=== PATIENT | female | born 1960 | race Caucasian/White ===

== ENCOUNTER 2020-01-07 14:04 | Emergency (ER) | payer OTHER ==
--- NOTE | 2020-01-07 14:25 | ER ---
Nurse's Notes [facility] Name: Sachin Vasquez Age: 59 yrs Sex: Female : 1960 Arrival Date: 01/07/2020 Time: 14:06 Bed Waiting Private MD: Eduardo Chávez Diagnosis: Presentation: 01/06 14:13 Chief complaint: Patient states: Weakness,Headache x 2 days, BP today 220/122. Pt ks7 denies dizziness, nausea. Coronavirus screen: Client denies travel out of the [place] in the last 14 days. At this time, the client does not indicate any symptoms associated with coronavirus-19. 14:13 Method Of Arrival: Ambulatory ks7 14:22 Note During triage pt BP 147/70. Pt decided she will just go home and monitor BP. Will ks7 come back if she has a XAVIER and BP elevated. Discussed risk of stroke if not being seen. PT acknowledged risk. Decided to go home. Left W/O Being seen. Vital Signs: 14:13 BP 146 / 76; Pulse 80; Resp 18; Temp 98.4(TE); Pulse Ox 100% on R/A; Pain 1/10; ks7 ED Course: 14:06 Patient arrived in ED. ag5 14:06 Eduardo Chávez MD is Private Physician. ag5 Administered Medications: No medications were administered Outcome: 14:25 Patient left the ED. ks7 Signatures: Padmini Wren ag5 Chery Pimentel, RN RN ks7
[2020-01-07 14:28] VITALS: BP 146/76; TEMP 98.4; O2SAT 100
== END 2020-01-07 14:25 | disposition left against medical advice (07) ==
LOC: ER 14:04
DX: Z02.9 Encounter for administrative examinations, unspecified (principal)
CPT/HCPCS: 99281

== ENCOUNTER 2022-01-22 02:10 | Emergency (ER) | payer BC, OTHER ==
--- OUTSIDE RECORDS SUMMARY | 2022-01-22 02:26 | XMS REPORT | Continuity of Care Document ---
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 Tablet by [facility] 25 MG 00:00: mouth 3 of tablet 00 times Medicin daily e (with meals). acarbose 2020-05 Yes [id number] 25mg Take 1 [facility] (PRECOSE) 0-21 Tablet by [facility] 25 MG 00:00: mouth 3 of tablet 00 times Medicin daily e (with meals). albuterol 0 Yes [place] [address] ([address] [place] [address]) 00:00: of mcg/act 00 Medicin inhaler e Pseudoeph-B 2020-0 Yes [facility] yvonnephen-DM 02-23 [place] 00:00: of MG/5ML SYRP 00 Medicin e albuterol 0 Yes [place] [address] ([address] [place] [address]) 00:00: of mcg/act 00 Medicin inhaler e Pseudoeph-B 2020-0 Yes [facility] yvonnephen-DM 02-23 [place] 00:00: of MG/5ML SYRP 00 Medicin e albuterol 2020-0 Yes [place] [address] ([address] [place] [address]) 00:00: of mcg/act 00 Medicin inhaler e Pseudoeph-B 2020-0 Yes [facility] romphen-DM 02-23 [place] 00:00: of MG/5ML SYRP 00 Medicin e albuterol 2020-0 Yes [place] [address] ([address] [place] [address]) 00:00: of mcg/act 00 Medicin inhaler e Pseudoeph-B 2020-0 Yes [facility] romphen-DM 02-23 [place] 00:00: of MG/5ML SYRP 00 Medicin e albuterol 2020-0 Yes [place] [address] ([address] [place] [address]) 00:00: of mcg/act 00 Medicin inhaler e Pseudoeph-B 2020-0 Yes [facility] romphen-DM 02-23 [place] 00:00: of MG/5ML SYRP 00 Medicin e albuterol 2020-0 Yes [facility] 108 ( 02-23 [facility]) 00:00: of mcg/act 00 Medicin inhaler e Pseudoeph-B 0 Yes [facility] romphen-DM 02-23 [place] 00:00: of MG/5ML SYRP 00 Medicin e albuterol 0 2021- No [facility] 108 ( 02-23 [facility]) 00:00: 00:00 of mcg/act 00 :00 Medicin inhaler e Pseudoeph-B 2020-2021- No [facility] romphen-DM 02-23 [place] 00:00: 00:00 of MG/5ML SYRP 00 :00 Medicin e albuterol 0 2021- No [facility] 108 ( 02-23 [facility]) 00:00: 00:00 of mcg/act 00 :00 Medicin inhaler e Pseudoeph-B 2020-0 2021- No [facility] romphen-DM 02-23 [place] 00:00: 00:00 of MG/5ML SYRP 00 :00 Medicin e celecoxib 2020-0 Yes [id number] 200mg Take 1 [facility] (CELEBREX) 9-20 capsule by [facility] 200 MG 00:00: mouth of capsule 00 daily. Medicin e celecoxib 2020-0 Yes [id number] 200mg Take 1 [facility] (CELEBREX) 9-20 capsule by [facility] 200 MG 00:00: mouth of capsule 00 daily. Medicin e celecoxib 2020-0 Yes [id number] 200mg Take 1 [facility] (CELEBREX) 9-20 capsule by [facility] 200 MG 00:00: mouth of capsule 00 daily. Medicin e celecoxib 2020-0 Yes [id number] 200mg Take 1 [facility] (CELEBREX) 9-20 capsule by [facility] 200 MG 00:00: mouth of capsule 00 daily. Medicin e celecoxib 2020-0 Yes [id number] 200mg Take 1 [facility] (CELEBREX) 9-20 capsule by [facility] 200 MG 00:00: mouth of capsule 00 daily. Medicin e celecoxib 2020-0 Yes [id number] 200mg Take 1 [facility] (CELEBREX) 9-20 capsule by [facility] 200 MG 00:00: mouth of capsule 00 daily. Medicin e celecoxib 2020-0 2- No [id number] 200mg Take 1 [facility] (CELEBREX) 9-20 05-25 capsule by [facility] 200 MG 00:00: 00:00 mouth of capsule 00 :00 daily. Medicin e celecoxib 2020-0 2- No [id number] 200mg Take 1 [facility] (CELEBREX) 9-20 05-25 capsule by [facility] 200 MG 00:00: 00:00 mouth of capsule 00 :00 daily. Medicin e levothyroxi 2020-0 Yes [id number] TAKE 1 [facility] ne 9-17 TABLET BY [place] (SYNTHROID) 00:00: MOUTH of 200 MCG 00 EVERY Medicin tablet DAY..PATIE e NT DUE FOR LABS AND OFFICE VISIT levothyroxi 2020-0 Yes [id number] TAKE 1 [facility] ne 9-17 TABLET BY [place] (SYNTHROID) 00:00: MOUTH of 200 MCG 00 EVERY Medicin tablet DAY..PATIE e NT DUE FOR LABS AND OFFICE VISIT levothyroxi 2020-0 Yes [id number] TAKE 1 [facility] ne 9-17 TABLET BY [place] (SYNTHROID) 00:00: MOUTH of 200 MCG 00 EVERY Medicin tablet DAY..PATIE e NT DUE FOR LABS AND OFFICE VISIT levothyroxi 2020-0 Yes [id number] TAKE 1 [facility] ne 9-17 TABLET BY [place] (SYNTHROID) 00:00: MOUTH of 200 MCG 00 EVERY Medicin tablet DAY..PATIE e NT DUE FOR LABS AND OFFICE VISIT levothyroxi 2020-0 Yes [id number] TAKE 1 [facility] ne 9-17 TABLET BY [place] (SYNTHROID) 00:00: MOUTH of 200 MCG 00 EVERY Medicin tablet DAY..PATIE e NT DUE FOR LABS AND OFFICE VISIT levothyroxi 2020-0 Yes [id number] TAKE 1 [facility] ne 9-17 TABLET BY [place] (SYNTHROID) 00:00: MOUTH of 200 MCG 00 EVERY Medicin tablet DAY..PATIE e NT DUE FOR LABS AND OFFICE VISIT levothyroxi 2020-0 Yes [id number] TAKE 1 [facility] 9-17 TABLET BY [place] (SYNTHROID) 00:00: MOUTH of 200 MCG 00 EVERY Medicin tablet DAY..PATIE e NT DUE FOR LABS AND OFFICE VISIT levothyroxi 202-0 Yes [id number] TAKE 1 [facility] ne 9-17 TABLET BY [place] (SYNTHROID) 00:00: MOUTH of 200 MCG 00 EVERY Medicin tablet DAY..PATIE e NT DUE FOR LABS AND OFFICE VISIT levothyroxi 202-0 Yes [id number] TAKE 1 [facility] 9-17 TABLET BY [place] (SYNTHROID) 00:00: MOUTH of 200 MCG 00 EVERY Medicin tablet DAY..PATIE e NT DUE FOR LABS AND OFFICE VISIT cyclobenzap 2020-0 Yes [facility] 01-26 [facility]) 00:00: of 5 MG tablet 00 Medicin e cyclobenzap 2020-0 Yes [facility] 01-26 [facility]) 00:00: of 5 MG tablet 00 Medicin e cyclobenzap 2020-0 Yes [facility] 01-26 [facility]) 00:00: of 5 MG tablet 00 Medicin e cyclobenzap 2020-0 Yes [facility] 01-26 [facility]) 00:00: of 5 MG tablet 00 Medicin e cyclobenzap 2020-0 Yes [facility] 01-26 [facility]) 00:00: of 5 MG tablet 00 Medicin e cyclobenzap 2020-0 Yes [facility] 01-26 [facility]) 00:00: of 5 MG tablet 00 Medicin e cyclobenzap 202-0 2022- No [facility] 01-26 [facility]) 00:00: 00:00 of 5 MG tablet 00 :00 Medicin e cyclobenzap 2021-0 2022- No [facility] 01-26 [facility]) 00:00: 00:00 of 5 MG tablet 00 :00 Medicin e Continuous 2020-0 Yes [id number] 1{each} 1 EACH [facility] Blood Gluc 8-31 EVERY 14 [facility] Sensor 00:00: DAYS. of (FREESTYLE 00 Medicin EMANUEL 14 e DAY SENSOR) MISC Continuous 2020-0 Yes [id number] 1{each} 1 EACH [facility] Blood Gluc 8-31 EVERY 14 [facility] Sensor 00:00: DAYS. of (FREESTYLE 00 Medicin EMANUEL 14 e DAY SENSOR) MISC Continuous Yes [id number] 1{each} 1 EACH [facility] Blood Gluc 8-31 EVERY 14 [facility] Sensor 00:00: DAYS. of (FREESTYLE 00 Medicin EMANUEL 14 e DAY SENSOR) MISC Continuous Yes [id number] 1{each} 1 EACH [facility] Blood Gluc 8-31 EVERY 14 [facility] Sensor 00:00: DAYS. of (FREESTYLE 00 Medicin EMANUEL 14 e DAY SENSOR) MISC Continuous Yes [id number] 1{each} 1 EACH [facility] Blood Gluc 8-31 EVERY 14 [facility] Sensor 00:00: DAYS. of (FREESTYLE 00 Medicin EMANUEL 14 e DAY SENSOR) MISC Continuous Yes [id number] 1{each} 1 EACH [facility] Blood Gluc 8-31 EVERY 14 [facility] Sensor 00:00: DAYS. of (FREESTYLE 00 Medicin EMANUEL 14 e DAY SENSOR) MISC Continuous Yes [id number] 1{each} 1 EACH [facility] Blood Gluc 8-31 EVERY 14 [facility] Sensor 00:00: DAYS. of (FREESTYLE 00 Medicin EMANUEL 14 e DAY SENSOR) MISC Continuous Yes [id number] 1{each} 1 EACH [facility] Blood Gluc 8-31 EVERY 14 [facility] Sensor 00:00: DAYS. of (FREESTYLE 00 Medicin EMANUEL 14 e DAY SENSOR) MISC Continuous Yes [id number] 1{each} 1 EACH [facility] Blood Gluc 8-31 EVERY 14 [facility] Sensor 00:00: DAYS. of (FREESTYLE 00 Medicin EMANUEL 14 e DAY SENSOR) MISC ibuprofen Yes [id number] 800mg TAKE 1 [facility] (MOTRIN) 8-23 9107 TABLET [facility] 800 mg 00:00: MOUTH of tablet 00 EVERY 8 Medicin HOURS e NEEDED FOR PAIN ibuprofen Yes [id number] 800mg TAKE 1 [facility] (MOTRIN) 8-23 9107 TABLET BY [facility] 800 mg 00:00: MOUTH of tablet 00 EVERY 8 Medicin HOURS e NEEDED FOR PAIN ibuprofen Yes [id number] 800mg TAKE 1 [facility] (MOTRIN) 8-23 9107 TABLET BY [facility] 800 mg 00:00: MOUTH of tablet 00 EVERY 8 Medicin HOURS e NEEDED FOR PAIN ibuprofen 2020-0 Yes [id number] 800mg TAKE 1 [facility] (MOTRIN) 8-23 9107 TABLET BY [facility] 800 mg 00:00: MOUTH of tablet 00 EVERY 8 Medicin HOURS e NEEDED FOR PAIN ibuprofen 2020-0 Yes [id number] 800mg TAKE 1 [facility] (MOTRIN) 8 9107 TABLET BY [facility] 800 mg 00:00: MOUTH of tablet 00 EVERY 8 Medicin HOURS e NEEDED FOR PAIN ibuprofen 2020-0 Yes [id number] 800mg TAKE 1 [facility] (MOTRIN) 8- 9107 TABLET BY [facility] 800 mg 00:00: MOUTH of tablet 00 EVERY 8 Medicin HOURS e NEEDED FOR PAIN ibuprofen 2020-0 Yes [id number] 800mg TAKE 1 [facility] (MOTRIN) 8- 9107 TABLET BY [facility] 800 mg 00:00: MOUTH of tablet 00 EVERY 8 Medicin HOURS e NEEDED FOR PAIN ibuprofen 2020-0 Yes [id number] 800mg TAKE 1 [facility] (MOTRIN) 8 9107 TABLET BY [facility] 800 mg 00:00: MOUTH of tablet 00 EVERY 8 Medicin HOURS e NEEDED FOR PAIN ibuprofen 2020-0 Yes [id number] 800mg TAKE 1 [facility] (MOTRIN) 8- 9107 TABLET BY [facility] 800 mg 00:00: MOUTH of tablet 00 EVERY 8 Medicin HOURS e NEEDED FOR PAIN Ergocalcife 2020-0 Yes TAKE 1 [facility] 1.25 MG 8-06 CAPSULE BY [facility] ([id number] [facility]) 00:00: MOUTH of CAPS 00 MONTHLY Medicin e Levocetiriz 2020-0 Yes [facility] renee 8-06 [facility] 00:00: of ride 5 MG 00 Medicin TABS e Ergocalcife 2020-0 Yes TAKE 1 [facility] 1.25 MG 8-06 CAPSULE BY [facility]jared ([id number] [place]) 00:00: MOUTH of CAPS 00 MONTHLY Medicin e Levocetiriz 2020-0 Yes [facility] 8-06 [facility] 00:00: of ride 5 MG 00 Medicin TABS e Ergocalcife 2020-0 Yes TAKE 1 [facility] 1.25 MG 8-06 CAPSULE [facility] ([id number] [facility]) 00:00: MOUTH of CAPS 00 MONTHLY Medicin e Levocetiriz 2021-0 Yes [facility] 8-06 [facility] 00:00: of ride 5 MG 00 Medicin TABS e Ergocalcife 2021-0 Yes TAKE 1 [facility] 1.25 MG 8-06 CAPSULE [facility] ([id number] [facility]) 00:00: MOUTH of CAPS 00 MONTHLY Medicin e Levocetiriz 2021-0 Yes [facility] 8-06 [facility] 00:00: of ride 5 MG 00 Medicin TABS e Ergocalcife 2021-0 Yes TAKE 1 [facility] 1.25 MG 8-06 CAPSULE BY [facility] ([id number] [facility]) 00:00: MOUTH of CAPS 00 MONTHLY Medicin e Levocetiriz 2021-0 Yes [facility] 8-06 [facility] 00:00: of ride 5 MG 00 Medicin TABS e Ergocalcife 2021-0 Yes TAKE 1 [facility] 1.25 MG 8-06 CAPSULE BY [facility] ([id number] [facility]) 00:00: MOUTH of CAPS 00 MONTHLY Medicin e Levocetiriz 1-0 Yes [facility] 8-06 [facility] 00:00: of ride 5 MG 00 Medicin TABS e Ergocalcife 2021-0 Yes TAKE 1 [facility] 1.25 MG 8-06 CAPSULE BY [facility] ([id number] [facility]) 00:00: MOUTH of CAPS 00 MONTHLY Medicin e Ergocalcife 2021-0 Yes TAKE 1 [facility] 1.25 MG 8-06 CAPSULE BY [facility] ([id number] [facility]) 00:00: MOUTH of CAPS 00 MONTHLY Medicin e Ergocalcife 1-0 Yes TAKE 1 [facility] 1.25 MG 8-06 CAPSULE BY [facility] ([id number] [facility]) 00:00: MOUTH of CAPS 00 MONTHLY Medicin e Levocetiriz 2021-0 2- No [facility] 8-06 0525 [facility] 00:00: 00:00 of ride 5 MG 00 :00 Medicin TABS e Levocetiriz 2021-0 2- No [facility] 8-06 05-25 [facility] 00:00: 00:00 of ride 5 MG 00 :00 Medicin TABS e valsartan Yes TAKE 1 [facility] (DIOVAN) 7-23 TABLET [facility] 320 MG 00:00: MOUTH of tablet 00 EVERY DAY Medicin e valsartan Yes TAKE 1 [facility] (DIOVAN) 7-23 TABLET BY [facility] 320 MG 00:00: MOUTH of tablet 00 EVERY DAY Medicin e valsartan Yes TAKE 1 [facility] (DIOVAN) 7-23 TABLET [facility] 320 MG 00:00: MOUTH of tablet 00 EVERY DAY Medicin e valsartan Yes TAKE 1 [facility] (DIOVAN) 7-23 TABLET BY [facility] 320 MG 00:00: MOUTH of tablet 00 EVERY DAY Medicin e valsartan Yes TAKE 1 [facility] (DIOVAN) 7-23 TABLET BY [facility] 320 MG 00:00: MOUTH of tablet 00 EVERY DAY Medicin e valsartan Yes TAKE 1 [facility] (DIOVAN) 7-23 TABLET BY [facility] 320 MG 00:00: MOUTH of tablet 00 EVERY DAY Medicin e valsartan Yes TAKE 1 [facility] (DIOVAN) 7-23 TABLET [facility] 320 MG 00:00: MOUTH of tablet 00 EVERY DAY Medicin e valsartan 0 Yes TAKE 1 [facility] (DIOVAN) 7-23 TABLET BY [facility] 320 MG 00:00: MOUTH of tablet 00 EVERY DAY Medicin e valsartan Yes TAKE 1 [facility] (DIOVAN) 7-23 TABLET [facility] 320 MG 00:00: MOUTH of tablet 00 EVERY DAY Medicin e metformin 0 Yes [id number] 500mg Take 1 [facility] (GLUCOPHAGE 7-20 Tablet by [facility] -XR) 500 MG 00:00: mouth two o f XR tablet 00 times Medicin daily. e Take with food. Empaglifloz Yes [id number] 25mg Take 25 mg [facility] in 7-20 by mouth [place] (JARDIANCE) 00:00: daily. of 25 MG TABS 00 Medicin e metformin 2021-0 Yes [id number] 500mg Take 1 [facility] (GLUCOPHAGE 7-20 Tablet by Col [facility] -XR) 500 MG 00:00: mouth two o f XR tablet 00 times Medicin daily. e Take with food. Empaglifloz 2020-0 Yes [id number] 25mg Take 25 mg [facility] in 7-20 by mouth [place] (JARDIANCE) 00:00: daily. of 25 MG TABS 00 Medicin e metformin 2020-0 Yes [id number] 500mg Take 1 [facility] (GLUCOPHAGE 7-20 Tablet by [facility] -XR) 500 MG 00:00: mouth two o f XR tablet 00 times Medicin daily. e Take with food. Empaglifloz 2020-0 Yes [id number] 25mg Take 25 mg [facility] in 7-20 by mouth [place] ([place]ARDIANCE) 00:00: daily. of 25 MG TABS 00 Medicin e metformin 2020-0 Yes [id number] 500mg Take 1 [facility] (GLUCOPHAGE 7-20 Tablet by [facility] -XR) 500 MG 00:00: mouth two o f XR tablet 00 times Medicin daily. e Take with food. Empaglifloz 2020-0 Yes [id number] 25mg Take 25 mg [facility] in 7-20 by mouth [place] ([place]) 00:00: daily. of 25 MG TABS 00 Medicin e metformin 2020-0 Yes [id number] 500mg Take 1 [facility] (GLUCOPHAGE 7-20 Tablet by [facility] -XR) 500 MG 00:00: mouth two o f XR tablet 00 times Medicin daily. e Take with food. Empaglifloz 2020-0 Yes [id number] 25mg Take 25 mg [facility] in 7-20 by mouth [place] ([place]ANCE) 00:00: daily. of 25 MG TABS 00 Medicin e metformin 2020-0 Yes [id number] 500mg Take 1 [facility] (GLUCOPHAGE 7-20 Tablet by [facility] -XR) 500 MG 00:00: mouth two o f XR tablet 00 times Medicin daily. e Take with food. Empaglifloz 2020-0 Yes [id number] 25mg Take 25 mg [facility] in 7-20 by mouth [place] ([place]) 00:00: daily. of 25 MG TABS 00 Medicin e metformin 2020-0 Yes [id number] 500mg Take 1 [facility] (GLUCOPHAGE 7-20 Tablet by [facility] -XR) 500 MG 00:00: mouth two o f XR tablet 00 times Medicin daily. e Take with food. Empaglifloz 2020-0 Yes [id number] 25mg Take 25 mg [facility] in 7-20 by mouth [facility] ([place]) 00:00: daily. of 25 MG TABS 00 Medicin e metformin 2020-0 Yes [id number] 500mg Take 1 [facility] (GLUCOPHAGE 7-20 Tablet by [facility] -XR) 500 MG 00:00: mouth two o f XR tablet 00 times Medicin daily. e Take with food. Empaglifloz 2020-0 Yes [id number] 25mg Take 25 mg [facility] in 7-20 by mouth [place] ([place]) 00:00: daily. of 25 MG TABS 00 Medicin e metformin 2020-0 Yes [id number] 500mg Take 1 [facility] (GLUCOPHAGE 7-20 Tablet by [facility] -XR) 500 MG 00:00: mouth two o f XR tablet 00 times Medicin daily. e Take with food. Empaglifloz 0 Yes [id number] 25mg Take 25 mg [facility] in 7-20 by mouth [place] ([place]) 00:00: daily. of 25 MG TABS 00 Medicin e celecoxib 2020- Yes [id number] TAKE 1 [facility] (CELEBREX) 12-03 CAPSULE BY [facility] 200 MG 00:00: MOUTH of capsule 00 EVERY DAY Medicin e triamcinolo 2020- No [id number] [facility] 11-[address] [place] [address] 13:45: 13:39 of (KENALOG-40 00 :00 Medicin ) 40 mg/mL e 40 mg, lidocaine 1% (10 mg/mL) 1 mL, bupivacaine (MARCAINE) 0.5 % 1 mL triamcinolo 2020- No [id number] Intra-ta [facility] 13:45: 13:39 ONCE, 1 of (KENALOG-40 00 :00 dose, On Medi shruthi ) 40 mg/mL [place] 11/25/20 e 40 mg, at 0845 lidocaine 1% (10 mg/mL) 1 mL, bupivacaine (MARCAINE) 0.5 % 1 mL [place]-3 Yes Take by [facility] Fatty Acids 11-25 mouth. [facility] (OMEGA 3 08:37: of [place]) 16 Medicin e [place]-3 Yes Take by [facility] Fatty Acids 11-25 mouth. [facility] (OMEGA 3 08:37: of [place]) 16 Medicin e [place]-3 Yes Take by [facility] Fatty Acids 11-25 mouth. [facility] (OMEGA 3 08:37: of [place]) 16 Medicin e ibuprofen 0 Yes [id number] 800mg Take 1 [facility] (MOTRIN) 11-25 9107 Tablet by [facility] 800 mg 00:00: mouth of tablet 00 every 8 Medicin hours as e needed for Pain. ibuprofen Yes [id number] 800mg Take 1 [facility] (MOTRIN) 11-25 9107 Tablet by [facility] 800 mg 00:00: mouth of tablet 00 every 8 Medicin hours as e needed for Pain. levothyroxi 0 Yes [id number] TAKE 1 [facility] ne 6-13 TABLET BY [place] (SYNTHROID) 00:00: MOUTH of 200 MCG 00 EVERY Medicin tablet DAY..PATIE e NT DUE FOR LABS AND OFFICE VISIT levothyroxi 2020-0 Yes [id number] TAKE 1 [facility] ne 6-13 TABLET BY [place] (SYNTHROID) 00:00: MOUTH of 200 MCG 00 EVERY Medicin tablet DAY..PATIE e NT DUE FOR LABS AND OFFICE VISIT levothyroxi 2020-0 Yes [id number] TAKE 1 [facility] ne 6-13 TABLET BY [place] (SYNTHROID) 00:00: MOUTH of 200 MCG 00 EVERY Medicin tablet DAY..PATIE e NT DUE FOR LABS AND OFFICE VISIT levothyroxi 2020-0 Yes [id number] TAKE 1 [facility] ne 6-13 TABLET BY [place] (SYNTHROID) 00:00: MOUTH of 200 MCG 00 EVERY Medicin tablet DAY..PATIE e NT DUE FOR LABS AND OFFICE VISIT levothyroxi 2020-0 Yes [id number] TAKE 1 [facility] ne 6-13 TABLET BY [place] (SYNTHROID) 00:00: MOUTH of 200 MCG 00 EVERY Medicin tablet DAY..PATIE e NT DUE FOR LABS AND OFFICE VISIT celecoxib 2020-0 Yes [id number] TAKE 1 [facility] (CELEBREX) 6-11 CAPSULE BY [facility] 200 MG 00:00: MOUTH of capsule 00 TWICE A Medicin DAY FOR 5 e DAYS POST-OP THEN TAKE 1 [facility]SULE DAILY NEEDED FOR PAIN celecoxib 2020-0 Yes [id number] TAKE 1 [facility] (CELEBREX) 6-11 CAPSULE BY [facility] 200 MG 00:00: MOUTH of capsule 00 TWICE A Medicin DAY FOR 5 e DAYS POST-OP THEN TAKE 1 [facility] DAILY NEEDED FOR PAIN celecoxib 2020-0 Yes [id number] TAKE 1 [facility] (CELEBREX) 6-11 CAPSULE BY [facility] 200 MG 00:00: MOUTH of capsule 00 TWICE A Medicin DAY FOR 5 e DAYS POST-OP THEN TAKE 1 [facility] DAILY NEEDED FOR PAIN celecoxib 2020-0 Yes [id number] TAKE 1 [facility] (CELEBREX) 6-11 CAPSULE BY [facility] 200 MG 00:00: MOUTH of capsule 00 TWICE A Medicin DAY FOR 5 e DAYS POST-OP THEN TAKE 1 [facility] DAILY NEEDED FOR PAIN pravastatin 2020-0 Yes 20mg Take 1 [facility] (PRAVACHOL) 6-01 Tablet by [facility] 20 MG 00:00: mouth of tablet 00 daily. Medicin e pravastatin 2020-0 Yes 20mg Take 1 [facility] (PRAVACHOL) 6-01 Tablet by [facility] 20 MG 00:00: mouth of tablet 00 daily. Medicin e pravastatin 2020-0 Yes 20mg Take 1 [facility] (PRAVACHOL) 6-01 Tablet by [facility] 20 MG 00:00: mouth of tablet 00 daily. Medicin e pravastatin 2020-0 Yes 20mg Take 1 [facility] (PRAVACHOL) 6-01 Tablet by [facility] 20 MG 00:00: mouth of tablet 00 daily. Medicin e pravastatin 2020-0 Yes 20mg Take 1 [facility] (PRAVACHOL) 6-01 Tablet by [facility] 20 MG 00:00: mouth of tablet 00 daily. Medicin e pravastatin 2020-0 Yes 20mg Take 1 [facility] (PRAVACHOL) 6-01 Tablet by [facility] 20 MG 00:00: mouth of tablet 00 daily. Medicin e ibuprofen 2020-0 Yes TAKE 1 [facility] (MOTRIN) 5-31 TABLET BY [facility] 800 mg 00:00: MOUTH of tablet 00 EVERY 8 Medicin HOURS e NEEDED FOR PAIN ibuprofen 0 Yes TAKE 1 [facility] (MOTRIN) 5-31 TABLET BY [place] 800 mg 00:00: MOUTH of tablet 00 EVERY 8 Medicin HOURS e NEEDED FOR PAIN Insulin Yes [id number] 90 units [facility] 5-27 at night [facility] (TRESIBA 00:00: and 30 of FLEXTOUCH) 00 units in Medic in 200 UNIT/ML the e SOPN morning Insulin Yes [id number] 90 units [facility] 5-27 at night [facility] ([place] 00:00: and 30 of FLEXTOUCH) 00 units in Medic in 200 UNIT/ML the e SOPN morning Insulin Yes [id number] 90 units [facility] 5-27 at night [facility] ([facility]A 00:00: and 30 of FLEXTOUCH) 00 units in Medic in 200 UNIT/ML the e SOPN morning Insulin Yes [id number] 90 units [facility] 5-27 at night [facility] ([facility] 00:00: and 30 of FLEXTOUCH) 00 units in Medic in 200 UNIT/ML the e SOPN morning Insulin Yes [id number] 90 units [facility] 5-27 at night [facility] ([facility] 00:00: and 30 of FLEXTOUCH) 00 units in Medic in 200 UNIT/ML the e SOPN morning Insulin Yes [id number] 90 units [facility] 5-27 at night [facility] ([facility] 00:00: and 30 of FLEXTOUCH) 00 units in Medic in 200 UNIT/ML the e SOPN morning Insulin Yes [id number] 90 units [facility] 5-27 at night [facility] ([facility] 00:00: and 30 of FLEXTOUCH) 00 units in Medic in 200 UNIT/ML the e SOPN morning Insulin Yes [id number] 90 units [facility] 5-27 at night [facility] ([facility] 00:00: and 30 of FLEXTOUCH) 00 units in Medic in 200 UNIT/ML the e SOPN morning Insulin Yes [id number] 90 units [facility] 5-27 at night [facility] ([facility] 00:00: and 30 of FLEXTOUCH) 00 units in Medic in 200 UNIT/ML the e SOPN morning Insulin 2020-0 Yes [id number] 90 units [facility] 5-27 at night [facility] ([facility] 00:00: and 30 of FLEXTOUCH) 00 units in Medic in 200 UNIT/ML the e SOPN morning Insulin 2020-0 Yes [id number] 90 units [facility] 5-27 at night [facility] ([facility] 00:00: and 30 of FLEXTOUCH) 00 units in Medic in 200 UNIT/ML the e SOPN morning Insulin 2020-0 Yes [id number] 90 units [facility] 5-27 at night [facility] ([facility] 00:00: and 30 of FLEXTOUCH) 00 units in Medic in 200 UNIT/ML the e SOPN morning Insulin 2020-0 Yes [id number] 90 units [facility] 5-27 at night [facility] ([facility] 00:00: and 30 of FLEXTOUCH) 00 units in Medic in 200 UNIT/ML the e SOPN morning Insulin 2020-0 Yes [id number] 90 units [facility] 5-27 at night [facility] ([facility] 00:00: and 30 of FLEXTOUCH) 00 units in Medic in 200 UNIT/ML the e SOPN morning Insulin 2020-0 Yes [id number] 90 units [facility] 5-27 at night [facility] ([place] 00:00: and 30 of FLEXTOUCH) 00 units in Medic in 200 UNIT/ML the e SOPN morning Empaglifloz 2020-0 Yes [id number] 10mg Take 10 mg [facility] in 5-17 by mouth [place] ([place]) 00:00: daily. of 10 MG TABS 00 Medicin e metformin 2020-0 Yes [id number] 500mg Take 1 [facility] (GLUCOPHAGE 5-17 Tablet by [facility] -XR) 500 MG 00:00: mouth of XR tablet 00 daily. Medicin Take with e food. Empaglifloz 2020-0 Yes [id number] 10mg Take 10 mg [facility] in 5-17 by mouth [place] ([place]) 00:00: daily. of 10 MG TABS 00 Medicin e metformin 2021-0 Yes [id number] 500mg Take 1 [facility] (GLUCOPHAGE 5-17 Tablet by Col [facility] -XR) 500 MG 00:00: mouth of XR tablet 00 daily. Medicin Take with e food. Empaglifloz 2020-0 Yes [id number] 10mg Take 10 mg [facility] in 5-17 by mouth [facility] ([facility]) 00:00: daily. of 10 MG TABS 00 Medicin e metformin 2020-0 Yes [id number] 500mg Take 1 [facility] (GLUCOPHAGE 5-17 Tablet by [facility] -XR) 500 MG 00:00: mouth of XR tablet 00 daily. Medicin Take with e food. Empaglifloz 2020-0 Yes [id number] 10mg Take 10 mg [facility] in 5-17 by mouth [facility] ([place]) 00:00: daily. of 10 MG TABS 00 Medicin e metformin 2020-0 Yes [id number] 500mg Take 1 [facility] (GLUCOPHAGE 5-17 Tablet by [facility] -XR) 500 MG 00:00: mouth of XR tablet 00 daily. Medicin Take with e food. Empaglifloz 2020-0 Yes [id number] 10mg Take 10 mg [facility] in 5-17 by mouth [facility] ([place]) 00:00: daily. of 10 MG TABS 00 Medicin e metformin 2020-0 Yes [id number] 500mg Take 1 [facility] (GLUCOPHAGE 5-17 Tablet by [facility] -XR) 500 MG 00:00: mouth of XR tablet 00 daily. Medicin Take with e food. Empaglifloz 2020-0 Yes [id number] 10mg Take 10 mg [facility] in 5-17 by mouth [facility] ([place]) 00:00: daily. of 10 MG TABS 00 Medicin e metformin 2020-0 Yes [id number] 500mg Take 1 [facility] (GLUCOPHAGE 5-17 Tablet by [facility] -XR) 500 MG 00:00: mouth of XR tablet 00 daily. Medicin Take with e food. Empaglifloz 2020-0 Yes [id number] 10mg Take 10 mg [facility] in 5-17 by mouth [facility] ([place]) 00:00: daily. of 10 MG TABS 00 Medicin e metformin 2020-0 Yes [id number] 500mg Take 1 [facility] (GLUCOPHAGE 5-17 Tablet by [facility] -XR) 500 MG 00:00: mouth of XR tablet 00 daily. Medicin Take with e food. Empaglifloz 2020-0 Yes [id number] 10mg Take 10 mg [facility] in 5-17 by mouth [place] ([place]) 00:00: daily. of 10 MG TABS 00 Medicin e metformin 2020-0 Yes [id number] 500mg Take 1 [facility] (GLUCOPHAGE 5-17 Tablet by [facility] -XR) 500 MG 00:00: mouth of XR tablet 00 daily. Medicin Take with e food. cyclobenzap 2020-0 Yes [id number] 5mg Take 1 [facility] rine 5-04 Tablet by [place] (FLEXERIL) 00:00: mouth 3 of 5 MG tablet 00 times Medicin daily as e needed. celecoxib 2020-0 Yes [id number] 200mg Take 1 [facility] (CELEBREX) 5-04 capsule by [facility] 200 MG 00:00: mouth of capsule 00 daily. Medicin e hydrocodone 2020-0 Yes [id number] 1{tbl} Take 1 [facility] -acetaminop 5-04 Tablet by [facility] (NORCO) 00:00: mouth of 5-325 mg 00 every 4 Medicin tablet hours as e needed for Pain. cyclobenzap 2020-0 Yes [id number] 5mg Take 1 [facility] rine 5-04 Tablet by [place] (FLEXERIL) 00:00: mouth 3 of 5 MG tablet 00 times Medicin daily as e needed. celecoxib 2020-0 Yes [id number] 200mg Take 1 [facility] (CELEBREX) 5-04 capsule by [facility] 200 MG 00:00: mouth of capsule 00 daily. Medicin e hydrocodone 2020-0 Yes [id number] 1{tbl} Take 1 [facility] -acetaminop 5-04 Tablet by [facility] (NORCO) 00:00: mouth of 5-325 mg 00 every 4 Medicin tablet hours as e needed for Pain. cyclobenzap 2020-0 Yes [id number] 5mg Take 1 [facility] rine 5-04 Tablet by [place] (FLEXERIL) 00:00: mouth 3 of 5 MG tablet 00 times Medicin daily as e needed. celecoxib 2020-0 Yes [id number] 200mg Take 1 [facility] (CELEBREX) 5-04 capsule by [facility] 200 MG 00:00: mouth of capsule 00 daily. Medicin e hydrocodone 2020-0 Yes [id number] 1{tbl} Take 1 [facility] -acetaminop 5-04 Tablet by [facility] (NORCO) 00:00: mouth of 5-325 mg 00 every 4 Medicin tablet hours as e needed for Pain. cyclobenzap 2020-0 Yes [id number] 5mg Take 1 [facility] rine 5-04 Tablet by [place] ([facility]) 00:00: mouth 3 of 5 MG tablet 00 times Medicin daily as e needed. celecoxib 2020-0 Yes [id number] 200mg Take 1 [facility] (CELEBREX) 5-04 capsule by [facility] 200 MG 00:00: mouth of capsule 00 daily. Medicin e hydrocodone 2020-0 Yes [id number] 1{tbl} Take 1 [facility] -acetaminop 5-04 Tablet by [facility] ([employer]) 00:00: mouth of 5-325 mg 00 every 4 Medicin tablet hours as e needed for Pain. cyclobenzap 2020-0 Yes [id number] 5mg Take 1 [facility] rine 5-04 Tablet by [place] ([facility]) 00:00: mouth 3 of 5 MG tablet 00 times Medicin daily as e needed. hydrocodone 2020-0 Yes [id number] 1{tbl} Take 1 [facility] -acetaminop 5-04 Tablet by [facility] ([employer]) 00:00: mouth of 5-325 mg 00 every 4 Medicin tablet hours as e needed for Pain. cyclobenzap 2020-0 Yes [id number] 5mg Take 1 [facility] rine 5-04 Tablet by [place] ([facility]) 00:00: mouth 3 of 5 MG tablet 00 times Medicin daily as e needed. hydrocodone 2020-0 Yes [id number] 1{tbl} Take 1 [facility] -acetaminop 5-04 Tablet by [facility] ([facility]) 00:00: mouth of 5-325 mg 00 every 4 Medicin tablet hours as e needed for Pain. cyclobenzap 2020-0 Yes [id number] 5mg Take 1 [facility] rine 5-04 Tablet by [place] ([facility]) 00:00: mouth 3 of 5 MG tablet 00 times Medicin daily as e needed. hydrocodone 2020-0 Yes [id number] 1{tbl} Take 1 [facility] -acetaminop 5-04 Tablet by [facility] (NORCO) 00:00: mouth of 5-325 mg 00 every 4 Medicin tablet hours as e needed for Pain. cyclobenzap 2020-0 Yes [id number] 5mg Take 1 [facility] rine 5-04 Tablet by [place] (FLEXERI) 00:00: mouth 3 of 5 MG tablet 00 times Medicin daily as e needed. hydrocodone 2020-0 Yes [id number] 1{tbl} Take 1 [facility] -acetaminop 5-04 Tablet by [facility] ([facility]) 00:00: mouth of 5-325 mg 00 every 4 Medicin tablet hours as e needed for Pain. cyclobenzap Yes [id number] 5mg Take 1 [facility] rine 5-04 Tablet by [place] (FLEXERIL) 00:00: mouth 3 of 5 MG tablet 00 times Medicin daily as e needed. hydrocodone Yes [id number] 1{tbl} Take 1 [facility] -acetaminop 5-04 Tablet by [facility] (NORAK) 00:00: mouth of 5-325 mg 00 every 4 Medicin tablet hours as e needed for Pain. Insulin 0 Yes [id number] 35U 35 Units 3 [facility] Aspart 4-29 times College (NOVOLOG 00:00: daily of FLEXPEN) 00 (with Medicin 100 UNIT/ML meals). e SOPN Insulin 2020-0 Yes [id number] 35U 35 Units 3 [facility] 4-29 times [facility] (NOVOLOG 00:00: daily of FLEXPEN) 00 (with Medicin 100 UNIT/ML meals). e SOPN Insulin 2020-0 Yes [id number] 35U 35 Units 3 [facility] 4-29 times [facility] (NOVOLOG 00:00: daily of FLEXPEN) 00 (with Medicin 100 UNIT/ML meals). e SOPN Insulin 2020-0 Yes [id number] 35U 35 Units 3 [facility] 4-29 times [facility] (NOVOLOG 00:00: daily of FLEXPEN) 00 (with Medicin 100 UNIT/ML meals). e SOPN Insulin 2020-0 Yes [id number] 35U 35 Units 3 [facility] 4-29 times [facility] (NOVOLOG 00:00: daily of FLEXPEN) 00 (with Medicin 100 UNIT/ML meals). e SOPN Insulin 2020-0 Yes [id number] 35U 35 Units 3 [facility] 4-29 times [facility] (NOVOLOG 00:00: daily of FLEXPEN) 00 (with Medicin 100 UNIT/ML meals). e SOPN Insulin 2020-0 Yes [id number] 35U 35 Units 3 [facility] 4-29 times [facility] (NOVOLOG 00:00: daily of FLEXPEN) 00 (with Medicin 100 UNIT/ML meals). e SOPN Insulin 2020-0 Yes [id number] 35U 35 Units 3 [facility] 4-29 times [facility] (NOVOLOG 00:00: daily of FLEXPEN) 00 (with Medicin 100 UNIT/ML meals). e SOPN Insulin 2020-0 Yes [id number] 35U 35 Units 3 [facility] 4-29 times [facility] (NOVOLOG 00:00: daily of FLEXPEN) 00 (with Medicin 100 UNIT/ML meals). e SOPN Insulin 2020-0 Yes [id number] 35U 35 Units 3 [facility] 4-29 times [facility] (NOVOLOG 00:00: daily of FLEXPEN) 00 (with Medicin 100 UNIT/ML meals). e SOPN Insulin 2020-0 Yes [id number] 35U 35 Units 3 [facility] 4-29 times [facility] (NOVOLOG 00:00: daily of FLEXPEN) 00 (with Medicin 100 UNIT/ML meals). e SOPN Insulin 2020-0 Yes [id number] 35U 35 Units 3 [facility] 4-29 times [facility] (NOVOLOG 00:00: daily of FLEXPEN) 00 (with Medicin 100 UNIT/ML meals). e SOPN Insulin 2020-0 Yes [id number] 35U 35 Units 3 [facility] 4-29 times [facility] (NOVOLOG 00:00: daily of FLEXPEN) 00 (with Medicin 100 UNIT/ML meals). e SOPN Insulin 202-0 Yes [id number] 35U 35 Units 3 [facility] 4-29 times [facility] (NOVOLOG 00:00: daily of FLEXPEN) 00 (with Medicin 100 UNIT/ML meals). e SOPN Insulin 2020-0 Yes [id number] 35U 35 Units 3 [facility] 4-29 times [facility] (NOVOLOG 00:00: daily of FLEXPEN) 00 (with Medicin 100 UNIT/ML meals). e SOPN Insulin 2020-0 Yes [id number] 35U 35 Units 3 [facility] 4-29 times [facility] (NOVOLOG 00:00: daily of FLEXPEN) 00 (with Medicin 100 UNIT/ML meals). e SOPN Insulin 2020-0 2- No [id number] 35U 35 Units 3 [facility] 4-29 05-25 times College (NOVOLOG 00:00: 00:00 daily of FLEXPEN) 00 :00 (with Medicin 100 UNIT/ML meals). e SOPN Insulin 2020-0 2- No [id number] 35U 35 Units 3 [facility] 4-29 05-25 times College (NOVOLOG 00:00: 00:00 daily of FLEXPEN) 00 :00 (with Medicin 100 UNIT/ML meals). e SOPN cyclobenzap 2020-0 Yes [id number] 5mg Take 1 [facility] rine 4-21 Tablet by [place] [facility] mouth 3 of 5 MG tablet 00 times Medicin daily as e needed. hydrocodone 2020-0 Yes 1{tbl} Take 1 [facility] -acetaminop 4-21 Tablet by [facility] ([facility]) 00:00: mouth of 5-325 mg 00 every 4 Medicin tablet hours as e needed for Pain. cyclobenzap 2020-0 Yes [id number] 5mg Take 1 [facility] rine 4-21 Tablet by [place] ([facility]) 00:00: mouth 3 of 5 MG tablet 00 times Medicin daily as e needed. hydrocodone 2020-0 Yes 1{tbl} Take 1 [facility] -acetaminop 4-21 Tablet by [facility] ([facility]CO) 00:00: mouth of 5-325 mg 00 every 4 Medicin tablet hours as e needed for Pain. cyclobenzap 2020-0 Yes [id number] 5mg Take 1 [facility] rine 4-21 Tablet by [place] (FLEXERI) 00:00: mouth 3 of 5 MG tablet 00 times Medicin daily as e needed. hydrocodone 2020-0 Yes 1{tbl} Take 1 [facility] -acetaminop 4-21 Tablet by [facility] ([facility]) 00:00: mouth of 5-325 mg 00 every 4 Medicin tablet hours as e needed for Pain. hydrocodone Yes 1{tbl} Take 1 [facility] -acetaminop 4-21 Tablet by [facility] (NORAK) 00:00: mouth of 5-325 mg 00 every 4 Medicin tablet hours as e needed for Pain. cyclobenzap 202- No [id number] 5mg Take 1 [facility] rine 4-21 05-04 Tablet by [place] [facility] 00:00: 00:00 mouth 3 of 5 MG tablet 00 :00 times Medicin daily as e needed. [place]-3 Yes Take by [employer] 4-20 mouth. [facility] ([place] 3 13:21: of [place]) 42 Medicin e [place]-3 Yes Take by [employer] 4-20 mouth. [facility] ([place] 3 13:21: of [place]) 42 Medicin e [place]-3 Yes Take by [employer] 4-20 mouth. [facility] ([place] 3 13:21: of [place]) 42 Medicin e [place]-3 Yes Take by [employer] 4-20 mouth. [facility] ([place] 3 13:21: of [place]) 42 Medicin e [place]-3 Yes Take by [employer] 4-20 mouth. [facility] ([place] 3 08:21: of [place]) 42 Medicin e [place]-3 Yes Take by [employer] 4-20 mouth. [facility] ([place] 3 08:21: of [place]) 42 Medicin e [place]-3 Yes Take by [employer] 4-20 mouth. [facility] ([place] 3 08:21: of [place]) 42 Medicin e [place]-3 Yes Take by [employer] 4-20 mouth. [facility] ([place] 3 08:21: of [place]) 42 Medicin e [place]-3 Yes Take by [employer] 4-20 mouth. [facility] ([place] 3 08:21: of [place]) 42 Medicin e [place]-3 Yes Take by [employer] 4-20 mouth. Colleg e ([place] 3 08:21: of [place]) 42 Medicin e oxycodone-a Yes 1{tbl} Take 1 [facility] cetaminophe 4-15 Tablet by [facility] n 00:00: mouth of (PERCOCET) 00 every 4 Medici n 5-325 MG hours as e per tablet needed for Pain. celecoxib Yes 200mg Take 1 [facility] (CELEBREX) 4-15 capsule by [facility] 200 MG 00:00: mouth of capsule 00 daily. 1 Medicin capsule 2x e daily x5 days postop then daily as needed for pain oxycodone-a Yes 1{tbl} Take 1 [facility] cetaminophe 4-15 Tablet by [facility] n 00:00: mouth of (PERCOCET) 00 every 4 Medici n 5-325 MG hours as e per tablet needed for Pain. celecoxib Yes 200mg Take 1 [facility] (CELEBREX) 4-15 capsule by [facility] 200 MG 00:00: mouth of capsule 00 daily. 1 Medicin capsule 2x e daily x5 days postop then daily as needed for pain oxycodone-a Yes 1{tbl} Take 1 [facility] cetaminophe 4-15 Tablet by [facility] n 00:00: mouth of (PERCOCET) 00 every 4 Medici n 5-325 MG hours as e per tablet needed for Pain. celecoxib Yes 200mg Take 1 [facility] (CELEBREX) 4-15 capsule by [facility] 200 MG 00:00: mouth of capsule 00 daily. 1 Medicin capsule 2x e daily x5 days postop then daily as needed for pain oxycodone-a Yes 1{tbl} Take 1 [facility] cetaminophe 4-15 Tablet by [facility] n 00:00: mouth of (PERCOCET) 00 every 4 Medici n 5-325 MG hours as e per tablet needed for Pain. oxycodone-a Yes 1{tbl} Take 1 [facility] cetaminophe 4-15 Tablet by [facility] n 00:00: mouth of (PERCOCET) 00 every 4 Medici n 5-325 MG hours as e per tablet needed for Pain. oxycodone-a Yes 1{tbl} Take 1 [facility] cetaminophe 4-15 Tablet by [facility] n 00:00: mouth of (PERCOCET) 00 every 4 Medici n 5-325 MG hours as e per tablet needed for Pain. oxycodone-a Yes 1{tbl} Take 1 [facility] cetaminophe 4-15 Tablet by [facility] n 00:00: mouth of (PERCOCET) 00 every 4 Medici n 5-325 MG hours as e per tablet needed for Pain. oxycodone-a Yes 1{tbl} Take 1 [facility] cetaminophe 4-15 Tablet by [facility] n 00:00: mouth of (PERCOCET) 00 every 4 Medici n 5-325 MG hours as e per tablet needed for Pain. oxycodone-a Yes 1{tbl} Take 1 [facility] cetaminophe 4-15 Tablet by [facility] n 00:00: mouth of (PERCOCET) 00 every 4 Medici n 5-325 MG hours as e per tablet needed for Pain. oxycodone-a Yes 1{tbl} Take 1 [facility] cetaminophe 4-15 Tablet by [facility] n 00:00: mouth of (PERCOCET) 00 every 4 Medici n 5-325 MG hours as e per tablet needed for Pain. oxycodone-a Yes 1{tbl} Take 1 [facility] cetaminophe 4-15 Tablet by [facility] n 00:00: mouth of (PERCOCET) 00 every 4 Medici n 5-325 MG hours as e per tablet needed for Pain. oxycodone-a Yes 1{tbl} Take 1 [facility] cetaminophe 4-15 Tablet by [facility] n 00:00: mouth of (PERCOCET) 00 every 4 Medici n 5-325 MG hours as e per tablet needed for Pain. oxycodone-a Yes 1{tbl} Take 1 [facility] cetaminophe 4-15 Tablet by [facility] n 00:00: mouth of (PERCOCET) 00 every 4 Medici n 5-325 MG hours as e per tablet needed for Pain. celecoxib 2020- No 200mg Take 1 [facility] (CELEBREX) 4-15 05-04 capsule by [facility] 200 MG 00:00: 00:00 mouth of capsule 00 :00 daily. 1 Medicin capsule 2x e daily x5 days postop then daily as needed for pain [place]-3 Yes Take by [facility] 3-30 mouth. [facility] ([place] 3 21:16: of [place]) 56 Medicin e levothyroxi Yes TAKE [address] [facility] ne 3-17 TABLET BY [place] (SYNTHROID, 00:00: MOUTH Medic al LEVOTHROID) 00 EVERY Center 200 MCG DAY..PATIE tablet NT DUE FOR LABS AND OFFICE VISIT ibuprofen Yes 800mg Take [address] [facility] (ADVIL,MOTR 3-17 mg by [facility] IN) 800 MG 00:00: mouth Medica l tablet 00 every 8 Center (eight) hours as needed for pain. levothyroxi Yes [id number] TAKE 1 [facility] ne 3-17 TABLET BY [place] (SYNTHROID) 00:00: MOUTH of 200 MCG 00 EVERY Medicin tablet DAY..PATIE e NT DUE FOR LABS AND OFFICE VISIT ibuprofen Yes TAKE 1 [facility] (MOTRIN) 3-17 TABLET BY [facility] 800 mg 00:00: MOUTH of tablet 00 EVERY 8 Medicin HOURS e NEEDED FOR PAIN levothyroxi Yes [id number] TAKE 1 [facility] ne 3-17 TABLET BY [place] (SYNTHROID) 00:00: MOUTH of 200 MCG 00 EVERY Medicin tablet DAY..PATIE e NT DUE FOR LABS AND OFFICE VISIT ibuprofen Yes TAKE 1 [facility] (MOTRIN) 3-17 TABLET BY [facility] 800 mg 00:00: MOUTH of tablet 00 EVERY 8 Medicin HOURS e NEEDED FOR PAIN levothyroxi 2020- Yes [id number] TAKE 1 [facility] ne 3-17 TABLET BY [place] (SYNTHROID) 00:00: MOUTH of 200 MCG 00 EVERY Medicin tablet DAY..PATIE e NT DUE FOR LABS AND OFFICE VISIT ibuprofen Yes TAKE 1 [facility] (MOTRIN) 3-17 TABLET BY [facility] 800 mg 00:00: MOUTH of tablet 00 EVERY 8 Medicin HOURS e NEEDED FOR PAIN levothyroxi 2020- Yes [id number] TAKE 1 [facility] ne 3-17 TABLET BY [place] (SYNTHROID) 00:00: MOUTH of 200 MCG 00 EVERY Medicin tablet DAY..PATIE e NT DUE FOR LABS AND OFFICE VISIT levothyroxi 2020-0 Yes [id number] TAKE 1 [facility] ne 3-17 TABLET BY [place] (SYNTHROID) 00:00: MOUTH of 200 MCG 00 EVERY Medicin tablet DAY..PATIE e NT DUE FOR LABS AND OFFICE VISIT levothyroxi 2020-0 Yes [id number] TAKE 1 [facility] ne 3-17 TABLET BY [place] (SYNTHROID) 00:00: MOUTH of 200 MCG 00 EVERY Medicin tablet DAY..PATIE e NT DUE FOR LABS AND OFFICE VISIT levothyroxi 2020-0 Yes [id number] TAKE 1 [facility] ne 3-17 TABLET BY [place] (SYNTHROID) 00:00: MOUTH of 200 MCG 00 EVERY Medicin tablet DAY..PATIE e NT DUE FOR LABS AND OFFICE VISIT levothyroxi 2020-0 Yes [id number] TAKE 1 [facility] ne 3-17 TABLET BY [place] (SYNTHROID) 00:00: MOUTH of 200 MCG 00 EVERY Medicin tablet DAY..PATIE e NT DUE FOR LABS AND OFFICE VISIT levothyroxi 2020-0 Yes [id number] TAKE 1 [facility] ne 3-17 TABLET BY [place] (SYNTHROID) 00:00: MOUTH of 200 MCG 00 EVERY Medicin tablet DAY..PATIE e NT DUE FOR LABS AND OFFICE VISIT ibuprofen 2020-0 Yes TAKE 1 [facility] (MOTRIN) 3-17 TABLET BY Colleg e 800 mg 00:00: MOUTH of tablet 00 EVERY 8 Medicin HOURS e NEEDED FOR PAIN levothyroxi 2020-0 Yes [id number] TAKE 1 [facility] ne 3-17 TABLET BY [place] (SYNTHROID) 00:00: MOUTH of 200 MCG 00 EVERY Medicin tablet DAY..PATIE e NT DUE FOR LABS AND OFFICE VISIT ibuprofen 2020-0 Yes TAKE 1 [facility] (MOTRIN) 3-17 TABLET BY Colleg e 800 mg 00:00: MOUTH of tablet 00 EVERY 8 Medicin HOURS e NEEDED FOR PAIN levothyroxi 2020-0 Yes [id number] TAKE 1 [facility] ne 3-17 TABLET BY [place] (SYNTHROID) 00:00: MOUTH of 200 MCG 00 EVERY Medicin tablet DAY..PATIE e NT DUE FOR LABS AND OFFICE VISIT ibuprofen 2020-0 Yes TAKE 1 [facility] (MOTRIN) 3-17 TABLET BY [place] [facility] 800 mg 00:00: MOUTH of tablet 00 EVERY 8 Medicin HOURS e NEEDED FOR PAIN ibuprofen 2020- No TAKE 1 [facility] (MOTRIN) 3-17 05-04 TABLET BY [place] [facility] 800 mg 00:00: 00:00 MOUTH of tablet 00 :00 EVERY 8 Medicin HOURS e NEEDED FOR PAIN pravastatin Yes 20mg QD Take [address] [facility] (PRAVACHOL) 3-14 by mouth [facility] 20 MG 00:00: daily. Medical tablet 00 Center [place]-3 Yes Take by [facility] Fatty Acids 3-09 mouth. [place] ([place] 3 15:47: of [place]) 37 Medicin e [place]-3 Yes Take by [facility] Fatty Acids 3-09 mouth. Colleg e ([place] 3 15:47: of [place]) 37 Medicin e ergocalcife Yes 1{capsu Q7D Take [address] rol 3- le} capsule by [facility] (ERGOCALCIF 00:00: mouth once Medical CORONA) 1,250 00 a week. Cente r mcg (50,000 unit) capsule Vitamin D, Yes TAKE 1 [facility] Ergocalcife 3-03 CAPSULE BY Co llege rol, 1.25 00:00: MOUTH of MG ( WEEKLY Medicin UT) CAPS e Vitamin D, Yes TAKE 1 [facility] Ergocalcife 3-03 CAPSULE BY Co llege rol, 1.25 00:00: MOUTH of MG ( WEEKLY Medicin UT) CAPS e Vitamin D, Yes TAKE 1 [facility] Ergocalcife 3-03 CAPSULE BY Co llege rol, 1.25 00:00: MOUTH of MG ( WEEKLY Medicin UT) CAPS e Vitamin D, Yes TAKE 1 [facility] Ergocalcife 3-03 CAPSULE BY Co llege rol, 1.25 00:00: MOUTH of MG ( WEEKLY Medicin UT) CAPS e Vitamin D, Yes TAKE 1 [facility] Ergocalcife 3-03 CAPSULE BY Co llege raimundo, 1.25 00:00: MOUTH of MG ( WEEKLY Medicin UT) CAPS e Vitamin D, Yes TAKE 1 [facility] Ergocalcife 3-03 CAPSULE BY Co dylan [facility]ubanks, 1.25 00:00: MOUTH of MG ( WEEKLY Medicin UT) CAPS e Vitamin D, Yes TAKE 1 [facility] Ergocalcife 3-03 CAPSULE BY Co [facility], 1.25 00:00: MOUTH of MG ( WEEKLY Medicin UT) CAPS e Vitamin D, Yes TAKE 1 [facility] Ergocalcife 3-03 CAPSULE BY Co ernestinae raimundo, 1.25 00:00: MOUTH of MG ( WEEKLY Medicin UT) CAPS e Vitamin D, Yes TAKE 1 [facility] Ergocalcife 3-03 CAPSULE BY Co [facility], 1.25 00:00: MOUTH of MG ( WEEKLY Medicin UT) CAPS e Vitamin D, Yes TAKE 1 [facility] Ergocalcife 3-03 CAPSULE BY [facility], 1.25 00:00: MOUTH of MG ( WEEKLY Medicin UT) CAPS e levocetiriz Yes 5mg QD Take [address] [facility] (XYZAL) 2-13 by mouth [facility] 5 MG tablet 00:00: daily. [facility] 00 Center traZODone Yes TAKE 1/[address] [facility] (DESYREL) 2-12 TO 1 [facility] MG 00:00: TABLET BY Medical tablet 00 MOUTH Center NIGHTLY NEEDED FOR SLEEP trazodone Yes [id number] TAKE 1/2 [facility] (DESYREL) 2-12 TO 1 [facility] 50 MG 00:00: TABLET BY of tablet 00 MOUTH Medicin NIGHTLY e NEEDED FOR SLEEP trazodone Yes [id number] TAKE 1/2 [facility] (DESYREL) 2-12 TO 1 [facility] 50 MG 00:00: TABLET BY of tablet 00 MOUTH Medicin NIGHTLY e NEEDED FOR SLEEP trazodone Yes [id number] TAKE 1/2 [facility] (DESYREL) 2-12 TO 1 [facility] 50 MG 00:00: TABLET BY of tablet 00 MOUTH Medicin NIGHTLY e NEEDED FOR SLEEP trazodone 2021-0 Yes [id number] TAKE 1/2 [facility] (DESYREL) 2-12 TO 1 [facility] 50 MG 00:00: TABLET BY of tablet 00 MOUTH Medicin NIGHTLY e NEEDED FOR SLEEP trazodone 2020-0 Yes [id number] TAKE 1/2 [facility] (DESYREL) 2-12 TO 1 [facility] 50 MG 00:00: TABLET BY of tablet 00 MOUTH Medicin NIGHTLY e NEEDED FOR SLEEP trazodone 2020-0 Yes [id number] TAKE 1/2 [facility] (DESYREL) 2-12 TO 1 [facility] 50 MG 00:00: TABLET BY of tablet 00 MOUTH Medicin NIGHTLY e NEEDED FOR SLEEP trazodone 2020-0 Yes [id number] TAKE 1/2 [facility] (DESYREL) 2-12 TO 1 [facility] 50 MG 00:00: TABLET BY of tablet 00 MOUTH Medicin NIGHTLY e NEEDED FOR SLEEP trazodone 2020-0 Yes TAKE 1/2 [facility] (DESYREL) 2-12 TO 1 [facility] 50 MG 00:00: TABLET BY of tablet 00 MOUTH Medicin NIGHTLY e NEEDED FOR SLEEP trazodone 2020-0 Yes [id number] TAKE 1/2 [facility] (DESYREL) 2-12 TO 1 [facility] 50 MG 00:00: TABLET BY of tablet 00 MOUTH Medicin NIGHTLY e NEEDED FOR SLEEP trazodone 2020-0 Yes [id number] TAKE 1/2 [facility] (DESYREL) 2-12 TO 1 [facility] 50 MG 00:00: TABLET BY of tablet 00 MOUTH Medicin NIGHTLY e NEEDED FOR SLEEP trazodone 2020-0 Yes [id number] TAKE 1/2 [facility] (DESYREL) 2-12 TO 1 [facility] 50 MG 00:00: TABLET BY of tablet 00 MOUTH Medicin NIGHTLY e NEEDED FOR SLEEP trazodone 2020-0 Yes [id number] TAKE 1/2 [facility] (DESYREL) 2-12 TO 1 [facility] 50 MG 00:00: TABLET BY of tablet 00 MOUTH Medicin NIGHTLY e NEEDED FOR SLEEP trazodone 2020-0 Yes [id number] TAKE 1/2 [facility] (DESYREL) 2-12 TO 1 [facility] 50 MG 00:00: TABLET BY of tablet 00 MOUTH Medicin NIGHTLY e NEEDED FOR SLEEP trazodone 202-0 Yes [id number] TAKE 1/2 [facility] (DESYREL) 2-12 TO 1 [facility] 50 MG 00:00: TABLET BY of tablet 00 MOUTH Medicin NIGHTLY e NEEDED FOR SLEEP trazodone 2020-0 Yes TAKE 1/2 [facility] (DESYREL) 2-12 TO 1 [facility] 50 MG 00:00: TABLET BY of tablet 00 MOUTH Medicin NIGHTLY e NEEDED FOR SLEEP trazodone 2020-0 Yes [id number] TAKE 1/2 [facility] (DESYREL) 2-12 TO 1 [facility] 50 MG 00:00: TABLET BY of tablet 00 MOUTH Medicin NIGHTLY e NEEDED FOR SLEEP trazodone 2020-0 Yes TAKE 1/2 [facility] (DESYREL) 2-12 TO 1 [facility] 50 MG 00:00: TABLET BY of tablet 00 MOUTH Medicin NIGHTLY e NEEDED FOR SLEEP trazodone 2020-0 Yes TAKE 1/2 [facility] (DESYREL) 2-12 TO 1 [facility] 50 MG 00:00: TABLET BY of tablet 00 MOUTH Medicin NIGHTLY e NEEDED FOR SLEEP trazodone 2020-0 Yes [id number] TAKE 1/2 [facility] (DESYREL) 2-12 TO 1 [facility] 50 MG 00:00: TABLET BY of tablet 00 MOUTH Medicin NIGHTLY e NEEDED FOR SLEEP trazodone 2020-0 Yes [id number] TAKE 1/2 [facility] (DESYREL) 2-12 TO 1 [facility] 50 MG 00:00: TABLET BY of tablet 00 MOUTH Medicin NIGHTLY e NEEDED FOR SLEEP trazodone 2020-0 Yes [id number] TAKE 1/2 [facility] (DESYREL) 2-12 TO 1 [facility] 50 MG 00:00: TABLET BY of tablet 00 MOUTH Medicin NIGHTLY e NEEDED FOR SLEEP trazodone 2020-0 Yes [id number] TAKE 1/2 [facility] (DESYREL) 2-12 TO 1 [facility] 50 MG 00:00: TABLET BY of tablet 00 MOUTH Medicin NIGHTLY e NEEDED FOR SLEEP trazodone 2020-0 Yes [id number] TAKE 1/2 [facility] (DESYREL) 2-12 TO 1 [facility] 50 MG 00:00: TABLET BY of tablet 00 MOUTH Medicin NIGHTLY e NEEDED FOR SLEEP trazodone 2020-0 Yes [id number] TAKE 1/2 [facility] (DESYREL) 2-12 TO 1 [facility] 50 MG 00:00: TABLET BY of tablet 00 MOUTH Medicin NIGHTLY e NEEDED FOR SLEEP trazodone 2020-0 Yes [id number] TAKE 1/2 [facility] (DESYREL) 2-12 TO 1 [facility] 50 MG 00:00: TABLET BY of tablet 00 MOUTH Medicin NIGHTLY e NEEDED FOR SLEEP valsartan 0 Yes 320mg QD Take [address] [facility] (DIOVAN) 2-11 [facility] by [facility] 320 MG 00:00: mouth Medical tablet 00 daily. [place] phentermine 0 Yes 18.75mg QD Take 18.[address] [facility] (ADIPEX-P) 2-10 mg by [facility] 37.5 mg 00:00: mouth Medical tablet 00 daily. [place] phentermine 2020-0 Yes 0.5 tab PO [facility] (ADIPEX-P) 2-10 daily [facility] 37.5 MG 00:00: of tablet 00 Medicin e phentermine 2020-0 Yes 0.5 tab PO [facility] (ADIPEX-P) 2-10 daily [facility] 37.5 MG 00:00: of tablet 00 Medicin e phentermine 2020-0 Yes 0.5 tab PO [facility] (ADIPEX-P) 2-10 daily [facility] 37.5 MG 00:00: of tablet 00 Medicin e phentermine 2020-0 Yes 0.5 tab PO [facility] (ADIPEX-P) 2-10 daily [facility] 37.5 MG 00:00: of tablet 00 Medicin e phentermine 2020-0 Yes 0.5 tab PO [facility] (ADIPEX-P) 2-10 daily [facility] 37.5 MG 00:00: of tablet 00 Medicin e phentermine 2020-0 Yes 0.5 tab PO [facility] (ADIPEX-P) 2-10 daily [facility] 37.5 MG 00:00: of tablet 00 Medicin e phentermine 2020-0 Yes 0.5 tab PO [facility] (ADIPEX-P) 2-10 daily [facility] 37.5 MG 00:00: of tablet 00 Medicin e phentermine 2020-0 Yes 0.5 tab PO [facility] (ADIPEX-P) 2-10 daily [facility] 37.5 MG 00:00: of tablet 00 Medicin e phentermine 2021-0 Yes 0.5 tab PO [facility] (ADIPEX-P) 2-10 daily [facility] 37.5 MG 00:00: of tablet 00 Medicin e phentermine 2021-0 Yes 0.5 tab PO [facility] (ADIPEX-P) 2-10 daily [facility] 37.5 MG 00:00: of tablet 00 Medicin e phentermine 1-0 Yes 0.5 tab PO [facility] (ADIPEX-P) 2-10 daily [facility] 37.5 MG 00:00: of tablet 00 Medicin e phentermine 1-0 Yes 0.5 tab PO [facility] (ADIPEX-P) 2-10 daily [facility] 37.5 MG 00:00: of tablet 00 Medicin e phentermine 2021-0 Yes 0.5 tab PO [facility] (ADIPEX-P) 2-10 daily [facility] 37.5 MG 00:00: of tablet 00 Medicin e phentermine 1-0 Yes 0.5 tab PO [facility] (ADIPEX-P) 2-10 daily [facility] 37.5 MG 00:00: of tablet 00 Medicin e phentermine 1-0 Yes 0.5 tab PO [facility] (ADIPEX-P) 2-10 daily [facility] 37.5 MG 00:00: of tablet 00 Medicin e phentermine 2021-0 Yes 0.5 tab PO [facility] (ADIPEX-P) 2-10 daily [facility] 37.5 MG 00:00: of tablet 00 Medicin e phentermine 2021-0 Yes 0.5 tab PO [facility] (ADIPEX-P) 2-10 daily [facility] 37.5 MG 00:00: of tablet 00 Medicin e phentermine 2021-0 Yes 0.5 tab PO [facility] (ADIPEX-P) 2-10 daily [facility] 37.5 MG 00:00: of tablet 00 Medicin e phentermine 2021-0 Yes 0.5 tab PO [facility] (ADIPEX-P) 2-10 daily [facility] 37.5 MG 00:00: of tablet 00 Medicin e phentermine 2021-0 Yes 0.5 tab PO [facility] (ADIPEX-P) 2-10 daily [facility] 37.5 MG 00:00: of tablet 00 Medicin e phentermine 1-0 Yes 0.5 tab PO [facility] (ADIPEX-P) 2-10 daily [facility] 37.5 MG 00:00: of tablet 00 Medicin e phentermine 1-0 Yes 0.5 tab PO [facility] (ADIPEX-P) 2-10 daily [facility] 37.5 MG 00:00: of tablet 00 Medicin e phentermine 1-0 2022- No 0.5 tab PO [facility] (ADIPEX-P) 2-10 05-25 daily [facility] 37.5 MG 00:00: 00:00 of tablet 00 :00 Medicin e phentermine 2020-0 2022- No 0.5 tab PO [facility] (ADIPEX-P) 2-10 05-25 daily [facility] 37.5 MG 00:00: 00:00 of tablet 00 :00 Medicin e sertraline 1-0 Yes [id number] Take a [facility] (ZOLOFT) 25 1-27 full College MG tablet 00:00: tablet of 00 daily Medicin e sertraline 2020-0 Yes [id number] Take a [facility] (ZOLOFT) 25 1-27 full College MG tablet 00:00: tablet of 00 daily Medicin e sertraline 2020-0 Yes [id number] Take a [facility] (ZOLOFT) 25 1-27 full College MG tablet 00:00: tablet of 00 daily Medicin e sertraline 1-0 Yes [id number] Take a [facility] (ZOLOFT) 25 1-27 full College MG tablet 00:00: tablet of 00 daily Medicin e sertraline 1-0 Yes [id number] Take a [facility] (ZOLOFT) 25 1-27 full College MG tablet 00:00: tablet of 00 daily Medicin e sertraline 1-0 Yes [id number] Take a [facility] (ZOLOFT) 25 1-27 full College MG tablet 00:00: tablet of 00 daily Medicin e sertraline 1-0 Yes [id number] Take a [facility] (ZOLOFT) 25 1-27 full College MG tablet 00:00: tablet of 00 daily Medicin e sertraline 1-0 Yes [id number] Take a [facility] (ZOLOFT) 25 1-27 full College MG tablet 00:00: tablet of 00 daily Medicin e sertraline 2020-0 Yes [id number] Take a [facility] (ZOLOFT) 25 1-27 full College MG tablet 00:00: tablet of 00 daily Medicin e sertraline 2020-0 Yes [id number] Take a [facility] (ZOLOFT) 25 1-27 full College MG tablet 00:00: tablet of 00 daily Medicin e sertraline 2020-0 Yes [id number] Take a [facility] (ZOLOFT) 25 1-27 full College MG tablet 00:00: tablet of 00 daily Medicin e sertraline 2020-0 Yes [id number] Take a [facility] (ZOLOFT) 25 1-27 full College MG tablet 00:00: tablet of 00 daily Medicin e sertraline 2020-0 Yes [id number] Take a [facility] (ZOLOFT) 25 1-27 full College MG tablet 00:00: tablet of 00 daily Medicin e sertraline 2020-0 Yes [id number] Take a [facility] (ZOLOFT) 25 1-27 full College MG tablet 00:00: tablet of 00 daily Medicin e sertraline 2020-0 Yes [id number] Take a [facility] (ZOLOFT) 25 1-27 full College MG tablet 00:00: tablet of 00 daily Medicin e sertraline 2020-0 Yes [id number] Take a [facility] (ZOLOFT) 25 1-27 full College MG tablet 00:00: tablet of 00 daily Medicin e sertraline 2020-0 Yes [id number] Take a [facility] (ZOLOFT) 25 1-27 full College MG tablet 00:00: tablet of 00 daily Medicin e sertraline 2020-0 Yes [id number] Take a [facility] (ZOLOFT) 25 1-27 full College MG tablet 00:00: tablet of 00 daily Medicin e sertraline 2020-0 Yes [id number] Take a [facility] (ZOLOFT) 25 1-27 full College MG tablet 00:00: tablet of 00 daily Medicin e sertraline 1-0 Yes [id number] Take a [facility] (ZOLOFT) 25 1-27 full [facility] MG tablet 00:00: tablet of 00 daily Medicin e sertraline 2020-0 Yes [id number] Take a [facility] (ZOLOFT) 25 1-27 full College MG tablet 00:00: tablet of 00 daily Medicin e sertraline Yes [id number] Take a [facility] (ZOLOFT) 25 1-27 full [facility] MG tablet 00:00: tablet of 00 daily Medicin e sertraline 2021- No [id number] Take a [facility] (ZOLOFT) 25 1-27 05-25 full College MG tablet 00:00: 00:00 tablet of 00 :00 daily Medicin e sertraline 2021- No [id number] Take a [facility] (ZOLOFT) 25 1-27 05-25 full College MG tablet 00:00: 00:00 tablet of 00 :00 daily Medicin e pravastatin 2020- Yes 20mg Take 1 [facility] (PRAVACHOL) 2-16 Tablet by [facility] 20 MG 00:00: mouth of tablet 00 daily. Medicin e pravastatin 2020- Yes 20mg Take 1 [facility] (PRAVACHOL) 2-16 Tablet by [facility] 20 MG 00:00: mouth of tablet 00 daily. Medicin e pravastatin 2020- Yes 20mg Take 1 [facility] (PRAVACHOL) 2-16 Tablet by [facility] 20 MG 00:00: mouth of tablet 00 daily. Medicin e pravastatin 2020- Yes 20mg Take 1 [facility] (PRAVACHOL) 2-16 Tablet by [facility] 20 MG 00:00: mouth of tablet 00 daily. Medicin e pravastatin 2020- Yes 20mg Take 1 [facility] (PRAVACHOL) 2-16 Tablet by [facility] 20 MG 00:00: mouth of tablet 00 daily. Medicin e pravastatin 2020-1 Yes 20mg Take 1 [facility] (PRAVACHOL) 2-16 Tablet by [facility] 20 MG 00:00: mouth of tablet 00 daily. Medicin e pravastatin 2020-1 Yes 20mg Take 1 [facility] (PRAVACHOL) 2-16 Tablet by [facility] 20 MG 00:00: mouth of tablet 00 daily. Medicin e pravastatin 2020-1 Yes 20mg Take 1 [facility] (PRAVACHOL) 2-16 Tablet by [facility] 20 MG 00:00: mouth of tablet 00 daily. Medicin e pravastatin 2020-1 Yes 20mg Take 1 [facility] (PRAVACHOL) 2-16 Tablet by [facility] 20 MG 00:00: mouth of tablet 00 daily. Medicin e pravastatin 2019- Yes 20mg Take 1 [facility] (PRAVACHOL) 2-16 Tablet by [facility] 20 MG 00:00: mouth of tablet 00 daily. Medicin e amLODIPine 2020- Yes QD daily . [facility] (NORVASC) 5 2-08 [facility] amlodipine 2020- Yes [id number] TAKE 1 [facility] (NORVASC) 5 2-08 TABLET BY [facility] MG tablet 00:00: MOUTH of 00 EVERY DAY Medicin e amlodipine 2019-05 Yes [id number] TAKE 1 [facility] (NORVASC) 5 2-08 TABLET BY [facility] MG tablet 00:00: MOUTH of 00 EVERY DAY Medicin e amlodipine 2019-05 Yes [id number] TAKE 1 [facility] (NORVASC) 5 2-08 TABLET BY [facility] MG tablet 00:00: MOUTH of 00 EVERY DAY Medicin e amlodipine 2019-05 Yes [id number] TAKE 1 [facility] (NORVASC) 5 2-08 TABLET BY [facility] MG tablet 00:00: MOUTH of 00 EVERY DAY Medicin e amlodipine 2019-05 Yes [id number] TAKE 1 [facility] (NORVASC) 5 2-08 TABLET BY [facility] MG tablet 00:00: MOUTH of 00 EVERY DAY Medicin e amlodipine 2020- Yes [id number] TAKE 1 [facility] (NORVASC) 5 2-08 TABLET BY [facility] MG tablet 00:00: MOUTH of 00 EVERY DAY Medicin e amlodipine 2020- Yes [id number] TAKE 1 [facility] (NORVASC) 5 2-08 TABLET BY [facility] MG tablet 00:00: MOUTH of 00 EVERY DAY Medicin e amlodipine 2020- Yes [id number] TAKE 1 [facility] (NORVASC) 5 2-08 TABLET BY [facility] MG tablet 00:00: MOUTH of 00 EVERY DAY Medicin e amlodipine 2020- Yes [id number] TAKE 1 [facility] (NORVASC) 5 2-08 TABLET BY [facility] MG tablet 00:00: MOUTH of 00 EVERY DAY Medicin e amlodipine 2020- Yes [id number] TAKE 1 [facility] (NORVASC) 5 2-08 TABLET BY [facility] MG tablet 00:00: MOUTH of 00 EVERY DAY Medicin e amlodipine 2020 Yes [id number] TAKE 1 [facility] (NORVASC) 5 2-08 TABLET BY [facility] MG tablet 00:00: MOUTH of 00 EVERY DAY Medicin e amlodipine 2020- Yes [id number] TAKE 1 [facility] (NORVASC) 5 2-08 TABLET BY [facility] MG tablet 00:00: MOUTH of 00 EVERY DAY Medicin e amlodipine 2020- Yes [id number] TAKE 1 [facility] (NORVASC) 5 2-08 TABLET BY [facility] MG tablet 00:00: MOUTH of 00 EVERY DAY Medicin e amlodipine 2019-05 Yes [id number] TAKE 1 [facility] (NORVASC) 5 2-08 TABLET BY [facility] MG tablet 00:00: MOUTH of 00 EVERY DAY Medicin e amlodipine 2020 Yes [id number] TAKE 1 [facility] (NORVASC) 5 2-08 TABLET BY [facility] MG tablet 00:00: MOUTH of 00 EVERY DAY Medicin e amlodipine 2019-05 Yes [id number] TAKE 1 [facility] (NORVASC) 5 2-08 TABLET BY [facility] MG tablet 00:00: MOUTH of 00 EVERY DAY Medicin e [place]-3 2019-05 Yes Take by [facility] Fatty Acids 2-01 mouth. [place] [facility] (OMEGA 3 15:31: of OR) 02 Medicin e Levocetiriz 2019-05 Yes [id number] Take one [facility] 2-01 tablet [facility] 00:00: daily of ride 5 MG 00 Medicin TABS e Levocetiriz 2020- Yes [id number] Take one [facility] ine 2-01 tablet [place] Dihydrochlo 00:00: daily of ride 5 MG 00 Medicin TABS e Levocetiriz 2020- Yes [id number] Take one [facility] ine 2-01 tablet [place] Dihydrochlo 00:00: daily of ride 5 MG 00 Medicin TABS e Levocetiriz 2020- Yes [id number] Take one [facility] ine 2-01 tablet [place] [facility] daily of ride 5 MG 00 Medicin TABS e Levocetiriz 2019- Yes [id number] Take one [facility] ine 2-01 tablet [facility] Dihydrochlo 00:00: daily of ride 5 MG 00 Medicin TABS e Levocetiriz 2020-1 Yes [id number] Take one [facility] 2-01 tablet [place] Dihydrochlo 00:00: daily of ride 5 MG 00 Medicin TABS e Levocetiriz 2020-1 Yes [id number] Take one [facility] 2-01 tablet [place] Dihydrochlo 00:00: daily of ride 5 MG 00 Medicin TABS e Levocetiriz 2020-1 Yes [id number] Take one [facility] ine 2-01 tablet [place] Dihydrochlo 00:00: daily of ride 5 MG 00 Medicin TABS e Levocetiriz 2020-1 Yes [id number] Take one [facility] ine 2-01 tablet [place] Dihydrochlo 00:00: daily of ride 5 MG 00 Medicin TABS e Levocetiriz 2020-1 Yes [id number] Take one [facility] ine 2-01 tablet [place] Dihydrochlo 00:00: daily of ride 5 MG 00 Medicin TABS e Levocetiriz 2020-1 Yes [id number] Take one [facility] ine 2-01 tablet [place] Dihydrochlo 00:00: daily of ride 5 MG 00 Medicin TABS e Levocetiriz 2020-1 Yes [id number] Take one [facility] ine 2-01 tablet [place] Dihydrochlo 00:00: daily of ride 5 MG 00 Medicin TABS e Levocetiriz 2020-1 Yes [id number] Take one [facility] 2-01 tablet [place] Dihydrochlo 00:00: daily of ride 5 MG 00 Medicin TABS e Levocetiriz 2020-1 Yes [id number] Take one [facility] 2-01 tablet [place] Dihydrochlo 00:00: daily of ride 5 MG 00 Medicin TABS e Levocetiriz 2020-1 Yes [id number] Take one [facility] 2-01 tablet [place] Dihydrochlo 00:00: daily of ride 5 MG 00 Medicin TABS e levothyroxi 2020-1 Yes [id number] TAKE 1 [facility] ne 2-01 TABLET BY [place] (SYNTHROID) 00:00: MOUTH of 200 MCG 00 EVERY Medicin tablet DAY..PATIE e NT DUE FOR LABS AND OFFICE VISIT Levocetiriz 2020-1 Yes [id number] Take one [facility] 2-01 tablet [place] Dihydrochlo 00:00: daily of ride 5 MG 00 Medicin TABS e sertraline 2019-05 Yes [id number] Start with [facility] (ZOLOFT) 25 2-01 half a [facility] MG tablet 00:00: tablet for of 00 a couple Medicin of days e and then increase to full tablet if tolerated trazodone 2019-05 Yes [id number] 25mg Take 0.5-1 [facility] (DESYREL) 2-01 Tablets by [facility] 50 MG 00:00: mouth of tablet 00 nightly as Medicin needed for e Sleep. Levocetiriz 2019-05 Yes [id number] Take one [facility] 2-01 tablet [place] Di[facility] 00:00: daily of ride 5 MG 00 Medicin TABS e Levocetiriz 2019-05 Yes [id number] Take one [facility] 2-01 tablet [place] Dihydro[facility]lo 00:00: daily of ride 5 MG 00 Medicin TABS e Levocetiriz 2019-05 Yes [id number] Take one [facility] 2-01 tablet [place] Dihydrochlo 00:00: daily of ride 5 MG 00 Medicin TABS e hydrOXYzine 2019-05 Yes [id number] Take half [facility] (ATARAX) 25 - to full Colle [facility] MG tablet 00:00: tablet ar of 00 night Medicin anxiety e and insomnia, take half tablet as needed during the day for anxiety/pa reena hydrOXYzine 2019-05 Yes [id number] Take half [facility] (ATARAX) 25 - to full Colle ge MG tablet 00:00: tablet ar of 00 night Medicin anxiety e and insomnia, take half tablet as needed during the day for anxiety/pa reena hydrOXYzine 2019-05 Yes [id number] Take half [facility] (ATARAX) 25 1-23 to full Colle ge MG tablet 00:00: tablet ar of 00 night Medicin anxiety e and insomnia, take half tablet as needed during the day for anxiety/pa reena hydrOXYzine 2019-05 Yes [id number] Take half [facility] (ATARAX) 25 1-23 to full Colle ge MG tablet 00:00: tablet ar of 00 night Medicin anxiety e and insomnia, take half tablet as needed during the day for anxiety/pa reena hydrOXYzine 2019-05 Yes [id number] Take half [facility] (ATARAX) 25 1- to full Colle ge MG tablet 00:00: tablet ar of 00 night Medicin anxiety e and insomnia, take half tablet as needed during the day for anxiety/pa reena hydrOXYzine 2020- Yes [id number] Take half [facility] (ATARAX) 25 1- to full Colle ge MG tablet 00:00: tablet ar of 00 night Medicin anxiety e and insomnia, take half tablet as needed during the day for anxiety/pa reena hydrOXYzine 2020- Yes [id number] Take half [facility] (ATARAX) 25 - to full Colle ge MG tablet 00:00: tablet ar of 00 night Medicin anxiety e and insomnia, take half tablet as needed during the day for anxiety/pa reena hydrOXYzine 2020- Yes [id number] Take half [facility] (ATARAX) 25 06-19 to full Colle ge MG tablet 00:00: tablet ar of 00 night Medicin anxiety e and insomnia, take half tablet as needed during the day for anxiety/pa reena hydrOXYzine 2020- Yes [id number] Take half [facility] (ATARAX) 25 06-19 to full Colle ge MG tablet 00:00: tablet ar of 00 night Medicin anxiety e and insomnia, take half tablet as needed during the day for anxiety/pa reena hydrOXYzine 2020- Yes [id number] Take half [facility] (ATARAX) 25 06-19 to full Colle ge MG tablet 00:00: tablet ar of 00 night Medicin anxiety e and insomnia, take half tablet as needed during the day for anxiety/pa reena hydrOXYzine 2020- Yes [id number] Take half [facility] (ATARAX) 25 06-19 to full Colle ge MG tablet 00:00: tablet ar of 00 night Medicin anxiety e and insomnia, take half tablet as needed during the day for anxiety/pa reena hydrOXYzine 2020- Yes [id number] Take half [facility] (ATARAX) 25 1- to full Colle [facility] MG tablet 00:00: tablet ar of 00 night Medicin anxiety e and insomnia, take half tablet as needed during the day for anxiety/pa reena hydrOXYzine 2020- Yes [id number] Take half [facility] (ATARAX) 25 1- to full Colle ge MG tablet 00:00: tablet ar of 00 night Medicin anxiety e and insomnia, take half tablet as needed during the day for anxiety/pa reena hydrOXYzine 2020- Yes [id number] Take half [facility] (ATARAX) 25 1-23 to full Colle ge MG tablet 00:00: tablet ar of 00 night Medicin anxiety e and insomnia, take half tablet as needed during the day for anxiety/pa reena hydrOXYzine 2020- Yes [id number] Take half [facility] (ATARAX) 25 1-23 to full Colle [facility] MG tablet 00:00: tablet ar of 00 night Medicin anxiety e and insomnia, take half tablet as needed during the day for anxiety/pa reena hydrOXYzine 2019-05 Yes [id number] Take half [facility] (ATARAX) 25 1- to full Colle ge MG tablet 00:00: tablet ar of 00 night Medicin anxiety e and insomnia, take half tablet as needed during the day for anxiety/pa reena hydrOXYzine 2019-05 Yes [id number] Take half [facility] (ATARAX) 25 1- to full Colle ge MG tablet 00:00: tablet ar of 00 night Medicin anxiety e and insomnia, take half tablet as needed during the day for anxiety/pa reena hydrOXYzine 2019-05 Yes [id number] Take half [facility] (ATARAX) 25 1- to full Colle [facility] MG tablet 00:00: tablet ar of 00 night Medicin anxiety e and insomnia, take half tablet as needed during the day for anxiety/pa reena hydrOXYzine 2019-05 Yes [id number] Take half [facility] (ATARAX) 25 1- to full Colle ge MG tablet 00:00: tablet ar of 00 night Medicin anxiety e and insomnia, take half tablet as needed during the day for anxiety/pa reena hydrOXYzine 2019- Yes [id number] Take half [facility] (ATARAX) 25 1-23 to full Colle ge MG tablet 00:00: tablet ar of 00 night Medicin anxiety e and insomnia, take half tablet as needed during the day for anxiety/pa reena hydrOXYzine 2019- Yes [id number] Take half [facility] (ATARAX) 25 1-23 to full Colle ge MG tablet 00:00: tablet ar of 00 night Medicin anxiety e and insomnia, take half tablet as needed during the day for anxiety/pa reena hydrOXYzine 2019-05 Yes [id number] Take half [facility] (ATARAX) 25 1-23 to full Colle ge MG tablet 00:00: tablet ar of 00 night Medicin anxiety e and insomnia, take half tablet as needed during the day for anxiety/pa reena escitalopra 2019-05 Yes [id number] Take half [facility] (LEXAPRO) 06-19 tablet for [facility]lege 5 MG tablet 00:00: first 1-2 o f 00 days, then Medicin increase e to full tablet. After 1 week, increase to 10 mg hydrOXYzine 2019-05 Yes [id number] Take half [facility] (ATARAX) 25 06-19 to full Colle ge MG tablet 00:00: tablet ar of 00 night Medicin anxiety e and insomnia, take half tablet as needed during the day for anxiety/pa reena hydrOXYzine 2019-05 Yes [id number] Take half [facility] (ATARAX) 25 06-19 to full Colle ge MG tablet 00:00: tablet ar of 00 night Medicin anxiety e and insomnia, take half tablet as needed during the day for anxiety/pa reena hydrOXYzine 2019-05 Yes [id number] Take half [facility] (ATARAX) 25 06-19 to full Colle ge MG tablet 00:00: tablet ar of 00 night Medicin anxiety e and insomnia, take half tablet as needed during the day for anxiety/pa reena hydrOXYzine 2019-05 Yes [id number] Take half [facility] (ATARAX) 25 06-19 to full Colle ge MG tablet 00:00: tablet ar of 00 night Medicin anxiety e and insomnia, take half tablet as needed during the day for anxiety/pa reena [place]-3 2019-05 Yes Take by [facility] Fatty Acids 1-16 mouth. [facility] (OMEGA 3 21:36: of OR) 43 Medicin e [place]-3 2019-05 Yes Take by [facility] Fatty Acids 1-16 mouth. [facility] (OMEGA 3 21:36: of OR) 43 Medicin e amlodipine 2019-05 Yes [id number] TAKE 1 [facility] (NORVASC) 5 1-11 TABLET BY [facility] MG tablet 00:00: MOUTH of 00 EVERY DAY Medicin e amlodipine 2019-05 Yes [id number] TAKE 1 [facility] (NORVASC) 5 1-11 TABLET BY [facility] MG tablet 00:00: MOUTH of 00 EVERY DAY Medicin e diclofenac 2019-05 Yes Apply 2-[address] [facility] [address] 1 % Gel 1-[facility]: affected Medical [facility] area up to Center 4 times daily as needed for pain Diclofenac 2019-05 Yes [id number] Apply 2-4 [facility] Sodium 1 % 1-10 gram to Colleg e GEL 00:00: affected of 00 area up to Medicin 4 times e daily as needed for pain Diclofenac 2019-05 Yes [id number] Apply 2-4 [facility] Sodium 1 % 1-10 gram to [facility] GEL 00:00: affected of 00 area up to Medicin 4 times e daily as needed for pain Diclofenac 2019-05 Yes [id number] Apply 2-4 [facility] Sodium 1 % 1-10 gram to [facility] GEL 00:00: affected of 00 area up to Medicin 4 times e daily as needed for pain Diclofenac 2019-05 Yes [id number] Apply 2-4 [facility] Sodium 1 % 1-10 gram to Colleg e GEL 00:00: affected of 00 area up to Medicin 4 times e daily as needed for pain duloxetine 2019-05 Yes 20mg Take 1 [facility] (CYMBALTA) 1-10 capsule by [facility] 20 MG 00:00: mouth at of capsule 00 bedtime. Medicin e Diclofenac 2019-05 Yes [id number] Apply 2-4 [facility] Sodium 1 % 1-10 gram to [facility] GEL 00:00: affected of 00 area up to Medicin 4 times e daily as needed for pain Diclofenac 2019-05 Yes [id number] Apply 2-4 [facility] Sodium 1 % 1-10 gram to Colleg e GEL 00:00: affected of 00 area up to Medicin 4 times e daily as needed for pain Diclofenac 2019-05 Yes [id number] Apply 2-4 [facility] Sodium 1 % 1-10 gram to Colleg e GEL 00:00: affected of 00 area up to Medicin 4 times e daily as needed for pain Diclofenac 2019-05 Yes [id number] Apply 2-4 [facility] Sodium 1 % 1-10 gram to Colleg e GEL 00:00: affected of 00 area up to Medicin 4 times e daily as needed for pain Diclofenac 2019-05 Yes [id number] Apply 2-4 [facility] Sodium 1 % 1-10 gram to Colleg e GEL 00:00: affected of 00 area up to Medicin 4 times e daily as needed for pain Diclofenac 2019-05- No [id number] Apply 2-4 [facility] Sodium 1 % -10 05-04 gram to [facility]le [facility] GEL 00:00: 00:00 affected of 00 :00 area up to Medicin 4 times e daily as needed for pain duloxetine 2019-05- No 20mg Take 1 [facility] (CYMBALTA) 1-10 -23 capsule by [facility] 20 MG 00:00: 00:00 mouth at of capsule 00 :00 bedtime. Medicin e [place]-3 2019-05 Yes Take by [facility] Fatty Acids 0-19 mouth. Colleg [facility] (OMEGA 3 19:06: of OR) 40 Medicin e ibuprofen 2019-05 Yes 800mg Take 1 Tab [facility] (MOTRIN) 0-19 by mouth College 800 mg 00:00: every 8 of tablet 00 hours as Medicin needed for e Pain. hydrocodone 2019-05 Yes Take 1-2 [facility] -acetaminop 0-19 tablets by [facility] ([facility]) 00:00: mouth of 5-325 mg 00 every 4-6 Medici n tablet hours as e needed hydrocodone 2019-05 Yes Take 1-2 [facility] -acetaminop 0-19 tablets by [facility] ([facility]) 00:00: mouth of 5-325 mg 00 every 4-6 Medici n tablet hours as e needed hydrocodone 2019-05 Yes Take 1-2 [facility] -acetaminop 0-19 tablets by [facility] hen ([facility]) 00:00: mouth of 5-325 mg 00 every 4-6 Medici n tablet hours as e needed hydrocodone 2019-05 Yes Take 1-2 [facility] -acetaminop 0-19 tablets by [facility] hen ([facility]) 00:00: mouth of 5-325 mg 00 every 4-6 Medici n tablet hours as e needed ibuprofen 2019-05- No 800mg Take 1 Tab [facility] (MOTRIN) 0-19 11-10 by mouth Colleg [facility] 800 mg 00:00: 00:00 every 8 of tablet 00 :00 hours as Medicin needed for e Pain. amlodipine 2019-05 Yes [id number] TAKE 1 [facility] (NORVASC) 5 0-16 TABLET BY [facility] MG tablet 00:00: MOUTH of 00 EVERY DAY Medicin e amlodipine 2019-05 2020- No [id number] TAKE 1 [facility] (NORVASC) 5 0-16 11-11 TABLET BY [facility] MG tablet 00:00: 00:00 MOUTH of 00 :00 EVERY DAY Medicin e levothyroxi 2020-0 Yes TAKE 1 [facility] 9-30 TABLET BY [place] (SYNTHROID) 00:00: MOUTH of 200 MCG 00 EVERY Medicin tablet DAY..PATIE e NT DUE FOR LABS AND OFFICE VISIT levothyroxi 2020-0 Yes TAKE 1 [facility] 9-30 TABLET BY [place] (SYNTHROID) 00:00: MOUTH of 200 MCG 00 EVERY Medicin tablet DAY..PATIE e NT DUE FOR LABS AND OFFICE VISIT levothyroxi 2020-0 Yes TAKE 1 [facility] 9-30 TABLET BY [place] (SYNTHROID) 00:00: MOUTH of 200 MCG 00 EVERY Medicin tablet DAY..PATIE e NT DUE FOR LABS AND OFFICE VISIT levothyroxi 2020-0 2020- No TAKE 1 Lamb harman ne 9-30 12-01 TABLET BY [place] (SYNTHROID) 00:00: 00:00 MOUTH of 200 MCG 00 :00 EVERY Medicin tablet DAY..PATIE e NT DUE FOR LABS AND OFFICE VISIT insulin 2019-0 Yes 30U [address] [facility] degludec 9-22 30 units [facility] (Tresiba 00:00: AM, 90 u Medic al FlexTouch 00 PM. Center U-200) 200 unit/mL (3 mL) InPn insulin 2019-0 Yes 35U [facility]ject [facility] U-100 00:00: subcutaneo Medica [facility] (NovoLOG 00 usly 3 Center Flexpen (three) U-100 times Insulin) daily 100 unit/mL before (3 mL) InPn meals . Insulin Pen 2020-0 Yes [id number] 1{each} 1 Each 5 [facility] Needle (PEN 9-22 times [place] NEEDLES) 00:00: daily. of 31G X 5 MM 00 Medicin MISC e Insulin 2020-0 Yes [id number] 15 units [facility] Degludec 9-22 every [facility] (TRESIBA 00:00: morning of FLEXTOUCH) 00 and 90 Medicin 200 UNIT/ML units e SOPN every night Insulin 2020-0 Yes [id number] 24U Inject 24 [facility] Aspart 9-22 Units into [facility] (NOVOLOG 00:00: the skin 3 of FLEXPEN) 00 times Medicin 100 UNIT/ML daily e SOPN (with meals). Do not take if you are not going to eat right away. Please note that pt had side effects with Humalog. Insulin Pen 2020-0 Yes [id number] 1{each} 1 Each 5 [facility] Needle (PEN 9-22 times [facility] NEEDLES) 00:00: daily. of 31G X 5 MM 00 Medicin MISC e Insulin 2020-0 Yes [id number] 15 units [facility] Degludec 9-22 every [facility] (TRESIBA 00:00: morning of FLEXTOUCH) 00 and 90 Medicin 200 UNIT/ML units e SOPN every night Insulin 2020-0 Yes [id number] 24U Inject 24 [facility] Aspart 9-22 Units into [facility] (NOVOLOG 00:00: the skin 3 of FLEXPEN) 00 times Medicin 100 UNIT/ML daily e SOPN (with meals). Do not take if you are not going to eat right away. Please note that pt had side effects with Humalog. Insulin Pen 2020-0 Yes [id number] 1{each} 1 Each 5 [facility] Needle (PEN 9-22 times [facility] NEEDLES) 00:00: daily. of 31G X 5 MM 00 Medicin MISC e Insulin 2020-0 Yes [id number] 15 units [facility] Degludec 9-22 every [facility] (TRESIBA 00:00: morning of FLEXTOUCH) 00 and 90 Medicin 200 UNIT/ML units e SOPN every night Insulin 2020-0 Yes [id number] 24U Inject 24 [facility] Aspart 9-22 Units into [facility] (NOVOLOG 00:00: the skin 3 of FLEXPEN) 00 times Medicin 100 UNIT/ML daily e SOPN (with meals). Do not take if you are not going to eat right away. Please note that pt had side effects with Humalog. Insulin Pen 2020-0 Yes [id number] 1{each} 1 Each 5 [facility] (PEN 9-22 times [facility] NEEDLES) 00:00: daily. of 31G X 5 MM 00 Medicin MISC e Insulin 2020-0 Yes [id number] 15 units [facility] Degludec 9-22 every [facility] (TRESIBA 00:00: morning of FLEXTOUCH) 00 and 90 Medicin 200 UNIT/ML units e SOPN every night Insulin Pen 2020-0 Yes [id number] 1{each} 1 Each 5 [facility] (PEN 9-22 times [facility] NEEDLES) 00:00: daily. of 31G X 5 MM 00 Medicin MISC e Insulin 2020-0 Yes [id number] 15 units [facility] Degludec 9-22 every [facility] (TRESIBA 00:00: morning of FLEXTOUCH) 00 and 90 Medicin 200 UNIT/ML units e SOPN every night Insulin Pen 2020-0 Yes [id number] 1{each} 1 Each 5 [facility] Needle (PEN 9-22 times [facility] NEEDLES) 00:00: daily. of 31G X 5 MM 00 Medicin MISC e Insulin 2020-0 Yes [id number] 15 units [facility] Degludec 9-22 every [facility] (TRESIBA 00:00: morning of FLEXTOUCH) 00 and 90 Medicin 200 UNIT/ML units e SOPN every night Insulin Pen 2020-0 Yes [id number] 1{each} 1 Each 5 [facility] Needle (PEN 9-22 times [facility] NEEDLES) 00:00: daily. of 31G X 5 MM 00 Medicin MISC e Insulin 2020-0 Yes [id number] 15 units [facility] Degludec 9-22 every [facility] (TRESIBA 00:00: morning of FLEXTOUCH) 00 and 90 Medicin 200 UNIT/ML units e SOPN every night Insulin Pen 2020-0 Yes [id number] 1{each} 1 Each 5 [facility] (PEN 9-22 times [facility] NEEDLES) 00:00: daily. of 31G X 5 MM 00 Medicin MISC e Insulin Pen 2020-0 Yes [id number] 1{each} 1 Each 5 [facility] (PEN 9-22 times [facility] NEEDLES) 00:00: daily. of 31G X 5 MM 00 Medicin MISC e Insulin Pen 2020-0 Yes [id number] 1{each} 1 Each 5 [facility] (PEN 9-22 times [facility] NEEDLES) 00:00: daily. of 31G X 5 MM 00 Medicin MISC e Insulin Pen 2020-0 Yes [id number] 1{each} 1 Each 5 [facility] Needle (PEN 9-22 times [facility] NEEDLES) 00:00: daily. of 31G X 5 MM 00 Medicin MISC e Insulin Pen 2020-0 Yes [id number] 1{each} 1 Each 5 [facility] (PEN 9-22 times [facility] NEEDLES) 00:00: daily. of 31G X 5 MM 00 Medicin MISC e Insulin Pen 2020-0 Yes [id number] 1{each} 1 Each 5 [facility] (PEN 9-22 times [facility] NEEDLES) 00:00: daily. of 31G X 5 MM 00 Medicin MISC e Insulin Pen 2020-0 Yes [id number] 1{each} 1 Each 5 [facility] (PEN 9-22 times [facility] NEEDLES) 00:00: daily. of 31G X 5 MM 00 Medicin MISC e Insulin 2020-0 Yes [id number] 15 units [facility] Degludec 9-22 every [facility] (TRESIBA 00:00: morning of FLEXTOUCH) 00 and 90 Medicin 200 UNIT/ML units e SOPN every night Insulin 2020-0 Yes [id number] 24U Inject 24 [facility] Aspart 9-22 Units into [facility] (NOVOLOG 00:00: the skin 3 of FLEXPEN) 00 times Medicin 100 UNIT/ML daily e SOPN (with meals). Do not take if you are not going to eat right away. Please note that pt had side effects with Humalog. Insulin Pen 2020-0 Yes [id number] 1{each} 1 Each 5 [facility] Needle (PEN 9-22 times [facility] NEEDLES) 00:00: daily. of 31G X 5 MM 00 Medicin MISC e Insulin 2020-0 Yes [id number] 15 units [facility] Degludec 9-22 every [facility] (TRESIBA 00:00: morning of FLEXTOUCH) 00 and 90 Medicin 200 UNIT/ML units e SOPN every night Insulin 2020-0 Yes [id number] 24U Inject 24 [facility] Aspart 9-22 Units into [facility] (NOVOLOG 00:00: the skin 3 of FLEXPEN) 00 times Medicin 100 UNIT/ML daily e SOPN (with meals). Do not take if you are not going to eat right away. Please note that pt had side effects with Humalog. Insulin Pen 2020-0 Yes [id number] 1{each} 1 Each 5 [facility] [place] (PEN 9-22 times [facility] NEEDLES) 00:00: daily. of 31G X 5 MM 00 Medicin MISC e Insulin 2020-0 Yes [id number] 15 units [facility] Degludec 9-22 every [facility] (TRESIBA 00:00: morning of FLEXTOUCH) 00 and 90 Medicin 200 UNIT/ML units e SOPN every night Insulin 2020-0 Yes [id number] 24U Inject 24 [facility] Aspart 9-22 Units into [facility] (NOVOLOG 00:00: the skin 3 of FLEXPEN) 00 times Medicin 100 UNIT/ML daily e SOPN (with meals). Do not take if you are not going to eat right away. Please note that pt had side effects with Humalog. Insulin Pen 2020-0 Yes [id number] 1{each} 1 Each 5 [facility] Need[facility] (PEN 9-22 times [facility] NEEDLES) 00:00: daily. of 31G X 5 MM 00 Medicin MISC e Insulin 2020-0 Yes [id number] 15 units [facility] Degludec 9-22 every [facility] (TRESIBA 00:00: morning of FLEXTOUCH) 00 and 90 Medicin 200 UNIT/ML units e SOPN every night Insulin 2020-0 Yes [id number] 24U Inject 24 [facility] Aspart 9-22 Units into [facility] (NOVOLOG 00:00: the skin 3 of FLEXPEN) 00 times Medicin 100 UNIT/ML daily e SOPN (with meals). Do not take if you are not going to eat right away. Please note that pt had side effects with Humalog. Insulin Pen 2020-0 Yes [id number] 1{each} 1 Each 5 [facility] (PEN 9-22 times [facility] NEEDLES) 00:00: daily. of 31G X 5 MM 00 Medicin MISC e Insulin 2020-0 Yes [id number] 15 units [facility] Degludec 9-22 every [facility] (TRESIBA 00:00: morning of FLEXTOUCH) 00 and 90 Medicin 200 UNIT/ML units e SOPN every night Insulin 2020-0 Yes [id number] 24U Inject 24 [facility] Aspart 9-22 Units into [facility] (NOVOLOG 00:00: the skin 3 of FLEXPEN) 00 times Medicin 100 UNIT/ML daily e SOPN (with meals). Do not take if you are not going to eat right away. Please note that pt had side effects with Humalog. Insulin Pen 2020-0 Yes [id number] 1{each} 1 Each 5 [facility] [place] (PEN 9-22 times [facility] NEEDLES) 00:00: daily. of 31G X 5 MM 00 Medicin MISC e Insulin 2020-0 Yes [id number] 15 units [facility] Degludec 9-22 every [facility] (TRESIBA 00:00: morning of FLEXTOUCH) 00 and 90 Medicin 200 UNIT/ML units e SOPN every night Insulin 2020-0 Yes [id number] 24U Inject 24 [facility] Aspart 9-22 Units into [facility] (NOVOLOG 00:00: the skin 3 of FLEXPEN) 00 times Medicin 100 UNIT/ML daily e SOPN (with meals). Do not take if you are not going to eat right away. Please note that pt had side effects with Humalog. Insulin Pen 2020-0 Yes [id number] 1{each} 1 Each 5 [facility] Needle (PEN 9-22 times [place] NEEDLES) 00:00: daily. of 31G X 5 MM 00 Medicin MISC e Insulin 2020-0 Yes [id number] 15 units [facility] Degludec -22 every [facility] (TRESIBA 00:00: morning of FLEXTOUCH) 00 and 90 Medicin 200 UNIT/ML units e SOPN every night Insulin 2020-0 Yes [id number] 24U Inject 24 [facility] Aspart 9-22 Units into [facility] (NOVOLOG 00:00: the skin 3 of FLEXPEN) 00 times Medicin 100 UNIT/ML daily e SOPN (with meals). Do not take if you are not going to eat right away. Please note that pt had side effects with Humalog. [place]-3 2020-0 Yes Take by [facility] Fatty Acids 02-02 mouth. [facility] (OMEGA 3 18:41: of OR) 34 Medicin e Diclofenac 2020-0 2020- No Apply Baylo r Sodium 1 % 02-02- topically. Co llege GEL 18:40: 00:00 of 50 :00 Medicin e pravastatin 2020-0 Yes 10mg Take 0.5 [facility] (PRAVACHOL) 9-08 Tabs by [facility]le [facility] 20 MG 00:00: mouth of tablet 00 daily. Medicin e pravastatin 2020-0 Yes 10mg Take 0.5 [facility] (PRAVACHOL) 9-08 Tabs by [facility] 20 MG 00:00: mouth of tablet 00 daily. Medicin e pravastatin 2020-0 Yes 10mg Take 0.5 [facility] (PRAVACHOL) 9-08 Tabs by [facility]le [facility] 20 MG 00:00: mouth of tablet 00 daily. Medicin e pravastatin 2020-0 Yes 10mg Take 0.5 [facility] (PRAVACHOL) 9-08 Tabs by [facility]le [facility] 20 MG 00:00: mouth of tablet 00 daily. Medicin e pravastatin 2020-0 Yes 10mg Take 0.5 [facility] (PRAVACHOL) 9-08 Tabs by [facility]le [facility] 20 MG 00:00: mouth of tablet 00 daily. Medicin e amlodipine 2020-0 Yes [id number] 5mg Take 1 Tab [facility] (NORVASC) 5 8-31 by mouth [facility] tablet 00:00: daily. of 00 Medicin e valsartan 2020-0 Yes 320mg Take 1 Tab [facility] (DIOVAN) 8-26 by mouth [facility] 320 MG 00:00: daily. of tablet 00 Medicin e valsartan 2020-0 Yes 320mg Take 1 Tab [facility] (DIOVAN) 8-26 by mouth [facility] 320 MG 00:00: daily. of tablet 00 Medicin e valsartan 2020-0 Yes 320mg Take 1 Tab [facility] (DIOVAN) 8-26 by mouth [facility] 320 MG 00:00: daily. of tablet 00 Medicin e valsartan 2020-0 Yes 320mg Take 1 Tab [facility] (DIOVAN) 8-26 by mouth [facility] 320 MG 00:00: daily. of tablet 00 Medicin e valsartan 2020-0 Yes 320mg Take 1 Tab [facility] (DIOVAN) 8-26 by mouth [facility] 320 MG 00:00: daily. of tablet 00 Medicin e valsartan 2020-0 Yes 320mg Take 1 Tab [facility] (DIOVAN) 8-26 by mouth [facility] 320 MG 00:00: daily. of tablet 00 Medicin e valsartan 2020-0 Yes 320mg Take 1 Tab [facility] (DIOVAN) 8-26 by mouth [facility] 320 MG 00:00: daily. of tablet 00 Medicin e valsartan 2020-0 Yes 320mg Take 1 Tab [facility] (DIOVAN) 8-26 by mouth [facility] 320 MG 00:00: daily. of tablet 00 Medicin e valsartan 2020-0 Yes 320mg Take 1 Tab [facility] (DIOVAN) 8-26 by mouth [facility] 320 MG 00:00: daily. of tablet 00 Medicin e valsartan 2020-0 Yes 320mg Take 1 Tab [facility] (DIOVAN) 8-26 by mouth [facility] 320 MG 00:00: daily. of tablet 00 Medicin e valsartan 2020-0 Yes 320mg Take 1 Tab [facility] (DIOVAN) 8-26 by mouth [facility] 320 MG 00:00: daily. of tablet 00 Medicin e valsartan 2020-0 Yes 320mg Take 1 Tab [facility] (DIOVAN) 8-26 by mouth [facility] 320 MG 00:00: daily. of tablet 00 Medicin e valsartan 2020-0 Yes 320mg Take 1 Tab [facility] (DIOVAN) 8-26 by mouth [facility] 320 MG 00:00: daily. of tablet 00 Medicin e Insulin 2020-0 Yes [id number] 10U Inject 10 [facility] Aspart 8-26 Units into [facility] (NOVOLOG 00:00: the skin 3 of FLEXPEN) 00 times Medicin 100 UNIT/ML daily e SOPN (with meals). Do not take if you are not going to eat right away. Please note that pt had side effects with Humalog. valsartan 2020-0 Yes 320mg Take 1 Tab [facility] (DIOVAN) 8-26 by mouth [place] 320 MG 00:00: daily. of tablet 00 Medicin e valsartan 2020-0 Yes 320mg Take 1 Tab [facility] (DIOVAN) 8-26 by mouth [facility] 320 MG 00:00: daily. of tablet 00 Medicin e valsartan 2020-0 Yes 320mg Take 1 Tab [facility] (DIOVAN) 8-26 by mouth [facility] 320 MG 00:00: daily. of tablet 00 Medicin e valsartan 2020-0 Yes 320mg Take 1 Tab [facility] (DIOVAN) 8-26 by mouth [facility] 320 MG 00:00: daily. of tablet 00 Medicin e valsartan 2020-0 Yes 320mg Take 1 Tab [facility] (DIOVAN) 8-26 by mouth [facility] 320 MG 00:00: daily. of tablet 00 Medicin e valsartan 2020-0 Yes 320mg Take 1 Tab [facility] (DIOVAN) 8-26 by mouth [facility] 320 MG 00:00: daily. of tablet 00 Medicin e valsartan 2020-0 Yes 320mg Take 1 Tab [facility] (DIOVAN) 8-26 by mouth [place] 320 MG 00:00: daily. of tablet 00 Medicin e valsartan 2020-0 Yes 320mg Take 1 Tab [facility] (DIOVAN) 8-26 by mouth [facility] 320 MG 00:00: daily. of tablet 00 Medicin e Levocetiriz 2020-0 Yes [id number] Take one [facility] ine 8-12 tablet [place] Dihydrochlo 00:00: daily of ride 5 MG 00 Medicin TABS e Levocetiriz 2020-0 Yes [id number] Take one [facility] ine 8-12 tablet [place] Dihydrochlo 00:00: daily of ride 5 MG 00 Medicin TABS e Levocetiriz 2020-0 Yes [id number] Take one [facility] ine 8-12 tablet [place] Dihydrochlo 00:00: daily of ride 5 MG 00 Medicin TABS e Levocetiriz 2020-0 Yes [id number] Take one [facility] ine 8-12 tablet [place] Dihydrochlo 00:00: daily of ride 5 MG 00 Medicin TABS e Levocetiriz 2020-0 2020- No [id number] Take one [facility] ine 8-12 12-01 tablet [place] Dihydrochlo 00:00: 00:00 daily of ride 5 MG 00 :00 Medicin TABS e Continuous 2020-0 Yes [id number] 1{each} 1 Each [facility] Blood Gluc 7-10 every 14 [facility] Sensor 00:00: days. of (FREESTYLE 00 Medicin EMANUEL 14 e DAY SENSOR) MISC Continuous 2020-0 Yes [id number] 1{each} 1 Each [facility] Blood Gluc 7-10 every 14 [facility]le ge Sensor 00:00: days. of (FREESTYLE 00 Medicin EMANUEL 14 e DAY SENSOR) MISC Continuous 2020-0 Yes [id number] 1{each} 1 Each [facility] Blood Gluc 7-10 every 14 [facility]le ge Sensor 00:00: days. of (FREESTYLE 00 Medicin EMANUEL 14 e DAY SENSOR) MISC Continuous 2020-0 Yes [id number] 1{each} 1 Each [facility] Blood Gluc 7-10 every 14 Colle ge Sensor 00:00: days. of (FREESTYLE 00 Medicin EMANUEL 14 e DAY SENSOR) MISC Continuous 2020-0 Yes [id number] 1{each} 1 Each [facility] Blood Gluc 7-10 every 14 [facility]le ge Sensor 00:00: days. of (FREESTYLE 00 Medicin EMANUEL 14 e DAY SENSOR) MISC Continuous 2020-0 Yes [id number] 1{each} 1 Each [facility] Blood Gluc 7-10 every 14 [facility]le ge Sensor 00:00: days. of (FREESTYLE 00 Medicin EMANUEL 14 e DAY SENSOR) MISC Continuous 2020-0 Yes [id number] 1{each} 1 Each [facility] Blood Gluc 7-10 every 14 [facility]le ge Sensor 00:00: days. of (FREESTYLE 00 Medicin EMANUEL 14 e DAY SENSOR) MISC Continuous 2020-0 Yes [id number] 1{each} 1 Each [facility] Blood Gluc 7-10 every 14 [facility]le ge Sensor 00:00: days. of (FREESTYLE 00 Medicin EMANUEL 14 e DAY SENSOR) MISC Continuous 2020-0 Yes [id number] 1{each} 1 Each [facility] Blood Gluc 7-10 every 14 [facility]le ge Sensor 00:00: days. of (FREESTYLE 00 Medicin EMANUEL 14 e DAY SENSOR) MISC Continuous 2020-0 Yes [id number] 1{each} 1 Each [facility] Blood Gluc 7-10 every 14 Colle ge Sensor 00:00: days. of (FREESTYLE 00 Medicin EMANUEL 14 e DAY SENSOR) MISC Continuous 2020-0 Yes [id number] 1{each} 1 Each [facility] Blood Gluc 7-10 every 14 [facility]le ge Sensor 00:00: days. of (FREESTYLE 00 Medicin EMANUEL 14 e DAY SENSOR) MISC Continuous 2020-0 Yes [id number] 1{each} 1 Each [facility] Blood Gluc 7-10 every 14 Colle ge Sensor 00:00: days. of (FREESTYLE 00 Medicin EMANUEL 14 e DAY SENSOR) MISC Continuous 2020-0 Yes [id number] 1{each} 1 Each [facility] Blood Gluc 7-10 every 14 [facility]le ge Sensor 00:00: days. of (FREESTYLE 00 Medicin EMANUEL 14 e DAY SENSOR) MISC Continuous 2020-0 Yes [id number] 1{each} 1 Each [facility] Blood Gluc 7-10 every 14 [facility]le ge Sensor 00:00: days. of (FREESTYLE 00 Medicin EMANUEL 14 e DAY SENSOR) MISC Continuous 2020-0 Yes [id number] 1{each} 1 Each [facility] Blood Gluc 7-10 every 14 [facility]le ge Sensor 00:00: days. of (FREESTYLE 00 Medicin EMANUEL 14 e DAY SENSOR) MISC Continuous 2020-0 Yes [id number] 1{each} 1 Each [facility] Blood Gluc 7-10 every 14 Colle ge Sensor 00:00: days. of (FREESTYLE 00 Medicin EMANUEL 14 e DAY SENSOR) MISC Continuous 2020-0 Yes [id number] 1{each} 1 Each [facility] Blood Gluc 7-10 every 14 [facility]le ge Sensor 00:00: days. of (FREESTYLE 00 Medicin EMANUEL 14 e DAY SENSOR) MISC Continuous 2020-0 Yes [id number] 1{each} 1 Each [facility] Blood Gluc 7-10 every 14 [facility]le ge Sensor 00:00: days. of (FREESTYLE 00 Medicin EMANUEL 14 e DAY SENSOR) MISC Continuous 2020-0 Yes [id number] 1{each} 1 Each [facility] Blood Gluc 7-10 every 14 Colle ge Sensor 00:00: days. of (FREESTYLE 00 Medicin EMANUEL 14 e DAY SENSOR) MISC Continuous 2020-0 Yes [id number] 1{each} 1 Each [facility] Blood Gluc 7-10 every 14 [facility]le ge Sensor 00:00: days. of (FREESTYLE 00 Medicin EMANUEL 14 e DAY SENSOR) MISC Continuous 2020-0 Yes [id number] 1{each} 1 Each [facility] Blood Gluc 7-10 every 14 Colle ge Sensor 00:00: days. of (FREESTYLE 00 Medicin EMANUEL 14 e DAY SENSOR) MISC Insulin 2020-0 Yes [id number] 90U Inject 90 [facility] Degludec 2-17 Units into [facility]le [facility] (TRESIBA 00:00: the skin of FLEXTOUCH) 00 nightly. Medic in 200 UNIT/ML e SOPN Insulin 2019-0 Yes [id number] 90U Inject 90 [facility] Degludec 2-17 Units into [facility]le ge (TRESIBA 00:00: the skin of FLEXTOUCH) 00 nightly. Medic in 200 UNIT/ML e SOPN [place]-3 2018-05 Yes Take by [facility] Fatty Acids 2-10 mouth. Colleg e (OMEGA 3 22:36: of OR) 25 Medicin e Semaglutide 2018-05 Yes [id number] 1mg Inject 1 [facility] , 1 2-10 mg into College MG/DOSE, 2 00:00: the skin of MG/1.5ML 00 every 7 Medicin SOPN days. e Insulin 2018-05 2020- No [id number] 50U Inject 50 [facility] Degludec 2-10 02-17 Units into [facility] (TRESIBA 00:00: 00:00 the skin of FLEXTOUCH) 00 :00 nightly Medici n 200 UNIT/ML for 90 e SOPN days. glimepiride 2018-05 2020- No 4mg Take 1 Tab [facility] (AMARYL) 4 2-10 17 by mouth [facility] MG tablet 00:00: 00:00 every of 00 :00 morning. Medicin e [place]-3 2018-05 Yes Take by [facility] Fatty Acids 1-05 mouth. Colleg e (OMEGA 3 22:26: of OR) 06 Medicin e Semaglutide 2018-05 Yes [id number] .5mg Inject 0.5 [facility] ,0.25 or 1-05 mg into College 0.5MG/DOS, 00:00: the skin of 2 MG/1.5ML 00 every 7 Medici n SOPN days. e [place]-3 2018-05 Yes Take by [facility] Fatty Acids 0-16 mouth. Colleg e (OMEGA 3 13:34: of OR) 27 Medicin e [place]-3 2018-05 Yes Take by [facility] Fatty Acids 0-16 mouth. Colleg e (OMEGA 3 13:34: of OR) 27 Medicin e [place]-3 2018-05 Yes Take by [facility] Fatty Acids 0-10 mouth. Colleg e (OMEGA 3 13:11: of OR) 47 Medicin e Insulin 2018-05 Yes [id number] 30U 30 Units 3 [facility] Lispro 0-10 times College (HUMALOG 00:00: daily of KWIKPEN) 00 (with Medicin 100 UNIT/ML meals). e SOPN Please dispense 90 days' supply = 30 pens BASAGLAR 2018-05 Yes [id number] 72U Inject 72 [facility] KWIKPEN 100 0-10 Units into Co llege UNIT/ML 00:00: the skin of SOPN 00 nightly. Medicin Please e dispense 90 days' supply = 24 pens Insulin 2018-05 Yes [id number] 30U 30 Units 3 [facility] Lispro 0-10 times College (HUMALOG 00:00: daily of KWIKPEN) 00 (with Medicin 100 UNIT/ML meals). e SOPN Please dispense 90 days' supply = 30 pens BASAGLAR 2018-05 Yes [id number] 72U Inject 72 [facility] KWIKPEN 100 0-10 Units into Co llege UNIT/ML 00:00: the skin of SOPN 00 nightly. Medicin Please e dispense 90 days' supply = 24 pens Insulin 2018-05 Yes [id number] 30U 30 Units 3 [facility] Lispro 0-10 times [facility] (HUMALOG 00:00: daily of KWIKPEN) 00 (with Medicin 100 UNIT/ML meals). e SOPN Please dispense 90 days' supply = 30 pens BASAGLAR 2018-05 Yes [id number] 72U Inject 72 [facility] KWIKPEN 100 0-10 Units into Co llege UNIT/ML 00:00: the skin of SOPN 00 nightly. Medicin Please e dispense 90 days' supply = 24 pens Insulin 2018-05 Yes [id number] 30U 30 Units 3 [facility] Lispro 0-10 times [place] (HUMALOG 00:00: daily of KWIKPEN) 00 (with Medicin 100 UNIT/ML meals). e SOPN Please dispense 90 days' supply = 30 pens BASAGLAR 2018-05 Yes [id number] 72U Inject 72 [facility] KWIKPEN 100 0-10 Units into Co llege UNIT/ML 00:00: the skin of SOPN 00 nightly. Medicin Please e dispense 90 days' supply = 24 pens aspirin 81 2018- 2019- No 81mg Take 81 mg [facility] MG tablet 02-24 by mouth [facility] 18:13: 00:00 daily. of 02 :00 Medicin e Levocetiriz 2019- No Take by [facility] 02-24 mouth. [facility] 18:12: 00:00 of ride (XYZAL 14 :00 Medicin ALLERGY e 24HR OR) [place]-3 2018- Yes Take by [facility] Fatty Acids 02-24 mouth. Colleg e (OMEGA 3 17:31: of OR) 44 Medicin e [place]-3 2019- Yes Take by [facility] Fatty Acids 02-24 mouth. Colleg e (OMEGA 3 17:31: of OR) 44 Medicin e [place]-3 2019- Yes Take by [facility] Fatty Acids 02-24 mouth. Colleg e (OMEGA 3 17:31: of OR) 44 Medicin e fluticasone 2018- Yes [id number] 1{spray 1 [place] by [facility] (FLONASE) 02-24 } Each College 50 MCG/ACT 00:00: Nostril of nasal spray 00 route Medicin daily. e fluticasone 2019-0 Yes [id number] 1{spray 1 [place] by [facility] (FLONASE) 02-24 } Each College 50 MCG/ACT 00:00: Nostril of nasal spray 00 route Medicin daily. e fluticasone 2018-0 Yes [id number] 1{spray 1 [place] by [facility] (FLONASE) 02-24 } Each [facility] 50 MCG/ACT 00:00: Nostril of nasal spray 00 route Medicin daily. e fluticasone 2018-0 Yes [id number] 1{spray 1 [place] by [facility] (FLONASE) 02-24 } Each [facility] 50 MCG/ACT 00:00: Nostril of nasal spray 00 route Medicin daily. e fluticasone 2018-0 Yes [id number] 1{spray 1 [place] by [facility] (FLONASE) 02-24 } Each [facility] 50 MCG/ACT 00:00: Nostril of nasal spray 00 route Medicin daily. e fluticasone 2018-0 Yes [id number] 1{spray 1 [place] by [facility] (FLONASE) 02-24 } Each [facility] 50 MCG/ACT 00:00: Nostril of nasal spray 00 route Medicin daily. e fluticasone 2018-0 Yes [id number] 1{spray 1 [place] by [facility] (FLONASE) 02-24 } Each [facility] 50 MCG/ACT 00:00: Nostril of nasal spray 00 route Medicin daily. e fluticasone 2018-0 Yes [id number] 1{spray 1 [place] by [facility] (FLONASE) 02-24 } Each [facility] 50 MCG/ACT 00:00: Nostril of nasal spray 00 route Medicin daily. e fluticasone 2019-0 Yes [id number] 1{spray 1 [place] by [facility] (FLONASE) 02-24 } Each [facility] 50 MCG/ACT 00:00: Nostril of nasal spray 00 route Medicin daily. e fluticasone 2019-0 Yes [id number] 1{spray 1 [place] by [facility] (FLONASE) 02-24 } Each [facility] 50 MCG/ACT 00:00: Nostril of nasal spray 00 route Medicin daily. e fluticasone 2019-0 Yes [id number] 1{spray 1 [place] by [facility] (FLONASE) 02-24 } Each [facility] 50 MCG/ACT 00:00: Nostril of nasal spray 00 route Medicin daily. e fluticasone 2019-0 Yes [id number] 1{spray 1 [place] by [facility] (FLONASE) 02-24 } Each [facility] 50 MCG/ACT 00:00: Nostril of nasal spray 00 route Medicin daily. e fluticasone 2018-0 Yes [id number] 1{spray 1 [place] by [facility] (FLONASE) 02-24 } Each [facility] 50 MCG/ACT 00:00: Nostril of nasal spray 00 route Medicin daily. e fluticasone 2018-0 Yes [id number] 1{spray 1 [place] by [facility] (FLONASE) 02-24 } Each [facility] 50 MCG/ACT 00:00: Nostril of nasal spray 00 route Medicin daily. e fluticasone 2018-0 Yes [id number] 1{spray 1 [place] by [facility] (FLONASE) 02-24 } Each [facility] 50 MCG/ACT 00:00: Nostril of nasal spray 00 route Medicin daily. e fluticasone 2018-0 Yes [id number] 1{spray 1 [place] by [facility] (FLONASE) 02-24 } Each [facility] 50 MCG/ACT 00:00: Nostril of nasal spray 00 route Medicin daily. e fluticasone 2018-0 Yes [id number] 1{spray 1 [place] by [facility] (FLONASE) 02-24 } Each College 50 MCG/ACT 00:00: Nostril of nasal spray 00 route Medicin daily. e fluticasone 2019-0 Yes [id number] 1{spray 1 [place] by [facility] (FLONASE) 02-24 } Each College 50 MCG/ACT 00:00: Nostril of nasal spray 00 route Medicin daily. e fluticasone 2019-0 Yes [id number] 1{spray 1 [place] by [facility] (FLONASE) 02-24 } Each [facility] 50 MCG/ACT 00:00: Nostril of nasal spray 00 route Medicin daily. e fluticasone 2019-0 Yes [id number] 1{spray 1 [place] by [facility] (FLONASE) 02-24 } Each [facility] 50 MCG/ACT 00:00: Nostril of nasal spray 00 route Medicin daily. e Levocetiriz 2019-0 Yes [id number] Take one [facility] ine 9-30 tablet [place] Dihydrochlo 00:00: daily of ride 5 MG 00 Medicin TABS e Ergocalcife 2019-0 Yes [id number] Take one [facility] rol 01488 9-30 tablet College units CAPS 00:00: weekly of 00 with fatty Medicin meal e (eggs, avocados) fluticasone 2019-0 Yes [id number] 1{spray 1 [place] by [facility] (FLONASE) 930 } Each [place] 50 MCG/ACT 00:00: Nostril of nasal spray 00 route Medicin daily. e Levocetiriz 2019-0 Yes [id number] Take one [facility] ine 9-30 tablet [place] Dihydrochlo 00:00: daily of ride 5 MG 00 Medicin TABS e Ergocalcife 2019-0 Yes [id number] Take one [facility] rol 49111 9-30 tablet College units CAPS 00:00: weekly of 00 with fatty Medicin meal e (eggs, avocados) fluticasone 2019-0 Yes [id number] 1{spray 1 [place] by [facility] (FLONASE) 930 } Each [place] 50 MCG/ACT 00:00: Nostril of nasal spray 00 route Medicin daily. e Levocetiriz 2019-0 Yes [id number] Take one [facility] ine 9-30 tablet [place] Dihydrochlo 00:00: daily of ride 5 MG 00 Medicin TABS e Ergocalcife 2019-0 Yes [id number] Take one [facility] rol 95124 9-30 tablet College units CAPS 00:00: weekly of 00 with fatty Medicin meal e (eggs, avocados) fluticasone 2019-0 Yes [id number] 1{spray 1 [place] by [facility] (FLONASE) 930 } Each [place] 50 MCG/ACT 00:00: Nostril of nasal spray 00 route Medicin daily. e Levocetiriz 2019-0 Yes [id number] Take one [facility] ine 9-30 tablet [place] Dihydrochlo 00:00: daily of ride 5 MG 00 Medicin TABS e Ergocalcife 2019-0 Yes [id number] Take one [facility] rol 46392 9-30 tablet College units CAPS 00:00: weekly of 00 with fatty Medicin meal e (eggs, avocados) fluticasone 2019-0 Yes [id number] 1{spray 1 [place] by [facility] (FLONASE) 930 } Each [facility] 50 MCG/ACT 00:00: Nostril of nasal spray 00 route Medicin daily. e Levocetiriz 2019-0 Yes [id number] Take one [facility] ine 9-30 tablet [place] Dihydrochlo 00:00: daily of ride 5 MG 00 Medicin TABS e Ergocalcife 2019-0 Yes [id number] Take one [facility] rol 87514 9-30 tablet College units CAPS 00:00: weekly of 00 with fatty Medicin meal e (eggs, avocados) fluticasone 2018-0 Yes [id number] 1{spray 1 [place] by [facility] (FLONASE) 02-24 } Each [place] 50 MCG/ACT 00:00: Nostril of nasal spray 00 route Medicin daily. e Levocetiriz 2019- Yes [id number] Take one [facility] ine 9-30 tablet [place] Dihydrochlo 00:00: daily of ride 5 MG 00 Medicin TABS e Ergocalcife 2019-0 Yes [id number] Take one [facility] rol 65538 9-30 tablet College units CAPS 00:00: weekly of 00 with fatty Medicin meal e (eggs, avocados) fluticasone 2019-0 Yes [id number] 1{spray 1 [place] by [facility] (FLONASE) 02-24 } Each [place] 50 MCG/ACT 00:00: Nostril of nasal spray 00 route Medicin daily. e Levocetiriz 2019-0 Yes [id number] Take one [facility] ine 9-30 tablet [place] Dihydrochlo 00:00: daily of ride 5 MG 00 Medicin TABS e fluticasone 2019- Yes [id number] 1{spray 1 [place] by [facility] (FLONASE) 02-24 } Each [facility] 50 MCG/ACT 00:00: Nostril of nasal spray 00 route Medicin daily. e fluticasone 2019-0 Yes [id number] 1{spray 1 [place] by [facility] (FLONASE) 30 } Each [facility] 50 MCG/ACT 00:00: Nostril of nasal spray 00 route Medicin daily. e fluticasone 2019-0 Yes [id number] 1{spray 1 [place] by [facility] (FLONASE) 02-24 } Each [facility] 50 MCG/ACT 00:00: Nostril of nasal spray 00 route Medicin daily. e fluticasone Yes [id number] 1{spray 1 [place] by [facility] (FLONASE) 02-24 } Each [facility] 50 MCG/ACT 00:00: Nostril of nasal spray 00 route Medicin daily. e fluticasone Yes [id number] 1{spray 1 [place] by [facility] (FLONASE) 02-24 } Each [facility] 50 MCG/ACT 00:00: Nostril of nasal spray 00 route Medicin daily. e fluticasone Yes [id number] 1{spray 1 [place] by [facility] (FLONASE) 02-24 } Each [facility] 50 MCG/ACT 00:00: Nostril of nasal spray 00 route Medicin daily. e fluticasone Yes [id number] 1{spray 1 [place] by [facility] (FLONASE) 02-24 } Each [facility] 50 MCG/ACT 00:00: Nostril of nasal spray 00 route Medicin daily. e fluticasone Yes [id number] 1{spray 1 [place] by [facility] (FLONASE) 02-24 } Each [facility] 50 MCG/ACT 00:00: Nostril of nasal spray 00 route Medicin daily. e fluticasone 2021- No [id number] 1{spray 1 [place] by [facility] (FLONASE) 02-24 05 } Each [facility] 50 MCG/ACT 00:00: 00:00 Nostril of nasal spray 00 :00 route Medicin daily. e fluticasone 2021- No [id number] 1{spray 1 [place] by [facility] (FLONASE) 02-24 0525 } Each [facility] 50 MCG/ACT 00:00: 00:00 Nostril of nasal spray 00 :00 route Medicin daily. e Ergocalcife 2020- No [id number] Take one [facility] rol [id number] 02-2417 tablet College units CAPS 00:00: 00:00 weekly of 00 :00 with fatty Medicin meal e (eggs, avocados) Zoster Vac 2019- No 2{dose} Inject 2 [facility] [place] 9-30 10-01 Doses into Colleg e Adjuvanted 00:00: 04:59 the muscle of 50 00 :00 once for 1 Medicin MCG/0.5ML dose. IM: e SUSR 0.5 mL administer ed as a 2-dose series at 0 and 2 to 6 months Diclofenac 2018- Yes [id number] 3g Place 3 g [facility] Sodium 1 % 9-25 onto the Colle ge GEL 00:00: skin 3 of 00 times Medicin daily. e Diclofenac Yes [id number] 3g Place 3 g [facility] Sodium 1 % 9-25 onto the Colle ge GEL 00:00: skin 3 of 00 times Medicin daily. e Diclofenac 2018- Yes [id number] 3g Place 3 g [facility] Sodium 1 % 9-25 onto the Colle ge GEL 00:00: skin 3 of 00 times Medicin daily. e Diclofenac Yes [id number] 3g Place 3 g [facility] Sodium 1 % 9-25 onto the Colle ge GEL 00:00: skin 3 of 00 times Medicin daily. e Diclofenac 2018- Yes [id number] [address]g Place 3 g [facility] Sodium 1 % 9-25 onto the Colle ge GEL 00:00: skin 3 of 00 times Medicin daily. e Diclofenac 2019-[id number] 3 g [facility] Sodium 1 % 9-25 onto the Colle ge GEL 00:00: skin 3 of 00 times Medicin daily. e Diclofenac 2018- Yes [id number] [address]g Place 3 g [facility] Sodium 1 % 9-25 onto the Colle ge GEL 00:00: skin 3 of 00 times Medicin daily. e Diclofenac 2019- Yes [id number] 3g Place 3 g [facility] Sodium 1 % 9-25 onto the Colle ge GEL 00:00: skin 3 of 00 times Medicin daily. e Diclofenac 2019- Yes [id number] 3g Place 3 g [facility] Sodium 1 % 9-25 onto the Colle ge GEL 00:00: skin 3 of 00 times Medicin daily. e [place]-3 2018- Yes Take by [facility] Fatty Acids 9-24 mouth. Colleg e (OMEGA 3 19:52: of [place]) 28 Medicin e [place]-3 2018-0 Yes Take by [facility] Fatty Acids 9-24 mouth. Colleg e (OMEGA 3 19:52: of [place]) 28 Medicin e losartan 2018- 2019- No 100mg Take 100 [facility] (COZAAR) -24 -24 mg by College 100 MG 19:51: 00:00 mouth. of tablet 31 :00 Medicin e aspirin 81 2018-0 Yes 81mg Take 81 mg [facility] MG tablet 24 by mouth Colleg e 19:51: daily. of 30 Medicin e aspirin 81 2018-0 Yes 81mg Take 81 mg [facility] MG tablet 24 by mouth Colleg e 19:51: daily. of 30 Medicin e levofloxaci Yes 500mg Take 1 Tab [facility] 9-10 by mouth College (LEVAQUIN) 00:00: daily. of 500 MG 00 Medicin tablet e levofloxaci 2019- No 500mg Take 1 Tab [facility] 9-10 -24 by mouth [facility] 00:[facility]: 00:00 daily. of 500 MG 00 :00 Medicin tablet e HUMALOG Yes INJECT [facility] KWIKPEN 100 9-03 SUBCUTANEO [employer] l[facility] UNIT/ML 00:00: USLY 22 of SOPN 00 UNITS 3 Medicin TIMES A e DAY WITH MEALS HUMALOG Yes INJECT [facility] KWIKPEN 100 9-03 SUBCUTANEO [employer] l[employer] UNIT/ML 00:00: USLY 22 of SOPN 00 UNITS 3 Medicin TIMES A e DAY WITH MEALS HUMALOG Yes INJECT [facility] KWIKPEN 100 9-03 SUBCUTANEO [employer] l[facility] UNIT/ML 00:00: USLY 22 of SOPN 00 UNITS 3 Medicin TIMES A e DAY WITH MEALS HUMALOG Yes INJECT [facility] KWIKPEN 100 9-03 SUBCUTANEO [employer] l[facility] UNIT/ML 00:00: USLY 22 of SOPN 00 UNITS 3 Medicin TIMES A e DAY WITH MEALS HUMALOG 2018- Yes INJECT [facility] KWIKPEN 100 9-03 SUBCUTANEO [employer] l[facility] UNIT/ML 00:00: USLY 22 of SOPN 00 UNITS 3 Medicin TIMES A e DAY WITH MEALS HUMALOG 2018- Yes INJECT [facility] KWIKPEN 100 9-03 SUBCUTANEO [employer] l[facility] UNIT/ML 00:00: USLY 22 of SOPN 00 UNITS 3 Medicin TIMES A e DAY WITH MEALS HUMALOG 2019- No INJECT [facility] KWIKPEN 100 9-03 10-10 SUBCUTANEO C ollege UNIT/ML 00:00: 00:00 USLY 22 of SOPN 00 :00 UNITS 3 Medicin TIMES A e DAY WITH MEALS BASAGLAR Yes 50U Inject 50 [place] [facility] KWIKPEN 100 8-26 Units into Co llege UNIT/ML 00:00: the skin of SOPN 00 nightly. Medicin e TRULICITY 2019-0 Yes 1.5mg 1.5 mg [facility] 1.5 8-26 every 7 College MG/0.5ML 00:00: days. of SOPN 00 Medicin e BASAGLAR 0 Yes 50U Inject 50 [facility] KWIK[place] 100 8-26 Units into Co llege UNIT/ML 00:00: the skin of SOPN 00 nightly. Medicin e TRULICITY 2019-0 Yes 1.5mg 1.5 mg [facility] 1.5 8-26 every 7 College MG/0.5ML 00:00: days. of SOPN 00 Medicin e BASAGLAR Yes 50U Inject 50 [place] K[place] 100 8-26 Units into Co llege UNIT/ML 00:00: the skin of SOPN 00 nightly. Medicin e TRULICITY 2018-0 Yes 1.5mg 1.5 mg [facility] 1.5 8-26 every 7 College MG/0.5ML 00:00: days. of SOPN 00 Medicin e BASAGLAR Yes 50U Inject 50 [place] [facility] KWIK[place]EN 100 8-26 Units into Co llege UNIT/ML 00:00: the skin of SOPN 00 nightly. Medicin e TRULICITY 2019-0 Yes 1.5mg 1.5 mg [facility] 1.5 8-26 every 7 College MG/0.5ML 00:00: days. of SOPN 00 Medicin e BASAGLAR 0 Yes 50U Inject 50 [place] [facility] KW[place] 100 8-26 Units into Co llege UNIT/ML 00:00: the skin of SOPN 00 nightly. Medicin e TRULICITY 2019-0 Yes 1.5mg 1.5 mg [facility] 1.5 8-26 every 7 College MG/0.5ML 00:00: days. of SOPN 00 Medicin e BASAGLAR Yes 50U Inject 50 [place] [facility] KW[place] 100 8-26 Units into Co llege UNIT/ML 00:00: the skin of SOPN 00 nightly. Medicin e TRULICITY 2018-0 Yes 1.5mg 1.5 mg [facility] 1.5 8-26 every 7 College MG/0.5ML 00:00: days. of SOPN 00 Medicin e BASAGLAR 2018- 2019- No 50U Inject 50 [facility] KWIKPEN 100 8-26 10-10 Units into C ollege UNIT/ML 00:00: 00:00 the skin of SOPN 00 :00 nightly. Medicin e TRULICITY 2018- 2019- No 1.5mg 1.5 mg [facility] 1.5 8-26 10-10 every 7 College MG/0.5ML 00:00: 00:00 days. of SOPN 00 :00 Medicin e losartan 2018- Yes 100mg Take 100 [facility] (COZAAR) 8-22 mg by College 100 MG 20:22: mouth. of tablet 09 Medicin e losartan 0 Yes 100mg Take 100 [facility] (COZAAR) 8-22 mg by [place] 100 MG 20:22: mouth. of tablet 09 Medicin e levofloxaci Yes 500mg Take 1 Tab [facility] 8-22 by mouth College (LEVAQUIN) 00:00: two times of 500 MG 00 daily. Medicin tablet e levofloxaci 0 2019- No 500mg Take 1 Tab [facility] 8-22 09-10 by mouth [place] (LEVAQUIN) 00:00: 00:00 two times o f 500 MG 00 :00 daily. Medicin tablet e Insulin Pen Yes [id number] Inject [facility] Needle (BD 8-12 insulin Colleg e PEN NEEDLE 00:00: four times o f JOSIAH U/F) 00 a day. Dx Medic in 32G X 4 MM E11.65 e MISC Insulin Pen Yes [id number] Inject [facility] [place] (BD 8-12 insulin Colleg e PEN NEEDLE 00:00: four times o f JOSIAH U/F) 00 a day. Dx Medic in 32G X 4 MM E11.65 e MISC Insulin Pen Yes [id number] Inject [facility] [place] (BD 8-12 insulin Colleg e PEN NEEDLE 00:00: four times o f JOSIAH U/F) 00 a day. Dx Medic in 32G X 4 MM E11.65 e MISC Insulin Yes 22U Inject 22 [facility] Lispro 8-12 Units into College (HUMALOG 00:00: the skin 3 of KWIKPEN) 00 times Medicin 100 UNIT/ML daily e SOPN (with meals). TRULICITY Yes 1.5mg 1.5 mg [facility] 1.5 8-12 every 7 College MG/0.5ML 00:00: days. of SOPN 00 Medicin e Insulin Pen 2019- No [id number] Inject [facility] [place] (BD 812 02-19 insulin Colle ge PEN NEEDLE 00:00: 00:00 four times of JOSIAH U/F) 00 :00 a day. Dx Medic in 32G X 4 MM E11.65 e MISC ibuprofen Yes TAKE 1 [facility] (MOTRIN) 8-05 TABLET BY Colleg e 800 mg 00:00: MOUTH 3 of tablet 00 TIMES A Medicin DAY e NEEDED ibuprofen Yes TAKE 1 [facility] (MOTRIN) 8-05 TABLET BY Colleg e 800 mg 00:00: MOUTH 3 of tablet 00 TIMES A Medicin DAY e NEEDED ibuprofen Yes TAKE 1 [facility] (MOTRIN) 8-05 TABLET BY Colleg e 800 mg 00:00: MOUTH 3 of tablet 00 TIMES A Medicin DAY e NEEDED ibuprofen Yes TAKE 1 [facility] (MOTRIN) 8-05 TABLET BY Colleg e 800 mg 00:00: MOUTH 3 of tablet 00 TIMES A Medicin DAY e NEEDED ibuprofen 2019 Yes TAKE 1 [facility] (MOTRIN) 8-05 TABLET BY Colleg e 800 mg 00:00: MOUTH 3 of tablet 00 TIMES A Medicin DAY e NEEDED ibuprofen 2019- Yes TAKE 1 [facility] (MOTRIN) 8-05 TABLET BY Colleg e 800 mg 00:00: MOUTH 3 of tablet 00 TIMES A Medicin DAY e NEEDED ibuprofen 2019- Yes TAKE 1 [facility] (MOTRIN) 8-05 TABLET BY Colleg e 800 mg 00:00: MOUTH 3 of tablet 00 TIMES A Medicin DAY e NEEDED ibuprofen 2019- Yes TAKE 1 [facility] (MOTRIN) 8-05 TABLET BY Colleg e 800 mg 00:00: MOUTH 3 of tablet 00 TIMES A Medicin DAY e NEEDED ibuprofen Yes TAKE 1 [facility] (MOTRIN) 8-05 TABLET BY Colleg e 800 mg 00:00: MOUTH 3 of tablet 00 TIMES A Medicin DAY e NEEDED ibuprofen Yes TAKE 1 [facility] (MOTRIN) 8-05 TABLET BY Colleg e 800 mg 00:00: MOUTH 3 of tablet 00 TIMES A Medicin DAY e NEEDED ibuprofen Yes TAKE 1 [facility] (MOTRIN) 8-05 TABLET BY Colleg e 800 mg 00:00: MOUTH 3 of tablet 00 TIMES A Medicin DAY e NEEDED ibuprofen Yes TAKE 1 [facility] (MOTRIN) 8-05 TABLET BY Colleg e 800 mg 00:00: MOUTH 3 of tablet 00 TIMES A Medicin DAY e NEEDED BASAGLAR Yes 50U Inject 50 [facility] KWIKPEN 100 8-01 Units into Co llege UNIT/ML 21:10: the skin of SOPN 08 nightly. Medicin e BASAGLAR Yes 50U Inject 50 [facility] KWIKPEN 100 8-01 Units into Co llege UNIT/ML 21:10: the skin of SOPN 08 nightly. Medicin e Continuous Yes [id number] 1{each} 1 Each [facility] Blood Gluc 8-01 daily. 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 of (FREESTYLE 00 Medicin EMANUEL 14 e DAY SENSOR) MISC Continuous Yes [id number] 1{each} 1 Each [facility] Blood Gluc 8-01 daily. 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 of (FREESTYLE 00 Medicin EMANUEL 14 e DAY SENSOR) MISC Continuous Yes [id number] 1{each} 1 Each [facility] Blood Gluc 8-01 every 14 Colle ge Sensor 00:00: days. of (FREESTYLE 00 Medicin EMANUEL 14 e DAY SENSOR) MISC Continuous 2018-0 Yes [id number] 1{each} 1 Each [facility] Blood Gluc 8-01 every 14 Colle ge Sensor 00:00: days. of (FREESTYLE 00 Medicin EMANUEL 14 e DAY SENSOR) MISC Continuous 2018-0 Yes [id number] 1{each} 1 Each [facility] Blood Gluc 8-01 every 14 Colle ge Sensor 00:00: days. of (FREESTYLE 00 Medicin EMANUEL 14 e DAY SENSOR) MISC Continuous 2018-0 Yes [id number] 1{each} 1 Each [facility] Blood Gluc 8-01 every 14 Colle ge Sensor 00:00: days. of (FREESTYLE 00 Medicin EMANUEL 14 e DAY SENSOR) MISC Continuous 2018-0 Yes [id number] 1{each} 1 Each [facility] Blood Gluc 8-01 every 14 Colle ge Sensor 00:00: days. of (FREESTYLE 00 Medicin EMANUEL 14 e DAY SENSOR) MISC Continuous 2018-0 Yes [id number] 1{each} 1 Each [facility] Blood Gluc 8-01 every 14 Colle ge Sensor 00:00: days. of (FREESTYLE 00 Medicin EMANUEL 14 e DAY SENSOR) MISC Continuous 2018-0 Yes [id number] 1{each} 1 Each [facility] Blood Gluc 8-01 daily. 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 of (FREESTYLE 00 Medicin EMANUEL 14 e DAY SENSOR) MISC Continuous 2018-0 Yes [id number] 1{each} 1 Each [facility] Blood Gluc 8-01 every 14 Colle ge Sensor 00:00: days. of (FREESTYLE 00 Medicin EMANUEL 14 e DAY SENSOR) MISC Continuous 2018-0 Yes [id number] 1{each} 1 Each [facility] Blood Gluc 8-01 every 14 Colle ge Sensor 00:00: days. of (FREESTYLE 00 Medicin EMANUEL 14 e DAY SENSOR) MISC Continuous 2018-0 Yes [id number] 1{each} 1 Each [facility] Blood Gluc 8-01 every 14 Colle ge Sensor 00:00: days. of (FREESTYLE 00 Medicin EMANUEL 14 e DAY SENSOR) MISC Continuous 2018-0 Yes [id number] 1{each} 1 Each [facility] Blood Gluc 8-01 daily. 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 of (FREESTYLE 00 Medicin EMANUEL 14 e DAY SENSOR) MISC Continuous 2019- No [id number] 1{each} 1 Each [facility] Blood Gluc 8- 09-25 daily. Colleg e Photocopier Technician 00:00: 00:00 of (FREESTYLE 00 :00 Medicin EMANUEL 14 e DAY READER) ZEKE Insulin Pen Yes [id number] Inject [facility] Needle (BD 7-22 insulin Colleg e PEN NEEDLE 00:00: four times o f JOSIAH U/F) 00 a day. Dx Medic in 32G X 4 MM E11.65 e [facility] Insulin 2019- No [id number] 25U Inject 25 [facility] Glargine 7 08- Units into [facility] (LANTUS 00:00: 00:00 the skin of SOLOSTAR) 00 :00 at Medicin 100 UNIT/ML bedtime. e SOPN levothyroxi Yes TAKE 1 [facility] ne 6-28 TABLET BY College (SYNTHROID) 00:00: MOUTH of 175 MCG 00 EVERY DAY Medicin tablet e valsartan-h Yes TAKE 1 [facility] ydrochlorot 6-28 TABLET BY Col lege hiazide 00:00: MOUTH of (DIOVAN-HCT 00 EVERY DAY Med icin ) 160-12.5 e MG per tablet levothyroxi Yes TAKE 1 [facility] ne 6-28 TABLET BY College (SYNTHROID) 00:00: MOUTH of 175 MCG 00 EVERY DAY Medicin tablet e levothyroxi Yes TAKE 1 [facility] ne 6-28 TABLET BY College (SYNTHROID) 00:00: MOUTH of 175 MCG 00 EVERY DAY Medicin tablet e levothyroxi Yes TAKE 1 [facility] ne 6-28 TABLET BY College (SYNTHROID) 00:00: MOUTH of 175 MCG 00 EVERY DAY Medicin tablet e levothyroxi Yes TAKE 1 [facility] ne 6-28 TABLET BY College (SYNTHROID) 00:00: MOUTH of 175 MCG 00 EVERY DAY Medicin tablet e levothyroxi 2019-0 Yes TAKE 1 [facility] ne 6-28 TABLET BY College (SYNTHROID) 00:00: MOUTH of 175 MCG 00 EVERY DAY Medicin tablet e levothyroxi 2019-0 Yes TAKE 1 [facility] [place] 6-28 TABLET BY College (SYNTHROID) 00:00: MOUTH of 175 MCG 00 EVERY DAY Medicin tablet e Insulin 2019-0 Yes 7U Inject 7 [facility] Lispro 6-28 Units into College (HUMALOG 00:00: the skin 3 of ALICJA) 00 times Medicin 100 UNIT/ML daily e SOPN (with meals). levothyroxi 2019-0 Yes TAKE 1 [facility] ne 6-28 TABLET BY College (SYNTHROID) 00:00: MOUTH of 175 MCG 00 EVERY DAY Medicin tablet e levothyroxi 2019-0 Yes TAKE 1 [facility] ne 6-28 TABLET BY College (SYNTHROID) 00:00: MOUTH of 175 MCG 00 EVERY DAY Medicin tablet e levothyroxi 2019-0 Yes TAKE 1 [facility] 6-28 TABLET BY College (SYNTHROID) 00:00: MOUTH of 175 MCG 00 EVERY DAY Medicin tablet e levothyroxi 2019-0 Yes TAKE 1 [facility] 6-28 TABLET BY College (SYNTHROID) 00:00: MOUTH of 175 MCG 00 EVERY DAY Medicin tablet e levothyroxi 2019-0 Yes TAKE 1 [facility] 6-28 TABLET BY College (SYNTHROID) 00:00: MOUTH of 175 MCG 00 EVERY DAY Medicin tablet e levothyroxi 2019-0 Yes TAKE 1 [facility] 6-28 TABLET BY College (SYNTHROID) 00:00: MOUTH of 175 MCG 00 EVERY DAY Medicin tablet e levothyroxi 2019-0 Yes TAKE 1 [facility] 6-28 TABLET BY College (SYNTHROID) 00:00: MOUTH of 175 MCG 00 EVERY DAY Medicin tablet e levothyroxi 2019-0 Yes TAKE 1 [facility] 6-28 TABLET BY College (SYNTHROID) 00:00: MOUTH of 175 MCG 00 EVERY DAY Medicin tablet e levothyroxi 2019-0 Yes TAKE 1 [facility] 6-28 TABLET BY College (SYNTHROID) 00:00: MOUTH of 175 MCG 00 EVERY DAY Medicin tablet e valsartan-h 2019-0 Yes TAKE 1 [facility] ydrochlorot 6-28 TABLET BY Col lege hiazide 00:00: MOUTH of (DIOVAN-HCT 00 EVERY DAY Med icin ) 160-12.5 e MG per tablet levothyroxi 2020- No TAKE 1 [facility] ne -04-27 TABLET BY [place] (SYNTHROID) 00:00: 00:00 MOUTH of 175 MCG 00 :00 EVERY DAY Medicin tablet e valsartan-h 2019- No TAKE 1 [facility] ydrochlorot 6-28 02-18 TABLET BY Co llege hiazide 00:00: 00:00 MOUTH of (DIOVAN-HCT 00 :00 EVERY DAY Med icin ) 160-12.5 e MG per tablet metformin Yes 1000mg Take 2 [facility] (GLUCOPHAGE 6-26 Tabs by Colle ge -XR) 500 MG 00:00: mouth two o f XR tablet 00 times Medicin daily. e valsartan Yes 160mg Take 1 Tab [facility] (DIOVAN) 6-26 by mouth College 160 MG 00:00: daily. of tablet 00 Medicin e Glucose Yes [id number] Check [facility] Blood 6-26 blood College Strips 00:00: sugar 4 of (ONETOUCH 00 times a Medicin VERIO) day e ONETOUCH Yes [id number] Check [facility] DELICA 6-26 sugar 4 College LANCETS 33G 00:00: times a of MISC day Medicin e rosuvastati Yes [id number] 10mg Take 1 Tab [facility] n (CRESTOR) 6-26 by mouth [facility] 10 MG 00:00: daily. of tablet 00 Medicin e metformin Yes 1000mg Take 2 [facility] (GLUCOPHAGE 6-26 Tabs by Colle ge -XR) 500 MG 00:00: mouth two o f XR tablet 00 times Medicin daily. e valsartan Yes 160mg Take 1 Tab [facility] (DIOVAN) 6-26 by mouth College 160 MG 00:00: daily. of tablet 00 Medicin e Glucose Yes [id number] Check [facility] Blood 6-26 blood College Strips 00:00: sugar 4 of (ONETOUCH 00 times a Medicin VERIO) day e ONETOUCH Yes [id number] Check [facility] DELICA 6-26 sugar 4 College LANCETS 33G 00:00: times a of MISC Medicin e rosuvastati Yes [id number] 10mg Take 1 Tab [facility] n (CRESTOR) 6-26 by mouth [facility] 10 MG 00:00: daily. of tablet Medicin e metformin Yes 1000mg Take 2 [facility] (GLUCOPHAGE 6-26 Tabs by Colle ge -XR) 500 MG 00:00: mouth two o f XR tablet 00 times Medicin daily. e valsartan Yes 160mg Take 1 Tab [facility] (DIOVAN) 6-26 by mouth College 160 MG 00:00: daily. of tablet Medicin e rosuvastati Yes [id number] 10mg Take 1 Tab [facility] n (CRESTOR) 6-26 by mouth [facility] 10 MG 00:00: daily. of tablet Medicin e metformin Yes 1000mg Take 2 [facility] (GLUCOPHAGE 6-26 Tabs by Colle ge -XR) 500 MG 00:00: mouth two o f XR tablet 00 times Medicin daily. e valsartan Yes 160mg Take 1 Tab [facility] (DIOVAN) 6-26 by mouth College 160 MG 00:00: daily. of tablet Medicin e rosuvastati Yes [id number] 10mg Take 1 Tab [facility] n (CRESTOR) 6-26 by mouth [facility] 10 MG 00:00: daily. of tablet 00 Medicin e metformin Yes 1000mg Take 2 [facility] (GLUCOPHAGE 6-26 Tabs by Colle ge -XR) 500 MG 00:00: mouth two o f XR tablet 00 times Medicin daily. e valsartan Yes 160mg Take 1 Tab [facility] (DIOVAN) 6-26 by mouth College 160 MG 00:00: daily. of tablet 00 Medicin e rosuvastati Yes [id number] 10mg Take 1 Tab [facility] n (CRESTOR) 6-26 by mouth [facility] 10 MG 00:00: daily. of tablet Medicin e metformin Yes 1000mg Take 2 [facility] (GLUCOPHAGE 6-26 Tabs by Colle ge -XR) 500 MG 00:00: mouth two o f XR tablet 00 times Medicin daily. e valsartan Yes 160mg Take 1 Tab [facility] (DIOVAN) 6-26 by mouth College 160 MG 00:00: daily. of tablet 00 Medicin e rosuvastati Yes [id number] 10mg Take 1 Tab [facility] n (CRESTOR) 6-26 by mouth [facility] 10 MG 00:00: daily. of tablet 00 Medicin e metformin Yes 1000mg Take 2 [facility] (GLUCOPHAGE 6-26 Tabs by [facility] -XR) 500 MG 00:00: mouth two o f XR tablet 00 times Medicin daily. e TRULICITY Yes 1.5mg 1.5 mg [facility] 1.5 6-26 every 7 [facility] MG/0.5ML 00:00: days. of SOPN Medicin e valsartan Yes 160mg Take 1 Tab [facility] (DIOVAN) 6-26 by mouth [facility] 160 MG 00:00: daily. of tablet Medicin e metformin Yes 1000mg Take 2 [facility] (GLUCOPHAGE 6-26 Tabs by [facility] -XR) 500 MG 00:00: mouth two o f XR tablet 00 times Medicin daily. e valsartan Yes 160mg Take 1 Tab [facility] (DIOVAN) 6-26 by mouth [facility] 160 MG 00:00: daily. of tablet 00 Medicin e Glucose Yes [id number] Check [facility] Blood 6-26 blood [facility] Strips 00:00: sugar 4 of (ONETOUCH 00 times a Medicin VERIO) day e ONETOUCH Yes [id number] Check [facility] DELICA 6-26 sugar 4 [facility] LANCETS 33G 00:00: times a of MISC Medicin e rosuvastati Yes [id number] 10mg Take 1 Tab [facility] n (CRESTOR) 6-26 by mouth [facility] 10 MG 00:00: daily. of tablet 00 Medicin e metformin Yes 1000mg Take 2 [facility] (GLUCOPHAGE 6-26 Tabs by [facility] -XR) 500 MG 00:00: mouth two o f XR tablet 00 times Medicin daily. e valsartan Yes 160mg Take 1 Tab [facility] (DIOVAN) 6-26 by mouth [facility] 160 MG 00:00: daily. of tablet 00 Medicin e metformin Yes 1000mg Take 2 [facility] (GLUCOPHAGE 6-26 Tabs by [facility] -XR) 500 MG 00:00: mouth two o f XR tablet 00 times Medicin daily. e valsartan Yes 160mg Take 1 Tab [facility] (DIOVAN) 6-26 by mouth [facility] 160 MG 00:00: daily. of tablet 00 Medicin e metformin Yes 1000mg Take 2 [facility] (GLUCOPHAGE 6-26 Tabs by [facility] ge -XR) 500 MG 00:00: mouth two o f XR tablet 00 times Medicin daily. e valsartan Yes 160mg Take 1 Tab [facility] (DIOVAN) 6-26 by mouth [facility] 160 MG 00:00: daily. of tablet Medicin e valsartan Yes 160mg Take 1 Tab [facility] (DIOVAN) 6-26 by mouth [facility] 160 MG 00:00: daily. of tablet Medicin e metformin Yes 1000mg Take 2 [facility] (GLUCOPHAGE 6-26 Tabs by [facility] ge -XR) 500 MG 00:00: mouth two o f XR tablet 00 times Medicin daily. e valsartan Yes 160mg Take 1 Tab [facility] (DIOVAN) 6-26 by mouth [facility] 160 MG 00:00: daily. of tablet Medicin e Glucose Yes [id number] Check [facility] Blood 6-26 blood [facility] Strips 00:00: sugar 4 of (ONETOUCH 00 times a Medicin VERIO) day e ONETOUCH Yes [id number] Check [facility] DELICA 6-26 sugar 4 [facility] LANCETS 33G 00:00: times a of MISC Medicin e rosuvastati Yes [id number] 10mg Take 1 Tab [facility] (CRESTOR) 6-26 by mouth [facility] 10 MG 00:00: daily. of tablet 00 Medicin e rosuvastati 2019- No [id number] 10mg Take 1 Tab [facility] (CRESTOR) 6-26 10-10 by mouth [facility] 10 MG 00:00: 00:00 daily. of tablet 00 :00 Medicin e Glucose 2019- No [id number] Check [facility] Blood 11-20 blood [facility] Strips 00:00: 00:00 sugar 4 of (ONETOUCH 00 :00 times a Medicin VERIO) day e ONETOUCH 2019- No [id number] Check [facility] DELICA 11-20 sugar 4 [facility] LANCETS 33G 00:00: 00:00 times a of MISC 00 :00 day Medicin e mupirocin Yes Apply to [facility] (BACTROBAN) 11-19 wound [facility] 2 % 00:00: twice a of ointment day Medicin e acetaminoph Yes 1{tbl} Take 1 Tab [facility] en-codeine 6-25 by mouth [facility] (TYLENOL/CO 00:00: every 4 of DEINE #3) 00 hours as Medici n 300-30 MG needed for e per tablet Pain. mupirocin Yes Apply to [facility] (BACTROBAN) 11-19 wound [facility] 2 % 00:00: twice a of ointment day Medicin e acetaminoph Yes 1{tbl} Take 1 Tab [facility] en-codeine 6-25 by mouth [facility] (TYLENOL/CO 00:00: every 4 of DEINE #3) 00 hours as Medici n 300-30 MG needed for e per tablet Pain. mupirocin Yes Apply to [facility] (BACTROBAN) 11-19 wound [facility] 2 % 00:00: twice a of ointment day Medicin e acetaminoph Yes 1{tbl} Take 1 Tab [facility] en-codeine 6-25 by mouth [facility] (TYLENOL/CO 00:00: every 4 of DEINE #3) 00 hours as Medici n 300-30 MG needed for e per tablet Pain. mupirocin Yes Apply to [facility] (BACTROBAN) 11-19 wound [facility] 2 % 00:00: twice a of ointment 00 day Medicin e acetaminoph Yes 1{tbl} Take 1 Tab [facility] en-codeine 6-25 by mouth [facility] (TYLENOL/CO 00:00: every 4 of DEINE #3) 00 hours as Medici n 300-30 MG needed for e per tablet Pain. mupirocin 2019- No Apply to [facility] (BACTROBAN) 11-19 wound Colleg e 2 % 00:00: 00:00 twice a of ointment 00 :00 day Medicin e acetaminoph 2019- No 1{tbl} Take 1 Tab [facility] en-codeine 11-19 by mouth [facility] (TYLENOL/CO 00:00: 00:00 every 4 of DEINE #3) 00 :00 hours as Medici n 300-30 MG needed for e per tablet Pain. allopurinol 2019-0 Yes 100mg Take 100 [facility] (ZYLOPRIM) 3-27 mg by [place] 100 MG 00:00: mouth of tablet 00 daily. Medicin e allopurinol 2018-0 Yes 100mg Take 100 [facility] (ZYLOPRIM) 3-27 mg by [place] 100 MG 00:00: mouth of tablet 00 daily. Medicin e allopurinol 2018-0 Yes 100mg Take 100 [facility] (ZYLOPRIM) 3-27 mg by [place] 100 MG 00:00: mouth of tablet 00 daily. Medicin e allopurinol 2019-0 Yes 100mg Take 100 [facility] (ZYLOPRIM) 3-27 mg by [place] 100 MG 00:00: mouth of tablet 00 daily. Medicin e allopurinol 2019-0 Yes 100mg Take 100 [facility] (ZYLOPRIM) 3-27 mg by [facility] 100 MG 00:00: mouth of tablet 00 daily. Medicin e allopurinol 2019-0 Yes 100mg Take 100 [facility] (ZYLOPRIM) 3-27 mg by [facility] 100 MG 00:00: mouth of tablet 00 daily. Medicin e allopurinol 2019-0 Yes 100mg Take 100 [facility] (ZYLOPRIM) 3-27 mg by [facility] 100 MG 00:00: mouth of tablet 00 daily. Medicin e allopurinol 2019-0 Yes 100mg Take 100 [facility] (ZYLOPRIM) 3-27 mg by [facility] 100 MG 00:00: mouth of tablet 00 daily. Medicin e allopurinol 2019-0 Yes 100mg Take 100 [facility] (ZYLOPRIM) 3-27 mg by [facility] 100 MG 00:00: mouth of tablet 00 daily. Medicin e allopurinol 2018-0 Yes 100mg Take 100 [facility] (ZYLOPRIM) 3-27 mg by [facility] 100 MG 00:00: mouth of tablet 00 daily. Medicin e allopurinol 2018-0 Yes 100mg Take 100 [facility] (ZYLOPRIM) 3-27 mg by [facility] 100 MG 00:00: mouth of tablet 00 daily. Medicin e allopurinol 0 Yes 100mg Take 100 [facility] (ZYLOPRIM) 3-27 mg by [facility] 100 MG 00:00: mouth of tablet 00 daily. Medicin e allopurinol Yes 100mg Take 100 [facility] (ZYLOPRIM) 3-27 mg by [facility] 100 MG 00:00: mouth of tablet 00 daily. Medicin e levothyroxi Yes 200ug Take 200 [facility] 6-12 mcg by [facility] (SYNTHROID) 00:00: mouth. of 200 MCG 00 Medicin tablet e levothyroxi Yes 200ug Take 200 [facility] ne 6-12 mcg by [facility] (SYNTHROID) 00:00: mouth. of 200 MCG 00 Medicin tablet e levothyroxi 2019- No 200ug Take 200 [facility] ne 6-12 09-24 mcg by [facility] (SYNTHROID) 00:00: 00:00 mouth. of 200 MCG 00 :00 Medicin tablet e No known No No known Metho di medications 1-[address] 07[facility]: [facility] l Vitamin D, 2016-05 Yes [id number] Take [facility] 2-11 50,000 [facility] e rol, [id number] 00:00: Units by of units CAPS 00 mouth. Medicin e Vitamin D, 2016-05 Yes [id number] Take [facility] 2-11 50,000 [facility] rol, [id number] 00:00: Units by of units CAPS 00 mouth. Medicin e Vitamin D, 2016-05 Yes [id number] Take [facility] 2-11 50,000 [facility] rol, [id number] 00:00: Units by of units CAPS 00 mouth. Medicin e Vitamin D, 2016-05 Yes [id number] Take [facility] 2-11 50,000 [facility] rol, [id number] 00:00: Units by of units CAPS 00 mouth. Medicin e Vitamin D, 2016-05 Yes [id number] Take [facility] 2-11 50,000 [facility], [id number] 00:00: Units by of units CAPS 00 mouth. Medicin e Vitamin D, 2016-05 Yes [id number] Take [facility] 2-11 50,000 [facility] rol, [id number] 00:00: Units by of units CAPS 00 mouth. Medicin e Vitamin D, 2016-05 Yes [id number] Take [facility] 2-11 50,000 [facility] e rol, [id number] 00:00: Units by of units CAPS 00 mouth. Medicin e Vitamin D, 2016-05 2019- No [id number] Take [facility] Ergocalcife 2-11 10-10 50,000 [facility] rol, [id number] 00:00: 00:00 Units by of units CAPS 00 :00 mouth. Medicin e glimepiride 2016-05 Yes 4mg Take 4 mg [facility] (AMARYL) 4 2-06 by mouth. [facility] MG tablet 00:00: of 00 Medicin e rosuvastati 2016-05 Yes 10mg Take 10 mg [facility] n (CRESTOR) 2-06 by mouth. [facility]ge 10 MG 00:00: of tablet 00 Medicin e glimepiride 2016-05 Yes 4mg Take 4 mg [facility] (AMARYL) 4 2-06 by mouth. [facility] MG tablet 00:00: of 00 Medicin e rosuvastati 2016-05 Yes 10mg Take 10 mg [facility] (CRESTOR) 2-06 by mouth. [facility] 10 MG 00:00: of tablet 00 Medicin e glimepiride 2016-05 2019- No 4mg Take 4 mg [facility] (AMARYL) 4 2-11 03-24 by mouth. [facility] MG tablet 00:00: 00:00 of 00 :00 Medicin e rosuvastati 2016-05 2019- No 10mg Take 10 mg [facility] n (CRESTOR) 2-11 03-24 by mouth. Co llege 10 MG 00:00: 00:00 of tablet 00 :00 Medicin e Dulaglutide 2016-05 Yes [facility] (TRULICITY) 2-02 College 1.5 00:00: of MG/0.5ML 00 Medicin SOPN e Dulaglutide 2016-05 Yes [facility] 2 [place] 1.5 00:00: of MG/0.5ML 00 Medicin SOPN e Dulaglutide 2016-05 Yes [facility] ([facility]) 06-29 [place] 1.5 00:00: of MG/0.5ML 00 Medicin SOPN e Dulaglutide 2016-05 Yes [facility] ([facility]) 06-29 [place] 1.5 00:00: of MG/0.5ML 00 Medicin SOPN e Dulaglutide 2016-05 Yes [facility] ([facility]) 2 [place] 1.5 00:00: of MG/0.5ML 00 Medicin SOPN e Dulaglutide 2016-05 Yes [facility] ([facility]) 06-29 [place] 1.5 00:00: of MG/0.5ML 00 Medicin SOPN e Dulaglutide 2016-05 Yes [facility] ([facility]) 06-29 [place] 1.5 00:00: of MG/0.5ML 00 Medicin SOPN e Dulaglutide 2016-05 2019- No [facility] ([facility]) 06-29 10 [place] 1.5 00:00: 00:00 of MG/0.5ML 00 :00 Medicin SOPN e Dapaglifloz 2016-05 Yes TAKE 1 [facility] in 0-31 TABLET BY [place] Propanediol 00:00: MOUTH of (FARXIGA) 00 EVERY Medicin 10 MG TABS MORNING e Dapaglifloz 2016-05 Yes TAKE 1 [facility] in 0-31 TABLET BY [place] Propanediol 00:00: MOUTH of (FARXIGA) 00 EVERY Medicin 10 MG TABS MORNING e Dapaglifloz 2016-05 2019- No TAKE 1 [facility] in 0-31 09-24 TABLET BY [place] Propanediol 00:00: 00:00 MOUTH of (FARXIGA) 00 :00 EVERY Medicin 10 MG TABS MORNING e Immunizations Ordered Immunization Filled Immunization Date Status Commen ts Source Name Name Moderna . 2021-09-07 Completed [facility] BOOSTER SARS-CoV-2 00:00:00 of Med icine Vaccination Moderna . 2021-09-07 Completed [facility] ege BOOSTER SARS-CoV-2 00:00:00 of Med icine Vaccination Moderna . 2021-09-07 Completed [facility] BOOSTER SARS-CoV-2 00:00:00 of Med icine Vaccination Moderna .25 2021-09-07 Completed [facility] BOOSTER SARS-CoV-2 00:00:00 of Med icine Vaccination Moderna .25 2021-09-07 Completed [facility] BOOSTER SARS-CoV-2 00:00:00 of Med icine Vaccination Moderna .25 2021-09-07 Completed [facility] BOOSTER SARS-CoV-2 00:00:00 of Med icine Vaccination Influenza Quad-PF 2021-06-06 Completed [facility] 00:00:00 of Medicine Influenza Quad-PF 2021-06-06 Completed [facility] 00:00:00 of Medicine Influenza Quad-PF 2021-06-06 Completed [facility] 00:00:00 of Medicine Influenza Quad-PF 2021-06-06 Completed [facility] 00:00:00 of Medicine Influenza Quad-PF 2021-06-06 Completed [facility] 00:00:00 of Medicine Influenza Quad-PF 2021-06-06 Completed [facility] 00:00:00 of Medicine Influenza Quad-PF 2021-06-06 Completed [facility] 00:00:00 of Medicine Influenza Quad-PF 2021-06-06 Completed [facility] 00:00:00 of Medicine Influenza Quad-PF 2021-06-06 Completed [facility] 00:00:00 of Medicine Moderna .25 2021-03-22 Completed [facility] BOOSTER SARS-CoV-2 00:00:00 of Med icine Vaccination Moderna .25 2021-03-22 Completed [facility] BOOSTER SARS-CoV-2 00:00:00 of Med icine Vaccination Moderna .25 2021-03-22 Completed [facility] BOOSTER SARS-CoV-2 00:00:00 of Med icine Vaccination Moderna .25 2021-03-22 Completed [facility] BOOSTER SARS-CoV-2 00:00:00 of Med icine Vaccination Moderna .25 2021-03-22 Completed [facility] BOOSTER SARS-CoV-2 00:00:00 of Med icine Vaccination Moderna .25 2021-03-22 Completed [facility] BOOSTER SARS-CoV-2 00:00:00 of Med icine Vaccination Moderna .25mL 2021-03-22 Completed [facility] BOOSTER SARS-CoV-2 00:00:00 of Med icine Vaccination Moderna .25mL 2021-03-22 Completed [facility] BOOSTER SARS-CoV-2 00:00:00 of Med icine Vaccination Moderna .25mL 2021-03-22 Completed [facility] BOOSTER SARS-CoV-2 00:00:00 of Med icine Vaccination Moderna SARS-CoV-2 2020-07-06 Completed [facility] Vaccination 00:00:00 of Medicine Moderna SARS-CoV-2 2020-07-06 Completed [facility] Vaccination 00:00:00 of Medicine Moderna SARS-CoV-2 2020-07-06 Completed [facility] Vaccination 00:00:00 of Medicine Moderna SARS-CoV-2 2020-07-06 Completed [facility] Vaccination 00:00:00 of Medicine Moderna SARS-CoV-2 2020-07-06 Completed [facility] Vaccination 00:00:00 of Medicine Moderna SARS-CoV-2 2020-07-06 Completed [facility] Vaccination 00:00:00 of Medicine Moderna SARS-CoV-2 2020-07-06 Completed [facility] Vaccination 00:00:00 of Medicine Moderna SARS-CoV-2 2020[facility]07-06 [facility] Moderna SARS-CoV-2 2020-07-06 Completed [facility] Vaccination 00:00:00 of Medicine Moderna SARS-CoV-2 2020-07-06 Completed [facility] Vaccination 00:00:00 of Medicine Moderna SARS-CoV-2 2020-07-06 [facility] Moderna SARS-CoV-2 2020-07-06 [facility] Medicine Moderna SARS-CoV-2 2020-07-06 [facility] Medicine Moderna SARS-CoV-2 2020-07-06 [facility]00 of Medicine Moderna SARS-CoV-2 2020-07-06 [facility] of Medicine Moderna SARS-CoV-2 2020-07-06 Completed [facility] Vaccination 00:00:00 of Medicine Moderna SARS-CoV-2 2020-07-06 Completed [facility] Vaccination 00:00:00 of Medicine Moderna SARS-CoV-2 2020-07-06 Completed [facility] Vaccination 00:00:00 of Medicine Moderna SARS-CoV-2 2020-07-06 Completed [facility] Vaccination 00:00:00 of Medicine Moderna SARS-CoV-2 2020-07-06 Completed [facility] Vaccination 00:00:00 of Medicine Moderna SARS-CoV-2 2020-07-06 Completed [facility] Vaccination 00:00:00 of Medicine Moderna SARS-CoV-2 2020-07-06 Completed [facility] Vaccination 00:00:00 of Medicine Moderna SARS-CoV-2 2020-07-06 Completed [facility] Vaccination 00:00:00 of Medicine Moderna SARS-CoV-2 2020-07-06 Completed [facility] Vaccination 00:00:00 of Medicine Moderna SARS-CoV-2 2020-07-06 Completed [facility] Vaccination 00:00:00 of Medicine Moderna SARS-CoV-2 2020-06-07 [facility] Medicine Moderna SARS-CoV-2 2020-06-07 Completed [facility] Vaccination 00:00:00 of Medicine Moderna SARS-CoV-2 2020-06-07 Completed [facility] Vaccination 00:00:00 of Medicine Moderna SARS-CoV-2 2020-06-07 Completed [facility] Vaccination 00:00:00 of Medicine Moderna SARS-CoV-2 2020-06-07 Completed [facility] Vaccination 00:00:00 of Medicine Moderna SARS-CoV-2 2020-06-07 Completed [facility] Vaccination 00:00:00 of Medicine Moderna SARS-CoV-2 2020-06-07 Completed [facility] Vaccination 00:00:00 of Medicine Moderna SARS-CoV-2 2020-06-07 Completed [facility] Vaccination 00:00:00 of Medicine Moderna SARS-CoV-2 2020-06-07 Completed [facility] Vaccination 00:00:00 of Medicine Moderna SARS-CoV-2 2020-06-07 Completed [facility] Vaccination 00:00:00 of Medicine Moderna SARS-CoV-2 2020-06-07 Completed [facility] Vaccination 00:00:00 of Medicine Moderna SARS-CoV-2 2020-06-07 Completed [facility] Vaccination 00:00:00 of Medicine Moderna SARS-CoV-2 2020-06-07 Completed [facility] Vaccination 00:00:00 of Medicine Moderna SARS-CoV-2 2020-06-07 Completed [facility] Vaccination 00:00:00 of Medicine Moderna SARS-CoV-2 2020-06-07 Completed [facility] Vaccination 00:00:00 of Medicine Moderna SARS-CoV-2 2020-06-07 Completed [facility] Vaccination 00:00:00 of Medicine Moderna SARS-CoV-2 2020-06-07 Completed [facility] Vaccination 00:00:00 of Medicine Moderna SARS-CoV-2 2020-06-07 Completed [facility] Vaccination 00:00:00 of Medicine Moderna SARS-CoV-2 2020-06-07 Completed [facility] Vaccination 00:00:00 of Medicine Moderna SARS-CoV-2 2020-06-07 Completed [facility] Vaccination 00:00:00 of Medicine Moderna SARS-CoV-2 2020-06-07 Completed [facility] Vaccination 00:00:00 of Medicine Moderna SARS-CoV-2 2020-06-07 Completed [facility] Vaccination 00:00:00 of Medicine Moderna SARS-CoV-2 2020-06-07 Completed [facility] Vaccination 00:00:00 of Medicine Moderna SARS-CoV-2 2020-06-07 Completed [facility] Vaccination 00:00:00 of Medicine Moderna SARS-CoV-2 2020-06-07 Completed [facility] Vaccination 00:00:00 of Medicine Influenza Quad-PF 2020-03-15 Completed [facility] 00:00:00 of Medicine Influenza Quad-PF 2020-03-15 Completed [facility] 00:00:00 of Medicine Influenza Quad-PF 2020-03-15 Completed [facility] 00:00:00 of Medicine Influenza Quad-PF 2020-03-15 Completed [facility] 00:00:00 of Medicine Influenza Quad-PF 2020-03-15 Completed [facility] 00:00:00 of Medicine Influenza Quad-PF 2020-03-15 Completed [facility] 00:00:00 of Medicine Influenza Quad-PF 2020-03-15 Completed [facility] 00:00:00 of Medicine Influenza Quad-PF 2020-03-15 Completed [facility] 00:00:00 of Medicine Influenza Quad-PF 2020-03-15 Completed [facility] 00:00:00 of Medicine Influenza Quad-PF 2020-03-15 Completed [facility] 00:00:00 of Medicine Influenza Quad-PF 2020-03-15 Completed [facility] 00:00:00 of Medicine Influenza Quad-PF 2020-03-15 Completed [facility] 00:00:00 of Medicine Influenza Quad-PF 2020-03-15 Completed [facility] 00:00:00 of Medicine Influenza Quad-PF 2020-03-15 Completed [facility] 00:00:00 of Medicine Influenza Quad-PF 2020-03-15 Completed [facility] 00:00:00 of Medicine Influenza Quad-PF 2020-03-15 Completed [facility] 00:00:00 of Medicine Influenza Quad-PF 2020-03-15 Completed [facility] 00:00:00 of Medicine Influenza Quad-PF 2020-03-15 Completed [facility] 00:00:00 of Medicine Influenza Quad-PF 2020-03-15 Completed [facility] 00:00:00 of Medicine Influenza Quad-PF 2020-03-15 Completed [facility] 00:00:00 of Medicine Influenza Quad-PF 2020-03-15 Completed [facility] 00:00:00 of Medicine Influenza Quad-PF 2020-03-15 Completed [facility] 00:00:00 of Medicine Influenza Quad-PF 2020-03-15 Completed [facility] 00:00:00 of Medicine Influenza Quad-PF 2020-03-15 Completed [facility] 00:00:00 of Medicine Influenza Quad-PF 2020-03-15 Completed [facility] 00:00:00 of Medicine Influenza Quad-PF 2020-03-15 Completed [facility] 00:00:00 of Medicine Influenza Quad-PF 2020-03-15 Completed [facility] 00:00:00 of Medicine Influenza Quad-PF 2020-03-15 Completed [facility] 00:00:00 of Medicine Influenza Quad-PF 2020-03-15 Completed [facility] 00:00:00 of Medicine Influenza Quad-PF 2019-02-01 Completed [facility] 00:00:00 of Medicine Influenza Quad-PF 2019-02-01 Completed [facility] 00:00:00 of Medicine Influenza Quad-PF 2019-02-01 Completed [facility] 00:00:00 of Medicine Influenza Quad-PF 2019-02-01 Completed [facility] 00:00:00 of Medicine Influenza Quad-PF 2019-02-01 Completed [facility] 00:00:00 of Medicine Influenza Quad-PF 2019-02-01 Completed [facility] 00:00:00 of Medicine Influenza Quad-PF 2019-02-01 Completed [facility] 00:00:00 of Medicine Influenza Quad-PF 2019-02-01 Completed [facility] 00:00:00 of Medicine Influenza Quad-PF 2019-02-01 Completed [facility] 00:00:00 of Medicine Influenza Quad-PF 2019-02-01 Completed [facility] 00:00:00 of Medicine Influenza Quad-PF 2019-02-01 Completed [facility] 00:00:00 of Medicine Influenza Quad-PF 2019-02-01 Completed [facility] 00:00:00 of Medicine Influenza Quad-PF 2019-02-01 Completed [facility] 00:00:00 of Medicine Influenza Quad-PF 2019-02-01 Completed [facility] 00:00:00 of Medicine Influenza Quad-PF 2019-02-01 Completed [facility] 00:00:00 of Medicine Influenza Quad-PF 2019-02-01 Completed [facility] 00:00:00 of Medicine Influenza Quad-PF 2019-02-01 Completed [facility] 00:00:00 of Medicine Influenza Quad-PF 2019-02-01 Completed [facility] 00:00:00 of Medicine Influenza Quad-PF 2019-02-01 Completed [facility] 00:00:00 of Medicine Influenza Quad-PF 2019-02-01 Completed [facility] 00:00:00 of Medicine Influenza Quad-PF 2019-02-01 Completed [facility] 00:00:00 of Medicine Influenza Quad-PF 2019-02-01 Completed [facility] 00:00:00 of Medicine Influenza Quad-PF 2019-02-01 Completed [facility] 00:00:00 of Medicine Influenza Quad-PF 2019-02-01 Completed [facility] 00:00:00 of Medicine Influenza Quad-PF 2019-02-01 Completed [facility] 00:00:00 of Medicine Influenza Quad-PF 2019-02-01 Completed [facility] 00:00:00 of Medicine Influenza Quad-PF 2019-02-01 Completed [facility] 00:00:00 of Medicine Influenza Quad-PF 2019-02-01 Completed [facility] 00:00:00 of Medicine Influenza Quad-PF 2019-02-01 Completed [facility] 00:00:00 of Medicine Influenza Quad-PF 2019-02-01 Completed [facility] 00:00:00 of Medicine Influenza Quad-PF 2019-02-01 Completed [facility] 00:00:00 of Medicine Influenza Quad-PF 2019-02-01 Completed [facility] 00:00:00 of Medicine Influenza Quad-PF 2019-02-01 Completed [facility] 00:00:00 of Medicine Influenza Quad-PF 2019-02-01 Completed [facility] 00:00:00 of Medicine Influenza Quad-PF 2019-02-01 Completed [facility] 00:00:00 of Medicine Influenza Quad-PF 2019-02-01 Completed [facility] 00:00:00 of Medicine Influenza Quad-PF 2019-02-01 Completed [facility] 00:00:00 of Medicine Influenza Quad-PF 2019-02-01 Completed [facility] 00:00:00 of Medicine Influenza Quad-PF 2018-02-04 Completed [facility] 00:00:00 of Medicine Influenza Quad-PF 2018-02-04 Completed [facility] 00:00:00 of Medicine Influenza Quad-PF 2018-02-04 Completed [facility] 00:00:00 of Medicine Influenza Quad-PF 2018-02-04 Completed [facility] 00:00:00 of Medicine Influenza Quad-PF 2018-02-04 Completed [facility] 00:00:00 of Medicine Influenza Quad-PF 2018-02-04 Completed [facility] 00:00:00 of Medicine Influenza Quad-PF 2018-02-04 Completed [facility] 00:00:00 of Medicine Influenza Quad-PF 2018-02-04 Completed [facility] 00:00:00 of Medicine Influenza Quad-PF 2018-02-04 Completed [facility] 00:00:00 of Medicine Influenza Quad-PF 2018-02-04 Completed [facility] 00:00:00 of Medicine Influenza Quad-PF 2018-02-04 Completed [facility] 00:00:00 of Medicine Influenza Quad-PF 2018-02-04 Completed [facility] 00:00:00 of Medicine Influenza Quad-PF 2018-02-04 Completed [facility] 00:00:00 of Medicine Influenza Quad-PF 2018-02-04 Completed [facility] 00:00:00 of Medicine Influenza Quad-PF 2018-02-04 Completed [facility] 00:00:00 of Medicine Influenza Quad-PF 2018-02-04 Completed [facility] 00:00:00 of Medicine Influenza Quad-PF 2018-02-04 Completed [facility] 00:00:00 of Medicine Influenza Quad-PF 2018-02-04 Completed [facility] 00:00:00 of Medicine Influenza Quad-PF 2018-02-04 Completed [facility] 00:00:00 of Medicine Influenza Quad-PF 2018-02-04 Completed [facility] 00:00:00 of Medicine Influenza Quad-PF 2018-02-04 Completed [facility] 00:00:00 of Medicine Influenza Quad-PF 2018-02-04 Completed [facility] 00:00:00 of Medicine Influenza Quad-PF 2018-02-04 Completed [facility] 00:00:00 of Medicine Influenza Quad-PF 2018-02-04 Completed [facility] 00:00:00 of Medicine Influenza Quad-PF 2018-02-04 Completed [facility] 00:00:00 of Medicine Influenza Quad-PF 2018-02-04 Completed [facility] 00:00:00 of Medicine Influenza Quad-PF 2018-02-04 Completed [facility] 00:00:00 of Medicine FLUCELVAX QUAD PF 2018-02-[address] 00:[facility]:00 [facility] Influenza 2017-03-22 Completed [facility] Quadrivalent 3YRS+ 00:00:00 of Med icine Tdap 2017-03-22 Completed [facility] 00:00:00 of Medicine Influenza 2017-03-22 Completed [facility] Quadrivalent 3YRS+ 00:00:00 of Med icine Tdap 2017-03-22 Completed [facility] 00:00:00 of Medicine Influenza 2017-03-22 Completed [facility] 3YRS+ 00:00:00 of Med icine Tdap 2017-03-22 Completed [facility] 00:00:00 of Medicine Influenza 2017-03-22 Completed [facility] Quad[facility]alent 3YRS+ 00:00:00 of Med icine Tdap 2017-03-22 Completed [facility] 00:00:00 of Medicine Influenza 2017-03-22 Completed [facility] Quad[facility]alent 3YRS+ 00:00:00 of Med icine Tdap 2017-03-22 Completed [facility] 00:00:00 of Medicine Influenza 2017-03-22 Completed [facility] Quadrivalent 3YRS+ 00:00:00 of Med icine Tdap 2017-03-22 Completed [facility] 00:00:00 of Medicine Influenza 2017-03-22 Completed [facility] Quadrivalent 3YRS+ 00:00:00 of Med icine Tdap 2017-03-22 Completed [facility] 00:00:00 of Medicine Influenza 2017-03-22 Completed [facility] Quadrivalent 3YRS+ 00:00:00 of Med icine Tdap 2017-03-22 Completed [facility] 00:00:00 of Medicine Influenza 2017-03-22 Completed [facility] Quadrivalent 3YRS+ 00:00:00 of Med icine Tdap 2017-03-22 Completed [facility] 00:00:00 of Medicine Influenza 2017-03-22 Completed [facility] Quad[facility]alent 3YRS+ 00:00:00 of Med icine Tdap 2017-03-22 Completed [facility] 00:00:00 of Medicine Influenza 2017-03-22 Completed [facility] Quadrivalent 3YRS+ 00:00:00 of Med icine Tdap 2017-03-22 Completed [facility] 00:00:00 of Medicine Influenza 2017-03-22 Completed [facility] Quadrivalent 3YRS+ 00:00:00 of Med icine Tdap 2017-03-22 Completed [facility] 00:00:00 of Medicine Influenza 2017-03-22 Completed [facility] Quadrivalent 3YRS+ 00:00:00 of Med icine Tdap 2017-03-22 Completed [facility] 00:00:00 of Medicine Influenza 2017-03-22 Completed [facility] Quadrivalent 3YRS+ 00:00:00 of Med icine Tdap 2017-03-22 Completed [facility] 00:00:00 of Medicine Influenza 2017-03-22 Completed [facility] Quadrivalent 3YRS+ 00:00:00 of Med icine Tdap 2017-03-22 Completed [facility] 00:00:00 of Medicine Influenza 2017-03-22 Completed [facility] Quadrivalent 3YRS+ 00:00:00 of Med icine Tdap 2017-03-22 Completed [facility] 00:00:00 of Medicine Influenza 2017-03-22 Completed [facility] Quadrivalent 3YRS+ 00:00:00 of Med icine Tdap 2017-03-22 Completed [facility] 00:00:00 of Medicine Influenza 2017-03-22 Completed [facility] Quad[facility]alent 3YRS+ 00:00:00 of Med icine Tdap 2017-03-22 Completed [facility] 00:00:00 of Medicine Influenza 2017-03-22 Completed [facility]alent 3YRS+ 00:00:00 of Med icine Tdap 2017-03-22 Completed [facility] 00:00:00 of Medicine Influenza 2017-03-22 Completed [facility] Quadrivalent 3YRS+ 00:00:00 of Med icine Tdap 2017-03-22 Completed [facility] 00:00:00 of Medicine Influenza 2017-03-22 Completed [facility] Quad[facility]alent 3YRS+ 00:00:00 of Med icine Tdap 2017-03-22 Completed [facility] 00:00:00 of Medicine Influenza 2017-03-22 Completed [facility] Quadrivalent 3YRS+ 00:00:00 of Med icine Tdap 2017-03-22 Completed [facility] 00:00:00 of Medicine [facility] 2017[facility]03-22 [facility] Med icine Tdap 2017-03-22 Completed [facility] 00:00:00 of Medicine Influenza 2017-03-22 Completed [facility]alent 3YRS+ 00:00:00 of Med icine Tdap 2017-03-22 Completed [facility] 00:00:00 of Medicine Influenza 2017-03-22 Completed [facility] Quadrivalent 3YRS+ 00:00:00 of Med icine Tdap 2017-03-22 Completed [facility] 00:00:00 of Medicine Influenza 2017-03-22 Completed [facility]alent 3YRS+ 00:00:00 of Med icine Tdap 2017-03-22 Completed [facility] 00:00:00 of Medicine Influenza 2017-03-22 Completed [facility] Quad[facility]alent 3YRS+ 00:00:00 of Med icine Tdap 2017-03-22 Completed [facility] 00:00:00 of Medicine Influenza 2017-03-22 Completed [facility] Quadrivalent 3YRS+ 00:00:00 of Med icine Tdap 2017-03-22 Completed [facility] 00:00:00 of Medicine Influenza 2017-03-22 Completed [facility] Quad[facility]alent 3YRS+ 00:00:00 of Med icine Tdap 2017-03-22 Completed [facility] 00:00:00 of Medicine Influenza 2017-03-22 Completed [facility] Quad[facility]alent 3YRS+ 00:00:00 of Med icine Tdap 2017-03-22 Completed [facility] 00:00:00 of Medicine Influenza 2017-03-22 Completed [facility] Quad[facility]alent 3YRS+ 00:00:00 of Med icine Tdap 2017-03-22 Completed [facility] 00:00:00 of Medicine Influenza 2017-03-22 Completed [facility] 3YRS+ 00:00:00 of Med icine Tdap 2017-03-22 Completed [facility] 00:00:00 of Medicine Influenza 2017-03-22 Completed [facility] Quad[facility]alent 3YRS+ 00:00:00 of Med icine Tdap 2017-03-22 Completed [facility] 00:00:00 of Medicine Influenza 2017-03-22 Completed [facility]alent 3YRS+ 00:00:00 of Med icine Tdap 2017-03-22 Completed [facility] 00:00:00 of Medicine Influenza 2017-03-22 Completed [facility] Quad[facility]alent 3YRS+ 00:00:00 of Med icine Tdap 2017-03-22 Completed [facility] 00:00:00 of Medicine Influenza 2017-03-22 Completed [facility] Quadrivalent 3YRS+ 00:00:00 of Med icine Tdap 2017-03-22 Completed [facility] 00:00:00 of Medicine Influenza 2017-03-22 Completed [facility] Quad[facility]alent 3YRS+ 00:00:00 of Med icine Tdap 2017-03-22 Completed [facility] 00:00:00 of Medicine Influenza 2017-03-22 Completed [facility] Quad[facility]alent 3YRS+ 00:00:00 of Med icine Tdap 2017-03-22 Completed [facility] 00:00:00 of Medicine Influenza 2016-03-15 Completed [facility] Quad[facility]alent 3YRS+ 00:00:00 of Med icine Influenza 2016-03-15 Completed [facility] Quad[facility]alent 3YRS+ 00:00:00 of Med icine Influenza 2016-03-15 Completed [facility] Quad[facility]alent 3YRS+ 00:00:00 of Med icine Influenza 2016-03-15 Completed [facility]alent 3YRS+ 00:00:00 of Med icine Influenza 2016-03-15 Completed [facility] Quad[facility]alent 3YRS+ 00:00:00 of Med icine Influenza 2016-03-15 Completed [facility]alent 3YRS+ 00:00:00 of Med icine Influenza 2016-03-15 Completed [facility] 3YRS+ 00:00:00 of Med icine Influenza 2016-03-15 Completed [facility] Quad[facility]alent 3YRS+ 00:00:00 of Med icine Influenza 2016-03-15 Completed [facility] 3YRS+ 00:00:00 of Med icine Influenza 2016-03-15 Completed [facility]alent 3YRS+ 00:00:00 of Med icine Influenza 2016-03-15 Completed [facility] 3YRS+ 00:00:00 of Med icine Influenza 2016-03-15 Completed [facility] 3YRS+ 00:00:00 of Med icine Influenza 2016-03-15 Completed [facility] Quad[facility] 3YRS+ 00:00:00 of Med icine Influenza 2016-03-15 Completed [facility]alent 3YRS+ 00:00:00 of Med icine Influenza 2016-03-15 Completed [facility] Quad[facility]alent 3YRS+ 00:00:00 of Med icine Influenza 2016-03-15 Completed [facility] Quad[facility]alent 3YRS+ 00:00:00 of Med icine Influenza 2016-03-15 Completed [facility]alent 3YRS+ 00:00:00 of Med icine Influenza 2016-03-15 Completed [facility]alent 3YRS+ 00:00:00 of Med icine Influenza 2016-03-15 Completed [facility] Quad[facility]alent 3YRS+ 00:00:00 of Med icine Influenza 2016-03-15 Completed [facility] Quad[facility]alent 3YRS+ 00:00:00 of Med icine Influenza 2016-03-15 Completed [facility] 3YRS+ 00:00:00 of Med icine Influenza 2016-03-15 Completed [facility] Quad[facility]alent 3YRS+ 00:00:00 of Med icine Influenza 2016-03-15 Completed [facility] Quad[facility]alent 3YRS+ 00:00:00 of Med icine Influenza 2016-03-15 Completed [facility] Quad[facility]alent 3YRS+ 00:00:00 of Med icine Influenza 2016-03-15 Completed [facility] Quadrivalent 3YRS+ 00:00:00 of Med icine Influenza 2016-03-15 Completed [facility] Quad[facility]alent 3YRS+ 00:00:00 of Med icine Influenza 2016-03-15 Completed [facility] 3YRS+ 00:00:00 of Med icine Influenza 2016-03-15 Completed [facility] Quad[facility]alent 3YRS+ 00:00:00 of Med icine Influenza 2016-03-15 Completed [facility] Quad[facility]alent 3YRS+ 00:00:00 of Med icine Influenza 2016-03-15 Completed [facility] Quad[facility]alent 3YRS+ 00:00:00 of Med icine Influenza 2016-03-15 Completed [facility] Quad[facility]alent 3YRS+ 00:00:00 of Med icine Influenza 2016-03-15 Completed [facility] Quad[facility]alent 3YRS+ 00:00:00 of Med icine Influenza 2016-03-15 Completed [facility] Quad[facility]alent 3YRS+ 00:00:00 of Med icine Influenza 2016-03-15 Completed [facility] Quad[facility]alent 3YRS+ 00:00:00 of Med icine Influenza 2016-03-15 Completed [facility] Quad[facility]alent 3YRS+ 00:00:00 of Med icine Influenza 2016-03-15 Completed [facility]alent 3YRS+ 00:00:00 of Med icine Influenza 2016-03-15 Completed [facility] Quad[facility]alent 3YRS+ 00:00:00 of Med icine Influenza 2016-03-15 Completed [facility] Quadrivalent 3YRS+ 00:00:00 of Med icine Vital Signs Vital Name Observation Time Observation Value Comments Source HEIGHT 2020-09-09 07:45:00 167.6 cm WEIGHT 2020-09-09 07:45:00 119.3 kg HEIGHT 2020-09-07 14:44:00 167.6 cm WEIGHT 2020-09-07 14:44:00 113.399 kg Systolic blood 2021-11-18 16:12:00 136 mm[Hg] [facility] pressure Medicine Diastolic blood 2021-11-18 16:12:00 82 mm[Hg] [facility] Medicine Heart rate 2021-11-18 16:12:00 91 /min [facility] Body temperature 2021-11-18 16:12:00 36.56 Blanca [facility] Body height 2021-11-18 16:12:00 167.6 cm [facility] Body weight 2021-11-18 16:12:00 108.863 kg [facility] BMI 2021-11-18 16:12:00 38.74 kg/m2 [facility] Systolic blood 2021-10-19 14:35:00 120 mm[Hg] [facility] of pressure Medicine Diastolic blood 2021-10-19 14:35:00 67 mm[Hg] [facility] of pressure Medicine Heart rate 2021-10-19 14:35:00 81 /min [facility] Body height 2021-10-19 14:35:00 167.6 cm [facility] Body weight 2021-10-19 14:35:00 111.131 kg [facility] BMI 2021-10-19 14:35:00 39.54 kg/m2 [facility] Systolic blood 2021-10-18 20:54:00 122 mm[Hg] [facility] of pressure Medicine Diastolic blood 2021-10-18 20:54:00 74 mm[Hg] [facility] of pressure Medicine Heart rate 2021-10-18 20:54:00 99 /min [facility] Body temperature 2021-10-18 20:54:00 36.72 Blanca [facility] Body height 2021-10-18 20:54:00 167.6 cm [facility] Body weight 2021-10-18 20:54:00 111.131 kg [facility] BMI 2021-10-18 20:54:00 39.54 kg/m2 [facility] Medicine Systolic blood 2021 13:30:00 136 mm[Hg] [facility] of pressure Medicine Diastolic blood 2021 13:30:00 74 mm[Hg] [facility] of pressure Medicine Heart rate 2021 13:30:00 79 /min [facility] Body temperature 2021 13:30:00 35.89 Blanca [facility] Body height 2021 13:30:00 167.6 cm [facility] Medicine Body weight 2021 13:30:00 111.131 kg [facility] BMI 2021 13:30:00 39.54 kg/m2 [facility] ol[facility] of Medicine Systolic blood 2021-09-23 15:57:00 138 mm[Hg] [facility] pressure Medicine Diastolic blood 2021-09-23 15:57:00 79 mm[Hg] [facility] of pressure Medicine Heart rate 2021-09-23 15:57:00 83 /min [facility] ol[facility] of Medicine Body height 2021-09-23 15:57:00 167.6 cm [facility] of Medicine Body weight 2021-09-23 15:57:00 111.131 kg [facility] ol[facility] of Medicine BMI 2021-09-23 15:57:00 39.54 kg/m2 [facility] ollege of [facility] Systolic blood 2021-09-21 19:57:00 166 mm[Hg] [facility] of pressure Medicine Diastolic blood 2021-09-21 19:57:00 70 mm[Hg] [facility] of pressure Medicine Heart rate 2021-09-21 19:57:00 92 /min [facility] ol[facility] of Medicine Body temperature 2021-09-21 19:57:00 36.44 Blanca [facility] Respiratory rate 2021-09-21 19:57:00 18 /min [facility] Body height 2021-09-21 19:57:00 167.6 cm [facility] ol[facility] of Medicine Body weight 2021-09-21 19:57:00 111.403 kg [facility] ollege of [facility] BMI 2021-09-21 19:57:00 39.64 [facility] Oxygen saturation in 2021-09-21 19:57:00 97 /min [facility] Arterial blood by [facility] Pulse oximetry Body height 2021-07-04 19:22:00 167.6 cm [facility] of Medicine Body weight 2021-07-04 19:22:00 108.863 kg [facility] BMI 2021-07-04 19:22:00 38.74 kg/m2 [facility] ol[facility] of Medicine Systolic blood 2021-06-06 16:46:00 136 mm[Hg] [facility] pressure Medicine Diastolic blood 2021-06-06 16:46:00 74 mm[Hg] [facility] Medicine Heart rate 2021-06-06 16:46:00 86 /min [facility] ollege of [facility] Body temperature 2021-06-06 16:46:00 36.61 Blanca [facility] Respiratory rate 2021-06-06 16:46:00 18 /min [facility] Body height 2021-06-06 16:46:00 165.1 cm [facility] ollege of [facility] Body weight 2021-06-06 16:46:00 111.041 kg [facility] ollege of [facility] BMI 2021-06-06 16:46:00 40.74 kg/m2 [facility] Oxygen saturation in 2021-06-06 16:46:00 95 /min [facility] Arterial blood by [facility] Pulse oximetry Body height 2020-11-25 14:09:00 165.1 cm [facility] of Medicine Body weight 2020-11-25 14:09:00 113.399 kg [facility] of Medicine BMI 2020-11-25 14:09:00 41.60 kg/m2 [facility] of Medicine Systolic blood 2020-11-25 13:35:00 127 mm[Hg] [facility] Medicine Diastolic blood 2020-11-25 13:35:00 69 mm[Hg] [facility] Medicine Heart rate 2020-11-25 13:35:00 84 /min [facility] Body height 2020-11-25 13:35:00 167.6 cm [facility] Body weight 2020-11-25 13:35:00 113.399 kg [facility] BMI 2020-11-25 13:35:00 40.35 kg/m2 [facility] Body height 2020-09-23 15:58:00 167.6 cm [facility] Body weight 2020-09-23 15:58:00 113.399 kg [facility] of Medicine BMI 2020-09-23 15:58:00 40.35 kg/m2 [facility] of Medicine Systolic blood 2020-09-16 15:42:00 122 mm[Hg] [facility] pressure Medicine Diastolic blood 2020-09-16 15:42:00 80 mm[Hg] [facility] pressure Medicine Heart rate 2020-09-16 15:42:00 74 /min [facility] Body height 2020-09-16 15:42:00 167.6 cm [facility] of Medicine Body weight 2020-09-16 15:42:00 113.399 kg [facility] Medicine BMI 2020-09-16 15:42:00 40.35 kg/m2 [facility] of Medicine HEIGHT 2020-09-09 07:45:00 167.6 cm WEIGHT 2020-09-09 07:45:00 119.3 kg HEIGHT 2020-09-07 14:44:00 167.6 cm WEIGHT 2020-09-07 14:44:00 113.399 kg Systolic blood 2020-08-24 21:16:00 140 mm[Hg] [facility] pressure Medicine Diastolic blood 2020-08-24 21:16:00 70 mm[Hg] [facility] pressure Medicine Heart rate 2020-08-24 21:16:00 105 /min [facility] ollege of [facility] Body temperature 2020-08-24 21:16:00 36.44 Blanca [facility] Respiratory rate 2020-08-24 21:16:00 18 /min [facility] Body height 2020-08-24 21:16:00 167.6 cm [facility] ollege of [facility] Body weight 2020-08-24 21:16:00 119.75 kg [facility] of Medicine BMI 2020-08-24 21:16:00 42.61 kg/m2 [facility] Oxygen saturation in 2020-08-24 21:16:00 97 /min [facility] Arterial blood by Medicine Pulse oximetry Systolic blood 2020-04-27 15:29:00 118 mm[Hg] [facility] pressure Medicine Diastolic blood 2020-04-27 15:29:00 70 mm[Hg] [facility] Medicine Heart rate 2020-04-27 15:29:00 81 /min [facility] of Medicine Body temperature 2020-04-27 15:29:00 36.94 Blanca [facility] Respiratory rate 2020-04-27 15:29:00 16 /min [facility] Body height 2020-04-27 15:29:00 167.6 cm [facility] ollege of [facility] Body weight 2020-04-27 15:29:00 112.946 kg [facility] ollege of [facility] BMI 2020-04-27 15:29:00 40.19 kg/m2 [facility] Oxygen saturation in 2020-04-27 15:29:00 97 /min [facility] of Arterial blood by Medicine Pulse oximetry Systolic blood 2020-04-12 21:23:00 120 mm[Hg] [facility] Medicine Diastolic blood 2020-04-12 21:23:00 75 mm[Hg] [facility] Medicine Heart rate 2020-04-12 21:23:00 84 /min [facility] ol[facility] of Medicine Respiratory rate 2020-04-12 21:23:00 16 /min [facility] Body height 2020-04-12 21:23:00 167.6 [facility] Body weight 2020-04-12 21:23:00 113.399 [facility] BMI 2020-04-12 21:23:00 40.35 kg/m2 [facility] Oxygen saturation in 2020-04-12 21:23:00 97 /min [facility] of Arterial blood by Medicine Pulse oximetry Systolic blood 2020-04-06 22:25:00 136 mm[Hg] [facility] of pressure Medicine Diastolic blood 2020-04-06 22:25:00 82 mm[Hg] [facility] Medicine Heart rate 2020-04-06 22:25:00 87 /min [facility] ol[facility] of Medicine Body temperature 2020-04-06 22:25:00 35.67 Blanca [facility] Respiratory rate 2020-04-06 22:25:00 16 /min [facility] Body height 2020-04-06 22:25:00 167.6 cm [facility] Medicine Body weight 2020-04-06 22:25:00 113.399 kg [facility] Medicine BMI 2020-04-06 22:25:00 40.35 kg/m2 [facility] ol[facility] of Medicine Oxygen saturation in 2020-04-06 22:25:00 97 /min [facility] of Arterial blood by Medicine Pulse oximetry Systolic blood 2020-03-15 19:06:00 141 mm[Hg] [facility] of pressure Medicine Diastolic blood 2020-03-15 19:06:00 84 mm[Hg] [facility] of pressure Medicine Heart rate 2020-03-15 19:06:00 102 /min [facility] Medicine Body height 2020-03-15 19:06:00 167.6 cm [facility] of Medicine Body weight 2020-03-15 19:06:00 113.399 kg [facility] of Medicine BMI 2020-03-15 19:06:00 40.35 kg/m2 [facility] Medicine Systolic blood 2020-02-03 18:37:00 113 mm[Hg] [facility] of pressure Medicine Diastolic blood 2020-02-03 18:37:00 78 mm[Hg] [facility] of pressure Medicine Heart rate 2020-02-03 18:37:00 105 /min [facility] of Medicine Respiratory rate 2020-02-03 18:37:00 16 /min [facility] Body height 2020-02-03 18:37:00 167.6 cm [facility] Medicine Body weight 2020-02-03 18:37:00 113.399 kg [facility] of Medicine BMI 2020-02-03 18:37:00 40.35 kg/m2 [facility] of Medicine Oxygen saturation in 2020-02-03 18:37:00 96 /min [facility] of Arterial blood by Medicine Pulse oximetry Systolic blood 2019-07-14 16:07:00 146 mm[Hg] [facility] of pressure Medicine Diastolic blood 2019-07-14 16:07:00 87 mm[Hg] [facility] of pressure Medicine Heart rate 2019-07-14 16:07:00 84 /min [facility] of Medicine Body height 2019-07-14 16:07:00 167.6 cm [facility] of Medicine Body weight 2019-07-14 16:07:00 112.038 kg [facility] of Medicine BMI 2019-07-14 16:07:00 39.87 kg/m2 [facility] of Medicine Systolic blood 2019-04-01 22:22:00 167 mm[Hg] [facility] of pressure Medicine Diastolic blood 2019-04-01 22:22:00 91 mm[Hg] [facility] of pressure Medicine Heart rate 2019-04-01 22:22:00 101 /min [facility] ollege of [facility] Body temperature 2019-04-01 22:22:00 36.33 Blanca [facility] Respiratory rate 2019-04-01 22:22:00 16 /min [facility] Body height 2019-04-01 22:22:00 165.1 cm [facility] ollege of [facility] Body weight 2019-04-01 22:22:00 117.028 kg [facility] ollege of [facility] BMI 2019-04-01 22:22:00 42.93 kg/m2 [facility] Systolic blood 2019-03-12 13:33:00 139 mm[Hg] [facility] of pressure Medicine Diastolic blood 2019-03-12 13:33:00 82 mm[Hg] [facility] of pressure Medicine Heart rate 2019-03-12 13:33:00 103 /min [facility] Body temperature 2019-03-12 13:33:00 36.5 Blanca [facility] Respiratory rate 2019-03-12 13:33:00 16 /min [facility] Body height 2019-03-12 13:33:00 165.1 cm [facility] ollege of [facility] Body weight 2019-03-12 13:33:00 115.577 [facility] BMI 2019-03-12 13:33:00 42.40 kg/m2 [facility] Oxygen saturation in 2019-03-12 13:33:00 95 /min [facility] Arterial blood by Medicine Pulse oximetry Systolic blood 2019-03-06 13:05:00 122 mm[Hg] [facility] pressure Medicine Diastolic blood 2019-03-06 13:05:00 80 mm[Hg] [facility] Medicine Heart rate 2019-03-06 13:05:00 85 /min [facility] ollege of Medicine Respiratory rate 2019-03-06 13:05:00 16 /min [facility] Body height 2019-03-06 13:05:00 165.1 cm [facility] of [facility] Body weight 2019-03-06 13:05:00 113.399 kg [facility] of Medicine BMI 2019-03-06 13:05:00 41.60 kg/m2 [facility] of [facility] Systolic blood 2019-02-24 17:32:00 124 mm[Hg] [facility] Medicine Diastolic blood 2019-02-24 17:32:00 82 mm[Hg] [facility] Medicine Heart rate 2019-02-24 17:32:00 84 /min [facility] Body temperature 2019-02-24 17:32:00 36.72 Blanca [facility] Respiratory rate 2019-02-24 17:32:00 16 /min [facility] Body height 2019-02-24 17:32:00 165.1 cm [facility] of [facility] Body weight 2019-02-24 17:32:00 111.585 kg [facility] BMI 2019-02-24 17:32:00 40.94 kg/m2 [facility] Oxygen saturation in 2019-02-24 17:32:00 98 /min [facility] Arterial blood by [facility] Pulse oximetry Body height 2019-02-19 14:22:00 165.1 cm [facility] Body weight 2019-02-19 14:22:00 111.585 kg [facility] ol[facility] of Medicine BMI 2019-02-19 14:22:00 40.94 kg/m2 [facility] Systolic blood 2019-02-18 19:46:00 123 mm[Hg] [facility] pressure Medicine Diastolic blood 2019-02-18 19:46:00 79 mm[Hg] [facility] pressure Medicine Heart rate 2019-02-18 19:46:00 90 /min [facility] Respiratory rate 2019-02-18 19:46:00 16 /min [facility] Body height 2019-02-18 19:46:00 165.1 cm [facility] Body weight 2019-02-18 19:46:00 111.585 kg [facility] BMI 2019-02-18 19:46:00 40.94 kg/m2 [facility] Oxygen saturation in 2019-02-18 19:46:00 94 /min [facility] Arterial blood by [facility] Pulse oximetry Body height 2019-02-04 18:16:00 165.1 cm [facility] Body weight 2019-02-04 18:16:00 110.678 kg [facility] BMI 2019-02-04 18:16:00 40.60 kg/m2 [facility] Systolic blood 2018-12-26 20:59:00 122 mm[Hg] [facility] pressure Medicine Diastolic blood 2018-12-26 20:59:00 80 mm[Hg] [facility] Medicine Heart rate 2018-12-26 20:59:00 99 /min [facility] Respiratory rate 2018-12-26 20:59:00 16 /min [facility] Body height 2018-12-26 20:59:00 165.1 cm [facility] Body weight 2018-12-26 20:59:00 110.678 kg [facility] BMI 2018-12-26 20:59:00 40.60 kg/m2 [facility] Procedures Procedure Date / Time Performing Clinician Source Performed SKIN EXCISION 2021-11-18 14:28:16 [facility] SKIN REPAIR 2021-11-18 14:28:16 [facility] DERMATOPATHOLOGY REPORT 2021-11-18 14:28:00 [facility] SR1 AND REPAIR 2021-11-18 13:55:33 [facility] GA TANGENTIAL BIOPSY SKIN 2021-10-19 17:44:09 [facility] LESION [facility] SKIN / NAIL BIOPSY 2021-10-19 15:01:07 Marianela Babb [facility] SKIN / NAIL BIOPSY 2021-10-19 10:01:07 [facility] DERMATOPATHOLOGY REPORT 2021-10-19 10:01:00 [facility] ELECTROCARDIOGRAM COMPLETE 2020-04-07 18:06:29 Alberta Contreras [facility] URINALYSIS, COMPLETE 2020-04-06 23:00:00 Alberta Contreras [facility]/REFLEX TO CULTURE Medicine ELECTROCARDIOGRAM COMPLETE 2019-02-18 19:55:00 Manolo Anders [facility] Plan of Care Planned Activity Planned Date Details Comments Source Future Scheduled 2027-03-22 DTAP/TDAP/TD VACCINES [facility] Test 00:00:00 (2 - Td or Tdap) [code Medic al Center = DTAP/TDAP/TD VACCINES (2 - Td or Tdap)] Future Scheduled 2023-02-02 Lipid panel (procedure) [facility] Test 00:00:00 [code = 38458351] Medical Ce nter Future Scheduled 2022-07-08 Screening for malignant [facility] Test 00:00:00 neoplasm of breast Medical C enter (procedure) [code = 923969400] Future Scheduled 2022-01-26 INFLUENZA VACCINE (#1) [facility] Test 00:00:00 [code = INFLUENZA Medical Ce nter VACCINE (#1)] Future Scheduled 2022-01-20 [facility]COPY [facility]CRE[facility]ING [facility] 01:47:32 [code = COLONOSCOPY Hospital SCREENING] Future Scheduled 2022-01-20 SHINGLES VACCINES (1 of [facility] Test 01:47:32 2) [code = SHINGLES Hospital VACCINES (1 of 2)] Future Scheduled 2022-01-20 INFLUENZA VACCINE [code [facility] Test 01:47:32 = INFLUENZA VACCINE] Hospita l Future Scheduled 2022-01-20 HEPATITIS B VACCINES (1 [facility] Test 01:47:32 of 3 - 3-dose series) Hospit al [code = HEPATITIS B VACCINES (1 of 3 - 3-dose series)] Future Scheduled 2022-01-20 COVID-19 VACCINE (#1) [facility] 01:47:32 [code = COVID-19 Hospital VACCINE (#1)] Future Scheduled 2022-01-20 Screening for malignant [facility] Test 01:47:32 neoplasm of cervix Hospital (procedure) [code = 386983040] Future Scheduled 2022-01-20 BREAST CANCER SCREENING [facility] Test 01:47:32 [code = BREAST CANCER Hospit al SCREENING] Future Scheduled 2021-11-18 Screening for malignant [facility] Test 11:12:13 neoplasm of colon of Medicin e (procedure) [code = 556075201] Future Scheduled 2021-11-18 Pneumococcal Combined Ba [facility] Test 11:12:13 (1 - PCV) [code = of Medicin e Pneumococcal Combined (1 - PCV)] Future Scheduled 2021-11-18 ANNUAL DIABETIC [facility] C ollege Test 11:12:13 RETINOPATHY SCREENING of Med icine [code = ANNUAL DIABETIC RETINOPATHY SCREENING] Future Scheduled 2021-11-18 Human immunodeficiency B [facility] Test 11:12:13 virus screening of Medicine (procedure) [code = 625766200] Future Scheduled 2021-11-18 Screening for malignant [facility] Test 11:12:13 neoplasm of cervix of Medici ne (procedure) [code = 727525132] Future Scheduled 2021-11-18 ZOSTER VACCINE (1 of 2) [facility] Test 11:12:13 [code = ZOSTER VACCINE of Me dicine (1 of 2)] Future Scheduled 2021-11-18 BMI FOLLOW UP PLAN [facility] Test 11:12:13 [code = BMI FOLLOW UP of Med icine PLAN] Future Scheduled 2021-11-18 Hemoglobin A1c [facility] Co llege Test 11:12:13 measurement (procedure) of M edicine [code = 38990917] Future Scheduled 2021-11-18 Diabetic foot [facility] Col [facility]ge Test 11:12:13 examination of Medicine (regime/therapy) [code = 321211491] Future Scheduled 2021-11-18 FLU VACCINE > 6 MONTHS [facility] Test 11:12:13 [code = FLU VACCINE > 6 of M edicine MONTHS] Future Scheduled 2021-11-18 Screening for malignant [facility] Test 11:12:13 neoplasm of breast of Medici ne (procedure) [code = 794949506] Future Scheduled 2021-11-18 TETANUS SHOT (ADULT) [facility] Test 11:12:13 [code = TETANUS SHOT of Medi cine (ADULT)] Future Scheduled 2021-10-24 Screening for malignant [facility] Test 23:03:39 neoplasm of colon of Medicin e (procedure) [code = 783049660] Future Scheduled 2021-10-24 Pneumococcal Combined Ba [facility] Test 23:03:39 (1 - PCV) [code = of Medicin e Pneumococcal Combined (1 - PCV)] Future Scheduled 2021-10-24 ANNUAL DIABETIC [facility] C ollege Test 23:03:39 RETINOPATHY SCREENING of Med icine [code = ANNUAL DIABETIC RETINOPATHY SCREENING] Future Scheduled 2021-10-24 Human immunodeficiency B [facility] Test 23:03:39 virus screening of Medicine (procedure) [code = 287905700] Future Scheduled 2021-10-24 Screening for malignant [facility] Test 23:03:39 neoplasm of cervix of Medici ne (procedure) [code = 658232484] Future Scheduled 2021-10-24 ZOSTER VACCINE (1 of 2) [facility] Test 23:03:39 [code = ZOSTER VACCINE of [place] (1 of 2)] Future Scheduled 2021-10-24 BMI FOLLOW UP PLAN [facility] Test 23:03:39 [code = BMI FOLLOW UP of Med icine PLAN] Future Scheduled 2021-10-24 Hemoglobin A1c [facility] Co llege Test 23:03:39 measurement (procedure) of M edicine [code = 40174655] Future Scheduled 2021-10-24 Diabetic foot [facility] Test 23:03:39 examination of Medicine (regime/therapy) [code = 581998420] Future Scheduled 2021-10-24 FLU VACCINE > 6 MONTHS B [facility] Test 23:03:39 [code = FLU VACCINE > 6 of M edicine MONTHS] Future Scheduled 2021-10-24 Screening for malignant [facility] Test 23:03:39 neoplasm of breast of Medici ne (procedure) [code = 425380913] Future Scheduled 2021-10-24 TETANUS SHOT (ADULT) [facility] Test 23:03:39 [code = TETANUS SHOT of Medi cine (ADULT)] Future Scheduled 2021-10-19 GA TANGENTIAL BIOPSY Ordered: [facility] Test 17:44:09 SKIN SINGLE LESION 10/19/2021 of Medici ne [code = 61883] Future Scheduled 2021-10-19 DERMATOPATHOLOGY REPORT Release Upon [facility] Test 10:01:47 [code = NOCPT] Ordering for 1 of Medicine Occurrences starting 10/19/2021 Future Scheduled 2021-10-19 Screening for malignant [facility] Test 09:35:17 neoplasm of colon of Medicin e (procedure) [code = 409502201] Future Scheduled 2021-10-19 Pneumococcal Combined Ba [facility] Test 09:35:17 (1 - PCV) [code = of Medicin e Pneumococcal Combined (1 - PCV)] Future Scheduled 2021-10-19 ANNUAL DIABETIC [facility] C [facility]lege Test 09:35:17 RETINOPATHY SCREENING of Med icine [code = ANNUAL DIABETIC RETINOPATHY SCREENING] Future Scheduled 2021-10-19 Human immunodeficiency B [facility] Test 09:35:17 virus screening of Medicine (procedure) [code = 946352244] Future Scheduled 2021-10-19 Screening for malignant [facility] Test 09:35:17 neoplasm of cervix of Medici ne (procedure) [code = 561664622] Future Scheduled 2021-10-19 ZOSTER VACCINE (1 of 2) [facility] Test 09:35:17 [code = ZOSTER VACCINE of [place] (1 of 2)] Future Scheduled 2021-10-19 BMI FOLLOW UP PLAN [facility] [place] Test 09:35:17 [code = BMI FOLLOW UP of Med icine PLAN] Future Scheduled 2021-10-19 Hemoglobin A1c [facility] Test 09:35:17 measurement (procedure) of M edicine [code = 30265444] Future Scheduled 2021-10-19 Diabetic foot [facility] Test 09:35:17 examination of Medicine (regime/therapy) [code = 833796948] Future Scheduled 2021-10-19 FLU VACCINE > 6 MONTHS B [facility] Test 09:35:17 [code = FLU VACCINE > 6 of M edicine MONTHS] Future Scheduled 2021-10-19 Screening for malignant [facility] Test 09:35:17 neoplasm of breast of Medici ne (procedure) [code = 692296278] Future Scheduled 2021-10-19 TETANUS SHOT (ADULT) [facility] Test 09:35:17 [code = TETANUS SHOT of Medi cine (ADULT)] Future Scheduled 2021 Screening for malignant [facility] Test 08:47:07 neoplasm of colon of Medicin e (procedure) [code = 891364881] Future Scheduled [facility]07 (1 of 2 - PPSV23) [code of M edicine = Pneumococcal Combined (1 of 2 - PPSV23)] Future Scheduled 2021 ANNUAL DIABETIC [facility] C [facility]lege Test 08:47:07 RETINOPATHY SCREENING of Med icine [code = ANNUAL DIABETIC RETINOPATHY SCREENING] Future Scheduled 2021 Human immunodeficiency B [facility] Test 08:47:07 virus screening of Medicine (procedure) [code = 315562223] Future Scheduled 2021 Screening for malignant [facility] Test 08:47:07 neoplasm of cervix of Medici ne (procedure) [code = 182951256] Future Scheduled 2021 ZOSTER VACCINE (1 of 2) [facility] Test 08:47:07 [code = ZOSTER VACCINE of [place] (1 of 2)] Future Scheduled 2021 BMI FOLLOW UP PLAN [facility] Test 08:47:07 [code = BMI FOLLOW UP of Med icine PLAN] Future Scheduled 2021 Hemoglobin A1c [facility] Co [facility] Test 08:47:07 measurement (procedure) of M edicine [code = 94561759] Future Scheduled 2021 Diabetic foot [facility] Test 08:47:07 examination of Medicine (regime/therapy) [code = 400829948] Future Scheduled 2021 FLU VACCINE > 6 MONTHS B [facility] Test 08:47:07 [code = FLU VACCINE > 6 of M edicine MONTHS] Future Scheduled 2021 Screening for malignant [facility] Test 08:47:07 neoplasm of breast of Medici ne (procedure) [code = 510600307] Future Scheduled 2021 TETANUS SHOT (ADULT) [facility] Test 08:47:07 [code = TETANUS SHOT of Medi cine (ADULT)] Future Scheduled 2021-09-25 Screening for malignant [facility] Test 15:56:50 neoplasm of colon of Medicin e (procedure) [code = 485783612] Future Scheduled 2021-09-25 [facility] 15[facility]56[facility]50 (1 of 2 - PPSV23) [code of M edicine = Pneumococcal Combined (1 of 2 - PPSV23)] Future Scheduled 2021-09-25 ANNUAL DIABETIC [facility] C [facility]lege Test 15:56:50 RETINOPATHY SCREENING of Med icine [code = ANNUAL DIABETIC RETINOPATHY SCREENING] Future Scheduled 2021-09-25 Human immunodeficiency B [facility] Test 15:56:50 virus screening of Medicine (procedure) [code = 305424813] Future Scheduled 2021-09-25 Screening for malignant [facility] Test 15:56:50 neoplasm of cervix of Medici ne (procedure) [code = 654484649] Future Scheduled 2021-09-25 ZOSTER VACCINE (1 of 2) [facility] Test 15:56:50 [code = ZOSTER VACCINE of Me dicine (1 of 2)] Future Scheduled 2021-09-25 BMI FOLLOW UP PLAN [facility] [place] Test 15:56:50 [code = BMI FOLLOW UP of Med icine PLAN] Future Scheduled 2021-09-25 Hemoglobin A1c [facility] Test 15:56:50 measurement (procedure) of M edicine [code = 46897835] Future Scheduled 2021-09-25 Diabetic foot [facility] Test 15:56:50 examination of Medicine (regime/therapy) [code = 073564330] Future Scheduled 2021-09-25 [facility] [code = FLU VACCINE > 6 of M edicine MONTHS] Future Scheduled 2021-09-25 Screening for malignant [facility] Test 15:56:50 neoplasm of breast of Medici ne (procedure) [code = 651728823] Future Scheduled 2021-09-25 TETANUS SHOT (ADULT) [facility] Test 15:56:50 [code = TETANUS SHOT of Medi cine (ADULT)] Future Scheduled 2021-09-23 CULTURE, AEROBIC [code Ordered: [employer] Test 11:12:13 = 634-6] 09/23/2021 of Medicine Future Scheduled 2021-09-23 CULTURE, ANAEROBIC Ordered: [employer] Test 11:12:13 [code = 635-3] 09/23/2021 of Medicine Future Scheduled 2021-09-21 Screening for malignant [facility] Test 14:59:11 neoplasm of colon of Medicin e (procedure) [code = 294145802] Future Scheduled 2021-09-21 Pneumococcal Combined Ba [facility] Test 14:59:11 (1 of 2 - PPSV23) [code of M edicine = Pneumococcal Combined (1 of 2 - PPSV23)] Future Scheduled 2021-09-21 ANNUAL DIABETIC [facility] Test 14:59:11 RETINOPATHY SCREENING of Med icine [code = ANNUAL DIABETIC RETINOPATHY SCREENING] Future Scheduled 2021-09-21 Human immunodeficiency B [facility] Test 14:59:11 virus screening of Medicine (procedure) [code = 292447732] Future Scheduled 2021-09-21 Screening for malignant [facility] Test 14:59:11 neoplasm of cervix of Medici ne (procedure) [code = 188754261] Future Scheduled 2021-09-21 ZOSTER VACCINE (1 of 2) [facility] Test 14:59:11 [code = ZOSTER VACCINE of [place] (1 of 2)] Future Scheduled 2021-09-21 BMI FOLLOW UP PLAN [facility] Test 14:59:11 [code = BMI FOLLOW UP of Med icine PLAN] Future Scheduled 2021-09-21 Hemoglobin A1c [facility] Test 14:59:11 measurement (procedure) of M edicine [code = 03959141] Future Scheduled 2021-09-21 Diabetic foot [facility] Test 14:59:11 examination of Medicine (regime/therapy) [code = 762319813] Future Scheduled 2021-09-21 FLU VACCINE > 6 MONTHS B [facility] Test 14:59:11 [code = FLU VACCINE > 6 of edicine MONTHS] Future Scheduled 2021-09-21 Screening for malignant [facility] Test 14:59:11 neoplasm of breast of Medici ne (procedure) [code = 379944907] Future Scheduled 2021-09-21 TETANUS SHOT (ADULT) [facility] Test 14:59:11 [code = TETANUS SHOT of Medi cine (ADULT)] Future Scheduled 2021-07-04 Screening for malignant [facility] Test 13:23:26 neoplasm of colon of Medicin e (procedure) [code = 794877777] Future Scheduled 2021-07-04 Pneumococcal Combined Ba [facility] Test 13:23:26 (1 of 2 - PPSV23) [code of M edicine = Pneumococcal Combined (1 of 2 - PPSV23)] Future Scheduled 2021-07-04 ANNUAL DIABETIC [facility] Test 13:23:26 RETINOPATHY SCREENING of Med icine [code = ANNUAL DIABETIC RETINOPATHY SCREENING] Future Scheduled 2021-07-04 Human immunodeficiency B [facility] Test 13:23:26 virus screening of Medicine (procedure) [code = 501712162] Future Scheduled 2021-07-04 Screening for malignant [facility] Test 13:23:26 neoplasm of cervix of Medici ne (procedure) [code = 365627038] Future Scheduled 2021-07-04 ZOSTER VACCINE (1 of 2) [facility] Test 13:23:26 [code = ZOSTER VACCINE of dicine (1 of 2)] Future Scheduled 2021-07-04 BMI FOLLOW UP PLAN [facility] [place] Test 13:23:26 [code = BMI FOLLOW UP of Med icine PLAN] Future Scheduled 2021-07-04 Hemoglobin A1c [facility] Test 13:23:26 measurement (procedure) of [place] santiago [code = 46268629] Future Scheduled 2021-07-04 Screening for malignant [facility] Test 13:23:26 neoplasm of breast of Everette[place] ne (procedure) [code = 653959945] Future Scheduled 2021-07-04 Diabetic foot [facility] Test 13:23:26 examination of Medicine (regime/therapy) [code = 603183836] Future Scheduled 2021-07-04 TETANUS SHOT (ADULT) [facility] Test 13:23:26 [code = TETANUS SHOT of Medi cine (ADULT)] Future Scheduled 2021-06-07 GA TANGENTIAL BIOPSY Ordered: [facility] Test 18:24:22 SKIN SINGLE LESION 06/07/2021 of [place] ne [code = 10590] Future Scheduled 2021-06-07 Screening for malignant [facility] Test 17:23:04 neoplasm of colon of Medicin e (procedure) [code = 834933651] Future Scheduled 2021-06-07 Pneumococcal Combined Ba [facility] Test 17:23:04 (1 of 2 - PPSV23) [code of M edicine = Pneumococcal Combined (1 of 2 - PPSV23)] Future Scheduled 2021-06-07 ANNUAL DIABETIC [facility] Test 17:23:04 RETINOPATHY SCREENING of Med icine [code = ANNUAL DIABETIC RETINOPATHY SCREENING] Future Scheduled 2021-06-07 Human immunodeficiency B [facility] Test 17:23:04 virus screening of Medicine (procedure) [code = 978633248] Future Scheduled 2021-06-07 Screening for malignant [facility] Test 17:23:04 neoplasm of cervix of Medici ne (procedure) [code = 358294310] Future Scheduled 2021-06-07 ZOSTER VACCINE (1 of 2) [facility] Test 17:23:04 [code = ZOSTER VACCINE of Me dicine (1 of 2)] Future Scheduled 2021-06-07 BMI FOLLOW UP PLAN [facility] [place] Test 17:23:04 [code = BMI FOLLOW UP of Med icine PLAN] Future Scheduled 2021-06-07 Hemoglobin A1c [facility] Test 17:23:04 measurement (procedure) of M edicine [code = 64446789] Future Scheduled 2021-06-07 Screening for malignant [facility] Test 17:23:04 neoplasm of breast of Medici ne (procedure) [code = 878151975] Future Scheduled 2021-06-07 Diabetic foot [facility] Test 17:23:04 examination of Medicine (regime/therapy) [code = 688748236] Future Scheduled 2021-06-07 TETANUS SHOT (ADULT) [facility] Test 17:23:04 [code = TETANUS SHOT of Medi cine (ADULT)] Future Scheduled 2021-06-07 Screening for malignant [facility] Test 08:09:44 neoplasm of colon of Medicin e (procedure) [code = 634134841] Future Scheduled 2021-06-07 Pneumococcal Combined Ba [facility] Test 08:09:44 (1 of 2 - PPSV23) [code of M edicine = Pneumococcal Combined (1 of 2 - PPSV23)] Future Scheduled 2021-06-07 ANNUAL DIABETIC [facility] Test 08:09:44 RETINOPATHY SCREENING of Med icine [code = ANNUAL DIABETIC RETINOPATHY SCREENING] Future Scheduled 2021-06-07 Human immunodeficiency B [facility] Test 08:09:44 virus screening of Medicine (procedure) [code = 899848405] Future Scheduled 2021-06-07 Screening for malignant [facility] Test 08:09:44 neoplasm of cervix of Medici ne (procedure) [code = 271795419] Future Scheduled 2021-06-07 ZOSTER VACCINE (1 of 2) [facility] Test 08:09:44 [code = ZOSTER VACCINE of Me dicine (1 of 2)] Future Scheduled 2021-06-07 BMI FOLLOW UP PLAN [facility] [place] Test 08:09:44 [code = BMI FOLLOW UP of Med icine PLAN] Future Scheduled 2021-06-07 Hemoglobin A1c [facility] Test 08:09:44 measurement (procedure) of [place] [code = 08125651] Future Scheduled 2021-06-07 Screening for malignant [facility] Test 08:09:44 neoplasm of breast of Medici ne (procedure) [code = 152207003] Future Scheduled 2021-06-07 Diabetic foot [facility] Test 08:09:44 examination of Medicine (regime/therapy) [code = 087291859] Future Scheduled 2021-06-07 TETANUS SHOT (ADULT) [facility] Test 08:09:44 [code = TETANUS SHOT of Medi cine (ADULT)] Future Scheduled 2021-06-06 XR RIBS LEFT 2 VW [code 1 Occurrences [facility] Test 12:11:28 = 25953] starting of Medicine 06/06/2021 until 06/06/2022 Diagnostic Test 2021-06-06 MAMMO 3D SCREENING Expected: [facility] Pending 00:00:00 BILATERAL LILIAN [code = 06/06/2021, of Me dicine 61409] Expires: 12/04/2022 Future Scheduled 2021-05-[address] [facility] Test 00:00:00 (12+) [code = [facility] DEPRESSION SCREENING (12+)] Future Scheduled 2020-12-09 Screening for malignant [facility] Test 08:09:27 neoplasm of colon of Medicin e (procedure) [code = 842891631] Future Scheduled 2020-12-09 ANNUAL DIABETIC [facility] Test 08:09:27 RETINOPATHY SCREENING of Med icine [code = ANNUAL DIABETIC RETINOPATHY SCREENING] Future Scheduled 2020-12-09 Human immunodeficiency B [facility] Test 08:09:27 virus screening of Medicine (procedure) [code = 478597959] Future Scheduled 2020-12-09 Screening for malignant [facility] Test 08:09:27 neoplasm of cervix of Medici ne (procedure) [code = 250026658] Future Scheduled 2020-12-09 ZOSTER VACCINE (1 of 2) [facility] Test 08:09:27 [code = ZOSTER VACCINE of Me dicine (1 of 2)] Future Scheduled 2020-12-09 BMI FOLLOW UP PLAN [facility] Test 08:09:27 [code = BMI FOLLOW UP of Med icine PLAN] Future Scheduled 2020-12-09 FLU VACCINE > 6 MONTHS [employer] Test 08:09:27 [code = FLU VACCINE > 6 of M edicine MONTHS] Future Scheduled 2020-12-09 Hemoglobin A1c [facility] [employer] Test 08:09:27 measurement (procedure) of M edicine [code = 46241738] Future Scheduled 2020-12-09 Screening for malignant [facility] [employer] Test 08:09:27 neoplasm of breast of Medici ne (procedure) [code = 588993052] Future Scheduled 2020-12-09 Diabetic foot [facility] Test 08:09:27 examination of Medicine (regime/therapy) [code = 511631593] Future Scheduled 2020-12-09 TETANUS SHOT (ADULT) [facility] [employer] Test 08:09:27 [code = TETANUS SHOT of Medi cine (ADULT)] Future Scheduled 2020-11-25 Screening for malignant [facility] Test 12:58:52 neoplasm of colon of Medicin e (procedure) [code = 516557983] Future Scheduled 2020-11-25 ANNUAL DIABETIC [facility] [employer] Test 12:58:52 RETINOPATHY SCREENING of Med icine [code = ANNUAL DIABETIC RETINOPATHY SCREENING] Future Scheduled 2020-11-25 Human immunodeficiency B [facility] Test 12:58:52 virus screening of Medicine (procedure) [code = 182174142] Future Scheduled 2020-11-25 Screening for malignant [facility] [employer] Test 12:58:52 neoplasm of cervix of Medici ne (procedure) [code = 469279077] Future Scheduled 2020-11-25 ZOSTER VACCINE (1 of 2) [facility] Test 12:58:52 [code = ZOSTER VACCINE of [place] (1 of 2)] Future Scheduled 2020-11-25 BMI FOLLOW UP PLAN [facility] Test 12:58:52 [code = BMI FOLLOW UP of Med icine PLAN] Future Scheduled 2020-11-25 FLU VACCINE > 6 MONTHS [employer] Test 12:58:52 [code = FLU VACCINE > 6 of M edicine MONTHS] Future Scheduled 2020-11-25 Hemoglobin A1c [facility] [employer] Test 12:58:52 measurement (procedure) of M edicine [code = 63008992] Future Scheduled 2020-11-25 Screening for malignant [facility] Test 12:58:52 neoplasm of breast of Medici ne (procedure) [code = 369279210] Future Scheduled 2020-11-25 Diabetic foot [facility] Test 12:58:52 examination of Medicine (regime/therapy) [code = 119509925] Future Scheduled 2020-11-25 TETANUS SHOT (ADULT) [facility] Test 12:58:52 [code = TETANUS SHOT of Medi cine (ADULT)] Future Scheduled 2020-11-25 Screening for malignant [facility] Test 09:09:16 neoplasm of colon of Medicin e (procedure) [code = 832287022] Future Scheduled 2020-11-25 ANNUAL DIABETIC [facility] [employer] Test 09:09:16 RETINOPATHY SCREENING of Med icine [code = ANNUAL DIABETIC RETINOPATHY SCREENING] Future Scheduled 2020-11-25 Human immunodeficiency B [facility] Test 09:09:16 virus screening of Medicine (procedure) [code = 791839873] Future Scheduled 2020-11-25 Screening for malignant [facility] Test 09:09:16 neoplasm of cervix of Medici ne (procedure) [code = 543690945] Future Scheduled 2020-11-25 ZOSTER VACCINE (1 of 2) [facility] Test 09:09:16 [code = ZOSTER VACCINE of Me dicine (1 of 2)] Future Scheduled 2020-11-25 BMI FOLLOW UP PLAN [facility] Test 09:09:16 [code = BMI FOLLOW UP of Med icine PLAN] Future Scheduled 2020-11-25 FLU VACCINE > 6 MONTHS B [facility] Test 09:09:16 [code = FLU VACCINE > 6 of M edicine MONTHS] Future Scheduled 2020-11-25 Hemoglobin A1c [facility] [employer] Test 09:09:16 measurement (procedure) of M edicine [code = 67669357] Future Scheduled 2020-11-25 Screening for malignant [facility] Test 09:09:16 neoplasm of breast of Medici ne (procedure) [code = 089681298] Future Scheduled 2020-11-25 Diabetic foot [facility] Test 09:09:16 examination of Medicine (regime/therapy) [code = 868586412] Future Scheduled 2020-11-25 TETANUS SHOT (ADULT) [facility] Test 09:09:16 [code = TETANUS SHOT of Medi cine (ADULT)] Future Scheduled 2020-11-25 GA KO ELASTIC WITH Ordered: [employer] Test 08:37:10 JOINTS [code = L1810] 11/25/2020 of Med icine Future Scheduled 2020-11-25 ORT - XR PELVIS AP Ordered: [employer] Test 08:06:21 (CHARGE ONLY) [code = 11/25/2020 of Med icine 22438] Future Scheduled 2020-11-25 Screening for malignant [facility] [employer] Test 07:11:04 neoplasm of colon of Medicin e (procedure) [code = 365568124] Future Scheduled 2020-11-25 ANNUAL DIABETIC [facility] Test 07:11:04 RETINOPATHY SCREENING of Med icine [code = ANNUAL DIABETIC RETINOPATHY SCREENING] Future Scheduled 2020-11-25 Human immunodeficiency [facility] [employer] [facility] Test 07:11:04 virus screening of Medicine (procedure) [code = 770349811] Future Scheduled 2020-11-25 Screening for malignant [facility] Test 07:11:04 neoplasm of cervix of Medici ne (procedure) [code = 365044439] Future Scheduled 2020-11-25 ZOSTER VACCINE (1 of 2) [facility] Test 07:11:04 [code = ZOSTER VACCINE of Me dicine (1 of 2)] Future Scheduled 2020-11-25 BMI FOLLOW UP PLAN [employer] Test 07:11:04 [code = BMI FOLLOW UP of Med icine PLAN] Future Scheduled 2020-11-25 FLU VACCINE > 6 MONTHS [employer] Test 07:11:04 [code = FLU VACCINE > 6 of M edicine MONTHS] Future Scheduled 2020-11-25 Hemoglobin A1c [facility] Test 07:11:04 measurement (procedure) of M edicine [code = 29889585] Future Scheduled 2020-11-25 Screening for malignant [facility] [employer] Test 07:11:04 neoplasm of breast of Medici ne (procedure) [code = 718569957] Future Scheduled 2020-11-25 Diabetic foot [facility] Test 07:11:04 examination of Medicine (regime/therapy) [code = 256802393] Future Scheduled 2020-11-25 TETANUS SHOT (ADULT) [facility] Test 07:11:04 [code = TETANUS SHOT of Medi cine (ADULT)] Future Scheduled 2020-11-11 Screening for malignant [facility] [employer] Test 15:20:10 neoplasm of colon of Medicin e (procedure) [code = 531166978] Future Scheduled 2020-11-11 ANNUAL DIABETIC [facility] Test 15:20:10 RETINOPATHY SCREENING of Med icine [code = ANNUAL DIABETIC RETINOPATHY SCREENING] Future Scheduled 2020-11-11 Human immunodeficiency B [facility] Test 15:20:10 virus screening of Medicine (procedure) [code = 195306748] Future Scheduled 2020-11-11 Screening for malignant [facility] Test 15:20:10 neoplasm of cervix of Medici ne (procedure) [code = 440448767] Future Scheduled 2020-11-11 ZOSTER VACCINE (1 of 2) [facility] Test 15:20:10 [code = ZOSTER VACCINE of Me dicine (1 of 2)] Future Scheduled 2020-11-11 BMI FOLLOW UP PLAN [facility] Test 15:20:10 [code = BMI FOLLOW UP of Med icine PLAN] Future Scheduled 2020-11-11 FLU VACCINE > 6 MONTHS B [facility] Test 15:20:10 [code = FLU VACCINE > 6 of M edicine MONTHS] Future Scheduled 2020-11-11 Hemoglobin A1c [facility] Test 15:20:10 measurement (procedure) of M edicine [code = 29812939] Future Scheduled 2020-11-11 Screening for malignant [facility] Test 15:20:10 neoplasm of breast of Medici ne (procedure) [code = 820562968] Future Scheduled 2020-11-11 Diabetic foot [facility] Test 15:20:10 examination of Medicine (regime/therapy) [code = 779101217] Future Scheduled 2020-11-11 TETANUS SHOT (ADULT) [facility] Test 15:20:10 [code = TETANUS SHOT of Medi cine (ADULT)] Future Scheduled 2020-11-04 Screening for malignant [facility] Test 08:35:43 neoplasm of colon of Medicin e (procedure) [code = 670757390] Future Scheduled 2020-11-04 ANNUAL DIABETIC [facility] Test 08:35:43 RETINOPATHY SCREENING of Med icine [code = ANNUAL DIABETIC RETINOPATHY SCREENING] Future Scheduled 2020-11-04 Human immunodeficiency B [facility] Test 08:35:43 virus screening of Medicine (procedure) [code = 387329198] Future Scheduled 2020-11-04 Screening for malignant [facility] Test 08:35:43 neoplasm of cervix of Medici ne (procedure) [code = 381215059] Future Scheduled 2020-11-04 ZOSTER VACCINE (1 of 2) [facility] [employer] Test 08:35:43 [code = ZOSTER VACCINE of Me dicine (1 of 2)] Future Scheduled 2020-11-04 BMI FOLLOW UP PLAN [employer] Test 08:35:43 [code = BMI FOLLOW UP of Med icine PLAN] Future Scheduled 2020-11-04 FLU VACCINE > 6 MONTHS [employer] Test 08:35:43 [code = FLU VACCINE > 6 of M edicine MONTHS] Future Scheduled 2020-11-04 Hemoglobin A1c [facility] Test 08:35:43 measurement (procedure) of M edicine [code = 67183991] Future Scheduled 2020-11-04 Screening for malignant [facility] Test 08:35:43 neoplasm of breast of Medici ne (procedure) [code = 930113713] Future Scheduled 2020-11-04 Diabetic foot [facility] Test 08:35:43 examination of Medicine (regime/therapy) [code = 318671298] Future Scheduled 2020-11-04 TETANUS SHOT (ADULT) [facility] Test 08:35:43 [code = TETANUS SHOT of Medi cine (ADULT)] Future Scheduled 2020-10-19 Screening for malignant [facility] Test 08:57:28 neoplasm of colon of Medicin e (procedure) [code = 063121470] Future Scheduled 2020-10-19 ANNUAL DIABETIC [facility] Test 08:57:28 RETINOPATHY SCREENING of Med icine [code = ANNUAL DIABETIC RETINOPATHY SCREENING] Future Scheduled 2020-10-19 Human immunodeficiency B [facility] Test 08:57:28 virus screening of Medicine (procedure) [code = 617039906] Future Scheduled 2020-10-19 Screening for malignant [facility] Test 08:57:28 neoplasm of cervix of Medici ne (procedure) [code = 140616187] Future Scheduled 2020-10-19 ZOSTER VACCINE (1 of 2) [facility] [employer] Test 08:57:28 [code = ZOSTER VACCINE of Me dicine (1 of 2)] Future Scheduled 2020-10-19 BMI FOLLOW UP PLAN [employer] Test 08:57:28 [code = BMI FOLLOW UP of Med icine PLAN] Future Scheduled 2020-10-19 FLU VACCINE > 6 MONTHS [employer] Test 08:57:28 [code = FLU VACCINE > 6 of M edicine MONTHS] Future Scheduled 2020-10-19 Hemoglobin A1c [facility] Test 08:57:28 measurement (procedure) of M edicine [code = 90370804] Future Scheduled 2020-10-19 Screening for malignant [facility] [employer] Test 08:57:28 neoplasm of breast of Medici ne (procedure) [code = 533033567] Future Scheduled 2020-10-19 Diabetic foot [facility] Test 08:57:28 examination of Medicine (regime/therapy) [code = 838186493] Future Scheduled 2020-10-19 TETANUS SHOT (ADULT) [facility] [employer] Test 08:57:28 [code = TETANUS SHOT of Medi cine (ADULT)] Future Scheduled 2020-10-12 Screening for malignant [facility] [employer] Test 09:46:08 neoplasm of colon of Medicin e (procedure) [code = 546534158] Future Scheduled 2020-10-12 ANNUAL DIABETIC [facility] Test 09:46:08 RETINOPATHY SCREENING of Med icine [code = ANNUAL DIABETIC RETINOPATHY SCREENING] Future Scheduled 2020-10-12 Human immunodeficiency B [facility] Test 09:46:08 virus screening of Medicine (procedure) [code = 550609614] Future Scheduled 2020-10-12 Screening for malignant [facility] [employer] Test 09:46:08 neoplasm of cervix of Medici ne (procedure) [code = 558267440] Future Scheduled 2020-10-12 ZOSTER VACCINE (1 of 2) [facility] Test 09:46:08 [code = ZOSTER VACCINE of [place] (1 of 2)] Future Scheduled 2020-10-12 BMI FOLLOW UP PLAN [facility] Test 09:46:08 [code = BMI FOLLOW UP of Med icine PLAN] Future Scheduled 2020-10-12 FLU VACCINE > 6 MONTHS [employer] Test 09:46:08 [code = FLU VACCINE > 6 of M edicine MONTHS] Future Scheduled 2020-10-12 Hemoglobin A1c [facility] Test 09:46:08 measurement (procedure) of M edicine [code = 61236077] Future Scheduled 2020-10-12 Screening for malignant [facility] [employer] Test 09:46:08 neoplasm of breast of Medici ne (procedure) [code = 053126593] Future Scheduled 2020-10-12 Diabetic foot [facility] Test 09:46:08 examination of Medicine (regime/therapy) [code = 631151446] Future Scheduled 2020-10-12 TETANUS SHOT (ADULT) [facility] Test 09:46:08 [code = TETANUS SHOT of Medi cine (ADULT)] Future Scheduled 2020-10-05 Screening for malignant [facility] Test 15:09:35 neoplasm of colon of Medicin e (procedure) [code = 783532111] Future Scheduled 2020-10-05 ANNUAL DIABETIC [facility] Test 15:09:35 RETINOPATHY SCREENING of Med icine [code = ANNUAL DIABETIC RETINOPATHY SCREENING] Future Scheduled 2020-10-05 Human immunodeficiency B [facility] Test 15:09:35 virus screening of Medicine (procedure) [code = 418924748] Future Scheduled 2020-10-05 Screening for malignant [facility] Test 15:09:35 neoplasm of cervix of Medici ne (procedure) [code = 601951987] Future Scheduled 2020-10-05 ZOSTER VACCINE (1 of 2) [facility] Test 15:09:35 [code = ZOSTER VACCINE of Me dicine (1 of 2)] Future Scheduled 2020-10-05 BMI FOLLOW UP PLAN [facility] Test 15:09:35 [code = BMI FOLLOW UP of Med icine PLAN] Future Scheduled 2020-10-05 FLU VACCINE > 6 MONTHS B [facility] Test 15:09:35 [code = FLU VACCINE > 6 of M edicine MONTHS] Future Scheduled 2020-10-05 Hemoglobin A1c [facility] Test 15:09:35 measurement (procedure) of M edicine [code = 22761344] Future Scheduled 2020-10-05 Screening for malignant [facility] Test 15:09:35 neoplasm of breast of Medici ne (procedure) [code = 448388021] Future Scheduled 2020-10-05 Diabetic foot [facility] Test 15:09:35 examination of Medicine (regime/therapy) [code = 092893116] Future Scheduled 2020-10-05 TETANUS SHOT (ADULT) [facility] Test 15:09:35 [code = TETANUS SHOT of Medi cine (ADULT)] Diagnostic Test 2020-04-12 MYOCARD PERFUSION - [facility] LEXISCAN [code = 97652] 04/12/2020, of M edicine Expires: 10/10/2021 Diagnostic Test 2020-04-12 ECHO, COMPLETE [code = Expected: [facility] Pending 00:00:00 [id number]] 04/12/2020, of Medicine Expires: 10/10/2020 Diagnostic Test 2020-04-06 MAMMO 3D SCREENING Expected: [facility] Pending 00:00:00 BILATERAL [code = 04/06/2020, of Medicin e 06930] Expires: 10/04/2021 Future Scheduled 2010 SHINGLES VACCINES ([address] [facility] Test 00:00:00 2) [code = [facility]INGLES [facility] VACCINES (1 of 2)] Future Scheduled 1981 Screening for malignant [facility] Test 00:00:00 neoplasm of cervix Medical C enter (procedure) [code = 128548413] Future Scheduled 1978 HEPATITIS C [facility]CRE[facility] Test 00:00:00 [code = HEPATITIS C [facility] Center SCREENING] Future Scheduled 1961-04-02 COVID-19 VACCINE (#1) [facility] Test 00:00:00 [code = COVID-[address] VACCINE (#1)] Future Scheduled 1960 CT Colonography (combo) [facility] Test 00:00:00 [code = CT Colonography [facility] (combo)] Future Scheduled 1960 Screening for malignant [facility] Test 00:00:00 neoplasm of colon Medical Ce nter (procedure) [code = 139702474] Future Scheduled 1960 Screening for malignant [facility] Test 00:00:00 neoplasm of colon Medical Ce nter (procedure) [code = 021382701] Future Scheduled 1960 Screening for malignant [facility] Test 00:00:00 neoplasm of colon Medical Ce nter (procedure) [code = 511173346] Future Scheduled 1960 Screening for malignant [facility] Test 00:00:00 neoplasm of colon Medical Ce nter (procedure) [code = 110212242] Future Scheduled 1960 Sigmoidoscopy [code = [facility] Test [facility] S[facility]] [facility] Future Scheduled ORT - XR FOOT BILAT 3V Ordered: [employer] [facility] (CHARGE ONLY) [code = 01/16/2019 of Med icine 70645] Future Scheduled Screening for malignant [facility] Test neoplasm of colon of Medicin e (procedure) [code = 480416508] Future Scheduled COLON CANCER SCREENING: [facility] Test COLONOSCOPY [code = of Medic ine COLON CANCER SCREENING: COLONOSCOPY] Future Scheduled ANNUAL DIABETIC [facility] [employer] [facility] RETINOPATHY SCREENING of Med icine [code = ANNUAL DIABETIC RETINOPATHY SCREENING] Future Scheduled Human immunodeficiency [facility] [employer] Test virus screening of Medicine (procedure) [code = 206372670] Future Scheduled Screening for malignant [facility] Test neoplasm of cervix of Medici ne (procedure) [code = 624318030] Future Scheduled ZOSTER VACCINE (1 of 2) [facility] Test [code = ZOSTER VACCINE of Me dicine (1 of 2)] Future Scheduled BMI FOLLOW UP PLAN [employer] Test [code = BMI FOLLOW UP of Med icine PLAN] Future Scheduled FLU VACCINE > 6 MONTHS [employer] Test [code = FLU VACCINE > 6 of M edicine MONTHS] Future Scheduled Hemoglobin A1c [facility] Test measurement (procedure) of M edicine [code = 14119349] Future Scheduled Screening for malignant [facility] Test neoplasm of breast of Medici ne (procedure) [code = 635024340] Future Scheduled Diabetic foot [facility] Test examination of Medicine (regime/therapy) [code = 337834361] Future Scheduled TETANUS SHOT (ADULT) [facility] Test [code = TETANUS SHOT of Medi cine (ADULT)] Future Scheduled MAMMOGRAM ANNUAL [code [employer] Test = MAMMOGRAM ANNUAL] of Medic ine Future Scheduled ANNUAL DIABETIC [facility] Test RETINOPATHY SCREENING of Med icine [code = ANNUAL DIABETIC RETINOPATHY SCREENING] Future Scheduled BMI FOLLOW UP PLAN [employer] Test [code = BMI FOLLOW UP of Med icine PLAN] Future Scheduled HEPATITIS C SCREENING [facility] Test [code = HEPATITIS C of Medic ine SCREENING] Future Scheduled Screening for malignant [employer] [facility] neoplasm of colon of Medicin e (procedure) [code = 607326599] Future Scheduled HIV SCREENING [code = [employer] [facility] HIV SCREENING] of Medicine Future Scheduled ANNUAL DIABETIC [employer] [facility] RETINOPATHY SCREENING of Med icine [code = ANNUAL DIABETIC RETINOPATHY SCREENING] Future Scheduled Human immunodeficiency [facility] [employer] Test virus screening of Medicine (procedure) [code = 753884213] Future Scheduled Screening for malignant [facility] Test neoplasm of cervix of Medici ne (procedure) [code = 947508393] Future Scheduled ZOSTER VACCINE (1 of 2) [employer] [facility] [code = ZOSTER VACCINE of Me dicine (1 of 2)] Future Scheduled BMI FOLLOW UP PLAN [employer] Test [code = BMI FOLLOW UP of Med icine PLAN] Future Scheduled FLU VACCINE > 6 MONTHS [employer] Test [code = FLU VACCINE > 6 of M edicine MONTHS] Future Scheduled Hemoglobin A1c [facility] Test measurement (procedure) of edicine [code = 19994758] Future Scheduled Screening for malignant [facility] Test neoplasm of breast of Medici ne (procedure) [code = 916478066] Future Scheduled Diabetic foot [facility] Test examination of Medicine (regime/therapy) [code = 061649147] Future Scheduled TETANUS SHOT (ADULT) [employer] Test [code = TETANUS SHOT of Medi cine (ADULT)] Future Scheduled CERVICAL CANCER [facility] Test SCREENING 3 YEAR FOLLOW of edicine UP [code = CERVICAL CANCER SCREENING 3 YEAR FOLLOW UP] Future Scheduled FLU VACCINE > 6 MONTHS [employer] Test [code = FLU VACCINE > 6 of M edicine MONTHS] Future Scheduled A1C TESTING EVERY 6 [facility] or [facility] Test MONTHS [code = A1C of Medici ne TESTING EVERY 6 MONTHS] Future Scheduled Diabetic foot [facility] Test examination of Medicine (regime/therapy) [code = 351187561] Future Scheduled TETANUS SHOT (ADULT) [employer] Test [code = TETANUS SHOT of Medi cine (ADULT)] Future Scheduled Screening for malignant [facility] [employer] Test neoplasm of colon of Medicin e (procedure) [code = 443619799] Future Scheduled ANNUAL DIABETIC [facility] Test RETINOPATHY SCREENING of Med icine [code = ANNUAL DIABETIC RETINOPATHY SCREENING] Future Scheduled Human immunodeficiency [facility] [employer] Test virus screening of Medicine (procedure) [code = 337772709] Future Scheduled Screening for malignant [facility] Test neoplasm of cervix of Medici ne (procedure) [code = 919499223] Future Scheduled ZOSTER VACCINE (1 of 2) [facility] Test [code = ZOSTER VACCINE of Me dicine (1 of 2)] Future Scheduled BMI FOLLOW UP PLAN [employer] Test [code = BMI FOLLOW UP of Med icine PLAN] Future Scheduled FLU VACCINE > 6 MONTHS [employer] Test [code = FLU VACCINE > 6 of edicine MONTHS] Future Scheduled Hemoglobin A1c [employer] [facility] measurement (procedure) of [facility] [code = 88897220] Future Scheduled Screening for malignant [facility] Test neoplasm of breast of Medici ne (procedure) [code = 528922607] Future Scheduled Diabetic foot [employer] [facility] examination of Medicine (regime/therapy) [code = 343559996] Future Scheduled TETANUS SHOT (ADULT) [employer] Test [code = TETANUS SHOT of Medi cine (ADULT)] Future Scheduled PT PLAN OF CARE Ordered: [facility] Test CERT/RE-CERT [code = 09/28/2020 of Medi cine NOCPT] Future Scheduled Screening for malignant [employer] [facility] neoplasm of colon of Medicin e (procedure) [code = 316479562] Future Scheduled ANNUAL DIABETIC [employer] [facility] RETINOPATHY SCREENING of [facility] icine [code = ANNUAL DIABETIC RETINOPATHY SCREENING] Future Scheduled Human immunodeficiency [employer] Test virus screening of Medicine (procedure) [code = [id number]] Future Scheduled Screening for malignant [facility] Test neoplasm of cervix of Medici ne (procedure) [code = [id number]] Future Scheduled ZOSTER VACCINE (1 of 2) [employer] [facility] [code = ZOSTER VACCINE of [place] (1 of 2)] Future Scheduled BMI FOLLOW UP PLAN [employer] [facility] [code = BMI FOLLOW UP of Med icine PLAN] Future Scheduled FLU VACCINE > 6 MONTHS [employer] [facility] [code = [facility]] Future Scheduled Hemoglobin A1c [facility] [employer] Test measurement (procedure) of [facility] [code = [id number]] Future Scheduled Screening for malignant [employer] [facility] neoplasm of breast of Medici ne (procedure) [code = 149786844] Future Scheduled Diabetic foot [employer] [facility] examination of Medicine (regime/therapy) [code = [id number]] Future Scheduled TETANUS SHOT (ADULT) [employer] [facility] [code = TETANUS SHOT of Medi cine (ADULT)] Future Scheduled COLON CANCER SCREENING: [facility] [employer] Test COLONOSCOPY [code = of Medic ine COLON CANCER SCREENING: COLONOSCOPY] Future Scheduled MAMMOGRAM ANNUAL [code [facility] [employer] [facility] [facility] Test = MAMMOGRAM ANNUAL] of Medic ine Future Scheduled ANNUAL DIABETIC [facility] Test RETINOPATHY SCREENING of Med icine [code = ANNUAL DIABETIC RETINOPATHY SCREENING] Future Scheduled BMI FOLLOW UP PLAN [employer] [facility] [code = BMI FOLLOW UP of Med icine PLAN] Future Scheduled HEPATITIS C SCREENING [employer] [facility] [code = HEPATITIS C of Medic ine SCREENING] Future Scheduled HIV SCREENING [code = [employer] HIV SCREENING] of Medicine Future Scheduled CERVICAL CANCER [facility] [employer] Test SCREENING 3 YEAR FOLLOW of M edicine UP [code = CERVICAL CANCER SCREENING 3 YEAR FOLLOW UP] Future Scheduled FLU VACCINE > 6 MONTHS [employer] [facility] [code = FLU VACCINE > 6 of M edicine MONTHS] Future Scheduled A1C TESTING EVERY 6 [employer] [facility] MONTHS [code = A1C of Medici ne TESTING EVERY 6 MONTHS] Future Scheduled Diabetic foot [facility] Test examination of Medicine (regime/therapy) [code = [id number]] Future Scheduled TETANUS SHOT (ADULT) [employer] [facility] [code = TETANUS SHOT of Medi cine (ADULT)] Future Scheduled ELECTROCARDIOGRAM [facility] [employer] Test COMPLETE [code = 68812] of M edicine Future Scheduled COLON CANCER SCREENING: [facility] [employer] [facility] COLONOSCOPY [code = of Medic ine COLON CANCER SCREENING: COLONOSCOPY] Future Scheduled MAMMOGRAM ANNUAL [code [employer] [facility] = MAMMOGRAM ANNUAL] of Medic ine Future Scheduled ANNUAL DIABETIC [facility] [employer] Test RETINOPATHY SCREENING of Med icine [code = ANNUAL DIABETIC RETINOPATHY SCREENING] Future Scheduled BMI FOLLOW UP PLAN [employer] [facility] [code = BMI FOLLOW UP of Med icine PLAN] Future Scheduled HEPATITIS C SCREENING [employer] [facility] [code = HEPATITIS C of Medic ine SCREENING] Future Scheduled HIV SCREENING [code = [employer] [facility] HIV SCREENING] of Medicine Future Scheduled CERVICAL CANCER [employer] [facility] SCREENING 3 YEAR FOLLOW of M edicine UP [code = CERVICAL CANCER SCREENING 3 YEAR FOLLOW UP] Future Scheduled FLU VACCINE > 6 MONTHS [employer] [facility] [code = FLU VACCINE > 6 of M edicine MONTHS] Future Scheduled A1C TESTING EVERY 6 [employer] [facility] MONTHS [code = A1C of Medici ne TESTING EVERY 6 MONTHS] Future Scheduled Diabetic foot [facility] Test examination of Medicine (regime/therapy) [code = [id number]] Future Scheduled TETANUS SHOT (ADULT) [employer] [facility] [code = TETANUS SHOT of Medi cine (ADULT)] Future Scheduled ORT - XR KNEE LEFT 4V Ordered: [employer] [facility] (CHARGE ONLY) [code = 02/19/2019 of Med icine 71188] Future Scheduled COLON CANCER SCREENING: [facility] COLONOSCOPY [code = of Medic ine COLON CANCER SCREENING: COLONOSCOPY] Future Scheduled MAMMOGRAM ANNUAL [code [employer] [facility] = MAMMOGRAM ANNUAL] of Medic ine Future Scheduled ANNUAL DIABETIC [employer] [facility] RETINOPATHY SCREENING of Med icine [code = ANNUAL DIABETIC RETINOPATHY SCREENING] Future Scheduled BMI FOLLOW UP PLAN [employer] [facility] [code = BMI FOLLOW UP of Med icine PLAN] Future Scheduled HEPATITIS C SCREENING [employer] [facility] [code = HEPATITIS C of Medic ine SCREENING] Future Scheduled HIV SCREENING [code = [employer] HIV SCREENING] of Medicine Future Scheduled CERVICAL CANCER [facility] [employer] Test SCREENING 3 YEAR FOLLOW of M edicine UP [code = CERVICAL CANCER SCREENING 3 YEAR FOLLOW UP] Future Scheduled FLU VACCINE > 6 MONTHS [employer] [facility] [code = FLU VACCINE > 6 of M edicine MONTHS] Future Scheduled A1C TESTING EVERY 6 [employer] [facility] MONTHS [code = A1C of Medici ne TESTING EVERY 6 MONTHS] Future Scheduled Diabetic foot [employer] [facility] examination of Medicine (regime/therapy) [code = [id number]] Future Scheduled TETANUS SHOT (ADULT) [employer] [facility] [code = TETANUS SHOT of Medi cine (ADULT)] Future Scheduled GA MED NUTR THER, 1ST, Ordered: [employer] [facility] INDIV, EA 15 MIN [code 02/24/2019 of [place] = 80696] Future Scheduled COLON CANCER SCREENING: [facility] [employer] Test COLONOSCOPY [code = of Medic ine COLON CANCER SCREENING: COLONOSCOPY] Future Scheduled MAMMOGRAM ANNUAL [code [employer] [facility] = MAMMOGRAM ANNUAL] of Medic ine Future Scheduled ANNUAL DIABETIC [employer] [facility] RETINOPATHY SCREENING of Med icine [code = ANNUAL DIABETIC RETINOPATHY SCREENING] Future Scheduled BMI FOLLOW UP PLAN [employer] Test [code = BMI FOLLOW UP of Med icine PLAN] Future Scheduled HEPATITIS C SCREENING [employer] [facility] [code = HEPATITIS C of Medic ine SCREENING] Future Scheduled HIV SCREENING [code = [employer] [facility] HIV SCREENING] of Medicine Future Scheduled CERVICAL CANCER [employer] [facility] SCREENING 3 YEAR FOLLOW of M edicine UP [code = CERVICAL CANCER SCREENING 3 YEAR FOLLOW UP] Future Scheduled A1C TESTING EVERY 6 [employer] [facility] MONTHS [code = A1C of Medici ne TESTING EVERY 6 MONTHS] Future Scheduled Diabetic foot [facility] Test examination of Medicine (regime/therapy) [code = [id number]] Future Scheduled TETANUS SHOT (ADULT) [employer] [facility] [code = TETANUS SHOT of Medi cine (ADULT)] Future Scheduled URIC ACID [code = Ordered: [facility] Test 3084-1] 02/24/2019 of Medicine Future Scheduled SEDIMENTATION RATE Ordered: [facility] [place] Test MODIFIED WESTERGREN 02/24/2019 of Medic ine [code = 4537-7] Future Scheduled C-REACTIVE PROTEIN Ordered: [facility] Test [code = 1988-5] 02/24/2019 of Medicine Future Scheduled CCP AB (IGG/IGA) [code Ordered: B [facility] Test = 03823-6] 02/24/2019 of Medicine Future Scheduled RHEUMATOID FACTOR [code Ordered: [facility] Test = 36498-1] 02/24/2019 of Medicine Future Scheduled COLON CANCER SCREENING: [facility] Test COLONOSCOPY [code = of Medic ine COLON CANCER SCREENING: COLONOSCOPY] Future Scheduled MAMMOGRAM ANNUAL [code B [facility] Test = MAMMOGRAM ANNUAL] of Medic ine Future Scheduled ANNUAL DIABETIC [facility] [employer] Test RETINOPATHY SCREENING of Med icine [code = ANNUAL DIABETIC RETINOPATHY SCREENING] Future Scheduled BMI FOLLOW UP PLAN [facility] [place] Test [code = BMI FOLLOW UP of Med icine PLAN] Future Scheduled HEPATITIS C SCREENING [facility] Test [code = HEPATITIS C of Medic ine SCREENING] Future Scheduled HIV SCREENING [code = [employer] HIV SCREENING] of Medicine Future Scheduled CERVICAL CANCER [facility] [employer] Test SCREENING 3 YEAR FOLLOW of M edicine UP [code = CERVICAL CANCER SCREENING 3 YEAR FOLLOW UP] Future Scheduled A1C TESTING EVERY 6 [facility] [place] Test MONTHS [code = A1C of Medici ne TESTING EVERY 6 MONTHS] Future Scheduled Diabetic foot [facility] Test examination of Medicine (regime/therapy) [code = 019579052] Future Scheduled TETANUS SHOT (ADULT) [employer] [facility] [code = TETANUS SHOT of Medi cine (ADULT)] Future Scheduled PT PLAN OF CARE Ordered: [employer] [facility] CERT/RE-CERT [code = 03/05/2019 of Medi cine NOCPT] Future Scheduled COLON CANCER SCREENING: [facility] Test COLONOSCOPY [code = of Medic ine COLON CANCER SCREENING: COLONOSCOPY] Future Scheduled MAMMOGRAM ANNUAL [code B [facility] Test = MAMMOGRAM ANNUAL] of Medic ine Future Scheduled ANNUAL DIABETIC [employer] [facility] RETINOPATHY SCREENING of Med icine [code = ANNUAL DIABETIC RETINOPATHY SCREENING] Future Scheduled BMI FOLLOW UP PLAN [employer] Test [code = BMI FOLLOW UP of Med icine PLAN] Future Scheduled HEPATITIS C SCREENING [employer] [facility] [code = HEPATITIS C of Medic ine SCREENING] Future Scheduled HIV SCREENING [code = [employer] HIV SCREENING] of Medicine Future Scheduled CERVICAL CANCER [employer] [facility] SCREENING 3 YEAR FOLLOW of M edicine UP [code = CERVICAL CANCER SCREENING 3 YEAR FOLLOW UP] Future Scheduled A1C TESTING EVERY 6 [employer] [facility] MONTHS [code = A1C of Medici ne TESTING EVERY 6 MONTHS] Future Scheduled Diabetic foot [facility] Test examination of Medicine (regime/therapy) [code = [id number]] Future Scheduled TETANUS SHOT (ADULT) [employer] [facility] [code = TETANUS SHOT of Medi cine (ADULT)] Future Scheduled COLON CANCER SCREENING: [facility] [employer] Test COLONOSCOPY [code = of Medic ine COLON CANCER SCREENING: COLONOSCOPY] Future Scheduled MAMMOGRAM ANNUAL [code [employer] Test = MAMMOGRAM ANNUAL] of Medic ine Future Scheduled ANNUAL DIABETIC [facility] [employer] Test RETINOPATHY SCREENING of Med icine [code = ANNUAL DIABETIC RETINOPATHY SCREENING] Future Scheduled BMI FOLLOW UP PLAN [employer] Test [code = BMI FOLLOW UP of Med icine PLAN] Future Scheduled HEPATITIS C SCREENING [employer] Test [code = HEPATITIS C of Medic ine SCREENING] Future Scheduled HIV SCREENING [code = [employer] HIV SCREENING] of Medicine Future Scheduled CERVICAL CANCER [facility] [employer] Test SCREENING 3 YEAR FOLLOW of M edicine UP [code = CERVICAL CANCER SCREENING 3 YEAR FOLLOW UP] Future Scheduled A1C TESTING EVERY 6 [employer] [facility] MONTHS [code = A1C of Medici ne TESTING EVERY 6 MONTHS] Future Scheduled Diabetic foot [employer] examination of Medicine (regime/therapy) [code = 080330725] Future Scheduled TETANUS SHOT (ADULT) [employer] [facility] [code = TETANUS SHOT of Medi cine (ADULT)] Future Scheduled RHEUMATOID FACTOR [code Ordered: [facility] [employer] Test = 38328-6] 03/12/2019 of Medicine Future Scheduled CCP AB (IGG/IGA) [code Ordered: [employer] [facility] = 85621-9] 03/12/2019 of Medicine Future Scheduled SEDIMENTATION RATE Ordered: [employer] MODIFIED MANUELERGREN 03/12/2019 of Medic ine [code = 4537-7] Future Scheduled C-REACTIVE PROTEIN Ordered: [employer] Test [code = 1988-5] 03/12/2019 of Medicine Future Scheduled VITAMIN D 1,25 Ordered: [facility] [employer] Test DIHYDROXY [code = 03/12/2019 of Medicin e 1649-3] Future Scheduled HEPATITIS C ANTIBODY Ordered: [facility] Test [code = 34108-5] 03/12/2019 of Medicine Future Scheduled COLON CANCER SCREENING: [facility] [employer] Test COLONOSCOPY [code = of Medic ine COLON CANCER SCREENING: COLONOSCOPY] Future Scheduled MAMMOGRAM ANNUAL [code [employer] [facility] = MAMMOGRAM ANNUAL] of Medic ine Future Scheduled ANNUAL DIABETIC [employer] RETINOPATHY SCREENING of Med icine [code = ANNUAL DIABETIC RETINOPATHY SCREENING] Future Scheduled BMI FOLLOW UP PLAN [employer] Test [code = BMI FOLLOW UP of Med icine PLAN] Future Scheduled HEPATITIS C SCREENING [employer] [facility] [code = HEPATITIS C of Medic ine SCREENING] Future Scheduled HIV SCREENING [code = [employer] [facility] HIV SCREENING] of Medicine Future Scheduled CERVICAL CANCER [employer] SCREENING 3 YEAR FOLLOW of M edicine UP [code = CERVICAL CANCER SCREENING 3 YEAR FOLLOW UP] Future Scheduled A1C TESTING EVERY 6 [employer] Test MONTHS [code = A1C of Medici ne TESTING EVERY 6 MONTHS] Future Scheduled Diabetic foot [employer] [facility] examination of Medicine (regime/therapy) [code = 843496826] Future Scheduled TETANUS SHOT (ADULT) [employer] [facility] [code = TETANUS SHOT of Medi cine (ADULT)] Future Scheduled COLON CANCER SCREENING: [facility] [employer] Test COLONOSCOPY [code = of Medic ine COLON CANCER SCREENING: COLONOSCOPY] Future Scheduled MAMMOGRAM ANNUAL [code [employer] [facility] = MAMMOGRAM ANNUAL] of Medic ine Future Scheduled ANNUAL DIABETIC [employer] [facility] RETINOPATHY SCREENING of Med icine [code = ANNUAL DIABETIC RETINOPATHY SCREENING] Future Scheduled BMI FOLLOW UP PLAN [employer] Test [code = BMI FOLLOW UP of Med icine PLAN] Future Scheduled HIV SCREENING [code = [employer] [facility] HIV SCREENING] of Medicine Future Scheduled CERVICAL CANCER [employer] [facility] SCREENING 3 YEAR FOLLOW of M edicine UP [code = CERVICAL CANCER SCREENING 3 YEAR FOLLOW UP] Future Scheduled A1C TESTING EVERY 6 [employer] Test MONTHS [code = A1C of Medici ne TESTING EVERY 6 MONTHS] Future Scheduled Diabetic foot [employer] examination of Medicine (regime/therapy) [code = 542963278] Future Scheduled TETANUS SHOT (ADULT) [employer] [facility] [code = TETANUS SHOT of Medi cine (ADULT)] Future Scheduled PT INSTR GIVEN - BMI>24 Ordered: [facility] [employer] Test [code = NOCPT] 04/01/2019 of Medicine Future Scheduled COLON CANCER SCREENING: [facility] [employer] [facility] COLONOSCOPY [code = of Medic ine COLON CANCER SCREENING: COLONOSCOPY] Future Scheduled MAMMOGRAM ANNUAL [code [employer] [facility] = MAMMOGRAM ANNUAL] of Medic ine Future Scheduled ANNUAL DIABETIC [employer] [facility] RETINOPATHY SCREENING of Med icine [code = ANNUAL DIABETIC RETINOPATHY SCREENING] Future Scheduled HIV SCREENING [code = [employer] [facility] HIV SCREENING] of Medicine Future Scheduled CERVICAL CANCER [facility] [employer] Test SCREENING 3 YEAR FOLLOW of M edicine UP [code = CERVICAL CANCER SCREENING 3 YEAR FOLLOW UP] Future Scheduled A1C TESTING EVERY 6 [employer] Test MONTHS [code = A1C of Medici ne TESTING EVERY 6 MONTHS] Future Scheduled Diabetic foot [facility] Test examination of Medicine (regime/therapy) [code = [id number]] Future Scheduled BMI FOLLOW UP PLAN [employer] Test [code = BMI FOLLOW UP of Med icine PLAN] Future Scheduled TETANUS SHOT (ADULT) [employer] Test [code = TETANUS SHOT of Medi cine (ADULT)] Future Scheduled COLON CANCER SCREENING: [facility] [employer] Test COLONOSCOPY [code = of Medic ine COLON CANCER SCREENING: COLONOSCOPY] Future Scheduled COLON CANCER SCREENING: [facility] [employer] Test COLONOSCOPY [code = of Medic ine COLON CANCER SCREENING: COLONOSCOPY] Future Scheduled MAMMOGRAM ANNUAL [code [employer] [facility] = MAMMOGRAM ANNUAL] of Medic ine Future Scheduled ANNUAL DIABETIC [employer] [facility] RETINOPATHY SCREENING of Med icine [code = ANNUAL DIABETIC RETINOPATHY SCREENING] Future Scheduled HIV SCREENING [code = [employer] HIV SCREENING] of Medicine Future Scheduled CERVICAL CANCER [facility] [employer] Test SCREENING 3 YEAR FOLLOW of M edicine UP [code = CERVICAL CANCER SCREENING 3 YEAR FOLLOW UP] Future Scheduled A1C TESTING EVERY 6 [employer] MONTHS [code = A1C of Medici ne TESTING EVERY 6 MONTHS] Future Scheduled Diabetic foot [facility] Test examination of Medicine (regime/therapy) [code = [id number]] Future Scheduled MAMMOGRAM ANNUAL [code [employer] [facility] = MAMMOGRAM ANNUAL] of Medic ine Future Scheduled BMI FOLLOW UP PLAN [employer] Test [code = BMI FOLLOW UP of Med icine PLAN] Future Scheduled TETANUS SHOT (ADULT) [employer] [facility] [code = TETANUS SHOT of Medi cine (ADULT)] Future Scheduled ANNUAL DIABETIC [facility] Test RETINOPATHY SCREENING of Med icine [code = ANNUAL DIABETIC RETINOPATHY SCREENING] Future Scheduled BMI FOLLOW UP PLAN [employer] Test [code = BMI FOLLOW UP of Med icine PLAN] Future Scheduled HEPATITIS C SCREENING [employer] [facility] [code = HEPATITIS C of Medic ine SCREENING] Future Scheduled COLON CANCER SCREENING: [facility] [employer] Test COLONOSCOPY [code = of Medic ine COLON CANCER SCREENING: COLONOSCOPY] Future Scheduled MAMMOGRAM ANNUAL [code [employer] Test = MAMMOGRAM ANNUAL] of Medic ine Future Scheduled ANNUAL DIABETIC [employer] [facility] RETINOPATHY SCREENING of Med icine [code = ANNUAL DIABETIC RETINOPATHY SCREENING] Future Scheduled HIV SCREENING [code = [employer] HIV SCREENING] of Medicine Future Scheduled CERVICAL CANCER [employer] [facility] SCREENING 3 YEAR FOLLOW of M edicine UP [code = CERVICAL CANCER SCREENING 3 YEAR FOLLOW UP] Future Scheduled ZOSTER VACCINE (1 of 2) [facility] Test [code = ZOSTER VACCINE of [place] (1 of 2)] Future Scheduled A1C TESTING EVERY 6 [employer] Test MONTHS [code = A1C of Medici ne TESTING EVERY 6 MONTHS] Future Scheduled FLU VACCINE > 6 MONTHS [employer] [facility] [code = FLU VACCINE > 6 of M edicine MONTHS] Future Scheduled BMI FOLLOW UP PLAN [employer] [facility] [code = BMI FOLLOW UP of Med icine PLAN] Future Scheduled HIV SCREENING [code = [employer] HIV SCREENING] of Medicine Future Scheduled Diabetic foot [facility] Test examination of Medicine (regime/therapy) [code = [id number]] Future Scheduled TETANUS SHOT (ADULT) [employer] [facility] [code = TETANUS SHOT of Medi cine (ADULT)] Future Scheduled CERVICAL CANCER [employer] [facility] SCREENING 3 YEAR FOLLOW of M edicine UP [code = CERVICAL CANCER SCREENING 3 YEAR FOLLOW UP] Future Scheduled FLU VACCINE > 6 MONTHS [employer] Test [code = FLU VACCINE > 6 of M edicine MONTHS] Future Scheduled A1C TESTING EVERY 6 [employer] Test MONTHS [code = A1C of Medici ne TESTING EVERY 6 MONTHS] Future Scheduled ORT - XR HIP RIGHT 2V Ordered: [employer] [facility] (CHARGE ONLY) [code = 03/15/2020 of Med icine 12682] Future Scheduled ORT - XR SHOULDER LEFT Ordered: [employer] [facility] 3V (CHARGE ONLY) [code 03/15/2020 of Me dicine = 77778] Future Scheduled ORT - XR PELVIS AP Ordered: [employer] [facility] (CHARGE ONLY) [code = 03/15/2020 of Med icine 81782] Future Scheduled Diabetic foot [facility] Test examination of Medicine (regime/therapy) [code = 804809508] Future Scheduled COLON CANCER SCREENING: [facility] Test COLONOSCOPY [code = of Medic ine COLON CANCER SCREENING: COLONOSCOPY] Future Scheduled MAMMOGRAM ANNUAL [code [employer] = MAMMOGRAM ANNUAL] of Medic ine Future Scheduled ANNUAL DIABETIC [facility] Test RETINOPATHY SCREENING of Med icine [code = ANNUAL DIABETIC RETINOPATHY SCREENING] Future Scheduled HIV SCREENING [code = [employer] HIV SCREENING] of Medicine Future Scheduled CERVICAL CANCER [employer] [facility] SCREENING 3 YEAR FOLLOW of M edicine UP [code = CERVICAL CANCER SCREENING 3 YEAR FOLLOW UP] Future Scheduled ZOSTER VACCINE (1 of 2) [facility] Test [code = ZOSTER VACCINE of Me dicine (1 of 2)] Future Scheduled BMI FOLLOW UP PLAN [employer] Test [code = BMI FOLLOW UP of Med icine PLAN] Future Scheduled A1C TESTING EVERY 6 [employer] Test MONTHS [code = A1C of Medici ne TESTING EVERY 6 MONTHS] Future Scheduled Diabetic foot [facility] Test examination of Medicine (regime/therapy) [code = [id number]] Future Scheduled TETANUS SHOT (ADULT) [employer] [facility] [code = TETANUS SHOT of Medi cine (ADULT)] Future Scheduled TETANUS SHOT (ADULT) [employer] Test [code = TETANUS SHOT of Medi cine (ADULT)] Future Scheduled LIPID PANEL [code = Ordered: [employer] [facility] 51565-9] 04/12/2020 of Medicine Future Scheduled COLON CANCER SCREENING: [employer] [facility] COLONOSCOPY [code = of Medic ine COLON CANCER SCREENING: COLONOSCOPY] Future Scheduled MAMMOGRAM ANNUAL [code [employer] [facility] = MAMMOGRAM ANNUAL] of Medic ine Future Scheduled ANNUAL DIABETIC [facility] Test RETINOPATHY SCREENING of Med icine [code = ANNUAL DIABETIC RETINOPATHY SCREENING] Future Scheduled HIV SCREENING [code = [employer] [facility] HIV SCREENING] of Medicine Future Scheduled CERVICAL CANCER [employer] [facility] SCREENING 3 YEAR FOLLOW of M edicine UP [code = CERVICAL CANCER SCREENING 3 YEAR FOLLOW UP] Future Scheduled ZOSTER VACCINE (1 of 2) [facility] Test [code = ZOSTER VACCINE of Me dicine (1 of 2)] Future Scheduled BMI FOLLOW UP PLAN [facility] Test [code = BMI FOLLOW UP of Med icine PLAN] Future Scheduled A1C TESTING EVERY 6 [employer] Test MONTHS [code = A1C of Medici ne TESTING EVERY 6 MONTHS] Future Scheduled Diabetic foot [facility] Test examination of Medicine (regime/therapy) [code = [id number]] Future Scheduled TETANUS SHOT (ADULT) [employer] Test [code = TETANUS SHOT of Medi cine (ADULT)] Future Scheduled CBC W/AUTO DIFF WITH Ordered: [facility] Test PLATELETS [code = 04/06/2020 of Medicin e 15883-0] Future Scheduled COMPREHENSIVE METABOLIC Ordered: [facility] Test PANEL [code = 14661-9] 04/06/2020 of Me dicine Future Scheduled TSH REFLEX TO FREE T4 Ordered: [facility] Test [code = 3016-3] 04/06/2020 of Medicine Future Scheduled VITAMIN D 25 HYDROXY Ordered: [facility] College Test [code = 1989-3] 04/06/2020 of Medicine Future Scheduled HEMOGLOBIN A1C [code = Ordered: [facility] Test 4548-4] 04/06/2020 of Medicine Future Scheduled SEDIMENTATION RATE Ordered: [facility] Test MODIFIED WESLY 04/06/2020 of Medic ine [code = 4537-7] Future Scheduled C-REACTIVE PROTEIN Ordered: [facility] Test [code = 1987-5] 04/06/2020 of Medicine Future Scheduled VITAMIN B12 [code = Ordered: [facility] or [facility] Test 2132-9] 04/06/2020 of Medicine Future Scheduled CK [code = 2157-6] Ordered: [employer] [facility] 04/06/2020 of Medicine Future Scheduled EAR IRRIGATION/WAX Ordered: [facility] Test REMOVAL [code = NOCPT] 04/06/2020 of Me dicine Future Scheduled COLON CANCER SCREENING: [facility] Test COLONOSCOPY [code = of Medic ine COLON CANCER SCREENING: COLONOSCOPY] Future Scheduled MAMMOGRAM ANNUAL [code B [facility] Test = MAMMOGRAM ANNUAL] of Medic ine Future Scheduled ANNUAL DIABETIC [facility] Test RETINOPATHY SCREENING of Med icine [code = ANNUAL DIABETIC RETINOPATHY SCREENING] Future Scheduled HIV SCREENING [code = [employer] [facility] HIV SCREENING] of Medicine Future Scheduled CERVICAL CANCER [employer] [facility] SCREENING 3 YEAR FOLLOW of M edicine UP [code = CERVICAL CANCER SCREENING 3 YEAR FOLLOW UP] Future Scheduled ZOSTER VACCINE (1 of 2) [employer] Test [code = ZOSTER VACCINE of Me dicine (1 of 2)] Future Scheduled BMI FOLLOW UP PLAN [employer] Test [code = BMI FOLLOW UP of Med icine PLAN] Future Scheduled A1C TESTING EVERY 6 [employer] Test MONTHS [code = A1C of Medici ne TESTING EVERY 6 MONTHS] Future Scheduled Diabetic foot [employer] Test examination of Medicine (regime/therapy) [code = 896672828] Future Scheduled TETANUS SHOT (ADULT) [employer] Test [code = TETANUS SHOT of Medi cine (ADULT)] Future Scheduled COLON CANCER SCREENING: [facility] Test COLONOSCOPY [code = of Medic ine COLON CANCER SCREENING: COLONOSCOPY] Future Scheduled MAMMOGRAM ANNUAL [code B [facility] Test = MAMMOGRAM ANNUAL] of Medic ine Future Scheduled ANNUAL DIABETIC [employer] Test RETINOPATHY SCREENING of Med icine [code = ANNUAL DIABETIC RETINOPATHY SCREENING] Future Scheduled HIV SCREENING [code = [facility] Test HIV SCREENING] of Medicine Future Scheduled CERVICAL CANCER [employer] Test SCREENING 3 YEAR FOLLOW of M edicine UP [code = CERVICAL CANCER SCREENING 3 YEAR FOLLOW UP] Future Scheduled ZOSTER VACCINE (1 of 2) [facility] [employer] Test [code = ZOSTER VACCINE of Me dicine (1 of 2)] Future Scheduled BMI FOLLOW UP PLAN [employer] Test [code = BMI FOLLOW UP of Med icine PLAN] Future Scheduled A1C TESTING EVERY 6 [employer] Test MONTHS [code = A1C of Medici ne TESTING EVERY 6 MONTHS] Future Scheduled Diabetic foot [facility] [employer] Test examination of Medicine (regime/therapy) [code = 020716997] Future Scheduled TETANUS SHOT (ADULT) [employer] Test [code = TETANUS SHOT of Medi cine (ADULT)] Future Scheduled Screening for malignant [employer] Test neoplasm of colon of Medicin e (procedure) [code = 781667300] Future Scheduled ANNUAL DIABETIC [facility] C ollege Test RETINOPATHY SCREENING of Med icine [code = ANNUAL DIABETIC RETINOPATHY SCREENING] Future Scheduled Human immunodeficiency [employer] Test virus screening of Medicine (procedure) [code = 812847767] Future Scheduled Screening for malignant [employer] Test neoplasm of cervix of Medici ne (procedure) [code = 785426818] Future Scheduled ZOSTER VACCINE (1 of 2) [facility] [employer] Test [code = ZOSTER VACCINE of Me dicine (1 of 2)] Future Scheduled BMI FOLLOW UP PLAN [employer] Test [code = BMI FOLLOW UP of Med icine PLAN] Future Scheduled Hemoglobin A1c [employer] Test measurement (procedure) of [place] santiago [code = 00460934] Future Scheduled Screening for malignant [employer] Test neoplasm of breast of Medici ne (procedure) [code = 473024537] Future Scheduled Diabetic foot [facility] [employer] Test examination of Medicine (regime/therapy) [code = 944265272] Future Scheduled TETANUS SHOT (ADULT) [employer] Test [code = TETANUS SHOT of Medi cine (ADULT)] Future Scheduled Screening for malignant [employer] Test neoplasm of colon of Medicin e (procedure) [code = 763085573] Future Scheduled ANNUAL DIABETIC [employer] RETINOPATHY SCREENING of Med icine [code = ANNUAL DIABETIC RETINOPATHY SCREENING] Future Scheduled Human immunodeficiency [employer] virus screening of Medicine (procedure) [code = 248527067] Future Scheduled Screening for malignant [employer] Test neoplasm of cervix of Medici ne (procedure) [code = 397365437] Future Scheduled ZOSTER VACCINE (1 of 2) [facility] [employer] Test [code = ZOSTER VACCINE of Me dicine (1 of 2)] Future Scheduled BMI FOLLOW UP PLAN [employer] Test [code = BMI FOLLOW UP of Med icine PLAN] Future Scheduled Hemoglobin A1c [facility] Co l[employer] Test measurement (procedure) of [place] santiago [code = 02285838] Future Scheduled Screening for malignant [employer] Test neoplasm of breast of Medici ne (procedure) [code = 882305147] Future Scheduled Diabetic foot [employer] Test examination of Medicine (regime/therapy) [code = 418316245] Future Scheduled TETANUS SHOT (ADULT) [employer] Test [code = TETANUS SHOT of Medi cine (ADULT)] Future Scheduled HEMOGLOBIN A1C [code = Ordered: [employer] Test 4548-4] 08/24/2020 of Medicine Future Scheduled BASIC METABOLIC PANEL Ordered: [employer] [code = 39190-1] 08/24/2020 of Medicine Future Scheduled CBC W/AUTO DIFF WITH Ordered: [employer] Test PLATELETS [code = 08/24/2020 of Medicin e 50000-5] Future Scheduled HEPATIC FUNCTION PANEL Ordered: [employer] Test [code = 83002-4] 08/24/2020 of Medicine Future Scheduled PROTIME-INR [code = Ordered: [employer] 5902-2] 08/24/2020 of Medicine Future Scheduled Screening for malignant [facility] Test neoplasm of colon of Medicin e (procedure) [code = 077013654] Future Scheduled ANNUAL DIABETIC [facility] C ollege Test RETINOPATHY SCREENING of Med icine [code = ANNUAL DIABETIC RETINOPATHY SCREENING] Future Scheduled Human immunodeficiency B [facility] Test virus screening of Medicine (procedure) [code = 365464644] Future Scheduled Screening for malignant [facility] Test neoplasm of cervix of Medici ne (procedure) [code = 254879739] Future Scheduled ZOSTER VACCINE (1 of 2) [facility] [employer] Test [code = ZOSTER VACCINE of Me dicine (1 of 2)] Future Scheduled BMI FOLLOW UP PLAN [employer] Test [code = BMI FOLLOW UP of Med icine PLAN] Future Scheduled Hemoglobin A1c [facility] Co llege Test measurement (procedure) of M edicine [code = 54540257] Future Scheduled Screening for malignant [facility] Test neoplasm of breast of Medici ne (procedure) [code = 122812306] Future Scheduled Diabetic foot [facility] Col [employer]ge Test examination of Medicine (regime/therapy) [code = 430471033] Future Scheduled TETANUS SHOT (ADULT) [employer] [place] Test [code = TETANUS SHOT of Medi cine (ADULT)] Future Scheduled XR CHEST PA AND LATERAL 1 Occurrences [facility] Test [code = 67961-7] starting of Medicine 08/24/2020 until 08/24/2021 Future Scheduled COMPLETE PFT WITHOUT 1 Occurrences Ba or [place] Test BRONCHODILATOR [code = starting of Me dicine 37406] 08/24/2020 until 08/24/2021 Future Scheduled NOVEL 2019 1 Occurrences [facility] Col [employer]ge Test CORONAVIRUS(COVID-19),N starting of M edicine AA [code = U0004] 08/24/2020 until 02/24/2021 Future Scheduled XR C-SPINE AP, LAT, 1 Occurrences [facility] Test OBLIQUES W FLEX-EXT starting of Medic ine [code = 28928-8] 04/27/2020 until 11/25/2020 Future Scheduled XR RIBS LEFT W PA CHEST 1 Occurrences [facility] [employer] Test [code = 70942] starting of Medicine 04/06/2020 until 11/04/2020 Future Scheduled XR RIBS LEFT W PA CHEST 1 Occurrences [facility] [employer] Test [code = 95043] starting of Medicine 04/06/2020 until 11/04/2020 Future Scheduled MICROALBUMIN/CREAT 1 Occurrences [facility] Test URINE RATIO [code = starting of Medic ine 9318-7] 07/14/2019 until 07/14/2020 Future Scheduled COMPREHENSIVE METABOLIC 1 Occurrences [facility] [employer] Test PANEL [code = 93291-9] starting of Me dicine 07/14/2019 until 07/14/2020 Future Scheduled HEMOGLOBIN A1C [code = 1 Occurrences [facility] [employer] Test 4548-4] starting of Medicine 07/14/2019 until 07/14/2020 Future Scheduled VITAMIN D 25 HYDROXY 1 Occurrences [employer] Test [code = 1989-3] starting of Medicine 07/14/2019 until 07/14/2020 Future Scheduled LIPID PANEL [code = 1 Occurrences [employer] Test 71946-2] starting of Medicine 07/14/2019 until 07/14/2020 Future Scheduled TSH [code = 71208-7] 1 Occurrences [employer] starting of Medicine 07/14/2019 until 07/14/2020 Future Scheduled T4 FREE [code = 3024-7] 1 Occurrences [facility] [employer] Test starting of Medicine 07/14/2019 until 07/14/2020 Future Scheduled XR HAND BILATERAL 1 Occurrences [facility] Test (COMPLETE) [code = [place] [address]] 02/24/2019 until 02/25/2020 Future Scheduled MRI FOOT LEFT WO 1 Occurrences [facility] Test CONTRAST [code = 58213] starting of M edicine 01/16/2019 until 01/17/2020 Future Scheduled COMPREHENSIVE METABOLIC 1 Occurrences [facility] Test PANEL [code = 29617-4] starting of Me dicine 12/26/2018 until 01/09/2020 Future Scheduled LIPID PANEL [code = 1 Occurrences [employer] Test 73503-1] starting of Medicine 12/26/2018 until 01/09/2020 Future Scheduled HEMOGLOBIN A1C [code = 1 Occurrences [facility] [employer] Test 4548-4] starting of Medicine 12/26/2018 until 01/09/2020 Encounters Start End Encounter Admission Attending Care Care Encounter Source Date/Time Date/Time Type Type Clinicians Facility Department ID 2021-03-05 Outpatient AYDE [facility] Surgery [id number] [facility] 09:43:20 LUIS 2021-12-02 2021-12-02 Outpatient BRITTNEE DANYA [facility] [id number] [facility] 15:25:42 15:45:34 ANTONIO [facility] [employer]in e 2021-11-18 2021-11-18 Outpatient MARIPOSA CANADA [facility] [id number] [facility] 13:54:33 14:52:23 Colleg e of Medicin e 2021-11-18 2021-11-18 Office DANYA CHACON 1.2.840.114 [id number] [facility] 11:00:12 11:33:35 Visit LENORE AMBULATOR 350.1.13.21 College Y 0.2.7.2.686 of [id number] Medi shruthi 800 e 2021-10-19 2021-10-19 Office VITAMARIANELA [facility] 1.2.840.114 [id number] [facility] 09:17:37 10:21:00 Visit AMBULATOR 350.1.13.21 College Y 0.2.7.2.686 of [id number] Medi shruthi 300 e 2021-10-18 2021-10-18 Office DANYA Chacon 1.2.840.114 [id number] [facility] 16:15:00 16:54:56 Visit Lenore AMBULATOR 350.1.13.21 College Monalisa-Mei Y 0.2.7.2.686 of [id number] Medi shruthi 800 e 2021 2021 Office DANYA Chacon 1.2.840.114 [id number] [facility] 08:30:00 08:47:35 Visit Lenore AMBULATOR 350.1.13.21 College Monalisa-Mei Y 0.2.7.2.686 of [id number] Medi shruthi 800 e 2021-09-23 2021-09-23 Office DANYA CHACON 1.2.840.114 [id number] [facility] 10:53:57 11:25:41 Visit LENORE AMBULATOR 350.1.13.21 College Y 0.2.7.2.686 of [id number] Medi shruthi 800 e 2021-09-23 2021-09-23 Outpatient NAV [facility] [id number] [facility] 10:06:01 11:02:51 ALMA Colle ge of Medicin e 2021-09-21 2021-09-21 Office DOROTHY REYNOSOM 1.2.840.114 [id number] [facility] 14:55:25 16:38:21 Visit JOHN AMBULATOR 350.1.13.21 College Y 0.2.7.2.686 of [id number] Medi shruthi 300 e 2021-09-07 2021-09-07 Outpatient BCM [facility] [id number] [facility] 14:21:10 15:46:35 Colleg e of Medicin e 2021-09-07 2021-09-07 Outpatient BCM [facility] [id number] [facility] 10:46:43 13:32:35 Colleg e of Medicin e 2021-07-12 2021-07-12 Outpatient Bar HERNANDEZ [facility] [id number] P-20 [facility] 10:40:00 10:40:00 DAVID [id number] [facility] 2021-07-08 2021-07-08 Outpatient BCM [facility] [id number] [facility] 14:01:09 14:01:09 Colleg e of Medicin e 2021-07-04 2021-07-04 Office DANYA SEAMAN 1.2.840.114 [id number] [facility] 13:04:01 14:37:16 Visit GERRY AMBULATOR 350.1.13.21 College Y 0.2.7.2.686 of [id number] Medi shruthi 300 e 2021-06-07 2021-06-07 Office DOROTHY BALDWIN 1.2.840.114 [id number] [facility] 08:47:10 10:22:47 Visit ALEXANDRIA AMBULATOR 350.1.13.21 College Y 0.2.7.2.686 of [id number] Medi shruthi 300 e 2021-06-07 2021-06-07 Outpatient BCM [facility] [id number] [facility] 10:20:17 10:20:17 Colleg e of Medicin e 2021-06-06 2021-06-06 Office DANYA Muse 1.2.840.114 [id number] [facility] 11:00:00 14:48:29 Visit Mishel AMBULATOR 350.1.13.21 College Y 0.2.7.2.686 of [id number] Medi shruthi 300 e 2021-03-22 2021-03-22 Outpatient [facility] [id number] [facility] 11:14:33 16:32:59 Colleg e of Medicin e 2021-03-15 2021-03-15 Outpatient DALI [facility] [id number] [facility] 11:34:47 11:45:28 EDWARD Colleg [employer]in e 2021-03-15 2021-03-15 Outpatient SONYA [facility] [id number] [facility] 08:09:45 08:51:10 MANDIE Colleg [employer] Medicin e 2020-12-14 2020-12-14 Outpatient DALI [facility] [id number] [facility] 09:10:00 09:22:55 EDWARD Colleg [employer]in e 2020-12-10 2020-12-10 Outpatient FELIPE [facility] [id number] [facility] 14:54:27 15:38:56 LENORE Colleg [employer]in e 2020-12-09 2020-12-09 Office RAMIREZ [facility] 1.2.840.114 [id number] [facility] 07:12:08 09:21:20 Visit DAVID AMBULATOR 350.1.13.21 College Y 0.2.7.2.686 of [id number] Medi shruthi 600 e 2020-12-06 2020-12-06 Outpatient SONYA [facility] [id number] [facility] 11:20:15 11:51:10 MANDIE Colleg [employer]in e 2020-11-25 2020-11-25 Office Tara [facility] 1.2.840.114 [id number] [facility] 09:05:22 09:45:25 Visit Gerry AMBULATOR 350.1.13.21 College Y 0.2.7.2.686 of [id number] Medi shruthi 300 e 2020-11-25 2020-11-25 Office Ramirez [facility] 1.2.840.114 [id number] [facility] 07:28:38 08:28:38 Visit David AMBULATOR 350.1.13.21 College Y 0.2.7.2.686 of [id number] Medi shruthi 600 e 2020-11-25 2020-11-25 Office DANYA Mckinnon 1.2.114.742 [id number] [facility] 08:00:48 08:21:26 Visit Cadence Sarkar AMBULATOR 350.1.13.21 College Y 0.2.7.2.686 of [id number] Medi shruthi 600 e 2020-11-25 2020-11-25 Outpatient [facility] [id number] [facility] 08:10:05 08:10:05 Colleg e of Medicin e 2020-11-22 2020-11-22 Outpatient DANYA MESSER [facility] [id number] [facility] 08:00:29 08:14:23 LUIS Colle ge of Medicin e 2020-11-09 2020-11-09 Office DANYA Guzmán 1.2.840.114 [id number] [facility] 14:37:36 15:58:39 Visit David AMBULATOR 350.1.13.21 College Y 0.2.7.2.686 of [id number] Medi shruthi 600 e 2020-11-02 2020-11-02 Office DANYA Guzmán 1.2.840.114 [id number] [facility] 13:55:34 16:11:32 Visit David AMBULATOR 350.1.13.21 College Y 0.2.7.2.686 of [id number] Medi shruthi 600 e 2020-10-19 2020-10-19 Office DANYA Rendon 1.2.840.114 [id number] [facility] 13:12:13 14:45:45 Visit Gracie Dubois AMBULATOR 350.1.13.21 College Y 0.2.7.2.686 of [id number] Medi shruthi 600 e 2020-10-12 2020-10-12 Outpatient DANYA RENDON [facility] [id number] [facility] 12:59:23 15:00:12 GRACIE Colleg [employer] Medicin e 2020-10-12 2020-10-12 Office Ayde, DANYA 1.2.840.114 [id number] [facility] 11:01:35 11:11:35 Visit Luis B AMBULATOR 350.1.13.21 College Y 0.2.7.2.686 of [id number] Medi shurthi 600 e 2020-10-05 2020-10-05 Office Raul, BCM 1.2.840.114 [id number] [facility] 12:55:40 13:55:40 Visit Gracie N. AMBULATOR 350.1.13.21 College Y 0.2.7.2.686 of [id number] Medi shruthi 600 e 2020-09-28 2020-09-28 Office Raul, BCM 1.2.840.114 [id number] [facility] 13:55:59 14:55:59 Visit Gracie N. AMBULATOR 350.1.13.21 College Y 0.2.7.2.686 of [id number] Medi shruthi 600 e 2020-09-23 2020-09-23 Office DANYA Mckinnon 1.2.469.448 [id number] [facility] 10:33:14 11:37:50 Visit Cadence Antonina AMBULATOR 350.1.13.21 College Y 0.2.7.2.686 of [id number] Medi shruthi 600 e 2020-09-16 2020-09-16 Office DANYA Seaman 1.2.840.114 [id number] [facility] 10:35:39 10:39:33 Visit Gerry AMBULATOR 350.1.13.21 College Y 0.2.7.2.686 of [id number] Medi shruthi 300 e 2020-09-15 2020-09-15 Office Ayde, BCM 1.2.840.114 [id number] [facility] 14:34:03 15:27:29 Visit Luis B AMBULATOR 350.1.13.21 College Y 0.2.7.2.686 of [id number] Medi shruthi 600 e 2020-09-07 2020-09-07 Outpatient [facility] [id number] [facility] 00:00:00 00:00:00 2020-08-24 2020-08-24 Office Bere [facility] 1.2.840.114 [id number] [facility] 15:52:27 17:32:56 Visit Alex AMBULATOR 350.1.13.21 College Y 0.2.7.2.686 of [id number] Medi shruthi 300 e 2020-08-24 2020-08-24 Outpatient BERE [facility] [id number] [facility] 00:00:00 00:00:00 ALEX 2020-08-16 2020-08-17 Office Lizandrolibbymorenita [facility] 1.2.840.114 [id number] [facility] 17:22:38 07:56:16 Visit Luis Douglas AMBULATOR 350.1.13.21 College Y 0.2.7.2.686 of [id number] Medi shruthi 600 e 2020-08-16 2020-08-16 Office Joss [facility] 1.2.840.114 [id number] [facility] 16:11:33 16:56:04 Visit Reed Guerrero AMBULATOR 350.1.13.21 College Y 0.2.7.2.686 of [id number] Medi shruthi 600 e 2020-07-08 2020-07-08 Outpatient [facility] [id number] [facility] 14:29:26 15:52:59 Colleg e of Medicin e 2020-07-07 2020-07-07 Outpatient VALERIO CANAS [facility] [id number] [facility] 16:43:30 17:10:26 Colleg e of Medicin e 2020-04-27 2020-04-27 Office DOROTHY Contreras 1.2.840.114 [id number] [facility] 09:07:05 16:39:56 Visit Alberta AMBULATOR 350.1.13.21 College Y 0.2.7.2.686 of [id number] Medi shruthi 300 e 2020-04-12 2020-04-12 Office Martita [facility] 1.2.840.114 [id number] [facility] 15:10:11 15:30:11 Visit Manolo Valadez AMBULATOR 350.1.13.21 College Y 0.2.7.2.686 of [id number] Medi shruthi 375 e 2020-04-06 2020-04-06 Office Diane BCM 1.2.840.114 [id number] [facility] 16:13:26 17:09:21 Visit Alberta AMBULATOR 350.1.13.21 College Y 0.2.7.2.686 of [id number] Medi shruthi 300 e 2020-03-15 2020-03-15 Office DOROTHY CoreasM 1.2.840.114 [id number] [facility] 14:01:46 16:04:46 Visit Reed Guerrero AMBULATOR 350.1.13.21 College Y 0.2.7.2.686 of [id number] Medi shruthi 600 e 2020-02-03 2020-02-03 Office DOROTHY AndersM 1.2.840.114 [id number] [facility] 13:11:36 14:04:32 Visit Manolo Rory AMBULATOR 350.1.13.21 College Y 0.2.7.2.686 of [id number] Medi shruthi 375 e 2019-07-14 2019-07-14 Office DOROTHY Rodriguez 1.2.840.114 [id number] [facility] 09:59:27 10:29:27 Visit Mandie AMBULATOR 350.1.13.21 College Y 0.2.7.2.686 of [id number] Medi shruthi 310 e 2019-04-01 2019-04-01 Office Sadia BCM 1.2.840.114 [id number] [facility] 16:15:56 17:42:17 Visit Zahra miller AMBULATOR 350.1.13.21 College Y 0.2.7.2.686 of [id number] Medi shruthi 800 e 2019-03-26 2019-03-26 Office DOROTHY RENDONM 1.2.840.114 [id number] [facility] 12:25:22 14:26:32 Visit GRACIE AMBULATOR 350.1.13.21 College Y 0.2.7.2.686 of [id number] Medi shruthi 600 e 2019-03-12 2019-03-12 Office DOROTHY GoodwinM 1.2.840.114 [id number] [facility] 08:30:44 09:13:03 Visit Cici AMBULATOR 350.1.13.21 College Y 0.2.7.2.686 of [id number] Medi shruthi 370 e 2019-03-06 2019-03-06 Office DANYA Rodriguez 1.2.840.114 [id number] [facility] 08:01:04 09:13:44 Visit Mandie AMBULATOR 350.1.13.21 College Y 0.2.7.2.686 of [id number] Medi shruthi 310 e 2019-03-05 2019-03-05 Office DANYA Rendon 1.2.840.114 [id number] [facility] 12:25:15 13:25:15 Visit Gracie N. AMBULATOR 350.1.13.21 College Y 0.2.7.2.686 of [id number] Medi shruthi 600 e 2019-02-24 2019-02-24 Office DANYA Contreras 1.2.840.114 [id number] [facility] 12:15:44 16:24:39 Visit Alberta AMBULATOR 350.1.13.21 College Y 0.2.7.2.686 of [id number] Medi shruthi 300 e 2019-02-24 2019-02-24 Office DANYA Napeir 1.2.250.958 [id number] [facility] 10:47:36 12:16:34 Visit Xenia AMBULATOR 350.1.13.21 College Y 0.2.7.2.686 of [id number] Medi shruthi 325 e 2019-02-19 2019-02-19 Office DANYA Messer 1.2.840.114 [id number] [facility] 08:37:53 10:10:46 Visit Luis B AMBULATOR 350.1.13.21 College Y 0.2.7.2.686 of [id number] Medi shruthi 600 e 2019-02-18 2019-02-18 Office DANYA Anders 1.2.840.114 [id number] [facility] 14:37:57 15:23:55 Visit Manolo L AMBULATOR 350.1.13.21 College Y 0.2.7.2.686 of [id number] Medi shruthi 315 e 2019-02-04 2019-02-04 Office DANYA Helton 1.2.840.114 [id number] [facility] 13:02:19 13:22:19 Visit Manolo Rucker AMBULATOR 350.1.13.21 College Y 0.2.7.2.686 of [id number] Medi shruthi 600 e 2019-01-16 2019-01-16 Office Danie BCM 1.2.840.114 [id number] [facility] 14:59:41 16:26:33 Visit Manolo Rucker AMBULATOR 350.1.13.21 College Y 0.2.7.2.686 of [id number] Medi shruthi 600 e 2018-12-26 2018-12-26 Office Sonya BCM 1.2.840.114 [id number] [facility] 15:51:51 17:58:41 Visit Mandie AMBULATOR 350.1.13.21 College Y 0.2.7.2.686 of [id number] [facility] shruthi 310 e Results Test Description Test Time Test Comments Results Result Comments Source POCT-GLUCOSE METER 2020-09-09 14:29:00 Test Item Value Reference Range Interpretation Comme nts POC-GLUCOSE METER ([employer]) 174 mg/dL 70-110 H : Notified RN/MD: TESTED AT [facility] (test code = 1538) [address] [place], [place] [address]: Lehr Tender /Ditch Rider ID = [id number] for EDU ABDI POCT-GLUCOSE [id number] 08:32:00 Test Item Value Reference Range Interpretation Comments POC-GLUCOSE METER 305 mg/dL 70-110 H : TESTED A T [place] [address] ([employer]) (test code [facility], = 1538) [place] [address] 0: Lehr Tender/Techni santiago ID = [id number] for BLACK MURILLO RAD, CHEST, 2 [id number] 12:11:00Reason for Exam:->[facility] 1960 Sex: FFINAL REPORT EXAM: RAD, CHEST, 2 VIEWSDATE: 08/24/2020 5:52 PM INDICATION: SOB R06.02COMPARISON: Chest x-ray, 12/19/2010 FINDINGS:Lines and tubes: None Heart size is normal. No focal pulmonary opacity, pleural effusion or pneumothorax. There are low lung volumes with mild atelectasis at the lung bases. Upper abdomen unremarkable. No acute bony abnormality. There are degenerative changes in the thoracic spine with mild kyphosis. IMPRESSION:No evidence for acute disease. Signed: Ladan Andujar MDReport Verified Date/Time: 08/25/2020 12:11:15 Reading Location: [facility] Reading Room [address] [place] [address] URINALYSIS, COMPLETE W/REFLEX TO [id number] 11:05:31 Test Item Value Reference Range Interpretation Comments COLOR UA (test code = YELLOW YELLOW-STRAW 5778-6) CLARITY UA (test code SLIGHTLY CLOUDY CLEAR = 5767-9) SPECIFIC GRAVITY UA 1.005-1.035 (test code = 5811-5) LEUKOCYTE ESTERASE UA NEGATIVE NEGATIVE (test code = 5799-2) NITRITE UA (test code NEGATIVE NEGATIVE = 5802-4) PH UA (test code = 5.0-9.0 5803-2) PROTEIN UA (test code 1+ NEGATIVE A = 20222-3) GLUCOSE UA (test code NEGATIVE NEGATIVE = 5792-7) KETONES UA (test code NEGATIVE NEGATIVE = 5797-6) UROBILINOGEN UA (test <2.0 See_Comment [Auto mated code = 97707-6) message] The system which generated this result transmitted reference range : <=2.0 MG/DL. Th e reference range was not used to interpret this result as normal/abnormal . BILIRUBIN UA (test NEGATIVE NEGATIVE code = 5770-3) OCCULT BLOOD UA (test NEGATIVE NEGATIVE code = 64579-0) WBC UA (test code = 0-5 See_Comment [Automa felipa 43547-5) message] The sy stem which generated this result transmitted reference range : 0 - 5 /HPF. The reference range was not used to interpret this result as normal/abnormal . RBC UA (test code = 0-2 See_Comment [Automa felipa 74169-2) message] The sy stem which generated this result transmitted reference range : 0 - 5 /HPF. The reference range was not used to interpret this result as normal/abnormal . EPITHELIAL CELLS 10-15 See_Comment A [Automated (test code = 69571-7) messag e] The system which generated this result transmitted reference range : 0 - 10 /HPF. The reference range was not used to interpret this result as normal/abnormal . BACTERIA (test code = 2+ NEGATIVE A Unle ss Otherwise 50777-0) Indicated, All Testing Perform ed At: [facility], [address] [place] [address] Director: Hung Hamilton M.D. [place] Number [id number] Cap Accreditation N o. [id number] Lab Interpretation Abnormal (test code = 15866-7) [facility], [id number] 14:36:00Reason for Exam:->SYNOVITISFINAL REPORT Exam: Left and right hand three views each History: Pain Comparison: None. Findings: No fracture or malalignment. Narrowing of the interphalangeal joints and first CMCjoint bilaterally with calcified bodies in the left CMC joint and adjacent to the left third PIP joint. 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 Signed: Manuel Rey MDReport Verified Date/Time: 02/24/2019 14:36:11 Reading Location: [facility] Reading Room [address] [place] [address] Electronically signed by: Manuel Song 02/24/2019 02:36 PMRAD, HAND, 3 VIEWS, [id number] 14:36:00Reason for Exam:->SYNOVITISFINAL REPORT Exam: Left and right hand three views each History: Pain Comparison: None. Findings: No fracture or malalignment. Narrowing of the interphalangeal joints and first CMCjoint bilaterally with calcified bodies in the left CMC joint and adjacent to the left third PIP joint. 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 Signed: Manuel Rey Verified Date/Time: 02/24/2019 14:36:11 Reading Location: [facility] Room [address] [place] [address] Electronically signed by: Manuel Song 02/24/2019 02:36 PM
[2022-01-22] MEDS ORDERED: NA CHLORIDE 0.9% 1,000 ML ONE (02:46)
[2022-01-22] MEDS ORDERED: FAMOTIDINE 20 MG/2 ML VIAL IV ONE (02:46)
[2022-01-22] MEDS ORDERED: PANTOPRAZOLE 40 MG INJ ONE (02:46)
[2022-01-22] MEDS ORDERED: ONDANSETRON 4 MG/2 ML VIAL ONE (02:46)
[2022-01-22 02:56] LABS: Hematocrit 35.2 % (36.0-45.0); MPV 8.3 fL (7.6-11.3); RBC Red Blood Cell Count 3.91 M/uL (3.86-4.86)
[2022-01-22 03:25] LABS: Bilirubin Total 0.2 mg/dL (0.2-1.0); Protein, Total 6.4 g/dL (6.4-8.2)
[2022-01-22 03:26] LABS: Potassium 3.7 mmol/L (3.5-5.1)
[2022-01-22] MEDS ORDERED: FENTANYL CITR 100 MCG/2 ML ONE (04:30)
[2022-01-22] MEDS ORDERED: INSULIN -REGULAR HUMAN 50 UNIT/0.5 ML ML ONE (04:41)
--- NOTE | 2022-01-22 06:49 | EDPHYS ---
Physician Documentation [facility] Name: Sachin Vasquez Age: 61 yrs Sex: Female : 1960 Arrival Date: 01/22/2022 Time: 02:11 Bed 2 Private MD: ED Physician Irineo Borjas HPI: 01/22 02:51 This 61 yrs old Female presents to ER via Ambulatory with complaints of GI Bleeding. kdr 02:51 The patient presents to the emergency department with rectal bleeding, a large amount, kdr "filled toilet". Onset: The symptoms/episode began/occurred suddenly, this morning, last night. Abdominal pain: none is appreciated. Modifying factors: The symptoms are alleviated by nothing, the symptoms are aggravated by nothing. Associated signs and symptoms: Pertinent positives: dizziness at rest, dizziness when standing. Severity of symptoms: At their worst the symptoms were moderate severe in the emergency department the symptoms are unchanged. The patient has not experienced similar symptoms in the past. The patient has been recently seen by a physician:. Patient had a colonoscopy on Sunday with Dr. Morin's group. Since then she has not had any complication till this evening. Today she started having some intermittent but persistent rectal bleeding. Those episodes became more pronounced and significant through the evening. She had several large bowel movements which appeared to be primarily blood. She has become very weak and clammy. She is pale appearing. She denies abdominal pain.. Historical: - Allergies: 02:50 Biaxin; tw5 - PMHx: 02:50 Diabetes - NIDDM; Gout; Hypertension; Diverticulitis; tw5 - PSHx: 02:50 rotaor cuff surgery- bilaterally; left knee surgery; tw - Immunization history:: Flu vaccine is up to date. - Social history:: Smoking status: Patient denies any tobacco usage or history of. ROS: 02:51 Constitutional: Negative for fever, chills, and weight loss, Eyes: Negative for injury, kdr pain, redness, and discharge, ENT: Negative for injury, pain, and discharge, Neck: Negative for injury, pain, and swelling, Cardiovascular: Negative for chest pain, palpitations, and edema, Respiratory: Negative for shortness of breath, cough, wheezing, and pleuritic chest pain, Back: Negative for injury and pain, : Negative for injury, bleeding, discharge, and swelling, MS/Extremity: Negative for injury and deformity, Skin: Negative for injury, rash, and discoloration, Neuro: Negative for headache, weakness, numbness, tingling, and seizure activity. Psych: Negative for depression, anxiety, suicide ideation, homicidal ideation, and hallucinations, Allergy/Immunology: Negative for hives, rash, and allergies, Endocrine: Negative for neck swelling, polydipsia, polyuria, polyphagia, and marked weight changes, Hematologic/Lymphatic: Negative for swollen nodes, abnormal bleeding, and unusual bruising. 02:51 Abdomen/GI: Positive for abdominal pain, nausea, abdominal cramps, rectal bleeding, Negative for abdominal distension, anorexia, dysphagia, hematemesis, black/tarry stool. Exam: 02:51 Constitutional: This is a well developed, well nourished patient who is awake, alert, kdr and in mild to moderate distress. Head/Face: Normocephalic, atraumatic. Neck: Trachea midline, no thyromegaly or masses palpated, and no cervical lymphadenopathy. Supple, full range of motion without nuchal rigidity, or vertebral point tenderness. No Meningismus. Chest/axilla: Normal chest wall appearance and motion. Nontender with no deformity. No lesions are appreciated. Cardiovascular: Regular rate and rhythm with a normal S1 and S2. No gallops, murmurs, or rubs. Normal PMI, no JVD. No pulse deficits. Respiratory: Lungs have equal breath sounds bilaterally, clear to auscultation and percussion. No rales, rhonchi or wheezes noted. No increased work of breathing, no retractions or nasal flaring. Back: No spinal tenderness. No costovertebral tenderness. Full range of motion. Skin: Warm, dry with normal turgor. Normal color with no rashes, no lesions, and no evidence of cellulitis. MS/ Extremity: Pulses equal, no cyanosis. Neurovascular intact. Full, normal range of motion. Neuro: Awake and alert, GCS 15, oriented to person, place, time, and situation. Cranial nerves II-XII grossly intact. Motor strength 5/5 in all extremities. Sensory grossly intact. Cerebellar exam normal. Normal gait. Psych: Awake, alert, with orientation to person, place and time. Behavior, mood, and affect are within normal limits. 02:51 Abdomen/GI: Inspection: obese Bowel sounds: active, diminished, in all quadrants, Palpation: soft, mild abdominal tenderness, in the left lower quadrant, mass, is not appreciated, rebound tenderness, is not appreciated. Vital Signs: 02:23 BP 105 / 56; Pulse 85; Temp 97.8(O); Pulse Ox 97% on R/A; Weight 108.86 kg; Height 5 wm ft. 6 in. (167.64 cm); Pain 3/10; 03:05 BP 102 / 58; Pulse 79; Resp 18; Pulse Ox 95% on R/A; Pain 5/10; tw5 04:00 BP 123 / 65; Pulse 77; Resp 17; Pulse Ox 98% on R/A; ll3 05:11 BP 113 / 68; Pulse 81; Resp 16; Pulse Ox 96% on R/A; ll3 06:22 BP 115 / 58 Supine; Pulse 81; Resp 18; Pulse Ox 94% on R/A; ll3 06:22 BP 105 / 60 Sitting; Pulse 94; Resp 17; Pulse Ox 95% on R/A; ll3 06:22 BP 108 / 60 Standing; Pulse 104; Resp 17; Pulse Ox 98% on R/A; ll3 06:55 Pain 3/10; tw5 02:23 Body Mass Index 38.74 (108.86 kg, 167.64 cm) wm MDM: 02:51 Data reviewed: vital signs, nurses notes, lab test result(s), radiologic studies. kdr Counseling: I had a detailed discussion with the patient and/or guardian regarding: the historical points, exam findings, and any diagnostic results supporting the discharge/admit diagnosis, lab results, radiology results. 06:48 Patient medically screened. kdr 01/22 02:17 Order name: CBC with Diff; Complete Time: 04:23 kdr 01/22 02:17 Order name: CMP; Complete Time: 04:23 kdr 01/22 02:17 Order name: Lipase; Complete Time: 04:23 kdr 01/22 02:17 Order name: Type And Screen; Complete Time: 04:23 kdr 01/22 04:06 Order name: ABO/RH no charge; Complete Time: 04:23 EDMS 01/22 05:18 Order name: Hemoglobin; Complete Time: 05:54 wm 01/22 02:17 Order name: CT Abd/Pelvis - IV Contrast Only kdr 01/22 05:18 Order name: Hematocrit; Complete Time: 05:54 wm 01/22 05:28 Order name: Glucose, Ancillary Testing; Complete Time: 05:54 EDMS 01/22 02:17 Order name: IV Saline Lock; Complete Time: 02:51 kdr 01/22 02:17 Order name: Labs collected and sent; Complete Time: 02:51 kdr 01/22 06:01 Order name: Orthostatic Blood Pressure; Complete Time: 06:22 kdr Administered Medications: 02:59 Drug: NS 0.9% 1000 ml Route: IV; Rate: 1 bolus; Site: right antecubital; tw5 06:56 Follow up: Response: No adverse reaction; IV Status: Completed infusion; IV Intake: tw 1000ml 02:59 Drug: Pepcid (famotidine) 20 mg Route: IVP; Site: right antecubital; tw5 06:56 Follow up: Response: No adverse reaction 02:59 Drug: Zofran (Ondansetron) 4 mg Route: IVP; Site: right antecubital; tw5 06:56 Follow up: Response: No adverse reaction 02:59 Drug: ProTONIX (pantoprazole) 40 mg Route: IVP; Site: right antecubital; tw5 06:55 Follow up: Response: No adverse reaction 04:26 Drug: fentaNYL (PF) 25 mcg Route: IVP; Site: right antecubital; ll3 06:55 Follow up: Pain 3/10 Adult; Response: No adverse reaction; Pain is decreased; RASS: 5 Alert and Calm (0) 04:35 Drug: Insulin Regular Human 8 units {Co-Signature: ll3 (Jamie Mike RN).} Route: IVP; bb Site: right antecubital; 06:55 Follow up: Response: No adverse reaction 06:55 Drug: Augmentin (Amoxicillin-Clavulanate) 875 mg Route: PO; tw 06:55 Follow up: Response: No adverse reaction; Medication administered at discharge. tw5 Point of Care Testing: Blood Glucose: 05:17 Blood Glucose: 210 mg/dL; ll3 Ranges: Critical Glucose Levels:Adult <50 mg/dl or >400 mg/dl <40 mg/dl or >180 mg/dl Disposition Summary: 01/22/22 06:48 Discharge Ordered Location: Home kdr Problem: new kdr Symptoms: have improved kdr Condition: Stable kdr Diagnosis - Rectal bleeding: Status post colonoscopy kdr Followup: kdr - With: Yinka Leone MD - When: Tomorrow - Reason: If symptoms return, Further diagnostic work-up, Recheck today's complaints, Continuance of care, Re-evaluation by your physician Discharge Instructions: - Discharge Summary Sheet kdr - Colonoscopy, Adult, Care After, [id number] kdr - Rectal Bleeding, [id number] kdr Forms: - Medication Reconciliation Form kdr - Thank You Letter kdr - Antibiotic Education kdr Prescriptions: - Augmentin 875-125 mg Oral Tablet - take 1 tablet by ORAL route every 12 hours for 10 days; 20 tablet; Refills: 0, kdr Product Selection Permitted Signatures: Dispatcher [employer] Irineo Zelaya MD MD kdr Ballard, Brenda, RN RN Aileen Ghotra tw5 Jamie Mike RN RN ll3 Jamie Mike RN ll3
--- NOTE | 2022-01-22 06:49 | ER ---
Nurse's Notes [facility] Name: Sachin Vasquez Age: 61 yrs Sex: Female : 1960 Arrival Date: 01/22/2022 Time: 02:11 Bed 2 Private MD: Diagnosis: Rectal bleeding: Status post colonoscopy Presentation: 01/22 02:47 Chief complaint: Patient states: "I noticed bleeding on Sunday at 4. Some of it was tw5 bright red and some dark and clumpy.". Coronavirus screen: Vaccine status: Patient reports receiving the 2nd dose of the covid vaccine. Moderna. 02:47 Method Of Arrival: Ambulatory tw5 02:52 Ebola Screen: Patient negative for fever greater than or equal to 101.5 degrees tw5 Fahrenheit, and additional compatible Ebola Virus Disease symptoms Patient denies exposure to infectious person. Patient denies travel to an Ebola-affected area in the 21 days before illness onset. Initial Sepsis Screen: Does the patient meet any 2 criteria? No. Patient's initial sepsis screen is negative. Does the patient have a suspected source of infection? No. Patient's initial sepsis screen is negative. Risk Assessment: Do you want to hurt yourself or someone else? Patient reports no desire to harm self or others. Onset of symptoms was January 22, 2022 at 01:45. 02:52 Acuity: URSZULA 3 tw5 Triage Assessment: 02:52 General: Appears uncomfortable, obese, Behavior is calm, cooperative, appropriate for tw5 age. Derm: Skin is pale. Historical: - Allergies: 02:50 Biaxin; tw5 - PMHx: 02:50 Diabetes - NIDDM; Gout; Hypertension; Diverticulitis; tw5 - PSHx: 02:50 rotaor cuff surgery- bilaterally; left knee surgery; tw5 - Immunization history:: Flu vaccine is up to date. - Social history:: Smoking status: Patient denies any tobacco usage or history of. Screenin:52 Abuse screen: Denies threats or abuse. Denies injuries from another. Nutritional tw5 screening: No deficits noted. Tuberculosis screening: No symptoms or risk factors identified. Fall Risk IV access (20 points). Assessment: 02:49 General: Reports "About an hour ago I started to get stomach cramps and have been tw5 having really bad diarrhea. I feel really weak, there was blood everywhere.". Pain: Complains of pain in suprapubic area and right hip Pain currently is 5 out of 10 on a pain scale. Neuro: Level of Consciousness is awake, alert, obeys commands, Oriented to person, place, time, situation. Respiratory: Airway is patent Trachea midline Respiratory effort is even, unlabored. GI: Reports diarrhea, bloody stool. Derm: Skin is pale. 04:30 Reassessment: Patient and/or family updated on plan of care and expected duration. Pain ll3 level reassessed. Patient is alert, oriented x 3, equal unlabored respirations, skin warm/dry/pink. Pt c/o abdominal pain 8/, ERP notified, medicated as ordered. 06:23 Reassessment: No changes from previously documented assessment. Patient and/or family ll3 updated on plan of care and expected duration. Pain level reassessed. Patient is alert, oriented x 3, equal unlabored respirations, skin warm/dry/pink. 06:30 Reassessment: Patient states feeling better. Patient states symptoms have improved. tw5 Vital Signs: 02:23 BP 105 / 56; Pulse 85; Temp 97.8(O); Pulse Ox 97% on R/A; Weight 108.86 kg; Height 5 wm ft. 6 in. (167.64 cm); Pain 3/10; 03:05 BP 102 / 58; Pulse 79; Resp 18; Pulse Ox 95% on R/A; Pain 5/10; tw5 04:00 BP 123 / 65; Pulse 77; Resp 17; Pulse Ox 98% on R/A; ll3 05:11 BP 113 / 68; Pulse 81; Resp 16; Pulse Ox 96% on R/A; ll3 06:22 BP 115 / 58 Supine; Pulse 81; Resp 18; Pulse Ox 94% on R/A; ll3 06:22 BP 105 / 60 Sitting; Pulse 94; Resp 17; Pulse Ox 95% on R/A; ll3 06:22 BP 108 / 60 Standing; Pulse 104; Resp 17; Pulse Ox 98% on R/A; ll3 06:55 Pain 3/10; tw5 02:23 Body Mass Index 38.74 (108.86 kg, 167.64 cm) ED Course: 02:11 Patient arrived in ED. ja2 02:15 Irineo Borjas MD is Attending Physician. kdr 02:36 Aileen Johnson is Primary Nurse. tw5 02:51 Type And Screen Sent. mh5 02:51 CBC with Diff Sent. mh5 02:51 CMP Sent. mh5 02:51 Lipase Sent. mh5 02:51 Patient has correct armband on for positive identification. Placed in gown. Bed in low mh5 position. Call light in reach. Side rails up X2. Adult w/ patient. Warm blanket given. potline monitor on. Pulse ox on. NIBP on. 02:52 Triage completed. tw5 02:52 Initial lab(s) drawn, by me, sent to lab. T\\T\\S collected, blood band applied to patient. mh5 Inserted saline lock: 20 gauge in right antecubital area, using aseptic technique. Blood collected. 02:52 Arm band placed on Patient placed in an exam room. tw5 03:05 Inserted saline lock: 20 gauge in left forearm, using aseptic technique. tw5 04:15 CT Abd/Pelvis - IV Contrast Only In Process Unspecified. EDMS 06:24 No provider procedures requiring assistance completed. ll3 06:47 Yinka Leone MD is Referral Physician. kdr 06:54 IV discontinued, intact, bleeding controlled, No redness/swelling at site. Pressure ll3 dressing applied. Administered Medications: 02:59 Drug: NS 0.9% 1000 ml Route: IV; Rate: 1 bolus; Site: right antecubital; tw5 06:56 Follow up: Response: No adverse reaction; IV Status: Completed infusion; IV Intake: tw5 1000ml 02:59 Drug: Pepcid (famotidine) 20 mg Route: IVP; Site: right antecubital; tw5 06:56 Follow up: Response: No adverse reaction tw5 02:59 Drug: Zofran (Ondansetron) 4 mg Route: IVP; Site: right antecubital; tw5 06:56 Follow up: Response: No adverse reaction tw5 02:59 Drug: ProTONIX (pantoprazole) 40 mg Route: IVP; Site: right antecubital; tw5 06:55 Follow up: Response: No adverse reaction tw5 04:26 Drug: fentaNYL (PF) 25 mcg Route: IVP; Site: right antecubital; ll3 06:55 Follow up: Pain 3/10 Adult; Response: No adverse reaction; Pain is decreased; RASS: tw5 Alert and Calm (0) 04:35 Drug: Insulin Regular Human 8 units {Co-Signature: ll3 (Jamie Mike RN).} Route: IVP; bb Site: right antecubital; 06:55 Follow up: Response: No adverse reaction tw5 06:55 Drug: Augmentin (Amoxicillin-Clavulanate) 875 mg Route: PO; tw5 06:55 Follow up: Response: No adverse reaction; Medication administered at discharge. tw5 Medication: 06:24 VIS not applicable for this client. ll3 Point of Care Testing: Blood Glucose: 05:17 Blood Glucose: 210 mg/dL; ll3 Ranges: Intake: 06:56 IV: 1000ml; Total: 1000ml. tw5 Outcome: 06:48 Discharge ordered by MD. kdr 06:56 Discharged to home tw5 06:56 Condition: good 06:56 Discharge instructions given to patient, Instructed on discharge instructions, follow up and referral plans. medication usage, Demonstrated understanding of instructions, follow-up care, Prescriptions given X 1. 06:59 Patient left the ED. tw5 Signatures: Dispatcher [employer] EDMS Irineo Borjas MD MD kdr Ballard, Brenda, RN RN Vivi Ortiz Misty Liriano Jessica ja2 Wood, Tiffany tw Jamie Mike RN RN ll3 Jamie Mike RN ll3 Corrections: (The following items were deleted from the chart) 02:52 02:47 Coronavirus screen: Vaccine status: 06:30 IV discontinued, intact, bleeding controlled, No redness/swelling at site. tw5 Pressure dressing applied, 06:30 Discharged to home via wheelchair, with family, 06:30 Condition: improved 06:30 Discharge instructions given to patient, family, Instructed on discharge tw instructions, follow up and referral plans. wound care, Demonstrated understanding of instructions, follow-up care, tw5
[2022-01-22] MEDS ORDERED: AMOX/K CLAV 875 MG TAB ONE (07:01)
[2022-01-22 08:03] VITALS: TEMP 97.8
[2022-01-22 08:23] VITALS: BP 108/60; O2SAT 98
--- NOTE | 2022-01-23 12:16 | RAD REPORT ---
EXAM DESCRIPTION: CT - Abdomen Pelvis W Contrast - 01/22/2022 6:46 am CLINICAL HISTORY: The patient is 61 years old and is Female; GI bleed TECHNIQUE: Axial computed tomography images of the abdomen and pelvis with intravenous contrast. S agittal and coronal reformatted images were created and reviewed. This CT exam was performed using one or more of the following dose reduction techniques: automated exposure control, adjustment of t he mA and/or kV according to patient size, and/or use of iterative reconstruction technique. COMPARISON: No relevant prior studies available. FINDINGS: Lung bases: Unremarkable. No mass. No consolidation. ABDOMEN: Liver: Hepatomegaly. Gallbladder and bile ducts: Unremarkable. No calcified stones. No ductal dilation. Pancreas: No findings to suggest acute pancreatitis. No mass visualized. No ductal dilation. Spleen: Unremarkable. No splenomegaly. Adrenals: Unremarkable. No mass. Kidneys and ureters: Unremarkable. No solid mass. No hydronephrosis. Stomach and bowel: Diffuse colonic diverticulosis. No active GI bleeding visualized. No bowel dilatation or obstruction. No bowel wall thickening. No gastric wall thickening. PELVIS: Appendix: No findings to suggest acute appendicitis. Bladder: Unremarkable. No mass. Reproductive: Hysterectomy. No adnexal mass. ABDOMEN and PELVIS: Intraperitoneal space: Unremarkable. No free air. No significant fluid collection. Bones/joints: Degenerative changes in the lower lumbar spine. No acute fracture. No dislocation. Soft tissues: Unremarkable. Vasculature: Unremarkable. No abdominal aortic aneurysm. Lymph nodes: No pathologically enlarged lymph nodes. IMPRESSION: 1. Diffuse colonic diverticulosis. No active GI bleeding visualized. 2. Hepatomegaly. 3. Additional non-emergent findings as above. Electronically signed by: Malou Ashton MD 01/22/2022 5:12 AM CDT Due to temporary technical issues with the PACS/Fluency reporting system, reports are being signed by the in house radiologists without review as a courtesy to insure prompt reporting. The interpreting radiologist is fully responsible for the content of the report.
== END 2022-01-22 06:59 | disposition home or self-care (01) ==
LOC: ER 02:10
DX: K62.5 Hemorrhage of anus and rectum (principal); Z98.890 Other specified postprocedural states; E11.9 Type 2 diabetes mellitus without complications; I10 Essential (primary) hypertension; Z88.6 Allergy status to analgesic agent
CPT/HCPCS: 85025; 36415; 86900; 86850; 86901; 82947; 85018; 85014; 83690; 80053; 74177; Q9967; J1815; C9113; J3010; J7030; J2405; 96361; 96374; 96375; 99284

== ENCOUNTER 2023-02-09 17:57 | Emergency (ER) | payer OTHER, BC ==
--- OUTSIDE RECORDS SUMMARY | 2023-02-09 18:14 | XMS REPORT | Continuity of Care Document ---
:1960 Author Organization [facility] t Address [address] [facility]. [address] [place] [address] Care Team Providers Name Role Phone Asked, No Pcp Primary Care Physician Unavailable BEVERLEY SHIPLEY Attending Clinician Unavailable Lior Strauss MD Attending Clinician LIOR STRAUSS Attending Clinician Unavailable Boyd Villavicencio MD Attending Clinician BOYD VILLAVICENCIO Attending Clinician Unavailable Oswald Shrestha Attending Clinician Unavailable FOG_A_Provider Attending Clinician Unavailable SIERRA DUGAN Attending Clinician Unavailable Alberta Garibay MD Attending Clinician ALBERTA GARIBAY Attending Clinician Unavailable Sierra Dugan MD Attending Clinician Unavailable Geovany Canchola Attending Clinician Unavailable DAVID HERNANDEZ Attending Clinician Unavailable ALEX BLACKBURN Attending Clinician Unavailable BEVERLEY SHIPLEY Admitting Clinician Unavailable Oswald Shrestha Admitting Clinician Unavailable FOG_A_Provider Admitting Clinician Unavailable Geovany Canchola Admitting Clinician Unavailable Payers Payer Name Policy Type Policy Number Effective Date Expiration Date Alka velazquez AETNA HMO POS QPOS [id number] 2011 2019 00:00:00 00:00:00 CIGNA HMO/POS/OPEN [id number] 2018 ACCESS 00:00:00 CIGNA INDEMNITY [id number] 2020 00:00:00 CIGNA HEALTHCARE [id number] 2018 00:00:00 [place] [id number] [place] (PPO[place] 00:00:00 Problems Condition Condition Condition Status Onset Resolution Last Treating Co mments Source Name Details Category Date Date Treatment Clinician Date Osteoarthr Osteoarthr Problem Active A zalea itis of itis of 2-08 [facility] right hip Right Hip 00:00: dic joint Joint 00 Sports [facility] Osteoarthr Osteoarthr Problem Active A zalea itis of itis of 2-08 [facility] left knee Left Knee 00:00: dic joint Joint 00 Sports Medicin e 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 cuff tear 4-[facility] Current Current Problem Active Maria G tear of Tear of 2-15 [facility] medial Medial 00:00: dic cartilage Cartilage 00 Spor ts AND/OR AND/OR Medicin meniscus Meniscus e of knee of Knee Chondromal Chondromal Problem Active A zalea acia of acia of 2-15 [facility] patella Patella 00:00: dic 00 Sports Medicin e Full Full Problem Active [facility] G thickness Thickness 5-03 Orth ope rotator Rotator 00:00: dic cuff tear Cuff Tear 00 Spor ts Medicin e Rotator Rotator Problem Active Maria 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 Syndrome 00:00: dic 00 Sports Medicin e Bicipital Bicipital Problem Active Aza turner tenosynovi Tenosynovi 02-18 Or thope tis tis 00:00: dic 00 Sports Medicin e Subacromia Subacromia Problem Active A zalea l bursitis l Bursitis 02-18 Or thope 00:00: dic 00 Sports Medicin e Glenoid Glenoid Problem Active [facility] G labrum Labrum 02-18 [facility] tear Tear 00:00: dic 00 Sports Medicin e Allergies, Adverse Reactions, Alerts Allergy Allergy Status Severity Reaction(s) Onset Inactive Treating Comm ents Source Name Type Date Date Clinician clarithr DA Active [facility]02 [place] 00[facility] clarithr DA Active [facility] omycin 09-29 [place] 00:00: Orthope 00 [facility] clarithr DA Active [facility]cin 214 [facility] [place] SEASONAL DA Active [place] NASAL [facility] ALLERGIE CONGESTION 14 [facility] 00:[facility] [place] Statins- Drug Active Other (See 2018-[address] [facility] Allergy Comments) 0-10 [facility] e 00 [facility] Inhibito rs STATINS- Allergy Active Low Other 2018-[address] [facility] 0-10 [facility] 00:[facility]: Medical E 00 Center INHIBITO RS Statins- Drug Active Other (See 2018-[address] [facility] Allergy Comments) 0-10 [facility] 00:[facility]: Medical e 00 Center Inhibito rs Clarithr Drug Active Hives, Other 2016-[address] [facility] omycin Allergy (See 2-15 back [facility] Comments) 00:00: Medical 00 Center CLARITHR Allergy Active High Hives 2016-[address] [facility] OMYCIN 2-15 [facility] 00[facility] Center CLARITHR DRUG Active Med Hives 2016-05 [facility] OMYCIN INGREDI 2-15 [facility] 00[facility] [place] [facility] clarithr DA Active [facility] omycin 02-23 [place] 00:00: Orthope 00 dic [facility]osp[facility] l Biaxin Allergy Active Maria G to 02-18 Orthope substanc 00:00: dic e 00 Sports Medicin e Social History Social Habit Start Date Stop Date Quantity Comments Source History SDOH [facility] Alcohol Frequency Medical Center History SDOH [facility] Alcohol Std Drinks Medica l Center History SDOH [facility] Alcohol Binge Medical Zora[address] [facility] Gender identity [facility] Sexual orientation Method [facility] Hospital Exposure to 2022-12-09 2022-12-[address] [facility] SARS-CoV-2 (event) 00:00:00 18:43:00 [facility] Tobacco use and 2022-12-19 2022-12-[address] [facility] exposure 00:00:00 00:00:00 tobacco non-user Medical Center Alcohol intake 2022-12-19 2022-12-19 [facility] alcohol [facility] (finding) Alcohol Comment 2020-09-07 2020-09-[address] [facility] 00:00:00 00:00:00 [facility] Sex Assigned At [address] [facility] 00:00:00 00:00:00 Medical Center Smoking Status Start Date Stop Date Source Tobacco smoking consumption unknown [facility] Never smoked tobacco [facility] Medications Ordered Filled Start Stop Current Ordering Indication Dosage Frequency Signature Comments Components Source Medication Medication Date Date Medication? Clinician (SIG) Name Name methotrexat Yes Q7D Take by [facility] 2.5 MG 7-25 mouth once [facility] tablet 18:59: a week. [address] methotrexat Yes Q7D Take by [facility] 2.5 MG 7-25 mouth once [facility] tablet 18:59: a week. [address] methotrexat Yes Q7D Take by [facility] 2.5 MG 7-25 mouth once [facility] tablet 18:59: a week. [address] methotrexat Yes Q7D Take by [facility] 2.5 MG 7-25 mouth once [facility] tablet 18:59: a week. [address] methotrexat Yes Q7D Take by [facility] 2.5 MG 7-25 mouth once [facility] tablet 18:59: a week. [address] methotrexat 2023-0 Yes Q7D Take by [facility] 2.5 MG 7-25 mouth once [facility] tablet 18:59: a week. [address] meloxicam 2023-0 Yes 7.5mg Take 1 [facility] (MOBIC) 7.5 7-25 tablet [facility] MG tablet 18:58: (7.5 mg Medic al 07 total) by Center mouth once. methocarbam 2023-0 Yes 750mg Take [address] [facility] [address] oL 7-25 tablet [facility] (ROBAXIN) 18:58: (750 mg Medic al 750 MG 07 total) by Center tablet mouth every 8 (eight) hours. meloxicam 2023-0 Yes 7.5mg Take 1 [facility] (MOBIC) 7.5 7-25 tablet [facility] MG tablet 18:58: (7.5 mg Medic al 07 total) by Center mouth once. methocarbam 2023-0 Yes 750mg Take [address] [facility] oL 7-25 tablet [facility] (ROBAXIN) 18:58: (750 mg Medic al 750 MG 07 total) by Center tablet mouth every 8 (eight) hours. meloxicam 2023-0 Yes 7.5mg Take 1 [facility] (MOBIC) 7.5 7-25 tablet [facility] tablet 18:58: (7.5 mg Medic al 07 total) by Center mouth once. methocarbam 2023-0 Yes 750mg Take [address] [facility] oL 7-25 tablet [facility] (ROBAXIN) 18:58: (750 mg Medic al 750 MG 07 total) by Center tablet mouth every 8 (eight) hours. meloxicam 2023-0 Yes 7.5mg Take 1 [facility] (MOBIC) 7.5 7-25 tablet [facility] tablet 18:58: (7.5 mg Medic al 07 total) by Center mouth once. methocarbam 2023-0 Yes 750mg Take [address] [facility] oL 7-25 tablet [facility] (ROBAXIN) 18:58: (750 mg Medic al 750 MG 07 total) by Center tablet mouth every 8 (eight) hours. meloxicam 2023-0 Yes 7.5mg Take 1 [facility] (MOBIC) 7.5 7-25 tablet [facility] tablet 18:58: (7.5 mg Medic al 07 total) by Center mouth once. methocarbam 2023-0 Yes 750mg Take [address] [facility] oL 7-25 tablet [facility] (ROBAXIN) 18:58: (750 mg Medic al 750 MG 07 total) by Center tablet mouth every 8 (eight) hours. meloxicam 2023-0 Yes 7.5mg Take 1 [facility] (MOBIC) 7.5 7-25 tablet [facility] MG tablet 18:58: (7.5 mg Medic al 07 total) by Center mouth once. methocarbam 3-0 Yes 750mg Take [address] [facility] oL 7-25 tablet [facility] (ROBAXIN) 18:58: (750 mg Medic al 750 MG 07 total) by Center tablet mouth every 8 (eight) hours. metoprolol 3-0 2023- No 25mg Q.5D Take [address] [facility] [address] tartrate 7-25 08-24 tablet (25 [facility] (LOPRESSOR) 00:00: 23:59 mg total) Medical 25 MG 00 :00 by mouth 2 Center tablet (two) times daily for 30 days. metoprolol 3-0 3- No 25mg Q.5D Take [address] [facility] [address] tartrate 7-25 08-24 tablet (25 [facility] (LOPRESSOR) 00:00: 23:59 mg total) Medical 25 MG 00 :00 by mouth 2 Center tablet (two) times daily for 30 days. metoprolol 3-0 3- Yes 25mg Q.5D Take [address] [facility] [address] tartrate 7-25 08-24 tablet (25 [facility] (LOPRESSOR) 00:00: 23:59 mg total) Medical 25 MG 00 :00 by mouth 2 Center tablet (two) times daily for 30 days. metoprolol 3-0 2023- Yes 25mg Q.5D Take [address] [facility] [address] tartrate 7-25 08-24 tablet (25 [facility] (LOPRESSOR) 00:00: 23:59 mg total) Medical 25 MG 00 :00 by mouth 2 Center tablet (two) times daily for 30 days. metoprolol 3-0 2023- Yes 25mg Q.5D Take [address] [facility] [address] tartrate 7-25 08-24 tablet (25 [facility] (LOPRESSOR) 00:00: 23:59 mg total) Medical 25 MG 00 :00 by mouth 2 Center tablet (two) times daily for 30 days. metoprolol 2023-0 2023- No 25mg Q.5D Take [address] [facility] [address] tartrate 7-25 08-24 tablet (25 [facility] (LOPRESSOR) 00:00: 23:59 mg total) Medical 25 MG 00 :00 by mouth 2 Center tablet (two) times daily for 30 days. folic acid 2023-0 Yes 1000ug QD Take [address] [facility] (FOLVITE) 1 6-27 tablet [facility] MG tablet 00:00: (1,000 mcg Me dical 00 total) by Center mouth daily. folic acid 2023-0 Yes 1000ug QD Take [address] [facility] (FOLVITE) 1 6-27 tablet [facility] MG tablet 00:00: (1,000 mcg Me dical 00 total) by Center mouth daily. folic acid 2023-0 Yes 1000ug QD Take [address] [facility] (FOLVITE) 1 6-27 tablet [facility] MG tablet 00:00: (1,000 mcg Me dical 00 total) by Center mouth daily. folic acid 2023-0 Yes 1000ug QD Take [address] [facility] (FOLVITE) 1 6-27 tablet [facility] MG tablet 00:00: (1,000 mcg Me dical 00 total) by Center mouth daily. folic acid 2023-0 Yes 1000ug QD Take [address] [facility] (FOLVITE) 1 6-27 tablet [facility] MG tablet 00:00: (1,000 mcg Me dical 00 total) by Center mouth daily. folic acid 2023-0 Yes 1000ug QD Take [address] [facility] (FOLVITE) 1 6-27 tablet [facility] MG tablet 00:00: (1,000 mcg Me dical 00 total) by Center mouth daily. Jardiance 2023-0 Yes 25mg QD Take [address] [facility] 25 mg 6-22 tablet (25 [facility] tablet 00:00: mg total) Medica l 00 by mouth Center daily. Jardiance 2023-0 Yes 25mg QD Take [address] [facility] 25 mg 6-22 tablet (25 [facility] tablet 00:00: mg total) Medica l 00 by mouth Center daily. Jardiance 2023-0 Yes 25mg QD Take [address] [facility] 25 mg 6-22 tablet (25 [facility] tablet 00:00: mg total) Medica l 00 by mouth Center daily. Jardiance 2023-0 Yes 25mg QD Take [address] [facility] 25 mg 6-22 tablet (25 [facility] tablet 00:00: mg total) Medica l 00 by mouth Center daily. Jardiance 2023-0 Yes 25mg QD Take [address] [facility] 25 mg 6-22 tablet (25 [facility] tablet 00:00: mg total) Medica l 00 by mouth Center daily. Jardiance 2023-0 Yes 25mg QD Take [address] [facility] 25 mg 6-22 tablet (25 [facility] tablet 00:00: mg total) Medica l 00 by mouth Center daily. methocarbam 2023-0 Yes 500mg Take [address] [facility] oL 5-16 tablet [facility] (ROBAXIN) 00:00: (500 mg Medic al 500 MG 00 total) by Center tablet mouth. methocarbam 2023-0 Yes 500mg Take [address] [facility] oL 5-16 tablet [facility] (ROBAXIN) 00:00: (500 mg Medic al 500 MG 00 total) by Center tablet mouth. methocarbam 2023-0 Yes 500mg Take [address] [facility] oL 5-16 tablet [facility] (ROBAXIN) 00:00: (500 mg Medic al 500 MG 00 total) by Center tablet mouth. methocarbam 2023-0 Yes 500mg Take [address] [facility] oL 5-16 tablet [facility] (ROBAXIN) 00:00: (500 mg Medic al 500 MG 00 total) by Center tablet mouth. methocarbam 2023-0 Yes 500mg Take [address] [facility] oL 5-16 tablet [facility] (ROBAXIN) 00:00: (500 mg Medic al 500 MG 00 total) by Center tablet mouth. methocarbam 2023-0 Yes 500mg Take [address] [facility] oL 5-16 tablet [facility] (ROBAXIN) 00:00: (500 mg Medic al 500 MG 00 total) by Center tablet mouth. levothyroxi 2020-0 Yes TAKE [address] [facility] [address] ne 3-17 TABLET BY [facility] (SYNTHROID, 00:00: MOUTH Medic al LEVOTHROID) 00 EVERY Center 200 MCG DAY..PATIE tablet NT DUE FOR LABS AND OFFICE VISIT ibuprofen 2020-0 Yes 800mg Take 1 [facility] (ADVIL,MOTR 3-17 tablet [facility] IN) 800 MG 00:00: (800 mg Medi kyrie tablet 00 total) by Center mouth every 8 (eight) hours as needed for pain. levothyroxi 2020-0 Yes TAKE [address] [facility] [address] ne 3-17 TABLET BY [facility] (SYNTHROID, 00:00: MOUTH Medic al LEVOTHROID) 00 EVERY Center 200 MCG DAY..PATIE tablet NT DUE FOR LABS AND OFFICE VISIT ibuprofen 2020-0 Yes 800mg Take [address] [facility] [address] (ADVIL,MOTR 3-17 mg by [facility] IN) 800 MG 00:00: mouth Medica l tablet 00 every 8 Center (eight) hours as needed for pain. levothyroxi 0 Yes TAKE [address] [facility] ne 3-17 TABLET BY [facility] (SYNTHROID, 00:00: MOUTH Medic al LEVOTHROID) 00 EVERY Center 200 MCG DAY..PATIE tablet NT DUE FOR LABS AND OFFICE VISIT ibuprofen 2020-0 Yes 800mg Take [address] (ADVIL,MOTR 3-17 mg by [facility] IN) 800 MG 00:00: mouth Medica l tablet 00 every 8 Center (eight) hours as needed for pain. levothyroxi Yes TAKE [address] [facility] ne 3-17 TABLET BY [facility] (SYNTHROID, 00:00: MOUTH Medic al LEVOTHROID) 00 EVERY Center 200 MCG DAY..PATIE tablet NT DUE FOR LABS AND OFFICE VISIT ibuprofen 2020-0 Yes 800mg Take [address] [facility] (ADVIL,MOTR 3-17 mg by [facility] IN) 800 MG 00:00: mouth Medica l tablet 00 every 8 Center (eight) hours as needed for pain. levothyroxi 0 Yes TAKE [address] [facility] ne 3-17 TABLET BY [facility] (SYNTHROID, 00:00: MOUTH Medic al LEVOTHROID) 00 EVERY Center 200 MCG DAY..PATIE tablet NT DUE FOR LABS AND OFFICE VISIT ibuprofen 2020-0 Yes 800mg Take [address] [facility] (ADVIL,MOTR 3-17 mg by [facility] IN) 800 MG 00:00: mouth Medica l tablet 00 every 8 Center (eight) hours as needed for pain. levothyroxi 2020-0 Yes TAKE [address] [facility] ne 3-17 TABLET BY [facility] (SYNTHROID, 00:00: MOUTH Medic al LEVOTHROID) 00 EVERY Center 200 MCG DAY..PATIE tablet NT DUE FOR LABS AND OFFICE VISIT ibuprofen 2020-0 Yes 800mg Take [address] [facility] [address] (ADVIL,MOTR 3-17 mg by [facility] IN) 800 MG 00:00: mouth Medica l tablet 00 every 8 Center (eight) hours as needed for pain. levothyroxi 0 Yes TAKE [address] [facility] ne 3-17 TABLET BY [facility] (SYNTHROID, 00:00: MOUTH Medic al LEVOTHROID) 00 EVERY Center 200 MCG DAY..PATIE tablet NT DUE FOR LABS AND OFFICE VISIT ibuprofen 2020-0 Yes 800mg Take [address] [facility] (ADVIL,MOTR 3-17 mg by [facility] IN) 800 MG 00:00: mouth Medica l tablet 00 every 8 Center (eight) hours as needed for pain. levothyroxi Yes TAKE [address] [facility] [address] ne 3-17 TABLET BY [facility] (SYNTHROID, 00:00: MOUTH Medic al LEVOTHROID) 00 EVERY Center 200 MCG DAY..PATIE tablet NT DUE FOR LABS AND OFFICE VISIT ibuprofen 2020-0 Yes 800mg Take [address] [facility] [address] (ADVIL,MOTR 3-17 mg by [facility] IN) 800 MG 00:00: mouth Medica l tablet 00 every 8 Center (eight) hours as needed for pain. levothyroxi Yes TAKE [address] [facility] ne 3-17 TABLET BY [facility] (SYNTHROID, 00:00: MOUTH Medic al LEVOTHROID) 00 EVERY Center 200 MCG DAY..PATIE tablet NT DUE FOR LABS AND OFFICE VISIT ibuprofen 0 Yes 800mg Take [address] [facility] (ADVIL,MOTR 3-17 mg by [facility] IN) 800 MG 00:00: mouth Medica l tablet 00 every 8 Center (eight) hours as needed for pain. levothyroxi Yes TAKE [address] [facility] [address] ne 3-17 TABLET BY [facility] (SYNTHROID, 00:00: MOUTH Medic al LEVOTHROID) 00 EVERY Center 200 MCG DAY..PATIE tablet NT DUE FOR LABS AND OFFICE VISIT ibuprofen 2020-0 Yes 800mg Take [address] [facility] (ADVIL,MOTR 3-17 mg by [facility] IN) 800 MG 00:00: mouth Medica l tablet 00 every 8 Center (eight) hours as needed for pain. levothyroxi 0 Yes TAKE [address] [facility] [address] ne 3-17 TABLET BY [facility] (SYNTHROID, 00:00: MOUTH Medic al LEVOTHROID) 00 EVERY Center 200 MCG DAY..PATIE tablet NT DUE FOR LABS AND OFFICE VISIT levothyroxi 2020-0 Yes TAKE [address] [facility] ne 3-17 TABLET BY [facility] (SYNTHROID, 00:00: MOUTH Medic al LEVOTHROID) 00 EVERY Center 200 MCG DAY..PATIE tablet NT DUE FOR LABS AND OFFICE VISIT ibuprofen 2020-0 Yes 800mg Take [address] [facility] (ADVIL,MOTR 3-17 mg by [facility] IN) 800 MG 00:00: mouth Medica l tablet 00 every 8 Center (eight) hours as needed for pain. levothyroxi Yes TAKE [address] [facility] [address] ne 3-17 TABLET BY [facility] (SYNTHROID, 00:00: MOUTH Medic al LEVOTHROID) 00 EVERY Center 200 MCG DAY..PATIE tablet NT DUE FOR LABS AND OFFICE VISIT ibuprofen 2020-0 Yes 800mg Take [address] (ADVIL,MOTR 3-17 mg by [facility] IN) 800 MG 00:00: mouth Medica l tablet 00 every 8 Center (eight) hours as needed for pain. ibuprofen 2020-0 Yes 800mg Take [address] [facility] (ADVIL,MOTR 3-17 mg by [facility] IN) 800 MG 00:00: mouth Medica l tablet 00 every 8 Center (eight) hours as needed for pain. levothyroxi Yes TAKE [address] [facility] [address] ne 3-17 TABLET BY [facility] (SYNTHROID, 00:00: MOUTH Medic al LEVOTHROID) 00 EVERY Center 200 MCG DAY..PATIE tablet NT DUE FOR LABS AND OFFICE VISIT ibuprofen 2020-0 Yes 800mg Take [address] (ADVIL,MOTR 3-17 mg by [facility] IN) 800 MG 00:00: mouth Medica l tablet 00 every 8 Center (eight) hours as needed for pain. levothyroxi 0 Yes TAKE [address] [facility] [address] ne 3-17 TABLET BY [facility] (SYNTHROID, 00:00: MOUTH Medic al LEVOTHROID) 00 EVERY Center 200 MCG DAY..PATIE tablet NT DUE FOR LABS AND OFFICE VISIT ibuprofen 2020-0 Yes 800mg Take [address] [facility] (ADVIL,MOTR 3-17 mg by [facility] IN) 800 MG 00:00: mouth Medica l tablet 00 every 8 Center (eight) hours as needed for pain. levothyroxi 0 Yes TAKE [address] [facility] [address] ne 3-17 TABLET BY [facility] (SYNTHROID, 00:00: MOUTH Medic al LEVOTHROID) 00 EVERY Center 200 MCG DAY..PATIE tablet NT DUE FOR LABS AND OFFICE VISIT ibuprofen 2020-0 Yes 800mg Take [address] (ADVIL,MOTR 3-17 mg by [facility] IN) 800 MG 00:00: mouth Medica l tablet 00 every 8 Center (eight) hours as needed for pain. levothyroxi Yes TAKE [address] [facility] [address] ne 3-17 TABLET BY [facility] (SYNTHROID, 00:00: MOUTH Medic al LEVOTHROID) 00 EVERY Center 200 MCG DAY..PATIE tablet NT DUE FOR LABS AND OFFICE VISIT ibuprofen 2020-0 Yes 800mg Take [address] (ADVIL,MOTR 3-17 mg by [facility] IN) 800 MG 00:00: mouth Medica l tablet 00 every 8 Center (eight) hours as needed for pain. levothyroxi Yes TAKE [address] [facility] [address] ne 3-17 TABLET BY [facility] (SYNTHROID, 00:00: MOUTH Medic al LEVOTHROID) 00 EVERY Center 200 MCG DAY..PATIE tablet NT DUE FOR LABS AND OFFICE VISIT ibuprofen 2020-0 Yes 800mg Take [address] [facility] (ADVIL,MOTR 3-17 mg by [facility] IN) 800 MG 00:00: mouth Medica l tablet 00 every 8 Center (eight) hours as needed for pain. levothyroxi Yes TAKE [address] [facility] [address] ne 3-17 TABLET BY [facility] (SYNTHROID, 00:00: MOUTH Medic al LEVOTHROID) 00 EVERY Center 200 MCG DAY..PATIE tablet NT DUE FOR LABS AND OFFICE VISIT levothyroxi Yes TAKE [address] [facility] [address] ne 3-17 TABLET BY [facility] (SYNTHROID, 00:00: MOUTH Medic al LEVOTHROID) 00 EVERY Center 200 MCG DAY..PATIE tablet NT DUE FOR LABS AND OFFICE VISIT ibuprofen 0 Yes 800mg Take [address] [facility] [address] (ADVIL,MOTR 3-17 mg by [facility] IN) 800 MG 00:00: mouth Medica l tablet 00 every 8 Center (eight) hours as needed for pain. ibuprofen 2020-0 Yes 800mg Take [address] [facility] [address] (ADVIL,MOTR 3-17 mg by [facility] IN) 800 MG 00:00: mouth Medica l tablet 00 every 8 Center (eight) hours as needed for pain. levothyroxi 0 Yes TAKE [address] [facility] ne 3-17 TABLET BY [facility] (SYNTHROID, 00:00: MOUTH Medic al LEVOTHROID) 00 EVERY Center 200 MCG DAY..PATIE tablet NT DUE FOR LABS AND OFFICE VISIT ibuprofen 2020-0 Yes 800mg Take [address] [facility] (ADVIL,MOTR 3-17 mg by [facility] IN) 800 MG 00:00: mouth Medica l tablet 00 every 8 Center (eight) hours as needed for pain. levothyroxi Yes TAKE [address] [facility] [address] ne 3-17 TABLET BY [facility] (SYNTHROID, 00:00: MOUTH Medic al LEVOTHROID) 00 EVERY Center 200 MCG DAY..PATIE tablet NT DUE FOR LABS AND OFFICE VISIT ibuprofen 2020-0 Yes 800mg Take [address] [facility] [address] (ADVIL,MOTR 3-17 mg by [facility] IN) 800 MG 00:00: mouth Medica l tablet 00 every 8 Center (eight) hours as needed for pain. levothyroxi Yes TAKE [address] [facility] [address] ne 3-17 TABLET BY [facility] (SYNTHROID, 00:00: MOUTH Medic al LEVOTHROID) 00 EVERY Center 200 MCG DAY..PATIE tablet NT DUE FOR LABS AND OFFICE VISIT ibuprofen 2020-0 Yes 800mg [facility] (ADVIL,MOTR 3-17 [facility] IN) 800 MG 00:00: (800 mg Medi kyrie tablet 00 total) by Center mouth every 8 (eight) hours as needed for pain. levothyroxi Yes TAKE [address] [facility] [address] ne 3-17 TABLET BY [facility] (SYNTHROID, 00:00: MOUTH Medic al LEVOTHROID) 00 EVERY Center 200 MCG DAY..PATIE tablet NT DUE FOR LABS AND OFFICE VISIT ibuprofen 2020-0 Yes 800mg Take 1 [facility] (ADVIL,MOTR 3-17 [facility] IN) 800 MG 00:00: (800 mg Medi kyrie tablet 00 total) by Center mouth every 8 (eight) hours as needed for pain. levothyroxi 0 Yes TAKE [address] [facility] ne 3-17 TABLET BY [facility] (SYNTHROID, 00:00: MOUTH Medic al LEVOTHROID) 00 EVERY Center 200 MCG DAY..PATIE tablet NT DUE FOR LABS AND OFFICE VISIT ibuprofen 2020-0 Yes 800mg Take [facility] (ADVIL,MOTR 3-17 [facility] IN) 800 MG 00:00: (800 mg Medi kyrie tablet 00 total) by Center mouth every 8 (eight) hours as needed for pain. levothyroxi 2020-0 Yes TAKE [address] [facility] ne 3-17 TABLET BY [facility] (SYNTHROID, 00:00: MOUTH Medic al LEVOTHROID) 00 EVERY Center 200 MCG DAY..PATIE tablet NT DUE FOR LABS AND OFFICE VISIT levothyroxi 2020-0 Yes TAKE [address] [facility] ne 3-17 TABLET BY [facility] (SYNTHROID, 00:00: MOUTH Medic al LEVOTHROID) 00 EVERY Center 200 MCG DAY..PATIE tablet NT DUE FOR LABS AND OFFICE VISIT ibuprofen 2020-0 Yes 800mg Take [facility] (ADVIL,MOTR 3-17 [facility] IN) 800 MG 00:00: (800 mg Medi kyrie tablet 00 total) by Center mouth every 8 (eight) hours as needed for pain. ibuprofen 2020-0 Yes 800mg Take [address] [facility] [address] (ADVIL,MOTR 3-17 mg by [facility] IN) 800 MG 00:00: mouth Medica l tablet 00 every 8 Center (eight) hours as needed for pain. levothyroxi 0 Yes TAKE [address] [facility] [address] ne 3-17 TABLET BY [facility] (SYNTHROID, 00:00: MOUTH Medic al LEVOTHROID) 00 EVERY Center 200 MCG DAY..PATIE tablet NT DUE FOR LABS AND OFFICE VISIT ibuprofen 2020-0 Yes 800mg Take 1 [facility] (ADVIL,MOTR 3-17 [facility] IN) 800 MG 00:00: (800 mg Medi kyrie tablet 00 total) by Center mouth every 8 (eight) hours as needed for pain. pravastatin 2020-0 Yes 20mg QD Take [address] [facility] (PRAVACHOL) 3-14 tablet (20 [facility] 20 MG 00:00: mg total) Medical tablet 00 by mouth Center daily. pravastatin 2020-0 Yes 20mg QD Take [address] [facility] (PRAVACHOL) 3-14 by mouth [facility] 20 MG 00:00: daily. Medical tablet 00 Center pravastatin 2020-0 Yes 20mg QD Take [address] [facility] (PRAVACHOL) 3-14 by mouth [facility] 20 MG 00:00: daily. Medical tablet 00 Center pravastatin 2020-0 Yes 20mg QD Take [address] [facility] (PRAVACHOL) 3-14 by mouth [facility] 20 MG 00:00: daily. Medical tablet [address] [place] [address] pravastatin 0 Yes 20mg QD Take [address] [facility] [address] (PRAVACHOL) 3-14 by mouth [facility] 20 MG 00:00: daily. Medical tablet [address] [place] [address] pravastatin 0 Yes 20mg QD Take [address] [facility] [address] (PRAVACHOL) 3-14 by mouth [facility] 20 MG 00:00: daily. Medical tablet [address] [place] [address] pravastatin 0 Yes 20mg QD Take [address] [facility] [address] (PRAVACHOL) 3-14 by mouth [facility] 20 MG 00:00: daily. Medical tablet [address] [place] [address] pravastatin 0 Yes 20mg QD Take [address] [facility] [address] (PRAVACHOL) 3-14 by mouth [facility] 20 MG 00:00: daily. Medical tablet [address] [place] [address] pravastatin 0 Yes 20mg QD Take [address] [facility] [address] (PRAVACHOL) 3-14 by mouth [facility] 20 MG 00:00: daily. Medical tablet [address] [place] [address] pravastatin 0 Yes 20mg QD Take [address] [facility] [address] (PRAVACHOL) 3-14 by mouth [facility] 20 MG 00:00: daily. Medical tablet [address] [place] [address] pravastatin 0 Yes 20mg QD Take [address] [facility] [address] (PRAVACHOL) 3-14 by mouth [facility] 20 MG 00:00: daily. Medical tablet [address] [place] [address] pravastatin 0 Yes 20mg QD Take [address] [facility] [address] (PRAVACHOL) 3-14 by mouth [facility] 20 MG 00:00: daily. Medical tablet [address] [place] [address] pravastatin 0 Yes 20mg QD Take [address] [facility] [address] (PRAVACHOL) 3-14 by mouth [facility] 20 MG 00:00: daily. Medical tablet [address] [place] [address] pravastatin 2020-0 Yes 20mg QD Take [address] [facility] [address] (PRAVACHOL) 3-14 by mouth [facility] 20 MG 00:00: daily. Medical tablet [address] [place] [address] pravastatin 2020-0 Yes 20mg QD Take [address] [facility] [address] (PRAVACHOL) 3-14 by mouth [facility] 20 MG 00:00: daily. Medical tablet [address] [place] [address] pravastatin 2020-0 Yes 20mg QD Take [address] [facility] [address] (PRAVACHOL) 3-14 by mouth [facility] 20 MG 00:00: daily. Medical tablet [address] [place] [address] pravastatin 2020-0 Yes 20mg QD Take [address] [facility] [address] (PRAVACHOL) 3-14 by mouth [facility] 20 MG 00:00: daily. Medical tablet [address] [place] [address] pravastatin 0 Yes 20mg QD Take [address] [address] (PRAVACHOL) 3-14 by mouth [facility] 20 MG 00:00: daily. Medical tablet [address] [place] [address] pravastatin 0 Yes 20mg QD Take [address] (PRAVACHOL) 3-14 by mouth [facility] 20 MG 00:00: daily. Medical tablet [address] [place] [address] pravastatin 0 Yes 20mg QD Take [address] [facility] (PRAVACHOL) 3-14 by mouth [facility] 20 MG 00:00: daily. Medical tablet [address] [place] [address] pravastatin 0 Yes 20mg QD Take [address] [facility] (PRAVACHOL) 3-14 by mouth [facility] 20 MG 00:00: daily. Medical tablet [address] [place] [address] pravastatin 0 Yes 20mg QD Take [address] [facility] (PRAVACHOL) 3-14 by mouth [facility] 20 MG 00:00: daily. Medical tablet [address] [place] [address] pravastatin 0 Yes 20mg QD Take [address] [facility] (PRAVACHOL) 3-14 tablet (20 [facility]es 20 MG 00:00: mg total) Medical tablet 00 by mouth Center daily. pravastatin 2020-0 Yes 20mg QD Take [address] [facility] (PRAVACHOL) 3-14 tablet (20 [facility]es 20 MG 00:00: mg total) Medical tablet 00 by mouth Center daily. pravastatin 2020-0 Yes 20mg QD Take [address] [facility] (PRAVACHOL) 3-14 by mouth [facility] 20 MG 00:00: daily. Medical tablet [address] [place] [address] pravastatin 2020-0 Yes 20mg QD Take [address] [facility] (PRAVACHOL) 3-14 tablet (20 [facility] kes 20 MG 00:00: mg total) Medical tablet 00 by mouth Center daily. pravastatin 2020-0 Yes 20mg QD Take [address] [facility] (PRAVACHOL) 3-14 tablet (20 [facility] kes 20 MG 00:00: mg total) Medical tablet 00 by mouth Center daily. pravastatin 2020-0 Yes 20mg QD Take [address] [facility] (PRAVACHOL) 3-14 tablet (20 [facility] kes 20 MG 00:00: mg total) Medical tablet 00 by mouth Center daily. ergocalcife 2021-0 Yes [id number] Q7D Take [address] [facility] [address] [facility] (ERGOCALCIF 00:00: (50,000 Med ical CORONA) 1,250 00 Units Center mcg (50,000 total) by unit) mouth once capsule a week. ergocalcife 0 Yes 1{capsu Q7D Take [address] [facility] 3-03 le} capsule by [facility] (ERGOCALCIF 00:00: mouth once Medical CORONA) 1,250 00 a week. Cente r mcg (50,000 unit) capsule ergocalcife 0 Yes 1{capsu Q7D Take [address] [facility] 3-03 le} [facility] (ERGOCALCIF 00:00: mouth once Medical CORONA) 1,250 00 a week. Cente r mcg (50,000 unit) capsule ergocalcife Yes 1{capsu Q7D Take [address] [facility] 3-03 le} [facility] by [facility] (ERGOCALCIF 00:00: mouth once Medical CORONA) 1,250 00 a week. Cente r mcg (50,000 unit) capsule ergocalcife 0 Yes 1{capsu Q7D Take [address] [facility] 3-03 le} [facility] (ERGOCALCIF 00:00: mouth once Medical CORONA) 1,250 00 a week. Cente r mcg (50,000 unit) capsule ergocalcife 0 Yes 1{capsu Q7D Take [address] [facility] 3-03 le} capsule by [facility] (ERGOCALCIF 00:00: mouth once Medical CORONA) 1,250 00 a week. Cente r mcg (50,000 unit) capsule ergocalcife 2020-0 Yes 1{capsu Q7D Take [address] [facility] 3-03 le} capsule [facility] (ERGOCALCIF 00:00: mouth once Medical CORONA) 1,250 00 a week. Cente r mcg (50,000 unit) capsule ergocalcife 0 Yes 1{capsu Q7D Take [address] [facility] 3-03 le} capsule by [facility] (ERGOCALCIF 00:00: mouth once Medical CORONA) 1,250 00 a week. Cente r mcg (50,000 unit) capsule ergocalcife 2021-0 Yes 1{capsu Q7D Take [address] [facility] 3-03 le} capsule [facility] (ERGOCALCIF 00:00: mouth once Medical CORONA) ,250 00 a week. Cente r mcg (50,000 unit) capsule ergocalcife 2020-0 Yes 1{capsu Q7D Take [address] [facility] 3-03 le} capsule by [facility] (ERGOCALCIF 00:00: mouth once Medical CORONA) ,250 00 a week. Cente r mcg (50,000 unit) capsule ergocalcife 2020-0 Yes 1{capsu Q7D Take [address] [facility] 3-03 le} capsule by [facility] (ERGOCALCIF 00:00: mouth once Medical CORONA) 1,250 00 a week. Cente r mcg (50,000 unit) capsule ergocalcife 2020-0 Yes 1{capsu Q7D Take [address] [facility] 3-03 le} capsule by [facility] (ERGOCALCIF 00:00: mouth once Medical CORONA) 1,250 00 a week. Cente r mcg (50,000 unit) capsule ergocalcife 2020-0 Yes 1{capsu Q7D Take [address] [facility] 3-03 le} capsule by [facility] (ERGOCALCIF 00:00: mouth once Medical CORONA) 1,250 00 a week. Cente r mcg (50,000 unit) capsule ergocalcife 2020-0 Yes 1{capsu Q7D Take [address] [facility] 3-03 le} capsule [facility] (ERGOCALCIF 00:00: mouth once Medical CORONA) 1,250 00 a week. Cente r mcg (50,000 unit) capsule ergocalcife 2020-0 Yes 1{capsu Q7D Take [address] [facility] 3-03 le} capsule by [facility] (ERGOCALCIF 00:00: mouth once Medical CORONA) 1,250 00 a week. Cente r mcg (50,000 unit) capsule ergocalcife 2020-0 Yes 1{capsu Q7D Take [address] [facility] 3-03 le} capsule by [facility] (ERGOCALCIF 00:00: mouth once Medical CORONA) 1,250 00 a week. Cente r mcg (50,000 unit) capsule ergocalcife 2020-0 Yes 1{capsu Q7D Take [address] [facility] 3-03 le} capsule by [facility] (ERGOCALCIF 00:00: mouth once Medical CORONA) 1,250 00 a week. Cente r mcg (50,000 unit) capsule ergocalcife 2020-0 Yes 1{capsu Q7D Take [address] [facility] 3-03 le} capsule by [facility] (ERGOCALCIF 00:00: mouth once Medical CORONA) 1,250 00 a week. Cente r mcg (50,000 unit) capsule ergocalcife 2020-0 Yes 1{capsu Q7D Take [address] [facility] 3-03 le} capsule by [facility] (ERGOCALCIF 00:00: mouth once Medical CORONA) 1,250 00 a week. Cente r mcg (50,000 unit) capsule ergocalcife 2020-0 Yes 1{capsu Q7D Take [address] [facility] 3-03 le} capsule by [facility] (ERGOCALCIF 00:00: mouth once Medical CORONA) 1,250 00 a week. Cente r mcg (50,000 unit) capsule ergocalcife 2020-0 Yes 1{capsu Q7D Take [address] [facility] 3-03 le} capsule by [facility] (ERGOCALCIF 00:00: mouth once Medical CORONA) 1,250 00 a week. Cente r mcg (50,000 unit) capsule ergocalcife 2020-0 Yes 1{capsu Q7D Take [address] [facility] 3-03 le} capsule by [facility] (ERGOCALCIF 00:00: mouth once Medical CORONA) 1,250 00 a week. Cente r mcg (50,000 unit) capsule ergocalcife 2020-0 Yes [id number] Q7D Take [address] [facility] (ERGOCALCIF 00:00: (50,000 Med ical CORONA) 1,250 00 Units Center mcg (50,000 total) by unit) mouth once capsule a week. ergocalcife 202-0 Yes [id number] Q7D Take [address] [facility]03 [facility] (ERGOCALCIF 00:00: (50,000 Med ical CORONA) 1,250 00 Units Center mcg (50,000 total) by unit) mouth once capsule a week. ergocalcife 2021-0 Yes [id number] Q7D Take [address] [facility] 3-03 [facility] (ERGOCALCIF 00:00: (50,000 Med ical CORONA) 1,250 00 Units Center mcg (50,000 total) by unit) mouth once capsule a week. ergocalcife 2021-0 Yes [id number] Q7D Take [address] [facility] 3-03 [facility] (ERGOCALCIF 00:00: (50,000 Med ical CORONA) 1,250 00 Units Center mcg (50,000 total) by unit) mouth once capsule a week. ergocalcife 2021-0 Yes 1{capsu Q7D Take [address] [facility] 3-03 le} capsule by [facility] (ERGOCALCIF 00:00: mouth once Medical CORONA) 1,250 00 a week. Cente r mcg (50,000 unit) capsule ergocalcife 2021-0 Yes [id number] Q7D Take [address] [facility]03 [facility] (ERGOCALCIF 00:00: (50,000 Med ical CORONA) 1,250 00 Units Center mcg (50,000 total) by unit) mouth once capsule a week. levocetiriz 2021-0 Yes 5mg QD Take [address] [facility] (XYZAL) 2-13 by mouth [facility] 5 MG tablet 00:00: daily. [address] levocetiriz 2021-0 Yes 5mg QD Take [address] [facility] (XYZAL) 2-13 by mouth [facility] 5 MG tablet 00:00: daily. [facility] [place] levocetiriz 2021-0 Yes 5mg QD Take [address] [facility] (XYZAL) 2-13 by mouth [facility] 5 MG tablet 00:00: daily. [facility] [place] levocetiriz 2021-0 Yes 5mg QD Take [address] [facility] (XYZAL) 2-13 by mouth [facility] 5 MG tablet 00:00: daily. [facility] [place] levocetiriz 2021-0 Yes 5mg QD Take [address] [facility] (XYZAL) 2-13 by mouth [facility] 5 MG tablet 00:00: daily. [facility] [place] levocetiriz 1-0 Yes 5mg QD Take [address] [facility] (XYZAL) 2-13 by mouth [facility] 5 MG tablet 00:00: daily. [facility] [place] levocetiriz 1-0 Yes 5mg QD Take [address] [facility] (XYZAL) 2-13 by mouth [facility] 5 MG tablet 00:00: daily. [facility] [place] levocetiriz 1-0 Yes 5mg QD Take [address] [facility] (XYZAL) 2-13 by mouth [facility] 5 MG tablet 00:00: daily. [facility] [place] levocetiriz 2020-0 Yes 5mg QD Take [address] [facility] (XYZAL) 2-13 by mouth [facility] 5 MG tablet 00:00: daily. [facility] [place] levocetiriz 1-0 Yes 5mg QD Take [address] [facility] (XYZAL) 2-13 by mouth [facility] 5 MG tablet 00:00: daily. [facility] [place] levocetiriz 1-0 Yes 5mg QD Take [address] [facility] (XYZAL) 2-13 by mouth [facility] 5 MG tablet 00:00: daily. [facility] 00 [place] levocetiriz 1-0 Yes 5mg QD Take [address] [facility] (XYZAL) 2-13 by mouth [facility] 5 MG tablet 00:00: daily. [facility] [place] levocetiriz 1-0 Yes 5mg QD Take [address] [facility] (XYZAL) 2-13 by mouth [facility] 5 MG tablet 00:00: daily. [facility] 00 [place] levocetiriz 1-0 Yes 5mg QD Take [address] [facility] (XYZAL) 2-13 by mouth [facility] 5 MG tablet 00:00: daily. [facility] 00 [place] levocetiriz 2021-0 Yes 5mg QD Take [address] [facility] (XYZAL) 2-13 by mouth [facility] 5 MG tablet 00:00: daily. [facility] 00 [place] levocetiriz 1-0 Yes 5mg QD Take [address] [facility] (XYZAL) 2-13 by mouth [facility] 5 MG tablet 00:00: daily. [facility] 00 [place] levocetiriz 1-0 Yes 5mg QD Take [address] [facility] (XYZAL) 2-13 by mouth [facility] 5 MG tablet 00:00: daily. [facility] 00 [place] levocetiriz 1-0 Yes 5mg QD Take [address] [facility] (XYZAL) 2-13 by mouth [facility] 5 MG tablet 00:00: daily. [facility] 00 [place] levocetiriz 1-0 Yes 5mg QD Take [address] [facility] (XYZAL) 2-13 by mouth [facility] 5 MG tablet 00:00: daily. [facility] 00 [place] levocetiriz 1-0 Yes 5mg QD Take [address] [facility] (XYZAL) 2-13 by mouth [facility] 5 MG tablet 00:00: daily. [facility] 00 [place] levocetiriz 2020-0 Yes 5mg QD Take [address] [facility] (XYZAL) 2-13 by mouth [facility] 5 MG tablet 00:00: daily. [facility] 00 [place] levocetiriz 1-0 Yes 5mg QD Take [address] [facility] (XYZAL) 2-13 by mouth [facility] 5 MG tablet 00:00: daily. [facility] 00 [place] levocetiriz 1-0 Yes 5mg QD Take [address] [facility] (XYZAL) 2-13 by mouth [facility] 5 MG tablet 00:00: daily. [facility] 00 [place] levocetiriz 1-0 Yes 5mg QD Take [address] [facility] (XYZAL) 2-13 by mouth [facility] 5 MG tablet 00:00: daily. [facility] 00 [place] levocetiriz 1-0 Yes 5mg QD Take [address] [facility] (XYZAL) 2-13 by mouth [facility] 5 MG tablet 00:00: daily. [facility] 00 [place] levocetiriz 2021-0 Yes 5mg QD Take [address] [facility] (XYZAL) 2-13 by mouth [facility] 5 MG tablet 00:00: daily. [facility] 00 [place] levocetiriz 1-0 Yes 5mg QD Take [address] [facility] (XYZAL) 2-13 by mouth [facility] 5 MG tablet 00:00: daily. [address] levocetiriz 0 Yes 5mg QD Take [address] [facility] (XYZAL) 2-13 by mouth [facility] 5 MG tablet 00:00: daily. [address] traZODone 0 Yes TAKE 1/[address] [facility] (DESYREL) 2-12 TO 1 [facility] 50 MG 00:00: TABLET BY Medical tablet 00 MOUTH Center NIGHTLY NEEDED FOR SLEEP traZODone 0 Yes TAKE 1/[address] [facility] (DESYREL) 2-12 TO 1 [facility] 50 MG 00:00: TABLET BY Medical tablet 00 MOUTH Center NIGHTLY NEEDED FOR SLEEP traZODone 0 Yes TAKE 1/[address] [facility] (DESYREL) 2-12 TO 1 [facility] 50 MG 00:00: TABLET BY Medical tablet 00 MOUTH Center NIGHTLY NEEDED FOR SLEEP traZODone 0 Yes TAKE 1/[address] [facility] (DESYREL) 2-12 TO 1 [facility] 50 MG 00:00: TABLET BY Medical tablet 00 MOUTH Center NIGHTLY NEEDED FOR SLEEP traZODone 0 Yes TAKE 1/[address] [facility] (DESYREL) 2-12 TO 1 [facility] 50 MG 00:00: TABLET BY Medical tablet 00 MOUTH Center NIGHTLY NEEDED FOR SLEEP traZODone 0 Yes TAKE 1/[address] [facility] (DESYREL) 2-12 TO 1 [facility] 50 MG 00:00: TABLET BY Medical tablet 00 MOUTH Center NIGHTLY NEEDED FOR SLEEP traZODone 0 Yes TAKE 1/[address] [facility] (DESYREL) 2-12 TO 1 [facility] 50 MG 00:00: TABLET BY Medical tablet 00 MOUTH Center NIGHTLY NEEDED FOR SLEEP traZODone 0 Yes TAKE 1/[address] [facility] (DESYREL) 2-12 TO 1 [facility] 50 MG 00:00: TABLET BY Medical tablet 00 MOUTH Center NIGHTLY NEEDED FOR SLEEP traZODone 2020-0 Yes TAKE 1/[address] [facility] (DESYREL) 2-12 TO 1 [facility] 50 MG 00:00: TABLET BY Medical tablet 00 MOUTH Center NIGHTLY NEEDED FOR SLEEP traZODone 0 Yes TAKE 1/[address] [facility] (DESYREL) 2-12 TO 1 [facility] 50 MG 00:00: TABLET BY Medical tablet 00 MOUTH Center NIGHTLY NEEDED FOR SLEEP traZODone 0 Yes TAKE 1/[address] [facility] (DESYREL) 2-12 TO 1 [facility] 50 MG 00:00: TABLET BY Medical tablet 00 MOUTH Center NIGHTLY NEEDED FOR SLEEP traZODone 0 Yes TAKE 1/[address] [facility] (DESYREL) 2-12 TO 1 [facility] 50 MG 00:00: TABLET BY Medical tablet 00 MOUTH Center NIGHTLY NEEDED FOR SLEEP traZODone 0 Yes TAKE 1/[address] [facility] (DESYREL) 2-12 TO 1 [facility] 50 MG 00:00: TABLET BY Medical tablet 00 MOUTH Center NIGHTLY NEEDED FOR SLEEP traZODone 0 Yes TAKE 1/[address] [facility] (DESYREL) 2-12 TO 1 [facility] 50 MG 00:00: TABLET BY Medical tablet 00 MOUTH Center NIGHTLY NEEDED FOR SLEEP traZODone 0 Yes TAKE 1/[address] [facility] (DESYREL) 2-12 TO 1 [facility] 50 MG 00:00: TABLET BY Medical tablet 00 MOUTH Center NIGHTLY NEEDED FOR SLEEP traZODone 0 Yes TAKE 1/[address] [facility] (DESYREL) 2-12 TO 1 [facility] 50 MG 00:00: TABLET BY Medical tablet 00 MOUTH Center NIGHTLY NEEDED FOR SLEEP traZODone 0 Yes TAKE 1/[address] [facility] (DESYREL) 2-12 TO 1 [facility] 50 MG 00:00: TABLET BY Medical tablet 00 MOUTH Center NIGHTLY NEEDED FOR SLEEP traZODone 0 Yes TAKE 1/[address] [facility] (DESYREL) 2-12 TO 1 [facility] 50 MG 00:00: TABLET BY Medical tablet 00 MOUTH Center NIGHTLY NEEDED FOR SLEEP traZODone 0 Yes TAKE 1/[address] [facility] (DESYREL) 2-12 TO 1 [facility] 50 MG 00:00: TABLET BY Medical tablet 00 MOUTH Center NIGHTLY NEEDED FOR SLEEP traZODone 0 Yes TAKE 1/[address] [facility] (DESYREL) 2-12 TO 1 [facility] 50 MG 00:00: TABLET BY Medical tablet 00 MOUTH Center NIGHTLY NEEDED FOR SLEEP traZODone 0 Yes TAKE 1/[address] [facility] (DESYREL) 2-12 TO 1 [facility] 50 MG 00:00: TABLET BY Medical tablet 00 MOUTH Center NIGHTLY NEEDED FOR SLEEP traZODone Yes TAKE 1/[address] [facility] (DESYREL) 2-12 TO 1 [facility] 50 MG 00:00: TABLET BY Medical tablet 00 MOUTH Center NIGHTLY NEEDED FOR SLEEP traZODone Yes TAKE 1/[address] [facility] (DESYREL) 2-12 TO 1 [facility] 50 MG 00:00: TABLET BY Medical tablet 00 MOUTH Center NIGHTLY NEEDED FOR SLEEP traZODone Yes TAKE 1/[address] [facility] (DESYREL) 2-12 TO 1 [facility] 50 MG 00:00: TABLET BY Medical tablet 00 MOUTH Center NIGHTLY NEEDED FOR SLEEP traZODone Yes TAKE 1/[address] [facility] (DESYREL) 2-12 TO 1 [facility] 50 MG 00:00: TABLET BY Medical tablet 00 MOUTH Center NIGHTLY NEEDED FOR SLEEP traZODone Yes TAKE 1/[address] [facility] (DESYREL) 2-12 TO 1 [facility] 50 MG 00:00: TABLET BY Medical tablet 00 MOUTH Center NIGHTLY NEEDED FOR SLEEP traZODone Yes TAKE 1/[address] [facility] (DESYREL) 2-12 TO 1 [facility] 50 MG 00:00: TABLET BY Medical tablet 00 MOUTH Center NIGHTLY NEEDED FOR SLEEP traZODone Yes TAKE 1/[address] [facility] (DESYREL) 2-12 TO 1 [facility] 50 MG 00:00: TABLET BY Medical tablet 00 MOUTH Center NIGHTLY NEEDED FOR SLEEP valsartan Yes 320mg QD Take [facility]11 [facility] 320 MG 00:00: (320 mg Medical tablet 00 total) by Center mouth daily. valsartan Yes 320mg QD Take [address] [facility] (DIOVAN) 2-11 mg by [facility] 320 MG 00:00: mouth Medical tablet 00 daily. [place] valsartan Yes 320mg QD Take [address] [facility] (DIOVAN) 2-11 mg by [facility] 320 MG 00:00: mouth Medical tablet 00 daily. [place] valsartan Yes 320mg QD Take [address] [facility] (DIOVAN) 2-11 mg by [facility] 320 MG 00:00: mouth Medical tablet 00 daily. [place] valsartan Yes 320mg QD Take [address] [facility] (DIOVAN) 2-11 mg by [facility] 320 MG 00:00: mouth Medical tablet 00 daily. [place] valsartan Yes 320mg QD Take [address] [facility] (DIOVAN) 2-11 mg by [facility] 320 MG 00:00: mouth Medical tablet 00 daily. [place] valsartan Yes 320mg QD Take [address] [facility] (DIOVAN) 2-11 mg by [facility] 320 MG 00:00: mouth Medical tablet 00 daily. [place] valsartan Yes 320mg QD Take [address] [facility] (DIOVAN) 2-11 mg by [facility] 320 MG 00:00: mouth Medical tablet 00 daily. [place] valsartan Yes 320mg QD Take [address] [facility] (DIOVAN) 2-11 mg by [facility] 320 MG 00:00: mouth Medical tablet 00 daily. [place] valsartan Yes 320mg QD Take [address] [facility] (DIOVAN) 2-11 mg by [facility] 320 MG 00:00: mouth Medical tablet 00 daily. [place] valsartan Yes 320mg QD Take [address] [facility] (DIOVAN) 2-11 mg by [facility] 320 MG 00:00: mouth Medical tablet 00 daily. [place] valsartan Yes 320mg QD Take [address] [facility] (DIOVAN) 2-11 mg by [facility] 320 MG 00:00: mouth Medical tablet 00 daily. [place] valsartan Yes 320mg QD Take [address] [facility] (DIOVAN) 2-11 mg by [facility] 320 MG 00:00: mouth Medical tablet 00 daily. [place] valsartan Yes 320mg QD Take [address] [facility] (DIOVAN) 2-11 mg by [facility] 320 MG 00:00: mouth Medical tablet 00 daily. [place] valsartan Yes 320mg QD Take [address] [facility] (DIOVAN) 2-11 mg by [facility] 320 MG 00:00: mouth Medical tablet 00 daily. [place] valsartan Yes 320mg QD Take [address] [facility] (DIOVAN) 2-11 mg by [facility] 320 MG 00:00: mouth Medical tablet 00 daily. [place] valsartan 0 Yes 320mg QD Take [address] [facility] (DIOVAN) 2-11 mg by [facility] 320 MG 00:00: mouth Medical tablet 00 daily. [place] valsartan 0 Yes 320mg QD Take [address] [facility] (DIOVAN) 2-11 mg by [facility] 320 MG 00:00: mouth Medical tablet 00 daily. [place] valsartan 0 Yes 320mg QD Take [address] [facility] (DIOVAN) 2-11 mg by [facility] 320 MG 00:00: mouth Medical tablet 00 daily. [place] valsartan 0 Yes 320mg QD Take [address] [facility] (DIOVAN) 2-11 mg by [facility] 320 MG 00:00: mouth Medical tablet 00 daily. [place] valsartan Yes 320mg QD Take [address] [facility] (DIOVAN) 2-11 mg by [facility] 320 MG 00:00: mouth Medical tablet 00 daily. [place] valsartan Yes 320mg QD Take [address] [facility] (DIOVAN) 2-11 mg by [facility] 320 MG 00:00: mouth Medical tablet 00 daily. [place] valsartan Yes 320mg QD Take [facility] 320 MG 00:00: (320 mg Medical tablet 00 total) by Center mouth daily. valsartan 0 Yes 320mg QD Take 1 [facility]11 [facility] 320 MG 00:00: (320 mg Medical tablet 00 total) by Center mouth daily. valsartan 0 Yes 320mg QD Take [address] [facility] (DIOVAN) 2-11 mg by [facility] 320 MG 00:00: mouth Medical tablet 00 daily. [place] valsartan 0 Yes 320mg QD Take 1 [facility]11 [facility] 320 MG 00:00: (320 mg Medical tablet 00 total) by Center mouth daily. valsartan 0 Yes 320mg QD Take 1 [facility]11 [facility] 320 MG 00:00: (320 mg Medical tablet 00 total) by Center mouth daily. valsartan 0 Yes 320mg QD Take [facility]11 [facility] 320 MG 00:00: (320 mg Medical tablet 00 total) by Center mouth daily. phentermine Yes 18.75mg QD Take 18.[address] [facility] (ADIPEX-P) 2-10 mg by [facility] 37.5 mg 00:00: mouth Medical tablet 00 daily. [place] phentermine Yes 18.75mg QD Take 18.[address] [facility] (ADIPEX-P) 2-10 mg by [facility] 37.5 mg 00:00: mouth Medical tablet 00 daily. [place] phentermine Yes 18.75mg QD Take 18.[address] [facility] (ADIPEX-P) 2-10 mg by [facility] 37.5 mg 00:00: mouth Medical tablet 00 daily. [place] phentermine Yes 18.75mg QD Take 18.[address] [facility] (ADIPEX-P) 2-10 mg by [facility] 37.5 mg 00:00: mouth Medical tablet 00 daily. [place] phentermine Yes 18.75mg QD Take 18.[address] [facility] (ADIPEX-P) 2-10 mg by [facility] 37.5 mg 00:00: mouth Medical tablet 00 daily. [place] phentermine Yes 18.75mg QD Take 18.[address] [facility] (ADIPEX-P) 2-10 mg by [facility] 37.5 mg 00:00: mouth Medical tablet 00 daily. [place] phentermine Yes 18.75mg QD Take 18.[address] [facility] (ADIPEX-P) 2-10 mg by [facility] 37.5 mg 00:00: mouth Medical tablet 00 daily. [place] phentermine Yes 18.75mg QD Take 18.[address] [facility] (ADIPEX-P) 2-10 mg by [facility] 37.5 mg 00:00: mouth Medical tablet 00 daily. [place] phentermine Yes 18.75mg QD Take 18.[address] [facility] (ADIPEX-P) 2-10 mg by [facility] 37.5 mg 00:00: mouth Medical tablet 00 daily. [place] phentermine Yes 18.75mg QD Take 18.[address] [facility] (ADIPEX-P) 2-10 mg by [facility] 37.5 mg 00:00: mouth Medical tablet 00 daily. [place] phentermine Yes 18.75mg QD Take 18.[address] [facility] (ADIPEX-P) 2-10 mg by [facility] 37.5 mg 00:00: mouth Medical tablet 00 daily. [place] phentermine Yes 18.75mg QD Take 18.[address] [facility] (ADIPEX-P) 2-10 mg by [facility] 37.5 mg 00:00: mouth Medical tablet 00 daily. [place] phentermine Yes 18.75mg QD Take 18.[address] [facility] (ADIPEX-P) 2-10 mg by [facility] 37.5 mg 00:00: mouth Medical tablet 00 daily. [place] phentermine Yes 18.75mg QD Take 18.[address] [facility] (ADIPEX-P) 2-10 mg by [facility] 37.5 mg 00:00: mouth Medical tablet 00 daily. [place] phentermine Yes 18.75mg QD Take 18.[address] [facility] (ADIPEX-P) 2-10 mg by [facility] 37.5 mg 00:00: mouth Medical tablet 00 daily. [place] phentermine Yes 18.75mg QD Take 18.[address] [facility] (ADIPEX-P) 2-10 mg by [facility] 37.5 mg 00:00: mouth Medical tablet 00 daily. [place] phentermine Yes 18.75mg QD Take 18.[address] [facility] (ADIPEX-P) 2-10 mg by [facility] 37.5 mg 00:00: mouth Medical tablet 00 daily. [place] phentermine Yes 18.75mg QD Take 18.[address] [facility] (ADIPEX-P) 2-10 mg by [facility] 37.5 mg 00:00: mouth Medical tablet 00 daily. [place] phentermine Yes 18.75mg QD Take 18.[address] [facility] (ADIPEX-P) 2-10 mg by [facility] 37.5 mg 00:00: mouth Medical tablet 00 daily. [place] phentermine Yes 18.75mg QD Take 18.[address] [facility] (ADIPEX-P) 2-10 mg by [facility] 37.5 mg 00:00: mouth Medical tablet 00 daily. [place] phentermine Yes 18.75mg QD Take 18.[address] [facility] (ADIPEX-P) 2-10 mg by [facility] 37.5 mg 00:00: mouth Medical tablet 00 daily. [place] phentermine Yes 18.75mg QD Take 18.[address] [facility] (ADIPEX-P) 2-10 mg by [facility] 37.5 mg 00:00: mouth Medical tablet 00 daily. [place] phentermine Yes 18.75mg QD Take 18.[address] [facility] (ADIPEX-P) 2-10 mg by [facility] 37.5 mg 00:00: mouth Medical tablet 00 daily. [place] phentermine Yes 18.75mg QD Take 18.[address] [facility] (ADIPEX-P) 2-10 mg by [facility] 37.5 mg 00:00: mouth Medical tablet 00 daily. [place] phentermine Yes 18.75mg QD Take 18.[address] [facility] (ADIPEX-P) 2-10 mg by [facility] 37.5 mg 00:00: mouth Medical tablet 00 daily. [place] phentermine Yes 18.75mg QD Take 18.[address] [facility] (ADIPEX-P) 2-10 mg by [facility] 37.5 mg 00:00: mouth Medical tablet 00 daily. [place] phentermine Yes 18.75mg QD Take 18.[address] [facility] (ADIPEX-P) 2-10 mg by [facility] 37.5 mg 00:00: mouth Medical tablet 00 daily. [place] phentermine Yes 18.75mg QD Take 18.[address] [facility] (ADIPEX-P) 2-10 mg by [facility] 37.5 mg 00:00: mouth Medical tablet 00 daily. [place] amLODIPine 2020-1 Yes QD daily . [facility] (NORVASC) 5 2-08 [facility] tablet 00:00: Medical 00 [place] amLODIPine 2020-1 Yes QD daily . [facility] (NORVASC) 5 2-08 [facility] tablet 00:00: Medical 00 [place] amLODIPine 2020-1 Yes QD daily . [facility] (NORVASC) 5 2-08 [facility] tablet 00:00: Medical 00 [place] amLODIPine 2020-1 Yes QD daily . [facility] (NORVASC) 5 2-08 [facility] tablet 00:00: Medical 00 [place] amLODIPine 2020-1 Yes QD daily . [facility] (NORVASC) 5 2-08 [facility] tablet 00:00: Medical 00 [place] amLODIPine 2020-1 Yes QD daily . [facility] (NORVASC) 5 2-08 [facility] tablet 00:00: Medical 00 [place] amLODIPine 2020-1 Yes QD daily . [facility] (NORVASC) 5 2-08 [facility] tablet 00:00: Medical 00 [place] amLODIPine 2020-1 Yes QD daily . [facility] (NORVASC) 5 2-08 [facility] tablet 00:00: Medical 00 [place] amLODIPine 2020-1 Yes QD daily . [facility] (NORVASC) 5 2-08 [facility] tablet 00:00: Medical 00 [place] amLODIPine 2020-1 Yes QD daily . [facility] (NORVASC) 5 2-08 [facility] tablet 00:00: Medical 00 [place] amLODIPine 2020-1 Yes QD daily . [facility] (NORVASC) 5 2-08 [facility] tablet 00:00: Medical 00 [place] amLODIPine 2020-1 Yes QD daily . [facility] (NORVASC) 5 2-08 [facility] tablet 00:00: Medical 00 [place] amLODIPine 2020-1 Yes QD daily . [facility] (NORVASC) 5 2-08 [facility] tablet 00:00: Medical 00 [place] amLODIPine 2020-1 Yes QD daily . [facility] (NORVASC) 5 2-08 [facility] tablet 00:00: Medical 00 [place] amLODIPine 2020-1 Yes QD daily . [facility] (NORVASC) 5 2-08 [facility] tablet 00:00: Medical 00 [place] amLODIPine 2020-1 Yes QD daily . [facility] (NORVASC) 5 2-08 [facility] tablet 00:00: Medical 00 [place] amLODIPine 2020-1 Yes QD daily . [facility] (NORVASC) 5 2-08 [facility]: [facility] 00 [place] amLODIPine 2020-1 Yes QD daily . [facility] (NORVASC) 5 2-08 [facility]: [facility] 00 [place] amLODIPine 2020-1 Yes QD daily . [facility] (NORVASC) 5 2-08 [facility]: [facility] 00 [place] amLODIPine 2020-1 Yes QD daily . [facility] (NORVASC) 5 2-08 [facility]: [facility] 00 [place] amLODIPine 2020-1 Yes QD daily . [facility] (NORVASC) 5 2-08 [facility]: [facility] 00 [place] amLODIPine 2020-1 Yes QD daily . [facility] (NORVASC) 5 2-08 [facility]: [facility] 00 [place] amLODIPine 2020-1 Yes QD daily . [facility] (NORVASC) 5 2-08 [facility] am[facility]ODIPine 2020-1 Yes QD daily . [facility] (NORVASC) 5 2-08 [facility] amLODIPine 2020-1 Yes QD daily . [facility] (NORVASC) 5 2-08 [facility] amLODIPine 2020-1 Yes QD daily . [facility] (NORVASC) 5 2-08 [facility] amLODIPine 2020-1 Yes QD daily . [facility] (NORVASC) 5 2-08 [facility] amLODIPine 2020- Yes QD daily . [facility] (NORVASC) 5 2-08 [facility]: [facility] 00 [place] diclofenac 2019- Yes Apply 2-[address] [facility] [address] [facility] % Gel 1-[facility] to [facility] affected [facility] 4 times daily as needed for pain diclofenac 2019-05 Yes Apply 2-[address] [facility] [address] [facility] % Gel 1-10 [facility] to [facility]: affected [facility] 4 times daily as needed for pain diclofenac 2019- Yes Apply 2-[address] [facility] [address] [facility] % [facility] area up [facility] Center 4 times daily as needed for pain diclofenac 2019- Yes Apply 2-[address] [facility] [address] [facility] % Gel 1-[facility]: affected [facility] 00 area up to Center 4 times daily as needed for pain diclofenac 2019- Yes Apply 2-[address] [facility] [address] [facility] % Gel 1-[facility]: affected [facility] 00 area up to Center 4 times daily as needed for pain diclofenac 2019- Yes Apply 2-[address] [facility] [address] [facility] % Gel 1-[facility]: affected [facility] 00 area up to Center 4 times daily as needed for pain diclofenac 2019- Yes Apply 2-[address] [facility] [address] [facility] % Gel 1-[facility]: affected [facility] 00 area up to Center 4 times daily as needed for pain diclofenac 2019- Yes Apply 2-[address] [facility] [address] [facility] % Gel 1-[facility]: affected [facility] 00 area up to Center 4 times daily as needed for pain diclofenac 2019- Yes Apply 2-[address] [facility] [address] [facility] % Gel 1-[facility]: affected [facility] 00 area up to Center 4 times daily as needed for pain diclofenac 2019-05 Yes Apply 2-[address] [facility] [address] [facility] % Gel 1-10 [facility]: affected [facility] 00 area up to Center 4 times daily as needed for pain diclofenac 2019-05 Yes Apply 2-[address] [facility] [address] [facility] % Gel 1-10 [facility]: affected [facility] 00 area up to Center 4 times daily as needed for pain diclofenac 2019-05 Yes Apply 2-[address] [facility] [address] [facility] % Gel 1-10 [facility]: affected [facility] 00 area up to Center 4 times daily as needed for pain diclofenac 2019-05 Yes Apply 2-[address] [facility] [address] [facility] % Gel 1-10 [facility]: affected [facility] 00 area up to Center 4 times daily as needed for pain diclofenac 2019-05 Yes Apply 2-[address] [facility] [address] [facility] % Gel 1-10 [facility]: affected [facility] 00 area up to Center 4 times daily as needed for pain diclofenac 2019-05 Yes Apply 2-[address] [facility] [address] [facility] % Gel 1-10 [facility]: affected [facility] 00 area up to Center 4 times daily as needed for pain diclofenac 2019- Yes Apply 2-[address] [facility] [address] [facility] % Gel 1-10 [facility]: affected [facility] 00 area up to Center 4 times daily as needed for pain diclofenac 2019- Yes Apply 2-[address] [facility] [address] [facility] % Gel 1-10 [facility]: affected [facility] 00 area up to Center 4 times daily as needed for pain diclofenac 2019- Yes Apply 2-[address] [facility] [address] [facility] % Gel 1-10 [facility]: affected [facility] 00 area up to Center 4 times daily as needed for pain diclofenac 2019- Yes Apply 2-[address] [facility] [address] [facility] % Gel 1-10 [facility]: affected [facility] 00 area up to Center 4 times daily as needed for pain diclofenac 2019- Yes Apply 2-[address] [facility] [address] [facility] % Gel 1-10 [facility]: affected [facility] 00 area up to Center 4 times daily as needed for pain diclofenac 2019-05 Yes Apply 2-[address] [facility] [address] [facility] % Gel 1-10 [facility]: affected [facility] 00 area up to Center 4 times daily as needed for pain diclofenac 2019-05 Yes Apply 2-[address] [facility] [address] [facility] % Gel 1-10 [facility]: affected [facility] 00 area up to Center 4 times daily as needed for pain diclofenac 2019-05 Yes Apply 2-[address] [facility] [address] [facility] % Gel 1-10 [facility]: affected [facility] 00 area up to Center 4 times daily as needed for pain diclofenac 2019-05 Yes Apply 2-[address] [facility] [address] [facility] % Gel 1-10 [facility]: affected [facility] 00 area up to Center 4 times daily as needed for pain diclofenac 2019-05 Yes Apply 2-[address] [facility] [address] [facility] % Gel 1-10 [facility]: affected [facility] 00 area up to Center 4 times daily as needed for pain diclofenac 2019-05 Yes Apply 2-[address] [facility] [address] [facility] % Gel 1-10 [facility]: affected [facility] 00 area up to Center 4 times daily as needed for pain diclofenac 2019-05 Yes Apply 2-[address] [facility] [address] [facility] % Gel 1-10 [facility]: affected [facility] 00 area up to Center 4 times daily as needed for pain diclofenac 2019-05 Yes Apply 2-[address] [facility] [address] [facility] % Gel 1-10 [facility]: affected [facility] 00 area up to Center 4 times daily as needed for pain insulin 0 Yes 30U [address] [facility] 9-22 30 units [facility] ([facility]: AM, 90 u Medic al FlexTouch 00 PM. Center U-200) 200 unit/mL (3 mL) InPn insulin 2019-0 Yes 35U Inject [facility] aspart 9-22 0.35 [facility]s [facility] 00:[facility]: (35 Units Medical (NovoLOG) 00 total) Center 100 unit/mL subcutaneo (3 mL) In usly 3 (three) times daily before meals. insulin 2019-0 Yes 30U [address] [facility] 9-22 30 units [facility] ([facility] 00:00: AM, 90 u Medic al FlexTouch 00 PM. Center U-200) 200 unit/mL (3 mL) InPn insulin 2020-0 Yes 35U [facility]ject [facility] 00:00: subcutaneo Medica l (NovoLOG 00 usly 3 Center Flexpen (three) U-100 times Insulin) daily 100 unit/mL before (3 mL) InPn meals . insulin 2020-0 Yes 30U [address] [facility] 9-22 30 units [facility] ([facility] 00:00: AM, 90 u Medic al FlexTouch 00 PM. Center U-200) 200 unit/mL (3 mL) InPn insulin 2020-0 Yes 35U Inject 35 [facility] 00:00: subcutaneo Medica l (NovoLOG 00 usly 3 Center Flexpen (three) U-100 times Insulin) daily 100 unit/mL before (3 mL) InPn meals . insulin 2020-0 Yes 30U [address] [facility] 9-22 30 units [facility] ([facility] 00:00: AM, 90 u Medic al FlexTouch 00 PM. Center U-200) 200 unit/mL (3 mL) InPn insulin 2020-0 Yes 35U [facility]ject 35 [facility] 00:00: subcutaneo Medica l (NovoLOG 00 usly 3 Center Flexpen (three) U-100 times Insulin) daily 100 unit/mL before (3 mL) InPn meals . insulin 2020-0 Yes 30U [address] [facility] 9-22 30 [facility] ([facility] 00:00: AM, 90 u Medic al FlexTouch 00 PM. Center U-200) 200 unit/mL (3 mL) InPn insulin 2020-0 Yes 35U Inject [facility] 00:00: subcutaneo Medica l (NovoLOG 00 usly 3 Center Flexpen (three) U-100 times Insulin) daily 100 unit/mL before (3 mL) InPn meals . insulin 2020-0 Yes 30U [address] [facility] 9-22 30 [facility] ([facility] 00:00: AM, 90 u Medic al FlexTouch 00 PM. Center U-200) 200 unit/mL (3 mL) InPn insulin 2020-0 Yes 35U Inject [facility] 00:00: subcutaneo Medica l (NovoLOG 00 usly 3 Center Flexpen (three) U-100 times Insulin) daily 100 unit/mL before (3 mL) InPn meals . insulin 2020-0 Yes 30U [address] [facility] 9-22 30 [facility] ([facility] 00:00: AM, 90 u Medic al FlexTouch 00 PM. Center U-200) 200 unit/mL (3 mL) InPn insulin 2020-0 Yes 35U Inject 35 [facility] 00:00: subcutaneo Medica l (NovoLOG 00 usly 3 Center Flexpen (three) U-100 times Insulin) daily 100 unit/mL before (3 mL) InPn meals . insulin 2020-0 Yes 30U [address] [facility] 9-22 30 [facility] ([facility] 00:00: AM, 90 u Medic al FlexTouch 00 PM. Center U-200) 200 unit/mL (3 mL) InPn insulin 2020-0 Yes 35U Inject 35 [facility] 00:00: subcutaneo Medica l (NovoLOG 00 usly 3 Center Flexpen (three) U-100 times Insulin) daily 100 unit/mL before (3 mL) InPn meals . insulin 2020-0 Yes 30U [address] [facility] 9-22 30 [facility] ([facility] 00:00: AM, 90 u Medic al FlexTouch 00 PM. Center U-200) 200 unit/mL (3 mL) InPn insulin 2020-0 Yes 35U Inject 35 [facility] 00:00: subcutaneo Medica l (NovoLOG 00 usly 3 Center Flexpen (three) U-100 times Insulin) daily 100 unit/mL before (3 mL) InPn meals . insulin 2020-0 Yes 30U [address] [facility] 9-22 30 [facility] ([facility] 00:00: AM, 90 u Medic al FlexTouch 00 PM. Center U-200) 200 unit/mL (3 mL) InPn insulin 2020-0 Yes 35U Inject 35 [facility] 00:00: subcutaneo Medica l (NovoLOG 00 usly 3 Center Flexpen (three) U-100 times Insulin) daily 100 unit/mL before (3 mL) InPn meals . insulin 2020-0 Yes 30U [address] [facility] 9-22 30 [facility] ([facility] 00:00: AM, 90 u [facility] FlexTouch 00 PM. Center U-200) 200 unit/mL (3 mL) InPn insulin 2020-0 Yes 35U Inject [facility] 00:00: subcutaneo Medica l (NovoLOG 00 usly 3 Center Flexpen (three) U-100 times Insulin) daily 100 unit/mL before (3 mL) InPn meals . insulin 2020-0 Yes 30U [address] [facility] 9-22 30 [facility] ([facility] 00:00: AM, 90 u Medic al FlexTouch 00 PM. Center U-200) 200 unit/mL (3 mL) InPn insulin 2020-0 Yes 35U Inject [facility] 00:00: subcutaneo Medica l (NovoLOG 00 usly 3 Center Flexpen (three) U-100 times Insulin) daily 100 unit/mL before (3 mL) InPn meals . insulin 2020-0 Yes 30U [address] [facility] 9-22 30 [facility] ([facility] 00:00: AM, 90 u Medic al FlexTouch 00 PM. Center U-200) 200 unit/mL (3 mL) InPn insulin 2020-0 Yes 35U Inject [facility] 00:00: subcutaneo Medica l (NovoLOG 00 usly 3 Center Flexpen (three) U-100 times Insulin) daily 100 unit/mL before (3 mL) InPn meals . insulin 2020-0 Yes 30U [address] [facility] 9-22 30 [facility] ([facility] 00:00: AM, 90 u [facility] al FlexTouch 00 PM. Center U-200) 200 unit/mL (3 mL) InPn insulin 2020-0 Yes 35U Inject [facility] 00:00: subcutaneo Medica l (NovoLOG 00 usly 3 Center Flexpen (three) U-100 times Insulin) daily 100 unit/mL before (3 mL) InPn meals . insulin 2020-0 Yes 30U [address] [facility] 9-22 30 [facility] ([facility] 00:00: AM, 90 u Medic al FlexTouch 00 PM. Center U-200) 200 unit/mL (3 mL) InPn insulin 2020-0 Yes 35U [facility]ject [facility] 00:00: subcutaneo Medica l (NovoLOG 00 usly 3 Center Flexpen (three) U-100 times Insulin) daily 100 unit/mL before (3 mL) InPn meals . insulin 2020-0 Yes 30U [address] [facility] 9-22 30 [facility] ([facility] 00:00: AM, 90 u Medic al FlexTouch 00 PM. Center U-200) 200 unit/mL (3 mL) InPn insulin 2020-0 Yes 35U Inject 35 [facility] 00:00: subcutaneo Medica l (NovoLOG 00 usly 3 Center Flexpen (three) U-100 times Insulin) daily 100 unit/mL before (3 mL) InPn meals . insulin 2020-0 Yes 30U [address] [facility] 9-22 30 [facility] ([facility] 00:00: AM, 90 u Medic al FlexTouch 00 PM. Center U-200) 200 unit/mL (3 mL) InPn insulin 2020-0 Yes 35U Inject [facility] 00:00: subcutaneo Medica l (NovoLOG 00 usly 3 Center Flexpen (three) U-100 times Insulin) daily 100 unit/mL before (3 mL) InPn meals . insulin 2020-0 Yes 30U [address] [facility] 9-22 30 [facility] ([facility] 00:00: AM, 90 u Medic al FlexTouch 00 PM. Center U-200) 200 unit/mL (3 mL) InPn insulin 2020-0 Yes 35U [facility]ject [facility] 00:00: subcutaneo Medica l (NovoLOG 00 usly 3 Center Flexpen (three) U-100 times Insulin) daily 100 unit/mL before (3 mL) InPn meals . insulin 2020-0 Yes 30U [address] [facility] 9-22 30 [facility] ([facility] 00:00: AM, 90 u Medic al FlexTouch 00 PM. Center U-200) 200 unit/mL (3 mL) InPn insulin 2020-0 Yes 35U [facility]ject [facility] 00:00: subcutaneo Medica l (NovoLOG 00 usly 3 Center Flexpen (three) U-100 times Insulin) daily 100 unit/mL before (3 mL) InPn meals . insulin 2020-0 Yes 30U [address] [facility] 9-22 30 [facility] ([facility] 00:00: AM, 90 u Medic al FlexTouch 00 PM. Center U-200) 200 unit/mL (3 mL) InPn insulin 2020-0 Yes 35U [facility]ject [facility] 00:00: subcutaneo Medica l (NovoLOG 00 usly 3 Center Flexpen (three) U-100 times Insulin) daily 100 unit/mL before (3 mL) InPn meals . insulin 2020-0 Yes 30U [address] [facility] 9-22 30 [facility] ([facility] 00:00: AM, 90 u Medic al FlexTouch 00 PM. Center U-200) 200 unit/mL (3 mL) InPn insulin 2020-0 Yes 35U [facility]ject [facility] 00:00: subcutaneo Medica l (NovoLOG 00 usly 3 Center Flexpen (three) U-100 times Insulin) daily 100 unit/mL before (3 mL) InPn meals . insulin 2020-0 Yes 30U [address] [facility] 9-22 30 [facility] ([facility] 00:00: AM, 90 u Medic al FlexTouch 00 PM. Center U-200) 200 unit/mL (3 mL) InPn insulin 2020-0 Yes 35U [facility]ject [facility] 00:00: subcutaneo Medica l (NovoLOG 00 usly 3 Center Flexpen (three) U-100 times Insulin) daily 100 unit/mL before (3 mL) InPn meals . insulin 2020-0 Yes 30U [address] [facility] 9-22 30 [facility] ([facility] 00:00: AM, 90 u Medic al FlexTouch 00 PM. Center U-200) 200 unit/mL (3 mL) InPn insulin 2020-0 Yes 35U Inject [facility] aspart 9-22 0.35 [facility]s [facility] 00:00: (35 Units Medical (NovoLOG) 00 total) Center 100 unit/mL subcutaneo (3 mL) InPn usly 3 (three) times daily before meals. insulin 2020-0 Yes 30U [address] [facility] 9-22 30 [facility] ([facility] 00:00: AM, 90 u Medic al FlexTouch 00 PM. Center U-200) 200 unit/mL (3 mL) InPn insulin 2020-0 Yes 35U Inject [facility] aspart 9-22 0.35 [facility]s [facility] 00:00: (35 Units Medical (NovoLOG) 00 total) Center 100 unit/mL subcutaneo (3 mL) InPn usly 3 (three) times daily before meals. insulin 2020-0 Yes 30U [address] [facility] 9-22 30 [facility] ([facility] 00:00: AM, 90 u Medic al FlexTouch 00 PM. Center U-200) 200 unit/mL (3 mL) InPn insulin 2020-0 Yes 35U Inject [facility] aspart 9-22 0.35 [facility]s [facility] 00:00: (35 Units Medical (NovoLOG) 00 total) Center 100 unit/mL subcutaneo (3 mL) InPn usly 3 (three) times daily before meals. insulin 2020-0 Yes 30U [address] [facility] 9-22 30 [facility] ([facility] 00:00: AM, 90 u Medic al FlexTouch 00 PM. Center U-200) 200 unit/mL (3 mL) InPn insulin 2020-0 Yes 35U [facility]ject [facility] 00:00: subcutaneo Medica l (NovoLOG 00 usly 3 Center Flexpen (three) U-100 times Insulin) daily 100 unit/mL before (3 mL) InPn meals . insulin 2020-0 Yes 30U [address] [facility] 9-22 30 [facility] ([facility] 00:00: AM, 90 u Medic al FlexTouch 00 PM. Center U-200) 200 unit/mL (3 mL) InPn insulin 2020-0 Yes 35U Inject [facility] aspart 9-22 0.35 [facility]s [facility] 00:00: (35 Units Medical (NovoLOG) 00 total) Center 100 unit/mL subcutaneo (3 mL) InPn usly 3 (three) times daily before meals. insulin 0 Yes 30U [address] [facility] 9-22 30 [facility] ([facility] 00:00: AM, 90 u Medic al FlexTouch 00 PM. Center U-200) 200 unit/mL (3 mL) InPn insulin 0 Yes 35U Inject [facility] aspart 9-22 0.35 [facility]s [facility] 00:00: (35 Units Medical (NovoLOG) 00 total) Center 100 unit/mL subcutaneo (3 mL) InPn usly 3 (three) times daily before meals. No known No No known Metho di medications 1-[address] [facility] No known No No known Metho di medications 1-[address] [facility] 01 l lisinopril lisinopril No lisinopril [facility] 2.5 mg 2.5 mg -24 2.5 mg [facility] tablet tablet 00:00: tablet dic 00 [facility] Synthroid Synthroid No Synthroid [facility] 137 mcg 137 mcg 9-24 137 mcg [facility] e tablet tablet 00:00: tablet dic 00 [facility] tramadol 50 tramadol 50 No tramadol [facility] mg tablet mg tablet 9-24 50 mg Orth [facility] 1-2 EVERY 1-2 EVERY 00:00: tablet 1-2 dic 4-6 HRS PRN 4-6 HRS PRN 00 EVERY 4-6 Sports PAIN PAIN HRS PRN Medicin PAIN e Adderall 5 Adderall 5 No Adderall 5 [facility] mg tablet mg tablet 9-24 mg tablet [facility] 00:[facility]: dic 00 Sports [facility] e fluoxetine fluoxetine No fluoxetine [facility] 10 mg 10 mg 9-24 10 mg [facility] tablet tablet 00:00: tablet dic Sports Medicin e lisinopril lisinopril No lisinopril [facility] 2.5 mg 2.5 mg 9-24 2.5 mg [facility] tablet tablet 00:00: tablet dic Sports Medic[facility] e Synthroid Synthroid No Synthroid [facility] 137 mcg 137 mcg 9-24 137 mcg [facility] e tablet tablet 00:00: tablet dic Sports [facility] e tramadol 50 tramadol 50 No tramadol [facility] mg tablet mg tablet 9-24 50 mg Orth [facility] 1-2 EVERY 1-2 EVERY 00:00: tablet 1-2 dic 4-6 HRS PRN 4-6 HRS PRN 00 EVERY 4-6 Sports PAIN PAIN HRS PRN Medicin PAIN e Adderall 5 Adderall 5 No Adderall 5 [facility] mg tablet mg tablet 9-24 mg tablet [facility] 00:00: dic Sports [facility] e fluoxetine fluoxetine No fluoxetine [facility] 10 mg 10 mg 9-24 10 mg [facility] tablet tablet 00:00: tablet dic Sports Medicin e lisinopril lisinopril No lisinopril [facility] 2.5 mg 2.5 mg 9-24 2.5 mg [facility] tablet tablet 00:00: tablet dic Sports Medic[facility] e Synthroid Synthroid No Synthroid [facility] 137 mcg 137 mcg 9-24 137 mcg [facility] e tablet tablet 00:00: tablet dic Sports Medic[facility] e tramadol 50 tramadol 50 No tramadol [facility] mg tablet mg tablet 9-24 50 mg Orth [facility] 1-2 EVERY 1-2 EVERY 00:00: tablet 1-2 dic 4-6 HRS PRN 4-6 HRS PRN 00 EVERY 4-6 Sports PAIN PAIN HRS PRN Medicin PAIN e Adderall 5 Adderall 5 No Adderall 5 [facility] mg tablet mg tablet 9-24 mg tablet [facility] 00:00: dic Sports Medicin e fluoxetine fluoxetine No fluoxetine [facility] 10 mg 10 mg 9-24 10 mg [facility] tablet tablet 00:00: tablet dic 00 Sports Medicin e metformin metformin No metformin [facility] ER 500 mg ER 500 mg ER 500 mg [facility] tablet,exte tablet,exte tablet,ext dic nded nded ended Sports release 24 release 24 release 24 Medicin hr TAKE 1 hr TAKE 1 hr TAKE 1 e TABLET BY TABLET BY TABLET BY MOUTH TWICE MOUTH TWICE MOUTH A DAY TAKE A DAY TAKE TWICE A WITH FOOD WITH FOOD DAY TAKE WITH FOOD methocarbam methocarbam No methocarba [facility] ol 750 mg ol 750 mg mol 750 mg [facility] tablet TAKE tablet TAKE tablet dic 1 TABLET BY 1 TABLET BY TAKE 1 Sports MOUTH EVERY MOUTH EVERY TABLET BY Medicin 8 HOURS 8 HOURS MOUTH e EVERY 8 HOURS mupirocin 2 mupirocin 2 No mupirocin [facility] % topical % topical 2 % Ortho pe ointment ointment topical dic APPLY TO APPLY TO ointment Spo rts AFFECTED AFFECTED APPLY TO Med icin AREA THREE AREA THREE AFFECTED e TIMES A DAY TIMES A DAY AREA THREE FOR 10 DAYS FOR 10 DAYS TIMES A DAY FOR 10 DAYS oseltamivir oseltamivir No oseltamivi [facility] 75 mg 75 mg r 75 mg [facility] capsule capsule capsule dic TAKE 1 TAKE 1 TAKE 1 Sports CAPSULE BY CAPSULE BY CAPSULE BY Medicin MOUTH TWO MOUTH TWO MOUTH TWO e TIMES DAILY TIMES DAILY TIMES FOR 5 DAYS FOR 5 DAYS DAILY FOR 5 DAYS Ozempic Ozempic No Ozempic [facility] 0.25 mg or 0.25 mg or 0.25 mg or [facility] 0.5 mg (2 0.5 mg (2 0.5 mg (2 dic mg/1.5 mL) mg/1.5 mL) mg/1.5 mL) Sports subcutaneou subcutaneou subcutaneo Medicin s pen s pen us pen e injector injector injector INJECT 0.25 INJECT 0.25 INJECT MG INTO THE MG INTO THE 0.25 MG SKIN EVERY SKIN EVERY INTO THE 7 DAYS FOR 7 DAYS FOR SKIN EVERY 28 DAYS, 28 DAYS, 7 DAYS FOR THEN 0.5 MG THEN 0.5 MG 28 DAYS, EVERY 7 EVERY 7 THEN 0.5 DAYS FOR 62 DAYS FOR 62 MG EVERY 7 DAYS. DAYS. DAYS FOR 62 DAYS. Ozempic 1 Ozempic 1 No Ozempic 1 [facility] mg/dose (4 mg/dose (4 mg/dose (4 [facility] mg/3 mL) mg/3 mL) mg/3 mL) dic subcutaneou subcutaneou subcutaneo Sports s pen s pen us pen Medicin injector injector injector e pantoprazol pantoprazol No pantoprazo [facility] e 40 mg e 40 mg le 40 mg Orth[facility] pe tablet,arnaldo tablet,arnaldo tablet,del dic yed release yed release ayed S ports 1 TABLET(S) 1 TABLET(S) release 1 Medicin EVERY OTHER EVERY OTHER TABLET(S) e DAY ORAL DAY ORAL EVERY OTHER DAY ORAL Paxlovid Paxlovid No Paxlovid Aza turner 300 mg (150 300 mg (150 300 mg [facility] mg x 2)-100 mg x 2)-100 (150 mg x dic mg tablets mg tablets 2)-100 mg Sports in a dose in a dose tablets in Medicin pack (EUA) pack (EUA) a dose e pack (EUA) promethazin promethazin No promethazi [facility] e-DM 6.25 e-DM 6.25 ne-DM 6.25 [facility] mg-15 mg/5 mg-15 mg/5 mg-15 mg/5 dic mL oral mL oral mL oral Sports syrup TAKE syrup TAKE syrup TAKE Medicin 5-10 ML BY 5-10 ML BY 5-10 ML BY e MOUTH 3 MOUTH 3 MOUTH 3 TIMES DAILY TIMES DAILY TIMES NEEDED NEEDED DAILY (COUGH, (COUGH, NEEDED NAUSEA). NAUSEA). (COUGH, THIS WILL THIS WILL NAUSEA). MAKE YOU MAKE YOU THIS WILL SLEEPY SLEEPY MAKE YOU SLEEPY Sutab Sutab No Sutab [facility] 1.479-0.188 1.479-0.188 1.479-0.18 [facility] -0.225 gram -0.225 gram 8-0.225 dic tablet TAKE tablet TAKE gram S ports tablet Medicin INSTRUCTED INSTRUCTED TAKE e BY YOUR BY YOUR INSTRUCTED PHYSICIANS PHYSICIANS BY YOUR OFFICE. MAR OFFICE. [facility] PHYSICIANS [id number] N [id number] N OFFICE. CN GROUP CN GROUP BIN [id number] [facility] CN ID ID GROUP [id number] ID [id number] [facility] No [facility] FlexTouch FlexTouch FlexTouch [facility] U-200 U-200 U-200 dic insulin 200 insulin 200 insulin Sports unit/mL (3 unit/mL (3 200 Med icin mL) mL) unit/mL (3 e subcutaneou subcutaneou mL) s pen s pen subcutaneo INJECT 90 INJECT 90 us pen UNITS AT UNITS AT INJECT 90 NIGHT AND NIGHT AND UNITS AT 30 UNITS IN 30 UNITS IN NIGHT AND THE MORNING THE MORNING 30 UNITS IN THE MORNING triamcinolo triamcinolo No triamcinol [facility] ne ne one [facility] acetonide acetonide acetonide dic 0.1 % 0.1 % 0.1 % Sports topical topical topical Medici n ointment ointment ointment e PUT A SMALL PUT A SMALL PUT A AMOUNT IN AMOUNT IN SMALL AFFECTED AFFECTED AMOUNT IN EAR 3 TIMES EAR 3 TIMES AFFECTED A DAY A DAY EAR 3 NEEDED FOR NEEDED FOR TIMES A ITCHING. ITCHING. DAY NEEDED FOR ITCHING. acarbose 25 acarbose 25 No acarbose [facility] mg tablet mg tablet 25 mg Orth ope TAKE 1 TAKE 1 tablet dic TABLET BY TABLET BY TAKE 1 Spo rts MOUTH 3 MOUTH 3 TABLET BY Medi shruthi TIMES DAILY TIMES DAILY MOUTH 3 e WITH MEALS WITH MEALS TIMES DAILY WITH MEALS acetaminoph acetaminoph No acetaminop [facility] en 300 en 300 hen 300 [facility] mg-codeine mg-codeine mg-codeine dic 30 mg 30 mg 30 mg Sports tablet TAKE tablet TAKE tablet Medicin 1 TABLET BY 1 TABLET BY TAKE 1 e MOUTH EVERY MOUTH EVERY TABLET BY 6 HOURS 6 HOURS MOUTH NEEDED FOR NEEDED FOR EVERY 6 PAIN PAIN HOURS NEEDED FOR PAIN amoxicillin amoxicillin No amoxicilli [facility] 500 500 n 500 [facility] mg-potassiu mg-potassiu mg-potassi dic m m um Sports clavulanate clavulanate clavulanat Medicin 125 mg 125 mg e 125 mg e tablet tablet tablet PLEASE SEE PLEASE SEE PLEASE SEE ATTACHED ATTACHED ATTACHED FOR FOR FOR DETAILED DETAILED DETAILED DIRECTIONS DIRECTIONS DIRECTIONS amoxicillin amoxicillin No amoxicilli [facility] [phone] 875 [facility] mg-potassiu mg-potassiu mg-potassi dic m m um Sports clavulanate clavulanate clavulanat Medicin 125 mg 125 mg e 125 mg e tablet TAKE tablet TAKE tablet 1 TABLET BY 1 TABLET BY TAKE 1 MOUTH TWO MOUTH TWO TABLET BY TIMES DAILY TIMES DAILY MOUTH TWO FOR 10 DAYS FOR 10 DAYS TIMES DAILY FOR 10 DAYS azelastine azelastine No azelastine [facility] 137 mcg 137 mcg 137 mcg Orth[facility] e (0.1 %) (0.1 %) (0.1 %) dic nasal spray nasal spray nasal Sports aerosol aerosol spray Medicin SPRAY 1-2 SPRAY 1-2 aerosol e SPRAYS BY SPRAYS BY SPRAY 1-2 NASAL ROUTE NASAL ROUTE SPRAYS BY TWO TIMES TWO TIMES NASAL DAILY. DAILY. ROUTE TWO TIMES DAILY. BD BD No BD [facility] Ultra-Fine Ultra-Fine Ultra-Fine [facility] Mini Pen Mini Pen Mini Pen dic Needle 31 Needle 31 Needle 31 Sports gauge x gauge x gauge x Medici n 3" USE 5 08/10" USE 5 08/10" USE e TIMES A DAY TIMES A DAY 5 TIMES A DAY benzonatate benzonatate No benzonatat [facility] 100 mg 100 mg e 100 mg [facility] capsule capsule capsule dic TAKE 1 TAKE 1 TAKE 1 Sports CAPSULE BY CAPSULE BY CAPSULE BY Medicin MOUTH THREE MOUTH THREE MOUTH e TIMES A DAY TIMES A DAY THREE NEEDED NEEDED TIMES A FOR COUGH FOR COUGH DAY FOR UP TO FOR UP TO NEEDED FOR 14 DAYS DO 14 DAYS DO COUGH FOR NOT CRUSH NOT CRUSH UP TO 14 OR CHEW OR CHEW DAYS DO NOT CRUSH OR CHEW BinaxNOW BinaxNOW No BinaxNOW Aza turner COVID-19 Ag COVID-19 Ag COVID-19 [facility] Self Test Self Test Ag Self di c kit USE kit USE Test kit Sports DIRECTED DIRECTED USE Medic in DIRECTED e ciprofloxac ciprofloxac No ciprofloxa [facility] in 0.2 % in 0.2 % shruthi 0.2 % Or thope ear drops ear drops ear drops dic in a in a in a Sports dropperette dropperette dropperett Medicin PL[facility] [address] e ML IN THE ML IN THE 0.25 ML IN AFFECTED AFFECTED THE EAR TWICE EAR TWICE AFFECTED DAILY FOR DAILY FOR EAR TWICE 10 DAYS 10 DAYS DAILY FOR 10 DAYS ciprofloxac ciprofloxac No ciprofloxa [facility] in 500 mg in 500 mg shruthi 500 mg [facility] tablet TAKE tablet TAKE tablet dic 1 TABLET BY 1 TABLET BY TAKE 1 Sports MOUTH TWICE MOUTH TWICE TABLET BY Medicin A DAY A DAY MOUTH e TWICE A DAY clotrimazol clotrimazol No clotrimazo [facility] e 1 % e 1 % le 1 % [facility] topical topical topical dic solution solution solution Spo rts PUT 4 DROPS PUT 4 DROPS PUT 4 Medicin IN LEFT EAR IN LEFT EAR DROPS IN e TWICE A DAY TWICE A DAY LEFT EAR TWICE A DAY doxycycline doxycycline No doxycyclin [facility] hyclate 100 hyclate 100 e hyclate [facility] mg capsule mg capsule 100 mg d ic PLEASE SEE PLEASE SEE capsule Sports ATTACHED ATTACHED PLEASE SEE M edicin FOR FOR ATTACHED e DETAILED DETAILED FOR DIRECTIONS DIRECTIONS DETAILED DIRECTIONS duloxetine duloxetine No duloxetine [facility] 20 mg 20 mg 20 mg [facility] capsule,del capsule,del capsule,de dic ayed ayed layed Sports release release release Medici n TAKE 1 TAKE 1 TAKE 1 e CAPSULE BY CAPSULE BY CAPSULE BY MOUTH AT MOUTH AT MOUTH AT BEDTIME FOR BEDTIME FOR BEDTIME PAIN, SLEEP PAIN, SLEEP FOR PAIN, AND ENERGY AND ENERGY SLEEP AND ENERGY duloxetine duloxetine No duloxetine [facility] G 30 mg 30 mg 30 mg [facility] capsule,del capsule,del capsule,de dic ayed ayed layed Sports release release release Medici n TAKE 1 TAKE 1 TAKE 1 e CAPSULE BY CAPSULE BY CAPSULE BY MOUTH MOUTH MOUTH EVERYDAY AT EVERYDAY AT EVERYDAY BEDTIME BEDTIME AT BEDTIME ergocalcife ergocalcife No ergocalcif [facility] rol rol [place] [facility] (vitamin (vitamin (vitamin dic D2) 1,250 D2) 1,250 D2) 1,250 Sports mcg (50,000 mcg (50,000 mcg M edicin unit) unit) (50,000 e capsule capsule unit) TAKE 1 TAKE 1 capsule CAPSULE BY CAPSULE BY TAKE 1 MOUTH EVERY MOUTH EVERY CAPSULE BY 2 WEEKS 2 WEEKS MOUTH EVERY 2 WEEKS ferrous ferrous No ferrous Maria G sulfate 325 sulfate 325 sulfate [facility] mg (65 mg mg (65 mg 325 mg (65 dic iron) iron) mg iron) Sports tablet TAKE tablet TAKE tablet Medicin 1 TABLET BY 1 TABLET BY TAKE 1 e MOUTH EVERY MOUTH EVERY TABLET BY OTHER DAY OTHER DAY MOUTH EVERY OTHER DAY fluconazole fluconazole No fluconazol Maria G 150 mg 150 mg e 150 mg [facility] tablet TAKE tablet TAKE tablet dic 1 TABLET BY 1 TABLET BY TAKE 1 Sports MOUTH EVERY MOUTH EVERY TABLET BY Medicin 72 HOURS 72 HOURS MOUTH e EVERY 72 HOURS fluticasone fluticasone No fluticason Maria G propionate propionate e Ort hope 110 110 propionate dic mcg/actuati mcg/actuati 110 S ports on HFA on HFA mcg/actuat Medic in aerosol aerosol ion HFA e inhaler inhaler aerosol PLEASE SEE PLEASE SEE inhaler ATTACHED ATTACHED PLEASE SEE FOR FOR ATTACHED DETAILED DETAILED FOR DIRECTIONS DIRECTIONS DETAILED DIRECTIONS fluticasone fluticasone No fluticason Maria G propionate propionate e Ort hope 50 50 propionate dic mcg/actuati mcg/actuati 50 S ports on nasal on nasal mcg/actuat M edicin spray,suspe spray,suspe ion nasal e nsion SPRAY nsion SPRAY spray,susp 2 SPRAYS 2 SPRAYS ension INTO EACH INTO EACH SPRAY 2 NOSTRIL NOSTRIL SPRAYS EVERY DAY EVERY DAY INTO EACH NOSTRIL EVERY DAY folic acid folic acid No folic acid Maria G 1 mg tablet 1 mg tablet 1 mg O rthope TAKE 1 TAKE 1 tablet dic TABLET BY TABLET BY TAKE 1 Spo rts MOUTH EVERY MOUTH EVERY TABLET BY Medicin DAY DAY MOUTH e EVERY DAY FreeStyle FreeStyle No FreeStyle Maria G Rafa 14 Rafa 14 Rafa 14 Ort hope Day Sensor Day Sensor Day Sensor dic kit USE ONE kit USE ONE kit USE Sports (1) SENSOR (1) SENSOR ONE (1) Medicin EVERY 14 EVERY 14 SENSOR e DAYS. DAYS. EVERY 14 DAYS. FreeStyle FreeStyle No FreeStyle Maria G Rafa 3 Rafa 3 Rafa 3 Orthop e Sensor Sensor Sensor dic device USE device USE device USE Sports TO CHECK TO CHECK TO CHECK Med icin BLOOD BLOOD BLOOD e GLUCOSE, GLUCOSE, GLUCOSE, CHANGE CHANGE CHANGE EVERY 14 EVERY 14 EVERY 14 DAYS DAYS DAYS ibuprofen ibuprofen No ibuprofen Maria G 800 mg 800 mg 800 mg [facility] tablet TAKE tablet TAKE tablet dic 1 TABLET BY 1 TABLET BY TAKE 1 Sports MOUTH EVERY MOUTH EVERY TABLET BY Medicin 8 HOURS 8 HOURS MOUTH e EVERY 8 HOURS icosapent icosapent No icosapent Maria G ethyl 1 ethyl 1 ethyl 1 Orthop e gram gram gram dic capsule capsule capsule Sports TAKE 2 TAKE 2 TAKE 2 Medicin CAPSULES BY CAPSULES BY CAPSULES e MOUTH TWICE MOUTH TWICE BY MOUTH A DAY A DAY TWICE A DAY irbesartan irbesartan No irbesartan Maria G 300 mg 300 mg 300 mg [facility] tablet TAKE tablet TAKE tablet dic 1 TABLET BY 1 TABLET BY TAKE 1 Sports MOUTH MOUTH TABLET BY Medicin EVERYDAY AT EVERYDAY AT MOUTH e BEDTIME BEDTIME EVERYDAY AT BEDTIME Jardiance Jardiance No Jardiance Maria G 25 mg 25 mg 25 mg [facility] tablet TAKE tablet TAKE tablet dic 1 TABLET BY 1 TABLET BY TAKE 1 Sports MOUTH EVERY MOUTH EVERY TABLET BY Medicin DAY MOUTH e EVERY DAY levothyroxi levothyroxi No levothyrox Maria G ne 200 mcg ne 200 mcg ine 200 [facility] tablet TAKE tablet TAKE mcg tablet dic 1 TABLET BY 1 TABLET BY TAKE 1 Sports MOUTH MOUTH TABLET BY Medicin SUNDAY THRU SUNDAY THRU MOUTH e Sunday AND 1.5 AND 1.5 THRU TABLETS ON TABLETS ON Sunday AND 1.5 TABLETS ON SUNDAY lorazepam 1 lorazepam 1 No lorazepam Maria G mg tablet mg tablet 1 mg Ortho pe TAKE 1 TAKE 1 tablet dic TABLET BY TABLET BY TAKE 1 Spo rts MOUTH ONCE MOUTH ONCE TABLET BY Medicin FOR 1 DOSE. FOR 1 DOSE. MOUTH ONCE e TAKE 30 TAKE 30 FOR 1 MINUTES MINUTES DOSE. TAKE BEFORE MRI BEFORE MRI 30 MINUTES FOR FOR BEFORE MRI CLAUSTROPHO CLAUSTROPHO FOR NEEMA. NEEMA. CLAUSTROPH OBIA. meloxicam meloxicam No meloxicam Maria G 7.5 mg 7.5 mg 7.5 mg [facility] tablet TAKE tablet TAKE tablet dic 1 OR 2 1 OR 2 TAKE 1 OR Sports PILLS PILLS 2 PILLS Medicin ORALLY ONCE ORALLY ONCE ORALLY e A DAY A DAY ONCE A DAY metformin metformin No metformin Maria G ER 500 mg ER 500 mg ER 500 mg [facility] tablet,exte tablet,exte tablet,ext dic nded nded ended Sports release 24 release 24 release 24 Medicin hr TAKE 1 hr TAKE 1 hr TAKE 1 e TABLET BY TABLET BY TABLET BY MOUTH TWICE MOUTH TWICE MOUTH A DAY TAKE A DAY TAKE TWICE A WITH FOOD WITH FOOD DAY TAKE WITH FOOD methocarbam methocarbam No methocarba Maria G ol 500 mg ol 500 mg mol 500 mg [facility] tablet tablet tablet dic PLEASE SEE PLEASE SEE PLEASE SEE Sports ATTACHED ATTACHED ATTACHED Med icin FOR FOR FOR e DETAILED DETAILED DETAILED DIRECTIONS DIRECTIONS DIRECTIONS methocarbam methocarbam No methocarba Maria G ol 750 mg ol 750 mg mol 750 mg [facility] tablet TAKE tablet TAKE tablet dic 1 TABLET BY 1 TABLET BY TAKE 1 Sports MOUTH EVERY MOUTH EVERY TABLET BY Medicin 8 HOURS 8 HOURS MOUTH e EVERY 8 HOURS methotrexat methotrexat No methotrexa Maria G e sodium e sodium te sodium Or thope 2.5 mg 2.5 mg 2.5 mg dic tablet TAKE tablet TAKE tablet Sports 4 TABLETS 4 TABLETS TAKE 4 Med icin BY MOUTH BY MOUTH TABLETS BY e EVERY 7 EVERY 7 MOUTH DAYS. DAYS. EVERY 7 DAYS. mupirocin 2 mupirocin 2 No mupirocin Maria G % topical % topical 2 % Ortho pe ointment ointment topical dic APPLY TO APPLY TO ointment Spo rts AFFECTED AFFECTED APPLY TO Med icin AREA THREE AREA THREE AFFECTED e TIMES A DAY TIMES A DAY AREA THREE FOR 10 DAYS FOR 10 DAYS TIMES A DAY FOR 10 DAYS ondansetron ondansetron No ondansetro Maria G 4 mg 4 mg n 4 mg [facility] disintegrat disintegrat disintegra dic ing tablet ing tablet ting Spo rts TAKE 1 TAKE 1 tablet Medicin TABLET BY TABLET BY TAKE 1 e MOUTH EVERY MOUTH EVERY TABLET BY 8 HOURS 8 HOURS MOUTH NEEDED FOR NEEDED FOR EVERY 8 NAUSEA NAUSEA HOURS NEEDED FOR NAUSEA oseltamivir oseltamivir No oseltamivi Maria G 75 mg 75 mg r 75 mg [facility] capsule capsule capsule dic TAKE 1 TAKE 1 TAKE 1 Sports CAPSULE BY CAPSULE BY CAPSULE BY Medicin MOUTH TWO MOUTH TWO MOUTH TWO e TIMES DAILY TIMES DAILY TIMES FOR 5 DAYS FOR 5 DAYS DAILY FOR 5 DAYS Ozempic Ozempic No Ozempic Maria G 0.25 mg or 0.25 mg or 0.25 mg or [facility] 0.5 mg (2 0.5 mg (2 0.5 mg (2 dic mg/1.5 mL) mg/1.5 mL) mg/1.5 mL) Sports subcutaneou subcutaneou subcutaneo Medicin s pen s pen us pen e injector injector injector INJECT 0.25 INJECT 0.25 INJECT MG INTO THE MG INTO THE 0.25 MG SKIN EVERY SKIN EVERY INTO THE 7 DAYS FOR 7 DAYS FOR SKIN EVERY 28 DAYS, 28 DAYS, 7 DAYS FOR THEN 0.5 MG THEN 0.5 MG 28 DAYS, EVERY 7 EVERY 7 THEN 0.5 DAYS FOR 62 DAYS FOR 62 MG EVERY 7 DAYS. DAYS. DAYS FOR 62 DAYS. Ozempic 1 Ozempic 1 No Ozempic 1 Maria G mg/dose (4 mg/dose (4 mg/dose (4 [facility] mg/3 mL) mg/3 mL) mg/3 mL) dic subcutaneou subcutaneou subcutaneo Sports s pen s pen us pen Medicin injector injector injector e Ozempic 2 Ozempic 2 No Ozempic 2 Maria G mg/dose (8 mg/dose (8 mg/dose (8 [facility] mg/3 mL) mg/3 mL) mg/3 mL) dic subcutaneou subcutaneou subcutaneo Sports s pen s pen us pen Medicin injector injector injector e INJECT TWO INJECT TWO INJECT TWO (2) MG (2) MG (2) MG UNDER THE UNDER THE UNDER THE SKIN EVERY SKIN EVERY SKIN EVERY 7 DAYS. 7 DAYS. 7 DAYS. pantoprazol pantoprazol No pantoprazo Maria G e 40 mg e 40 mg le 40 mg Ortho pe tablet,arnaldo tablet,arnaldo tablet,del dic yed release yed release ayed S ports 1 TABLET(S) 1 TABLET(S) release 1 Medicin EVERY OTHER EVERY OTHER TABLET(S) e DAY ORAL DAY ORAL EVERY OTHER DAY ORAL Paxlovid Paxlovid No Paxlovid Aza turner 300 mg (150 300 mg (150 300 mg [facility] mg x 2)-100 mg x 2)-100 (150 mg x dic mg tablets mg tablets 2)-100 mg Sports in a dose in a dose tablets in Medicin pack (EUA) pack (EUA) a dose e pack (EUA) promethazin promethazin No promethazi Maria G e-DM 6.25 e-DM 6.25 ne-DM 6.25 [facility] mg-15 mg/5 mg-15 mg/5 mg-15 mg/5 dic mL oral mL oral mL oral Sports syrup TAKE syrup TAKE syrup TAKE Medicin 5-10 ML BY 5-10 ML BY 5-10 ML BY e MOUTH 3 MOUTH 3 MOUTH 3 TIMES DAILY TIMES DAILY TIMES NEEDED NEEDED DAILY (COUGH, (COUGH, NEEDED NAUSEA). NAUSEA). (COUGH, THIS WILL THIS WILL NAUSEA). MAKE YOU MAKE YOU THIS WILL SLEEPY SLEEPY MAKE YOU SLEEPY Sutab Sutab No Sutab Maria G 1.479-0.188 1.479-0.188 1.479-0.18 [facility] -0.225 gram -0.225 gram 8-0.225 dic tablet TAKE tablet TAKE gram S ports tablet Medicin INSTRUCTED INSTRUCTED TAKE e BY YOUR BY YOUR INSTRUCTED PHYSICIANS PHYSICIANS BY YOUR OFFICE. MAR OFFICE. [facility] PHYSICIANS [id number] N [id number] PCN OFFICE. CN GROUP CN GROUP BIN [id number] [facility] CN ID ID GROUP [id number] ID [id number] trazodone trazodone No trazodone Maria G 50 mg 50 mg 50 mg [facility] tablet TAKE tablet TAKE tablet dic 1/2 TO 1 1/2 TO 1 TAKE 1/2 Spo rts TABLET BY TABLET BY TO 1 Medic in MOUTH MOUTH TABLET BY e NIGHTLY NIGHTLY MOUTH NEEDED FOR NEEDED FOR NIGHTLY SLEEP SLEEP NEEDED FOR SLEEP Tresiba Tresiba No Tresiba Maria G FlexTouch FlexTouch FlexTouch [facility] U-200 U-200 U-200 dic insulin 200 insulin 200 insulin Sports unit/mL (3 unit/mL (3 200 Med icin mL) mL) unit/mL (3 e subcutaneou subcutaneou mL) s pen s pen subcutaneo INJECT 140 INJECT 140 us pen UNITS UNITS INJECT 140 SUBCUTANEOU SUBCUTANEOU UNITS SLY DAILY SLY DAILY SUBCUTANEO USLY DAILY triamcinolo triamcinolo No triamcinol Maria G ne ne one [facility] acetonide acetonide acetonide dic 0.1 % 0.1 % 0.1 % Sports topical topical topical Medici n ointment ointment ointment e PUT A SMALL PUT A SMALL PUT A AMOUNT IN AMOUNT IN SMALL AFFECTED AFFECTED AMOUNT IN EAR 3 TIMES EAR 3 TIMES AFFECTED A DAY A DAY EAR 3 NEEDED FOR NEEDED FOR TIMES A ITCHING. ITCHING. DAY NEEDED FOR ITCHING. acarbose 25 acarbose 25 No acarbose Maria G mg tablet mg tablet 25 mg Orth ope TAKE 1 TAKE 1 tablet dic TABLET BY TABLET BY TAKE 1 Spo rts MOUTH 3 MOUTH 3 TABLET BY Medi shruthi TIMES DAILY TIMES DAILY MOUTH 3 e WITH MEALS WITH MEALS TIMES DAILY WITH MEALS acetaminoph acetaminoph No acetaminop Maria G en 300 en 300 hen 300 [facility] mg-codeine mg-codeine mg-codeine dic 30 mg 30 mg 30 mg Sports tablet TAKE tablet TAKE tablet Medicin 1 TABLET BY 1 TABLET BY TAKE 1 e MOUTH EVERY MOUTH EVERY TABLET BY 6 HOURS 6 HOURS MOUTH NEEDED FOR NEEDED FOR EVERY 6 PAIN PAIN HOURS NEEDED FOR PAIN amoxicillin amoxicillin No amoxicilli Maria G [phone] [facility] mg-potassiu mg-potassiu mg-potassi dic m m um Sports clavulanate clavulanate clavulanat Medicin 125 mg 125 mg e 125 mg e tablet TAKE tablet TAKE tablet 1 TABLET BY 1 TABLET BY TAKE 1 MOUTH EVERY MOUTH EVERY TABLET BY 12 HOURS 12 HOURS MOUTH FOR 10 DAYS FOR 10 DAYS EVERY 12 HOURS FOR 10 DAYS azelastine azelastine No azelastine Maria G 137 mcg 137 mcg 137 mcg Orthop e (0.1 %) (0.1 %) (0.1 %) dic nasal spray nasal spray nasal Sports aerosol aerosol spray Medicin SPRAY 1-2 SPRAY 1-2 aerosol e SPRAYS BY SPRAYS BY SPRAY 1-2 NASAL ROUTE NASAL ROUTE SPRAYS BY TWO TIMES TWO TIMES NASAL DAILY. DAILY. ROUTE TWO TIMES DAILY. BD BD No BD Maria G Ultra-Fine Ultra-Fine Ultra-Fine [facility] Mini Pen Mini Pen Mini Pen dic Needle 31 Needle 31 Needle 31 Sports gauge x gauge x gauge x Medici n 3/16" USE 5 316" USE 5 316" USE e TIMES A DAY TIMES A DAY 5 TIMES A DAY benzonatate benzonatate No benzonatat Maria G 100 mg 100 mg e 100 mg [facility] capsule capsule capsule dic TAKE 1 TAKE 1 TAKE 1 Sports CAPSULE BY CAPSULE BY CAPSULE BY Medicin MOUTH THREE MOUTH THREE MOUTH e TIMES A DAY TIMES A DAY THREE NEEDED NEEDED TIMES A FOR COUGH FOR COUGH DAY FOR UP TO FOR UP TO NEEDED FOR 14 DAYS DO 14 DAYS DO COUGH FOR NOT CRUSH NOT CRUSH UP TO 14 OR CHEW OR CHEW DAYS DO NOT CRUSH OR CHEW BinaxNOW BinaxNOW No BinaxNOW Aza turner COVID-19 Ag COVID-19 Ag COVID-19 [facility] Self Test Self Test Ag Self di c kit USE kit USE Test kit Sports DIRECTED DIRECTED USE Medic in DIRECTED e ciprofloxac ciprofloxac No ciprofloxa Maria G in 0.2 % in 0.2 % shruthi 0.2 % Or thope ear drops ear drops ear drops dic in a in a in a Sports dropperette dropperette dropperett Medicin PLACE [address] e ML IN THE ML IN THE 0.25 ML IN AFFECTED AFFECTED THE EAR TWICE EAR TWICE AFFECTED DAILY FOR DAILY FOR EAR TWICE 10 DAYS 10 DAYS DAILY FOR 10 DAYS ciprofloxac ciprofloxac No ciprofloxa Maria G in 500 mg in 500 mg shruthi 500 mg [facility] tablet TAKE tablet TAKE tablet dic 1 TABLET BY 1 TABLET BY TAKE 1 Sports MOUTH TWICE MOUTH TWICE TABLET BY Medicin A DAY A DAY MOUTH e TWICE A DAY clotrimazol clotrimazol No clotrimazo Maria G e 1 % e 1 % le 1 % [facility] topical topical topical dic solution solution solution Spo rts PUT 4 DROPS PUT 4 DROPS PUT 4 Medicin IN LEFT EAR IN LEFT EAR DROPS IN e TWICE A DAY TWICE A DAY LEFT EAR TWICE A DAY doxycycline doxycycline No doxycyclin Maria G hyclate 100 hyclate 100 e hyclate [facility] mg capsule mg capsule 100 mg d ic PLEASE SEE PLEASE SEE capsule Sports ATTACHED ATTACHED PLEASE SEE M edicin FOR FOR ATTACHED e DETAILED DETAILED FOR DIRECTIONS DIRECTIONS DETAILED DIRECTIONS ergocalcife ergocalcife No ergocalcif Maria G rol rol [place]ona [facility] (vitamin (vitamin (vitamin dic D2) 1,250 D2) 1,250 D2) 1,250 Sports mcg (50,000 mcg (50,000 mcg M edicin unit) unit) (50,000 e capsule capsule unit) TAKE 1 TAKE 1 capsule CAPSULE BY CAPSULE BY TAKE 1 MOUTH MOUTH CAPSULE BY MONTHLY MONTHLY MOUTH MONTHLY ferrous ferrous No ferrous Maria G sulfate 325 sulfate 325 sulfate [facility] mg (65 mg mg (65 mg 325 mg (65 dic iron) iron) mg iron) Sports tablet TAKE tablet TAKE tablet Medicin 1 TABLET BY 1 TABLET BY TAKE 1 e MOUTH EVERY MOUTH EVERY TABLET BY OTHER DAY OTHER DAY MOUTH EVERY OTHER DAY fluconazole fluconazole No fluconazol Maria G 150 mg 150 mg e 150 mg [facility] tablet TAKE tablet TAKE tablet dic 1 TABLET BY 1 TABLET BY TAKE 1 Sports MOUTH EVERY MOUTH EVERY TABLET BY Medicin 72 HOURS 72 HOURS MOUTH e EVERY 72 HOURS fluticasone fluticasone No fluticason Maria G propionate propionate e Ort hope 110 110 propionate dic mcg/actuati mcg/actuati 110 S ports on HFA on HFA mcg/actuat Medic in aerosol aerosol ion HFA e inhaler inhaler aerosol PLEASE SEE PLEASE SEE inhaler ATTACHED ATTACHED PLEASE SEE FOR FOR ATTACHED DETAILED DETAILED FOR DIRECTIONS DIRECTIONS DETAILED DIRECTIONS fluticasone fluticasone No fluticason Maria G propionate propionate e Ort hope 50 50 propionate dic mcg/actuati mcg/actuati 50 S ports on nasal on nasal mcg/actuat M edicin spray,suspe spray,suspe ion nasal e nsion SPRAY nsion SPRAY spray,susp 2 SPRAYS 2 SPRAYS ension INTO EACH INTO EACH SPRAY 2 NOSTRIL NOSTRIL SPRAYS EVERY DAY EVERY DAY INTO EACH NOSTRIL EVERY DAY FreeStyle FreeStyle No FreeStyle Maria G Rafa 14 Rafa 14 Rafa 14 Ort hope Day Sensor Day Sensor Day Sensor dic kit USE ONE kit USE ONE kit USE Sports (1) SENSOR (1) SENSOR ONE (1) Medicin EVERY 14 EVERY 14 SENSOR e DAYS. DAYS. EVERY 14 DAYS. FreeStyle FreeStyle No FreeStyle Maria G Rafa 3 Rafa 3 Rafa 3 Orthop e Sensor Sensor Sensor dic device USE device USE device USE Sports TO CHECK TO CHECK TO CHECK Med icin BLOOD BLOOD BLOOD e GLUCOSE, GLUCOSE, GLUCOSE, CHANGE CHANGE CHANGE EVERY 14 EVERY 14 EVERY 14 DAYS DAYS DAYS ibuprofen ibuprofen No ibuprofen Maria G 800 mg 800 mg 800 mg [facility] tablet TAKE tablet TAKE tablet dic 1 TABLET BY 1 TABLET BY TAKE 1 Sports MOUTH EVERY MOUTH EVERY TABLET BY Medicin 8 HOURS 8 HOURS MOUTH e EVERY 8 HOURS icosapent icosapent No icosapent Maria G ethyl 1 ethyl 1 ethyl 1 Orthop e gram gram gram dic capsule capsule capsule Sports TAKE 2 TAKE 2 TAKE 2 Medicin CAPSULES BY CAPSULES BY CAPSULES e MOUTH TWICE MOUTH TWICE BY MOUTH A DAY A DAY TWICE A DAY irbesartan irbesartan No irbesartan Maria G 300 mg 300 mg 300 mg [facility] tablet TAKE tablet TAKE tablet dic 1 TABLET BY 1 TABLET BY TAKE 1 Sports MOUTH MOUTH TABLET BY Medicin EVERYDAY AT EVERYDAY AT MOUTH e BEDTIME BEDTIME EVERYDAY AT BEDTIME Jardiance Jardiance No Jardiance Maria G 25 mg 25 mg 25 mg [facility] tablet TAKE tablet TAKE tablet dic 1 TABLET BY 1 TABLET BY TAKE 1 Sports MOUTH EVERY MOUTH EVERY TABLET BY Medicin DAY DAY MOUTH e EVERY DAY levothyroxi levothyroxi No levothyrox Maria G ne 200 mcg ne 200 mcg ine 200 [facility] tablet TAKE tablet TAKE mcg tablet dic 1 TABLET BY 1 TABLET BY TAKE 1 Sports MOUTH MOUTH TABLET BY Medicin SUNDAY THRU SUNDAY THRU MOUTH e Sunday AND 1.5 AND 1.5 THRU TABLETS ON TABLETS ON Sunday AND 1.5 TABLETS ON SUNDAY metformin metformin No metformin Maria G ER 500 mg ER 500 mg ER 500 mg [facility] tablet,exte tablet,exte tablet,ext dic nded nded ended Sports release 24 release 24 release 24 Medicin hr TAKE 1 hr TAKE 1 hr TAKE 1 e TABLET BY TABLET BY TABLET BY MOUTH TWICE MOUTH TWICE MOUTH A DAY TAKE A DAY TAKE TWICE A WITH FOOD WITH FOOD DAY TAKE WITH FOOD methocarbam methocarbam No methocarba Maria G ol 750 mg ol 750 mg mol 750 mg [facility] tablet TAKE tablet TAKE tablet dic 1 TABLET BY 1 TABLET BY TAKE 1 Sports MOUTH EVERY MOUTH EVERY TABLET BY Medicin 8 HOURS 8 HOURS MOUTH e EVERY 8 HOURS mupirocin 2 mupirocin 2 No mupirocin Amria G % topical % topical 2 % Ortho pe ointment ointment topical dic APPLY TO APPLY TO ointment Spo rts AFFECTED AFFECTED APPLY TO Med icin AREA THREE AREA THREE AFFECTED e TIMES A DAY TIMES A DAY AREA THREE FOR 10 DAYS FOR 10 DAYS TIMES A DAY FOR 10 DAYS oseltamivir oseltamivir No oseltamivi Maria G 75 mg 75 mg r 75 mg [facility] capsule capsule capsule dic TAKE 1 TAKE 1 TAKE 1 Sports CAPSULE BY CAPSULE BY CAPSULE BY Medicin MOUTH TWO MOUTH TWO MOUTH TWO e TIMES DAILY TIMES DAILY TIMES FOR 5 DAYS FOR 5 DAYS DAILY FOR 5 DAYS Ozempic Ozempic No Ozempic Maria G 0.25 mg or 0.25 mg or 0.25 mg or [facility] 0.5 mg (2 0.5 mg (2 0.5 mg (2 dic mg/1.5 mL) mg/1.5 mL) mg/1.5 mL) Sports subcutaneou subcutaneou subcutaneo Medicin s pen s pen us pen e injector injector injector INJECT 0.25 INJECT 0.25 INJECT MG INTO THE MG INTO THE 0.25 MG SKIN EVERY SKIN EVERY INTO THE 7 DAYS FOR 7 DAYS FOR SKIN EVERY 28 DAYS, 28 DAYS, 7 DAYS FOR THEN 0.5 MG THEN 0.5 MG 28 DAYS, EVERY 7 EVERY 7 THEN 0.5 DAYS FOR 62 DAYS FOR 62 MG EVERY 7 DAYS. DAYS. DAYS FOR 62 DAYS. Ozempic 1 Ozempic 1 No Ozempic 1 Maria G mg/dose (4 mg/dose (4 mg/dose (4 [facility] mg/3 mL) mg/3 mL) mg/3 mL) dic subcutaneou subcutaneou subcutaneo Sports s pen s pen us pen Medicin injector injector injector e pantoprazol pantoprazol No pantoprazo Maria G e 40 mg e 40 mg le 40 mg Ortho pe tablet,arnaldo tablet,arnaldo tablet,del dic yed release yed release ayed S ports 1 TABLET(S) 1 TABLET(S) release 1 Medicin EVERY OTHER EVERY OTHER TABLET(S) e DAY ORAL DAY ORAL EVERY OTHER DAY ORAL Paxlovid Paxlovid No Paxlovid Aza turner 300 mg (150 300 mg (150 300 mg [facility] mg x 2)-100 mg x 2)-100 (150 mg x dic mg tablets mg tablets 2)-100 mg Sports in a dose in a dose tablets in Medicin pack (EUA) pack (EUA) a dose e pack (EUA) promethazin promethazin No promethazi Maria G e-DM 6.25 e-DM 6.25 ne-DM 6.25 [facility] mg-15 mg/5 mg-15 mg/5 mg-15 mg/5 dic mL oral mL oral mL oral Sports syrup TAKE syrup TAKE syrup TAKE Medicin 5-10 ML BY 5-10 ML BY 5-10 ML BY e MOUTH 3 MOUTH 3 MOUTH 3 TIMES DAILY TIMES DAILY TIMES NEEDED NEEDED DAILY (COUGH, (COUGH, NEEDED NAUSEA). NAUSEA). (COUGH, THIS WILL THIS WILL NAUSEA). MAKE YOU MAKE YOU THIS WILL SLEEPY SLEEPY MAKE YOU SLEEPY Sutab Sutab No Sutab Maria G 1.479-0.188 1.479-0.188 1.479-0.18 Orthope -0.225 gram -0.225 gram 8-0.225 dic tablet TAKE tablet TAKE gram S ports tablet Medicin INSTRUCTED INSTRUCTED TAKE e BY YOUR BY YOUR INSTRUCTED PHYSICIANS PHYSICIANS BY YOUR OFFICE. [facility] OFFICE. [facility] PHYSICIANS [id number] PCN OFFICE. CN GROUP CN GROUP [facility] [id number] [facility] CN ID ID GROUP [id number] ID [id number] Tresiba Tresiba No Tresiba Maria G FlexTouch FlexTouch FlexTouch [facility] U-200 U-200 U-200 dic insulin 200 insulin 200 insulin Sports unit/mL (3 unit/mL (3 200 Med icin mL) mL) unit/mL (3 e subcutaneou subcutaneou mL) s pen s pen subcutaneo INJECT 90 INJECT 90 us pen UNITS AT UNITS AT INJECT 90 NIGHT AND NIGHT AND UNITS AT 30 UNITS IN 30 UNITS IN NIGHT AND THE MORNING THE MORNING 30 UNITS IN THE MORNING triamcinolo triamcinolo No triamcinol Maria G ne ne one [facility] acetonide acetonide acetonide dic 0.1 % 0.1 % 0.1 % Sports topical topical topical Medici n ointment ointment ointment e PUT A SMALL PUT A SMALL PUT A AMOUNT IN AMOUNT IN SMALL AFFECTED AFFECTED AMOUNT IN EAR 3 TIMES EAR 3 TIMES AFFECTED A DAY A DAY EAR 3 NEEDED FOR NEEDED FOR TIMES A ITCHING. ITCHING. DAY NEEDED FOR ITCHING. acarbose 25 acarbose 25 No acarbose Maria G mg tablet mg tablet 25 mg Orth ope TAKE 1 TAKE 1 tablet dic TABLET BY TABLET BY TAKE 1 Spo rts MOUTH 3 MOUTH 3 TABLET BY Medi shruthi TIMES DAILY TIMES DAILY MOUTH 3 e WITH MEALS WITH MEALS TIMES DAILY WITH MEALS acetaminoph acetaminoph No acetaminop Maria G en 300 en 300 hen 300 [facility] mg-codeine mg-codeine mg-codeine dic 30 mg 30 mg 30 mg Sports tablet TAKE tablet TAKE tablet Medicin 1 TABLET BY 1 TABLET BY TAKE 1 e MOUTH EVERY MOUTH EVERY TABLET BY 6 HOURS 6 HOURS MOUTH NEEDED FOR NEEDED FOR EVERY 6 PAIN PAIN HOURS NEEDED FOR PAIN amoxicillin amoxicillin No amoxicilli Maria G [phone] n 875 [facility] mg-potassiu mg-potassiu mg-potassi dic m m um Sports clavulanate clavulanate clavulanat Medicin 125 mg 125 mg e 125 mg e tablet TAKE tablet TAKE tablet 1 TABLET BY 1 TABLET BY TAKE 1 MOUTH EVERY MOUTH EVERY TABLET BY 12 HOURS 12 HOURS MOUTH FOR 10 DAYS FOR 10 DAYS EVERY 12 HOURS FOR 10 DAYS azelastine azelastine No azelastine Maria G 137 mcg 137 mcg 137 mcg Orthop e (0.1 %) (0.1 %) (0.1 %) dic nasal spray nasal spray nasal Sports aerosol aerosol spray Medicin SPRAY 1-2 SPRAY 1-2 aerosol e SPRAYS BY SPRAYS BY SPRAY 1-2 NASAL ROUTE NASAL ROUTE SPRAYS BY TWO TIMES TWO TIMES NASAL DAILY. DAILY. ROUTE TWO TIMES DAILY. BD BD No BD Maria G Ultra-Fine Ultra-Fine Ultra-Fine [facility] Mini Pen Mini Pen Mini Pen dic Needle 31 Needle 31 Needle 31 Sports gauge x gauge x gauge x Medici n 3" USE 5 08/10" USE 5 08/10" USE e TIMES A DAY TIMES A DAY 5 TIMES A DAY benzonatate benzonatate No benzonatat Maria G 100 mg 100 mg e 100 mg [facility] capsule capsule capsule dic TAKE 1 TAKE 1 TAKE 1 Sports CAPSULE BY CAPSULE BY CAPSULE BY Medicin MOUTH THREE MOUTH THREE MOUTH e TIMES A DAY TIMES A DAY THREE NEEDED NEEDED TIMES A FOR COUGH FOR COUGH DAY FOR UP TO FOR UP TO NEEDED FOR 14 DAYS DO 14 DAYS DO COUGH FOR NOT CRUSH NOT CRUSH UP TO 14 OR CHEW OR CHEW DAYS DO NOT CRUSH OR CHEW BinaxNOW BinaxNOW No BinaxNOW Aza turner COVID-19 Ag COVID-19 Ag COVID-19 [facility] Self Test Self Test Ag Self di c kit USE kit USE Test kit Sports DIRECTED DIRECTED USE Medic in DIRECTED e ciprofloxac ciprofloxac No ciprofloxa Maria G in 0.2 % in 0.2 % shruthi 0.2 % Or thope ear drops ear drops ear drops dic in a in a in a Sports dropperette dropperette dropperett Medicin PLACE [address] e ML IN THE ML IN THE 0.25 ML IN AFFECTED AFFECTED THE EAR TWICE EAR TWICE AFFECTED DAILY FOR DAILY FOR EAR TWICE 10 DAYS 10 DAYS DAILY FOR 10 DAYS ciprofloxac ciprofloxac No ciprofloxa Maria G in 500 mg in 500 mg shruthi 500 mg [facility] tablet TAKE tablet TAKE tablet dic 1 TABLET BY 1 TABLET BY TAKE 1 Sports MOUTH TWICE MOUTH TWICE TABLET BY Medicin A DAY A DAY MOUTH e TWICE A DAY clotrimazol clotrimazol No clotrimazo Maria G e 1 % e 1 % le 1 % [facility] topical topical topical dic solution solution solution Spo rts PUT 4 DROPS PUT 4 DROPS PUT 4 Medicin IN LEFT EAR IN LEFT EAR DROPS IN e TWICE A DAY TWICE A DAY LEFT EAR TWICE A DAY doxycycline doxycycline No doxycyclin Maria G hyclate 100 hyclate 100 e hyclate [facility] mg capsule mg capsule 100 mg d ic PLEASE SEE PLEASE SEE capsule Sports ATTACHED ATTACHED PLEASE SEE M edicin FOR FOR ATTACHED e DETAILED DETAILED FOR DIRECTIONS DIRECTIONS DETAILED DIRECTIONS ergocalcife ergocalcife No ergocalcif Maria G rol rol corona [facility] (vitamin (vitamin (vitamin dic D2) 1,250 D2) 1,250 D2) 1,250 Sports mcg (50,000 mcg (50,000 mcg M edicin unit) unit) (50,000 e capsule capsule unit) TAKE 1 TAKE 1 capsule CAPSULE BY CAPSULE BY TAKE 1 MOUTH MOUTH CAPSULE BY MONTHLY MONTHLY MOUTH MONTHLY ferrous ferrous No ferrous Maria G sulfate 325 sulfate 325 sulfate [facility] mg (65 mg mg (65 mg 325 mg (65 dic iron) iron) mg iron) Sports tablet TAKE tablet TAKE tablet Medicin 1 TABLET BY 1 TABLET BY TAKE 1 e MOUTH EVERY MOUTH EVERY TABLET BY OTHER DAY OTHER DAY MOUTH EVERY OTHER DAY fluconazole fluconazole No fluconazol Maria G 150 mg 150 mg e 150 mg [facility] tablet TAKE tablet TAKE tablet dic 1 TABLET BY 1 TABLET BY TAKE 1 Sports MOUTH EVERY MOUTH EVERY TABLET BY Medicin 72 HOURS 72 HOURS MOUTH e EVERY 72 HOURS fluticasone fluticasone No fluticason Maria G propionate propionate e Ort hope 110 110 propionate dic mcg/actuati mcg/actuati 110 S ports on HFA on HFA mcg/actuat Medic in aerosol aerosol ion HFA e inhaler inhaler aerosol PLEASE SEE PLEASE SEE inhaler ATTACHED ATTACHED PLEASE SEE FOR FOR ATTACHED DETAILED DETAILED FOR DIRECTIONS DIRECTIONS DETAILED DIRECTIONS fluticasone fluticasone No fluticason Maria G propionate propionate e Ort hope 50 50 propionate dic mcg/actuati mcg/actuati 50 S ports on nasal on nasal mcg/actuat M edicin spray,suspe spray,suspe ion nasal e nsion SPRAY nsion SPRAY spray,susp 2 SPRAYS 2 SPRAYS ension INTO EACH INTO EACH SPRAY 2 NOSTRIL NOSTRIL SPRAYS EVERY DAY EVERY DAY INTO EACH NOSTRIL EVERY DAY FreeStyle FreeStyle No FreeStyle Maria G Rafa 14 Rafa 14 Rafa 14 Ort hope Day Sensor Day Sensor Day Sensor dic kit USE ONE kit USE ONE kit USE Sports (1) SENSOR (1) SENSOR ONE (1) Medicin EVERY 14 EVERY 14 SENSOR e DAYS. DAYS. EVERY 14 DAYS. FreeStyle FreeStyle No FreeStyle Maria G Rafa 3 Rafa 3 Rafa 3 Orth[facility] e Sensor Sensor Sensor dic device USE device USE device USE Sports TO CHECK TO CHECK TO CHECK Med icin BLOOD BLOOD BLOOD e GLUCOSE, GLUCOSE, GLUCOSE, CHANGE CHANGE CHANGE EVERY 14 EVERY 14 EVERY 14 DAYS DAYS DAYS ibuprofen ibuprofen No ibuprofen Maria G 800 mg 800 mg 800 mg [facility] tablet TAKE tablet TAKE tablet dic 1 TABLET BY 1 TABLET BY TAKE 1 Sports MOUTH EVERY MOUTH EVERY TABLET BY Medicin 8 HOURS 8 HOURS MOUTH e EVERY 8 HOURS icosapent icosapent No icosapent Maria G ethyl 1 ethyl 1 ethyl 1 [facility] e gram gram gram dic capsule capsule capsule Sports TAKE 2 TAKE 2 TAKE 2 Medicin CAPSULES BY CAPSULES BY CAPSULES e MOUTH TWICE MOUTH TWICE BY MOUTH A DAY A DAY TWICE A DAY irbesartan irbesartan No irbesartan Maria G 300 mg 300 mg 300 mg [facility] tablet TAKE tablet TAKE tablet dic 1 TABLET BY 1 TABLET BY TAKE 1 Sports MOUTH MOUTH TABLET BY Medicin EVERYDAY AT EVERYDAY AT MOUTH e BEDTIME BEDTIME EVERYDAY AT BEDTIME Jardiance Jardiance No Jardiance Maria G 25 mg 25 mg 25 mg [facility] tablet TAKE tablet TAKE tablet dic 1 TABLET BY 1 TABLET BY TAKE 1 Sports MOUTH EVERY MOUTH EVERY TABLET BY Medicin DAY DAY MOUTH e EVERY DAY levothyroxi levothyroxi No levothyrox Maria G ne 200 mcg ne 200 mcg ine 200 [facility] tablet TAKE tablet TAKE mcg tablet dic 1 TABLET BY 1 TABLET BY TAKE 1 Sports MOUTH MOUTH TABLET BY Medicin SUNDAY THRU SUNDAY THRU MOUTH e Sunday AND 1.5 AND 1.5 THRU TABLETS ON TABLETS ON Sunday AND 1.5 TABLETS ON SUNDAY Immunizations Ordered Immunization Filled Immunization Date Status Commen ts Source Name Name ASHER BLEDSOE 2018-02-[address] [facility] FLUCELVAX QUAD PF 2018-02-[address] [facility] FLUCELVAX QUAD PF 2018-02-[address] [facility] FLUCELVAX QUAD PF 2018-02-[address] [facility] FLUCELVAX QUAD PF 2018-02-[address] [facility] Vital Signs Vital Name Observation Time Observation Value Comments Source HEIGHT 2020-09-09 07:45:00 167.6 cm WEIGHT 2020-09-09 07:45:00 119.3 kg HEIGHT 2020-09-07 14:44:00 167.6 cm WEIGHT 2020-09-07 14:44:00 113.399 kg HEIGHT 2022-12-19 18:43:00 167.6 cm WEIGHT 2022-12-19 18:43:00 97.3 kg HEIGHT 2022-12-19 18:43:00 167.6 cm WEIGHT 2022-12-19 18:43:00 97.3 kg HEIGHT 2022-12-19 18:43:00 167.6 cm WEIGHT 2022-12-19 18:43:00 97.3 kg Height 2022-09-20 00:00:00 66 [in_i] [facility] BMI (Body Mass 2022-09-20 00:00:00 38.7 kg/m2 Maria G Orthopedic Index) Sports Medicine Body Weight 2022-09-20 00:00:00 240 [lb_av] [facility] Height 2022-07-05 00:00:00 66 [in_i] [facility] BMI (Body Mass 2022-07-05 00:00:00 38.7 kg/m2 Maria G Orthopedic Index) Sports Medicine Body Weight 2022-07-05 00:00:00 240 [lb_av] [facility] HEIGHT 2020-09-09 07:45:00 167.6 cm WEIGHT 2020-09-09 07:45:00 119.3 kg HEIGHT 2020-09-07 14:44:00 167.6 cm WEIGHT 2020-09-07 14:44:00 113.399 kg Systolic blood 2022-12-19 22:42:00 116 mm[Hg] [facility] Diastolic blood 2022-12-19 22:42:00 61 mm[Hg] [facility] Heart rate 2022-12-19 22:42:00 90 /min [facility] Respiratory rate 2022-12-19 22:42:00 17 /min [facility] Oxygen saturation in 2022-12-19 22:42:00 97 /min [facility] Arterial blood by Medical Ce nter Pulse oximetry Body temperature 2022-12-19 18:43:00 37.06 Blanca [facility] Body height 2022-12-19 18:43:00 167.6 cm [facility] Body weight 2022-12-19 18:43:00 97.3 kg [facility] BMI 2022-12-19 18:43:00 34.62 kg/m2 [facility] Procedures Procedure Date / Time Performing Clinician Source Performed CT ABDOMEN/PELVIS WITH IV 2023-01-01 09:58:47 Lior Strauss [facility] CONTRAST Center BASIC METABOLIC PANEL 2022-12-19 21:37:00 [facility] XR CHEST 1 VIEW PORTABLE 2022-12-19 20:06:00 [facility] / BEDSIDE Center CTA CHEST FOR PULMONARY 2022-12-19 20:05:00 [facility] EMBOLUS [place] LACTIC ACID, VENOUS 2022-12-19 19:02:00 [facility] TSH/FREE T4 IF INDICATED 2022-12-19 19:02:00 [facility] T4, FREE 2022-12-19 19:02:00 [facility] B-TYPE NATRIURETIC FACTOR 2022-12-19 19:01:00 [facility] (B[facility] [place] BASIC METABOLIC PANEL 2022-12-19 19:01:00 [facility] CBC W/PLT COUNT & AUTO 2022-12-19 19:01:00 [facility] DIFFERENTIAL Center LIPASE 2022-12-19 19:01:00 Maye Boyd [facility] HIGH SENSITIVITY TROPONIN 2022-12-19 19:01:00 [facility] CBC W/PLT COUNT & AUTO 2022-12-19 19:01:00 Boyd Villavicencio [facility] DIFFERENTIAL [place] ED ECG INTERPRETATION 2022-12-19 18:57:59 Maye [facility] ECG 12-LEAD 2022-12-19 18:49:43 Maye [facility] ECG 12-LEAD 2022-12-19 18:49:43 Unknown, [facility] ECG 12-LEAD 2022-12-19 18:49:43 Unknown, [facility] EKG-SCANNED 2022-12-19 00:00:00 Provider, Selam [facility] Scanning Center CT ABDOMEN/PELVIS WITH IV 2022-09-14 16:23:00 Alberta Garibay [facility] CONTRAST Center XR FOOT 3 VIEWS LEFT 2022-09-06 16:50:00 Ritchie [facility] XR HAND 3 VIEWS RIGHT 2022-09-06 16:50:00 [facility] XR, hip + pelvis, 2022-07-05 00:00:00 Maria G Murillo hopedic unilateral, 2 or 3 view Sports M edicine XR, knee, 4 or more view 2022-07-05 00:00:00 Sara tompkins [facility] XR LUMBAR SPINE COMP WITH 2022-06-22 14:41:00 Alberta Garibay [facility] FLEX & EXT Center Caesarean Section Marai G Orthope dic Sports Medicine Cancer Surgery Maria G Orthopedi [facility] Medicine Foot Surgery [facility] Hysterectomy Maria G [facility] Knee Surgery Maria G [facility] Shoulder Surgery Maria G Orthoped ic Sports Medicine Plan of Care Planned Activity Planned Date Details Comments Source Future Scheduled 2031-08-18 DTAP/TDAP/TD VACCINES (3 [facility] Test 00:00:00 - Td or Tdap) [facility]/TD [facility]ACCINES (3 - Td or Tdap)] Future Scheduled 2031-08-18 DTAP/TDAP/TD VACCINES ([address] [facility] Test 00:00:00 - Td or Tdap) [code = Medica [facility] Center DTAP/TDAP/TD VACCINES (3 - Td or Tdap)] Future Scheduled 2031-08-18 DTAP/TDAP/TD VACCINES ([address] [facility] Test 00:00:00 - Td or Tdap) [code = Medica l Center DTAP/TDAP/TD VACCINES (3 - Td or Tdap)] Future Scheduled 2031-08-18 DTAP/TDAP/TD VACCINES ([address] [facility] Test 00:00:00 - Td or Tdap) [code = Medica l Center DTAP/TDAP/TD VACCINES (3 - Td or Tdap)] Future Scheduled 2031-08-18 DTAP/TDAP/TD VACCINES ([address] [facility] Test 00:00:00 - Td or Tdap) [code = Medica l Center DTAP/TDAP/TD VACCINES (3 - Td or Tdap)] Future Scheduled 2031-08-18 DTAP/TDAP/TD VACCINES ([address] [facility] Test 00:00:00 - Td or Tdap) [code = Medica l Center DTAP/TDAP/TD VACCINES (3 - Td or Tdap)] Future Scheduled 2031-08-18 DTAP/TDAP/TD VACCINES ([address] [facility] Test 00:00:00 - Td or Tdap) [code = Medica l Center DTAP/TDAP/TD VACCINES (3 - Td or Tdap)] Future Scheduled 2031-08-18 DTAP/TDAP/TD VACCINES ([address] [facility] Test 00:00:00 - Td or Tdap) [code = Medica l Center DTAP/TDAP/TD VACCINES (3 - Td or Tdap)] Future Scheduled 2031-08-18 DTAP/TDAP/TD VACCINES ([address] [facility] Test 00:00:00 - Td or Tdap) [code = Medica l Center DTAP/TDAP/TD VACCINES (3 - Td or Tdap)] Future Scheduled 2031-08-18 DTAP/TDAP/TD VACCINES ([address] [facility] Test 00:00:00 - Td or Tdap) [code = Medica l Center DTAP/TDAP/TD VACCINES (3 - Td or Tdap)] Future Scheduled 2031-08-18 DTAP/TDAP/TD VACCINES ([address] [facility] Test 00:00:00 - Td or Tdap) [code = Medica l Center DTAP/TDAP/TD VACCINES (3 - Td or Tdap)] Future Scheduled 2027-03-22 DTAP/TDAP/TD VACCINES ([address] [facility] Test 00:00:00 - Td or Tdap) [code = Medica l Center DTAP/TDAP/TD VACCINES (2 - Td or Tdap)] Future Scheduled 2027-03-22 DTAP/TDAP/TD VACCINES ([address] [facility] Test 00:00:00 - Td or Tdap) [code = Medica l Center DTAP/TDAP/TD VACCINES (2 - Td or Tdap)] Future Scheduled 2027-03-22 DTAP/TDAP/TD VACCINES ([address] [facility] Test 00:00:00 - Td or Tdap) [code = Medica l Center DTAP/TDAP/TD VACCINES (2 - Td or Tdap)] Future Scheduled 2027-03-22 DTAP/TDAP/TD VACCINES ([address] [facility] Test 00:00:00 - Td or Tdap) [code = Medica l Center DTAP/TDAP/TD VACCINES (2 - Td or Tdap)] Future Scheduled 2027-03-22 DTAP/TDAP/TD VACCINES ([address] [facility] Test 00:00:00 - Td or Tdap) [code = Medica l Center DTAP/TDAP/TD VACCINES (2 - Td or Tdap)] Future Scheduled 2027-03-22 DTAP/TDAP/TD VACCINES ([address] [facility] Test 00:00:00 - Td or Tdap) [code = Medica l Center DTAP/TDAP/TD VACCINES (2 - Td or Tdap)] Future Scheduled 2027-03-22 DTAP/TDAP/TD VACCINES ([address] [facility] Test 00:00:00 - Td or Tdap) [code = Medica l Center DTAP/TDAP/TD VACCINES (2 - Td or Tdap)] Future Scheduled 2027-03-22 DTAP/TDAP/TD VACCINES ([address] [facility] Test 00:00:00 - Td or Tdap) [code = Medica l Center DTAP/TDAP/TD VACCINES (2 - Td or Tdap)] Future Scheduled 2027-03-22 DTAP/TDAP/TD VACCINES ([address] [facility] Test 00:00:00 - Td or Tdap) [code = Medica l Center DTAP/TDAP/TD VACCINES (2 - Td or Tdap)] Future Scheduled 2027-03-22 DTAP/TDAP/TD VACCINES ([address] [facility] Test 00:00:00 - Td or Tdap) [code = Medica l Center DTAP/TDAP/TD VACCINES (2 - Td or Tdap)] Future Scheduled 2027-03-22 DTAP/TDAP/TD VACCINES ([address] [facility] Test 00:00:00 - Td or Tdap) [code = Medica l Center DTAP/TDAP/TD VACCINES (2 - Td or Tdap)] Future Scheduled 2027-03-22 DTAP/TDAP/TD VACCINES ([address] [facility] Test 00:00:00 - Td or Tdap) [code = Medica l Center DTAP/TDAP/TD VACCINES (2 - Td or Tdap)] Future Scheduled 2027-03-22 DTAP/TDAP/TD VACCINES ([address] [facility] Test 00:00:00 - Td or Tdap) [code = Medica l Center DTAP/TDAP/TD VACCINES (2 - Td or Tdap)] Future Scheduled 2027-03-22 DTAP/TDAP/TD VACCINES ([address] [facility] Test 00:00:00 - Td or Tdap) [code = Medica l Center DTAP/TDAP/TD VACCINES (2 - Td or Tdap)] Future Scheduled 2027-03-22 DTAP/TDAP/TD VACCINES ([address] [facility] Test 00:00:00 - Td or Tdap) [code = Medica l Center DTAP/TDAP/TD VACCINES (2 - Td or Tdap)] Future Scheduled 2027-03-22 DTAP/TDAP/TD VACCINES ([address] [facility] Test 00:00:00 - Td or Tdap) [code = Medica l Center DTAP/TDAP/TD VACCINES (2 - Td or Tdap)] Future Scheduled 2027-03-22 DTAP/TDAP/TD VACCINES ([address] [facility] Test 00:00:00 - Td or Tdap) [code = Medica l Center DTAP/TDAP/TD VACCINES (2 - Td or Tdap)] Future Scheduled 2025-12-22 Lipid panel (procedure) [facility] Test 00:00:00 [code = [id number]] Medical Ce nter Future Scheduled 2025-12-22 Lipid panel (procedure) [facility] Test 00:00:00 [code = [id number]] Medical Ce nter Future Scheduled 2025-12-22 Lipid panel (procedure) [facility] Test 00:00:00 [code = 11605321] Medical Ce nter Future Scheduled 2025-12-22 Lipid panel (procedure) [facility] Test 00:00:00 [code = [id number]] Medical Ce nter Future Scheduled 2025-07-11 Lipid panel (procedure) [facility] Test 00:00:00 [code = [id number]] Medical Ce nter Future Scheduled 2025-07-11 Lipid panel (procedure) [facility] Test 00:00:00 [code = [id number]] Medical Ce nter Future Scheduled 2025-07-11 Lipid panel (procedure) [facility] Test 00:00:00 [code = 13344485] Medical Ce nter Future Scheduled 2025-07-11 Lipid panel (procedure) [facility] Test 00:00:00 [code = 24038942] Medical Ce nter Future Scheduled 2025-07-11 Lipid panel (procedure) [facility] Test 00:00:00 [code = [id number]] Medical Ce nter Future Scheduled 2025-07-11 Lipid panel (procedure) [facility] 00:00:00 [code = 22957703] Medical Ce nter Future Scheduled 2025-07-11 Lipid panel (procedure) [facility] Test 00:00:00 [code = 09577193] Medical Ce nter Future Scheduled 2025-07-11 Lipid panel (procedure) [facility] Test 00:00:00 [code = 52179507] Medical Ce nter Future Scheduled 2025-07-11 Lipid panel (procedure) [facility] Test 00:00:00 [code = 30486968] Medical Ce nter Future Scheduled 2025-07-11 Lipid panel (procedure) [facility] Test 00:00:00 [code = 65974427] Medical Ce nter Future Scheduled 2024-04-24 Screening for malignant [facility] Test 00:00:00 neoplasm of breast Medical C enter (procedure) [code = 496708120] Future Scheduled 2024-04-24 Screening for malignant [facility] Test 00:00:00 neoplasm of breast Medical C enter (procedure) [code = 726257212] Future Scheduled 2024-04-24 Screening for malignant [facility] Test 00:00:00 neoplasm of breast Medical C enter (procedure) [code = 788677604] Future Scheduled 2024-04-24 Screening for malignant [facility] Test 00:00:00 neoplasm of breast Medical C enter (procedure) [code = 314669504] Future Scheduled 2024-04-24 Screening for malignant [facility] Test 00:00:00 neoplasm of breast Medical C enter (procedure) [code = 475289202] Future Scheduled 2024-04-24 Screening for malignant [facility] Test 00:00:00 neoplasm of breast Medical C enter (procedure) [code = 473522832] Future Scheduled 2023-12-[address] [facility] Test 00:00:00 Counseling and Screening Med ical Center (12+) [code = Tobacco Cessation Counseling and Screening (12+)] Future Scheduled 2023-12-[address] [facility] Test 00:00:00 Counseling and Screening Med ical Center (12+) [code = Tobacco Cessation Counseling and Screening (12+)] Future Scheduled 2023-12-[address] [facility] Test 00:00:00 Counseling and Screening Med ical Center (12+) [code = Tobacco Cessation Counseling and Screening (12+)] Future Scheduled 2023-12-[address] [facility] Test 00:00:00 Counseling and Screening Med ical Center (12+) [code = Tobacco Cessation Counseling and Screening (12+)] Future Scheduled 2023-12-[address] [facility] Test 00:00:00 Counseling and Screening Med ical Center (12+) [code = Tobacco Cessation Counseling and Screening (12+)] Future Scheduled 2023-12-[address] [facility] Test 00:00:00 Counseling and Screening [facility] (12+) [code = Tobacco Cessation Counseling and Screening (12+)] Future Scheduled 2023-02-02 Lipid panel (procedure) [facility] 00:00:00 [code = [id number]] Medical Ce nter Future Scheduled 2023-02-02 Lipid panel (procedure) [facility] 00:00:00 [code = 85385493] Medical Ce nter Future Scheduled 2023-02-02 Lipid panel (procedure) [facility] 00:00:00 [code = 04608431] Medical Ce nter Future Scheduled 2023-02-02 Lipid panel (procedure) [facility] 00:00:00 [code = 73322041] Medical Ce nter Future Scheduled 2023-02-02 Lipid panel (procedure) [facility] 00:00:00 [code = 70895724] Medical Ce nter Future Scheduled 2023-02-02 Lipid panel (procedure) [facility] 00:00:00 [code = 74383904] Medical Ce nter Future Scheduled 2023-02-02 Lipid panel (procedure) [facility] 00:00:00 [code = 06370596] Medical Ce nter Future Scheduled 2023-02-02 Lipid panel (procedure) [facility] 00:00:00 [code = 92135842] Medical Ce nter Future Scheduled 2023-02-02 Lipid panel (procedure) [facility] 00:00:00 [code = 43065957] Medical Ce nter Future Scheduled 2023-02-02 Lipid panel (procedure) [facility] 00:00:00 [code = 77357261] Medical Ce nter Future Scheduled 2023-02-02 Lipid panel (procedure) [facility] 00:00:00 [code = 45780915] Medical Ce nter Future Scheduled 2023-02-02 Lipid panel (procedure) [facility] 00:00:00 [code = 67389954] Medical Ce nter Future Scheduled 2023-02-02 Lipid panel (procedure) [facility] 00:00:00 [code = 27158200] Medical Ce nter Future Scheduled 2023-02-02 Lipid panel (procedure) [facility] 00:00:00 [code = [id number]] Medical Ce nter Future Scheduled 2023-01-29 COVID-19 [facility]ACCINE [facility]) [facility] [code = COVID-19 VACCINE Hos pital (#1)] Future Scheduled 2023-01-29 [facility] 13:11:19 neoplasm of cervix Hospital (procedure) [code = 605437620] Future Scheduled 2023-01-29 BREAST CANCER SCREENING [facility] 13:11:19 [code = BREAST CANCER Hospit al SCREENING] Future Scheduled 2023-01-29 [facility] 13:11:19 neoplasm of colon Hospital (procedure) [code = 477742640] Future Scheduled 2023-01-29 [facility] 13:11:19 neoplasm of colon Hospital (procedure) [code = 809977812] Future Scheduled 2023-01-29 SHINGLES VACCINES (1 of [facility] 13:11:19 2) [code = SHINGLES Hospital VACCINES (1 of 2)] Future Scheduled 2023-01-29 INFLUENZA VACCINE (#1) [facility] 13:11:19 [code = INFLUENZA Hospital VACCINE (#1)] Future Scheduled 2023-01-29 [facility] 13:11:19 neoplasm of colon Hospital (procedure) [code = 512315623] Future Scheduled 2023-01-29 [facility] 13:11:19 neoplasm of colon Hospital (procedure) [code = 765354759] Future Scheduled 2023-01-29 [facility] 13:11:19 neoplasm of colon Hospital (procedure) [code = 943466243] Future Scheduled 2023-01-26 Influenza Vaccine (#1[facility] [code = Influenza Medical Ce nter Vaccine (#1)] Future Scheduled 2023-01-[address] [facility] Test 00:00:00 (Season Ended) [code = Medic al Center INFLUENZA VACCINE (Season Ended)] Future Scheduled 2023-01-[address] [facility] 00:00:00 (Season Ended) [code = Medic al Center INFLUENZA VACCINE (Season Ended)] Future Scheduled 2023-01-[address] [facility] 00:00:00 (Season Ended) [code = Medic al Center INFLUENZA VACCINE (Season Ended)] Future Scheduled 2023-01-[address] [facility] 00:00:00 (Season Ended) [code = Medic al Center INFLUENZA VACCINE (Season Ended)] Future Scheduled 2023-01-[address] [facility] 00:00:00 (Season Ended) [code = Medic al Center INFLUENZA VACCINE (Season Ended)] Future Scheduled 2023-01-[address] [facility] 00:00:00 (Season Ended) [code = Medic al Center Influenza Vaccine (Season Ended)] Future Scheduled 2023-01-[address] [facility] 00:00:00 (Season Ended) [code = Medic al Center Influenza Vaccine (Season Ended)] Future Scheduled 2023-01-[address] [facility] 00:00:00 (Season Ended) [code = Medic al Center Influenza Vaccine (Season Ended)] Future Scheduled 2023-01-26 Influenza Vaccine (#1) [facility] 00:00:00 [code = Influenza Medical Ce nter Vaccine (#1)] Future Scheduled 2023-01-26 Influenza Vaccine (#1) [facility] 00:00:00 [code = Influenza Medical Ce nter Vaccine (#1)] Future Scheduled 2023-01-26 Influenza Vaccine (#1) [facility] 00:00:00 [code = Influenza Medical Ce nter Vaccine (#1)] Future Scheduled 2023-01-26 Influenza Vaccine (#1) [facility] 00:00:00 [code = Influenza Medical Ce nter Vaccine (#1)] Future Scheduled 2023-01-26 Influenza Vaccine (#1) [facility] 00:00:00 [code = Influenza Medical Ce nter Vaccine (#1)] Future Scheduled 2023-01-26 Influenza Vaccine (#1) [facility] 00:00:00 [code = Influenza Medical Ce nter Vaccine (#1)] Future Scheduled 2022-09-14 COVID-19 VACCINE (#1) [facility]:58:[facility] [code = COVID-19 VACCINE Hos pital (#1)] Future Scheduled 2022-09-14 [facility] 15:58:11 neoplasm of cervix Hospital (procedure) [code = 295801560] Future Scheduled 2022-09-14 BREAST CANCER SCREENING [facility] 15:58:11 [code = BREAST CANCER Hospit al SCREENING] Future Scheduled 2022-09-14 Scre[facility] 15:58:11 neoplasm of colon Hospital (procedure) [code = 422816831] Future Scheduled 2022-09-14 SHINGLES VACCINES (1 of [facility] 15:58:11 2) [code = SHINGLES Hospital VACCINES (1 of 2)] Future Scheduled 2022-09-14 INFLUENZA VACCINE [code [facility] 15:58:11 = INFLUENZA VACCINE] Hospita Future Scheduled 2022-07-24 COVID-19 VACCINE (#1) [facility] 09:17:43 [code = COVID-19 VACCINE Hos pital (#1)] Future Scheduled 2022-07-24 Scre[facility] 09:17:43 neoplasm of cervix Hospital (procedure) [code = 792776742] Future Scheduled 2022-07-24 BREAST CANCER SCREENING [facility] 09:17:43 [code = BREAST CANCER Hospit al SCREENING] Future Scheduled 2022-07-24 COLONOSCOPY SCREENING [facility] 09:17:43 [code = COLONOSCOPY Hospital SCREENING] Future Scheduled 2022-07-24 SHINGLES VACCINES (1 of [facility] 09:17:43 2) [code = SHINGLES Hospital VACCINES (1 of 2)] Future Scheduled 2022-07-24 INFLUENZA VACCINE [code [facility] 09:17:43 = INFLUENZA VACCINE] [facility] Future Scheduled 2022-07-08 Screening for malignant [facility] Test 00:00:00 neoplasm of breast Medical C enter (procedure) [code = 546939535] Future Scheduled 2022-07-08 Screening for malignant [facility] Test 00:00:00 neoplasm of breast Medical C enter (procedure) [code = 477025516] Future Scheduled 2022-07-08 Screening for malignant [facility] Test 00:00:00 neoplasm of breast Medical C enter (procedure) [code = 381359513] Future Scheduled 2022-07-08 Screening for malignant [facility] Test 00:00:00 neoplasm of breast Medical C enter (procedure) [code = 641501194] Future Scheduled 2022-07-08 Screening for malignant [facility] Test 00:00:00 neoplasm of breast Medical C enter (procedure) [code = 702973817] Future Scheduled 2022-07-08 Screening for malignant [facility] Test 00:00:00 neoplasm of breast Medical C enter (procedure) [code = 948648552] Future Scheduled 2022-07-08 Screening for malignant [facility] Test 00:00:00 neoplasm of breast Medical C enter (procedure) [code = 719865927] Future Scheduled 2022-07-08 Screening for malignant [facility] 00:00:00 neoplasm of breast Medical C enter (procedure) [code = [id number]] Future Scheduled 2022-07-08 Screening for malignant [facility] 00:00:00 neoplasm of breast Medical [facility] enter (procedure) [code = [id number]] Future Scheduled 2022-07-08 Screening for malignant [facility] 00:00:00 neoplasm of breast [facility] enter (procedure) [code = [id number]] Future Scheduled 2022-07-08 Screening for malignant [facility] 00:00:00 neoplasm of breast Medical [facility] enter (procedure) [code = [id number]] Future Scheduled 2022-07-08 Screening for malignant [facility] 00:00:00 neoplasm of breast Medical [facility] enter (procedure) [code = [id number]] Future Scheduled 2022-07-08 Screening for malignant [facility] 00:00:00 neoplasm of breast Medical C enter (procedure) [code = [id number]] Future Scheduled 2022-07-08 Screening for malignant [facility] 00:00:00 neoplasm of breast Medical C enter (procedure) [code = [id number]] Future Scheduled 2022-07-08 Screening for malignant [facility] 00:00:00 neoplasm of breast Medical C enter (procedure) [code = [id number]] Future Scheduled 2022-07-08 Screening for malignant [facility] 00:00:00 neoplasm of breast Medical C enter (procedure) [code = [id number]] Future Scheduled 2022-07-08 Screening for malignant [facility] 00:00:00 neoplasm of breast Medical [facility] enter (procedure) [code = 730746896] Future Scheduled 2022-07-08 Screening for malignant [facility] 00:00:00 neoplasm of breast Medical C enter (procedure) [code = [id number]] Future Scheduled 2022-07-08 Screening for malignant [facility] 00:00:00 neoplasm of breast Medical C enter (procedure) [code = [id number]] Future Scheduled 2022-07-08 Screening for malignant [facility] 00:00:00 neoplasm of breast Medical C enter (procedure) [code = [id number]] Future Scheduled 2022-07-08 Screening for malignant [facility] 00:00:00 neoplasm of breast Medical C enter (procedure) [code = [id number]] Future Scheduled 2022-07-08 Screening for malignant [facility] 00:00:00 neoplasm of breast Medical C enter (procedure) [code = [id number]] Future Scheduled 2022-05-[address] [facility] 00:00:00 (12+) [code = DEPRESSION [facility] ical Center SCREENING (12+)] Future Scheduled 2022-05-[address] [facility] 00:00:00 (12+) [code = DEPRESSION [facility] ical Center SCREENING (12+)] Future Scheduled 2022-05-[address] [facility] 00:00:00 (12+) [code = DEPRESSION [facility] ical Center SCREENING (12+)] Future Scheduled 2022-05-[address] [facility] 00:00:00 (12+) [code = DEPRESSION [facility] ical Center SCREENING (12+)] Future Scheduled 2022-05-[address] [facility] 00:00:00 (12+) [code = DEPRESSION [facility] ical Center SCREENING (12+)] Future Scheduled 2022-05-[address] [facility] 00:00:00 (12+) [code = DEPRESSION Med ical Center SCREENING (12+)] Future Scheduled 2022-05-[address] [facility] 00:00:00 (12+) [code = DEPRESSION Med ical Center SCREENING (12+)] Future Scheduled 2022-05-[address] [facility] 00:00:00 (12+) [code = DEPRESSION Med ical Center SCREENING (12+)] Future Scheduled 2022-05-[address] [facility] 00:00:00 (12+) [code = DEPRESSION Med ical Center SCREENING (12+)] Future Scheduled 2022-05-[address] [facility] 00:00:00 (12+) [code = DEPRESSION Med ical Center SCREENING (12+)] Future Scheduled 2022-05-[address] [facility] 00:00:00 (12+) [code = DEPRESSION Med ical Center SCREENING (12+)] Future Scheduled 2022-05-[address] [facility] 00:00:00 (12+) [code = DEPRESSION Med ical Center SCREENING (12+)] Future Scheduled 2022-05-[address] [facility] 00:00:00 (12+) [code = DEPRESSION [facility] ical Center SCREENING (12+)] Future Scheduled 2022-05-[address] [facility] 00:00:00 (12+) [code = DEPRESSION Med ical Center SCREENING (12+)] Future Scheduled 2022-05-[address] [facility] 00:00:00 (12+) [code = DEPRESSION Med ical Center SCREENING (12+)] Future Scheduled 2022-05-[address] [facility] 00:00:00 (12+) [code = DEPRESSION Med ical Center SCREENING (12+)] Future Scheduled 2022-05-[address] [facility] 00:00:00 (12+) [code = DEPRESSION Med ical Center SCREENING (12+)] Future Scheduled 2022-05-[address] [facility] 00:00:00 (12+) [code = DEPRESSION Med ical Center SCREENING (12+)] Future Scheduled 2022-05-[address] [facility] 00:00:00 (12+) [code = DEPRESSION Med ical Center SCREENING (12+)] Future Scheduled 2022-05-[address] [facility] 00:00:00 (12+) [code = DEPRESSION Med ical Center SCREENING (12+)] Future Scheduled 2022-05-[address] [facility] 00:00:00 (12+) [code = DEPRESSION Med ical Center SCREENING (12+)] Future Scheduled 2022-04-05 HEPATITIS B VACCINES (1 [facility] 11:10:42 of 3 - 3-dose series) Hospit al [code = HEPATITIS B VACCINES (1 of 3 - 3-dose series)] Future Scheduled 2022-04-05 COVID-19 [facility]INE [facility]) [facility] [code = COVID-19 VACCINE Hos pital (#1)] Future Scheduled 2022-04-05 Scre[facility] malignant [facility] 11:10:42 neoplasm of cervix Hospital (procedure) [code = [id number]] Future Scheduled 2022-04-05 BREAST CANCER SCREENING [facility] 11:10:42 [code = BREAST CANCER Hospit al SCREENING] Future Scheduled 2022-04-05 [facility]OSCOPY [facility]ING [facility]:10[facility] [code = COLONOSCOPY Hospital SCREENING] Future Scheduled 2022-04-05 SHINGLES VACCINES (1 of [facility] 11:10:42 2) [code = SHINGLES Hospital VACCINES (1 of 2)] Future Scheduled 2022-04-05 INFLUENZA VACCINE [code [facility] 11:10:42 = INFLUENZA VACCINE] Hospita l Future Scheduled 2022-01-26 INFLUENZA VACCINE (#1) [facility] [code = INFLUENZA Medical Ce nter VACCINE (#1)] Future Scheduled 2022-01-26 INFLUENZA VACCINE (#1) [facility] 00:00:00 [code = INFLUENZA Medical Ce nter VACCINE (#1)] Future Scheduled 2022-01-26 INFLUENZA VACCINE (#1) [facility] 00:00:00 [code = INFLUENZA Medical Ce nter VACCINE (#1)] Future Scheduled 2022-01-26 INFLUENZA VACCINE (#1) [facility] 00:00:00 [code = INFLUENZA Medical Ce nter VACCINE (#1)] Future Scheduled 2022-01-26 INFLUENZA VACCINE (#1) [facility] 00:00:00 [code = INFLUENZA Medical Ce nter VACCINE (#1)] Future Scheduled 2022-01-26 INFLUENZA VACCINE (#1) [facility] 00:00:00 [code = INFLUENZA Medical Ce nter VACCINE (#1)] Future Scheduled 2022-01-26 INFLUENZA VACCINE (#1) [facility] 00:00:00 [code = INFLUENZA Medical Ce nter VACCINE (#1)] Future Scheduled 2022-01-26 INFLUENZA VACCINE (#1) [facility] 00:00:00 [code = INFLUENZA Medical Ce nter VACCINE (#1)] Future Scheduled 2022-01-26 INFLUENZA VACCINE (#1) [facility] 00:00:00 [code = INFLUENZA Medical Ce nter VACCINE (#1)] Future Scheduled 2022-01-26 INFLUENZA VACCINE (#1) [facility] 00:00:00 [code = INFLUENZA Medical Ce nter VACCINE (#1)] Future Scheduled 2022-01-26 INFLUENZA VACCINE (#1) [facility] 00:00:00 [code = INFLUENZA Medical Ce nter VACCINE (#1)] Future Scheduled 2022-01-26 INFLUENZA VACCINE (#1) [facility] 00:00:00 [code = INFLUENZA Medical Ce nter VACCINE (#1)] Future Scheduled 2022-01-26 INFLUENZA VACCINE (#1) [facility] 00:00:00 [code = INFLUENZA Medical Ce nter VACCINE (#1)] Future Scheduled 2022-01-20 SHINGLES VACCINES (1 of [facility] 01:47:32 2) [code = SHINGLES Hospital VACCINES (1 of 2)] Future Scheduled 2022-01-20 INFLUENZA VACCINE [code [facility] 01:47:32 = INFLUENZA VACCINE] Hospita l Future Scheduled 2022-01-20 HEPATITIS B VACCINES (1 [facility] 01:47:32 of 3 - 3-dose series) Hospit al [code = HEPATITIS B VACCINES (1 of 3 - 3-dose series)] Future Scheduled 2022-01-20 COVID-19 VACCINE (#1) [facility] 01:[facility] [code = COVID-19 VACCINE Hos pital (#1)] Future Scheduled 2022-01-20 Scre[facility] for malignant [facility] 01:47:32 neoplasm of cervix Hospital (procedure) [code = [id number]] Future Scheduled 2022-01-20 BREAST CANCER SCREENING [facility] 01:47:32 [code = BREAST CANCER Hospit al SCREENING] Future Scheduled 2022-01-20 [facility]ING [facility] 01:47:[facility] [code = COLONOSCOPY Hospital SCREENING] Future Scheduled 2021-11-02 COVID-19 VACCINE (5 [facility] series) [code = COVID-19 VACCINE (5 - [facility] series)] Future Scheduled 2021-11-02 COVID-19 VACCINE (5 [facility] series) [code = COVID-19 VACCINE (5 - [facility] series)] Future Scheduled 2021-11-02 COVID-19 VACCINE (5 - [facility] series) [code = COVID-19 VACCINE (5 - [facility] series)] Future Scheduled 2021-11-02 COVID-19 VACCINE (5 - [facility] series) [code = COVID-19 VACCINE (5 - [facility] series)] Future Scheduled 2021-11-02 COVID-19 VACCINE (5 - [facility] series) [code = COVID-19 VACCINE (5 - [facility] series)] Future Scheduled 2021-11-02 COVID-19 VACCINE (5 - [facility] series) [code = COVID-19 VACCINE (5 - [facility] series)] Future Scheduled 2021-11-02 COVID-19 VACCINE (5 - [facility] series) [code = COVID-19 VACCINE (5 - [facility] series)] Future Scheduled 2021-11-02 COVID-19 VACCINE (5 - [facility] series) [code = COVID-19 VACCINE (5 - [facility] series)] Future Scheduled 2021-11-02 COVID-19 VACCINE (5 - [facility] series) [code = COVID-19 VACCINE (5 - [facility] series)] Future Scheduled 2021-11-02 COVID-19 VACCINE (5 - [facility] series) [code = COVID-19 VACCINE (5 - [facility] series)] Future Scheduled 2021-11-02 COVID-19 VACCINE (5 - [facility] series) [code = COVID-19 VACCINE (5 - [facility] series)] Future Scheduled 2021-11-02 COVID-19 VACCINE (5 - [facility] series) [code = COVID-19 VACCINE (5 - [facility] series)] Future Scheduled 2021-11-02 COVID-19 VACCINE (5 - [facility] series) [code = COVID-19 VACCINE (5 - [facility] series)] Future Scheduled 2021-11-02 COVID-19 VACCINE (5 - [facility] series) [code = COVID-19 VACCINE (5 - [facility] series)] Future Scheduled 2021-09-[address] [facility] 00:00:00 Counseling and Screening [facility] ical Center (12+) [code = Tobacco Cessation Counseling and Screening (12+)] Future Scheduled 2021-09-[address] [facility] 00:00:00 Counseling and Screening [facility] ical Center (12+) [code = Tobacco Cessation Counseling and Screening (12+)] Future Scheduled 2021-09-[address] [facility] 00:00:00 Counseling and Screening [facility] Center (12+) [code = Tobacco Cessation Counseling and Screening (12+)] Future Scheduled 2021-09-[address] [facility] 00:00:00 Counseling and Screening [facility] Center (12+) [code = Tobacco Cessation Counseling and Screening (12+)] Future Scheduled 2021-09-[address] [facility] 00:00:00 Counseling and Screening [facility] Center (12+) [code = Tobacco Cessation Counseling and Screening (12+)] Future Scheduled 2021-09-[address] [facility] 00:00:00 Counseling and Screening [facility] Center (12+) [code = Tobacco Cessation Counseling and Screening (12+)] Future Scheduled 2021-09-[address] [facility] 00:00:00 Counseling and Screening [facility] Center (12+) [code = Tobacco Cessation Counseling and Screening (12+)] Future Scheduled 2021-09-[address] [facility] 00:00:00 Counseling and Screening [facility] Center (12+) [code = Tobacco Cessation Counseling and Screening (12+)] Future Scheduled 2021-09-[address] [facility] 00:00:00 Counseling and Screening [facility] Center (12+) [code = Tobacco Cessation Counseling and Screening (12+)] Future Scheduled 2021-09-[address] [facility] 00:00:00 Counseling and Screening [facility] Center (12+) [code = Tobacco Cessation Counseling and Screening (12+)] Future Scheduled 2021-09-[address] [facility] 00:00:00 Counseling and Screening [facility] Center (12+) [code = Tobacco Cessation Counseling and Screening (12+)] Future Scheduled 2021-09-[address] [facility] 00:00:00 Counseling and Screening [facility] Center (12+) [code = Tobacco Cessation Counseling and Screening (12+)] Future Scheduled 2021-09-[address] [facility] 00:00:00 Counseling and Screening [facility] Center (12+) [code = Tobacco Cessation Counseling and Screening (12+)] Future Scheduled 2021-09-[address] [facility] 00:00:00 Counseling and Screening [facility] Center (12+) [code = Tobacco Cessation Counseling and Screening (12+)] Future Scheduled 2021-09-[address] [facility] 00:00:00 Counseling and Screening [facility] Center (12+) [code = Tobacco Cessation Counseling and Screening (12+)] Future Scheduled 2021-09-[address] [facility] 00:00:00 Counseling and Screening [facility] Center (12+) [code = Tobacco Cessation Counseling and Screening (12+)] Future Scheduled 2021-09-[address] [facility] 00:00:00 Counseling and Screening Med ical Center (12+) [code = Tobacco Cessation Counseling and Screening (12+)] Future Scheduled 2021-05-[address] [facility] 00:00:00 (12+) [code = DEPRESSION Med ical Center SCREENING (12+)] Future Scheduled 2021-05-[address] [facility] 00:00:00 (12+) [code = DEPRESSION Med ical Center SCREENING (12+)] Future Scheduled 2021-05-[address] [facility] 00:00:00 (12+) [code = DEPRESSION Med ical Center SCREENING (12+)] Future Scheduled 2021-05-[address] [facility] 00:00:00 (12+) [code = DEPRESSION Med ical Center SCREENING (12+)] Future Scheduled 2021-05-[address] [facility] 00:00:00 (12+) [code = DEPRESSION Med ical Center SCREENING (12+)] Future Scheduled 2021-05-[address] [facility] 00:00:00 (12+) [code = DEPRESSION Med ical Center SCREENING (12+)] Future Scheduled 2021-05-[address] [facility] 00:00:00 (12+) [code = DEPRESSION Med ical Center SCREENING (12+)] Future Scheduled 2010 SHINGLES VACCINES ([address] [facility] 00:00:00 2) [code = SHINGLES Medical Center VACCINES (1 of 2)] Future Scheduled 2010 SHINGLES VACCINES ([address] [facility] 00:00:00 2) [code = SHINGLES Medical Center VACCINES (1 of 2)] Future Scheduled 2010 SHINGLES VACCINES ([address] [facility] 00:00:00 2) [code = SHINGLES Medical Center VACCINES (1 of 2)] Future Scheduled 2010 SHINGLES VACCINES ([address] [facility] 00:00:00 2) [code = SHINGLES Medical Center VACCINES (1 of 2)] Future Scheduled 2010 SHINGLES VACCINES ([address] [facility] 00:00:00 2) [code = SHINGLES Medical Center VACCINES (1 of 2)] Future Scheduled 2010 SHINGLES VACCINES ([address] [facility] 00:00:00 2) [code = SHINGLES Medical Center VACCINES (1 of 2)] Future Scheduled 2010 SHINGLES VACCINES ([address] [facility] 00:00:00 2) [code = SHINGLES Medical Center VACCINES (1 of 2)] Future Scheduled 2010 SHINGLES VACCINES ([address] [facility] 00:00:00 2) [code = SHINGLES Medical Center VACCINES (1 of 2)] Future Scheduled 2010 SHINGLES VACCINES ([address] [facility] 00:00:00 2) [code = SHINGLES Medical Center VACCINES (1 of 2)] Future Scheduled 2010 SHINGLES VACCINES ([address] [facility] 00:00:00 2) [code = SHINGLES Medical Center VACCINES (1 of 2)] Future Scheduled 2010 SHINGLES VACCINES ([address] [facility] 00:00:00 2) [code = SHINGLES Medical Center VACCINES (1 of 2)] Future Scheduled 2010 SHINGLES VACCINES ([address] [facility] 00:00:00 2) [code = SHINGLES Medical Center VACCINES (1 of 2)] Future Scheduled 2010 SHINGLES VACCINES ([address] [facility] 00:00:00 2) [code = SHINGLES Medical Center VACCINES (1 of 2)] Future Scheduled 2010 SHINGLES VACCINES ([address] [facility] 00:00:00 2) [code = SHINGLES Medical Center VACCINES (1 of 2)] Future Scheduled 2010 SHINGLES VACCINES ([address] [facility] 00:00:00 2) [code = SHINGLES Medical Center VACCINES (1 of 2)] Future Scheduled 2010 SHINGLES VACCINES ([address] [facility] 00:00:00 2) [code = SHINGLES Medical Center VACCINES (1 of 2)] Future Scheduled 2010 SHINGLES VACCINES ([address] [facility] 00:00:00 2) [code = SHINGLES Medical Center VACCINES (1 of 2)] Future Scheduled 2010 SHINGLES VACCINES ([address] [facility] 00:00:00 2) [code = SHINGLES Medical Center VACCINES (1 of 2)] Future Scheduled 2010 SHINGLES VACCINES ([address] [facility] 00:00:00 2) [code = SHINGLES Medical Center VACCINES (1 of 2)] Future Scheduled 2010 SHINGLES VACCINES ([address] [facility]:00[facility]00 [facility] 2010 SHINGLES VACCINES ([address] [facility]:00[facility]00 [facility] 2010 SHINGLES VACCINES ([address] [facility]:00[facility]00 [facility] Future Scheduled [address] Screening for malignant [facility] 00:00:00 neoplasm of cervix Medical C enter (procedure) [code = [id number]] Future Scheduled 1981 Screening for malignant [facility] 00:00:00 neoplasm of cervix Medical C enter (procedure) [code = 684719129] Future Scheduled 1981 Screening for malignant [facility] 00:00:00 neoplasm of cervix Medical C enter (procedure) [code = 177533305] Future Scheduled [address] Screening for malignant [facility] 00:00:00 neoplasm of cervix Medical C enter (procedure) [code = 759485670] Future Scheduled [address] Screening for malignant [facility] 00:00:00 neoplasm of cervix Medical C enter (procedure) [code = 553205704] Future Scheduled [address] Screening for malignant [facility] 00:00:00 neoplasm of cervix Medical C enter (procedure) [code = 073842570] Future Scheduled [address] Screening for malignant [facility] 00:00:00 neoplasm of cervix Medical C enter (procedure) [code = 820978814] Future Scheduled [address] Screening for malignant [facility] 00:00:00 neoplasm of cervix Medical C enter (procedure) [code = 069878939] Future Scheduled [address] Screening for malignant [facility] 00:00:00 neoplasm of cervix Medical C enter (procedure) [code = 265486079] Future Scheduled [address] Screening for malignant [facility] 00:00:00 neoplasm of cervix Medical C enter (procedure) [code = 443912589] Future Scheduled [address] Screening for malignant [facility] 00:00:00 neoplasm of cervix Medical C enter (procedure) [code = 482193719] Future Scheduled [address] Screening for malignant [facility] 00:00:00 neoplasm of cervix Medical C enter (procedure) [code = 504031094] Future Scheduled [address] Screening for malignant [facility] 00:00:00 neoplasm of cervix Medical C enter (procedure) [code = 497603821] Future Scheduled [address] Screening for malignant [facility] 00:00:00 neoplasm of cervix Medical C enter (procedure) [code = 893917726] Future Scheduled [address] Screening for malignant [facility] 00:00:00 neoplasm of cervix Medical C enter (procedure) [code = 993060247] Future Scheduled [address] Screening for malignant [facility] 00:00:00 neoplasm of cervix Medical C enter (procedure) [code = 229775113] Future Scheduled [address] Screening for malignant [facility] 00:00:00 neoplasm of cervix Medical C enter (procedure) [code = 980482044] Future Scheduled [address] Screening for malignant [facility] 00:00:00 neoplasm of cervix Medical C enter (procedure) [code = 429940488] Future Scheduled [address] Screening for malignant [facility] 00:00:00 neoplasm of cervix Medical C enter (procedure) [code = 970577039] Future Scheduled 1981 Screening for malignant [facility] 00:00:00 neoplasm of cervix Medical C enter (procedure) [code = 778278334] Future Scheduled [address] Screening for malignant [facility] 00:00:00 neoplasm of cervix Medical C enter (procedure) [code = 200184959] Future Scheduled 1981 Screening for malignant [facility] 00:00:00 neoplasm of cervix Medical C enter (procedure) [code = 768373279] Future Scheduled 1981 Screening for malignant [facility] 00:00:00 neoplasm of cervix Medical C enter (procedure) [code = 536274765] Future Scheduled [address] Screening for malignant [facility] 00:00:00 neoplasm of cervix Medical C enter (procedure) [code = 532107197] Future Scheduled 1981 Screening for malignant [facility] 00:00:00 neoplasm of cervix Medical C enter (procedure) [code = 880212727] Future Scheduled 1981 Screening for malignant [facility] 00:00:00 neoplasm of cervix Medical C enter (procedure) [code = 708132500] Future Scheduled 1981 Screening for malignant [facility] 00:00:00 neoplasm of cervix Medical C enter (procedure) [code = 346326720] Future Scheduled 1981 Screening for malignant [facility] 00:00:00 neoplasm of cervix Medical C enter (procedure) [code = 157631364] Future Scheduled 1979-10-01 SHINGLES VACCINES ([address] [facility] 00:00:00 2) [code = SHINGLES [facility] Center VACCINES (1 of 2)] Future Scheduled 1979-10-01 SHINGLES VACCINES ([address] [facility] 00:00:00 2) [code = SHINGLES Medical Center VACCINES (1 of 2)] Future Scheduled 1979-10-01 SHINGLES VACCINES ([address] [facility] 00:00:00 2) [code = SHINGLES [facility] Center VACCINES (1 of 2)] Future Scheduled 1979-10-01 SHINGLES VACCINES ([address] [facility] 00:00:00 2) [code = SHINGLES [facility] Center VACCINES (1 of 2)] Future Scheduled 1979-10-01 SHINGLES VACCINES ([address] [facility] 00:00:00 2) [code = SHINGLES [facility] Center VACCINES (1 of 2)] Future Scheduled 1979-10-01 SHINGLES VACCINES ([address] [facility] 00:00:00 2) [code = SHINGLES [facility] Center VACCINES (1 of 2)] Future Scheduled 1978 HE[facility]ITIS C [facility]CRE[facility]:00 [code = HEPATITIS C Medical Center SCREENING] Future Scheduled 1978 HEPATITIS C [facility]:00:00 [code = HEPATITIS C Medical Center SCREENING] Future Scheduled 1978 HEPATITIS C [facility]:00:00 [code = HEPATITIS C Medical Center SCREENING] Future Scheduled 1978 HEPATITIS C [facility] 00:00:00 [code = HEPATITIS C Medical Center SCREENING] Future Scheduled 1978 HEPATITIS C [facility] 00:00:00 [code = HEPATITIS C Medical Center SCREENING] Future Scheduled 1978 HEPATITIS C [facility] 00:00:00 [code = HEPATITIS C Medical Center SCREENING] Future Scheduled 1978 HEPATITIS C [facility] 00:00:00 [code = HEPATITIS C [facility] Center SCREENING] Future Scheduled 1978 HEPATITIS C [facility] 00:00:00 [code = HEPATITIS C Medical Center SCREENING] Future Scheduled 1978 HEPATITIS C [facility] 00:00:00 [code = HEPATITIS C [facility] Center SCREENING] Future Scheduled 1978 HEPATITIS C [facility] 00:00:00 [code = HEPATITIS C Medical Center SCREENING] Future Scheduled 1978 HEPATITIS C [facility] 00:00:00 [code = HEPATITIS C Medical Center SCREENING] Future Scheduled 1978 HEPATITIS C [facility] 00:00:00 [code = HEPATITIS C Medical Center SCREENING] Future Scheduled 1978 HEPATITIS C [facility] 00:00:00 [code = HEPATITIS C Medical Center SCREENING] Future Scheduled 1978 HEPATITIS C [facility] 00:00:00 [code = HEPATITIS C Medical Center SCREENING] Future Scheduled 1978 HEPATITIS C [facility] 00:00:00 [code = [facility] Future Scheduled 1978 [facility] [code = [facility]] Future Scheduled 1978 [facility] [code = [facility]] Future Scheduled 1978 [facility] [code = [facility]] Future Scheduled 1978 [facility] [code = [facility]] Future Scheduled 1978 [facility] [code = [facility]] Future Scheduled 1978 [facility] [code = [facility]] Future Scheduled 1978 [facility] [code = [facility]] Future Scheduled 1978 [facility] [code = [facility]] Future Scheduled 1978 [facility] [code = [facility]] Future Scheduled 1978 [facility] [code = [facility]] Future Scheduled 1978 [facility]:00 [code = [facility]] Future Scheduled 1978 [facility] [code = [facility]] Future Scheduled 1978 [facility] [code = [facility]] Future Scheduled 1975-10-[address] [facility] screening [facility] (procedure) [code = [id number]] Future Scheduled 1975-10-[address] Human immunodeficiency [facility] screening [facility] (procedure) [code = [id number]] Future Scheduled 1975-10-[address] Human immunodeficiency [facility] screening [facility] (procedure) [code = [id number]] Future Scheduled 1975-10-[address] Human immunodeficiency [facility] screening [facility] (procedure) [code = [id number]] Future Scheduled 1975-10-[address] Human immunodeficiency [facility] screening [facility] (procedure) [code = [id number]] Future Scheduled 1975-10-[address] Human immunodeficiency [facility] screening [facility] (procedure) [code = [id number]] Future Scheduled 1966 Pneumococcal Vaccine: [facility]:00 0-64 Years (1 - PCV) [facility] [code = Pneumococcal Vaccine: 0-64 Years (1 - PCV)] Future Scheduled 1966 Pneumococcal Vaccine: [facility]:00 0-64 Years (1 - PCV) [facility] [code = Pneumococcal Vaccine: 0-64 Years (1 - PCV)] Future Scheduled 1966 Pneumococcal Vaccine: [facility]:00 0-64 Years (1 - PCV) [facility] [code = Pneumococcal Vaccine: 0-64 Years (1 - PCV)] Future Scheduled 1966 Pneumococcal Vaccine: [facility]:00 0-64 Years (1 - PCV) [facility] [code = Pneumococcal Vaccine: 0-64 Years (1 - PCV)] Future Scheduled 1966 Pneumococcal Vaccine: [facility]:00 0-64 Years (1 - PCV) [facility] [code = Pneumococcal Vaccine: 0-64 Years (1 - PCV)] Future Scheduled 1966 Pneumococcal Vaccine: [facility]:00 0-64 Years (1 - PCV) [facility] [code = Pneumococcal Vaccine: 0-64 Years (1 - PCV)] Future Scheduled 1961-04-02 COVID-19 VACCINE (#1) [facility] [code = COVID-19 VACCINE [facility] (#1)] Future Scheduled 1961-04-02 COVID-19 VACCINE (#1) [facility] [code = COVID-[facility]ACCINE [facility] (#1)] Future Scheduled 1961-04-02 COVID-19 VACCINE (#1) [facility] [code = COVID-19 VACCINE [facility] (#1)] Future Scheduled 1961-04-02 COVID-19 VACCINE (#1) [facility] [code = COVID-19 [facility]ACCINE [facility] (#1)] Future Scheduled 1961-04-02 COVID-19 VACCINE (#1) [facility] [code = COVID-[facility]ACCINE [facility] (#1)] Future Scheduled 1961-04-02 COVID-19 VACCINE (#1) [facility]:00 [code = COVID-19 [facility]ACCINE [facility] (#1)] Future Scheduled 1961-04-02 COVID-19 VACCINE (#1) [facility] [code = COVID-19 [facility]ACCINE [facility] (#1)] Future Scheduled 1961-04-02 COVID-19 VACCINE (#1) [facility]:00 [code = COVID-19 [facility]ACCINE [facility] (#1)] Future Scheduled 1961-04-02 COVID-19 VACCINE (#1) [facility]:00 [code = COVID-19 VACCINE [facility] (#1)] Future Scheduled 1961-04-02 COVID-19 VACCINE (#1) [facility]:00 [code = COVID-19 VACCINE [facility] (#1)] Future Scheduled 1961-04-02 COVID-19 VACCINE (#1) [facility]:00 [code = COVID-19 VACCINE [facility] (#1)] Future Scheduled 1961-04-02 COVID-19 VACCINE (#1) [facility]:00 [code = COVID-19 VACCINE [facility] (#1)] Future Scheduled 1961-04-02 COVID-19 VACCINE (#1) [facility]:00 [code = COVID-19 VACCINE [facility] (#1)] Future Scheduled 1961-04-02 COVID-19 VACCINE (#1) [facility]:00 [code = COVID-19 VACCINE [facility] (#1)] Future Scheduled 1960 Screening for malignant [facility] 00:00:00 neoplasm of colon [facility] (procedure) [code = [id number]] Future Scheduled 1960 Screening for malignant [facility] 00:00:00 neoplasm of colon [facility] (procedure) [code = 214878971] Future Scheduled 1960 Screening for malignant [facility] 00:00:00 neoplasm of colon [facility] (procedure) [code = 611741178] Future Scheduled 1960 Screening for malignant [facility] 00:00:00 neoplasm of colon [facility] (procedure) [code = [id number]] Future Scheduled 1960 Sigmoidoscopy [code = [facility] S[facility]] [facility] Future Scheduled 1960 CT Colonography (combo) [facility] 00:00:00 [code = CT Colonography [facility] (combo)] Future Scheduled 1960 Screening for malignant [facility] 00:00:00 neoplasm of colon [facility] (procedure) [code = 656354189] Future Scheduled 1960 Screening for malignant [facility] 00:00:00 neoplasm of colon [facility] (procedure) [code = 844652558] Future Scheduled 1960 Screening for malignant [facility] 00:00:00 neoplasm of colon [facility] (procedure) [code = 763856655] Future Scheduled 1960 Screening for malignant [facility] 00:00:00 neoplasm of colon [facility] (procedure) [code = 583776975] Future Scheduled 1960 Sigmoidoscopy [code = [facility] S[facility]oidoscopy] [facility] Future Scheduled 1960 CT Colonography (combo) [facility] 00:00:00 [code = CT Colonography [facility] (combo)] Future Scheduled 1960 Screening for malignant [facility] 00:00:00 neoplasm of colon [facility] (procedure) [code = 401864111] Future Scheduled 1960 Screening for malignant [facility] 00:00:00 neoplasm of colon [facility] (procedure) [code = 720773611] Future Scheduled 1960 Screening for malignant [facility] 00:00:00 neoplasm of colon [facility] (procedure) [code = 485790405] Future Scheduled 1960 Screening for malignant [facility] 00:00:00 neoplasm of colon [facility] (procedure) [code = 583513935] Future Scheduled 1960 Sigmoidoscopy [code = [facility] S[facility]oidoscopy] [facility] Future Scheduled 1960 CT Colonography (combo) [facility] 00:00:00 [code = [facility] Future Scheduled 1960 CT Colonography (combo) [facility] 00:00:00 [code = [facility] ([facility])] Future Scheduled 1960 Screening for malignant [facility] 00:00:00 neoplasm of colon [facility] (procedure) [code = 519393262] Future Scheduled 1960 Screening for malignant [facility] 00:00:00 neoplasm of colon [facility] (procedure) [code = 451904484] Future Scheduled 1960 Screening for malignant [facility] 00:00:00 neoplasm of colon [facility] (procedure) [code = [id number]] Future Scheduled 1960 Screening for malignant [facility] 00:00:00 neoplasm of colon [facility] (procedure) [code = 981154482] Future Scheduled 1960 Sigmoidoscopy [code = [facility] S[facility]oidoscopy] [facility] Future Scheduled 1960 Screening for malignant [facility] 00:00:00 neoplasm of colon [facility] (procedure) [code = 967599135] Future Scheduled 1960 Screening for malignant [facility] 00:00:00 neoplasm of colon [facility] (procedure) [code = 104480725] Future Scheduled 1960 Screening for malignant [facility] 00:00:00 neoplasm of colon [facility] (procedure) [code = 546802676] Future Scheduled 1960 CT Colonography (combo) [facility] 00:00:00 [code = [facility] Future Scheduled 1960 Screening for malignant [facility] 00:00:00 neoplasm of colon [facility] (procedure) [code = 976162086] Future Scheduled 1960 Screening for malignant [facility] 00:00:00 neoplasm of colon [facility] (procedure) [code = 075715495] Future Scheduled 1960 Screening for malignant [facility] 00:00:00 neoplasm of colon [facility] (procedure) [code = 370754534] Future Scheduled 1960 Screening for malignant [facility] 00:00:00 neoplasm of colon [facility] (procedure) [code = 215832955] Future Scheduled 1960 Sigmoidoscopy [code = [facility] S[facility]oscopy] [facility] Future Scheduled 1960 Screening for malignant [facility] 00:00:00 neoplasm of colon [facility] (procedure) [code = 061380861] Future Scheduled 1960 Sigmoidoscopy [code = [facility] S[facility]oidoscopy] [facility] Future Scheduled 1960 CT Colonography (combo) [facility] 00:00:00 [code = CT Colonography [facility] (combo)] Future Scheduled 1960 Screening for malignant [facility] 00:00:00 neoplasm of colon [facility] (procedure) [code = 739103728] Future Scheduled 1960 Screening for malignant [facility] 00:00:00 neoplasm of colon [facility] (procedure) [code = 956899539] Future Scheduled 1960 Screening for malignant [facility] 00:00:00 neoplasm of colon [facility] (procedure) [code = 124644074] Future Scheduled 1960 Screening for malignant [facility] 00:00:00 neoplasm of colon [facility] (procedure) [code = 795534245] Future Scheduled 1960 Sigmoidoscopy [code = [facility] S[facility]oidoscopy] [facility] Future Scheduled 1960 CT Colonography (combo) [facility] 00:00:00 [code = [facility] ([facility])] Future Scheduled 1960 Screening for malignant [facility] 00:00:00 neoplasm of colon [facility] (procedure) [code = 952229933] Future Scheduled 1960 Screening for malignant [facility] 00:00:00 neoplasm of colon [facility] (procedure) [code = 948576017] Future Scheduled 1960 Screening for malignant [facility] 00:00:00 neoplasm of colon [facility] (procedure) [code = 697659446] Future Scheduled 1960 Screening for malignant [facility] 00:00:00 neoplasm of colon [facility] (procedure) [code = 360461324] Future Scheduled 1960 Sigmoidoscopy [facility]code = [facility] S[facility]oidoscopy] [facility] Future Scheduled 1960 CT Colonography (combo) [facility] 00:00:00 [code = [facility] ([facility])] Future Scheduled 1960 Screening for malignant [facility] 00:00:00 neoplasm of colon [facility] (procedure) [code = 135166473] Future Scheduled 1960 Screening for malignant [facility] 00:00:00 neoplasm of colon [facility] (procedure) [code = [id number]] Future Scheduled 1960 Screening for malignant [facility] 00:00:00 neoplasm of colon [facility] (procedure) [code = 244767330] Future Scheduled 1960 Screening for malignant [facility] 00:00:00 neoplasm of colon [facility] (procedure) [code = 548539690] Future Scheduled 1960 Sigmoidoscopy [facility]code = [facility] S[facility]oidoscopy] [facility] Future Scheduled 1960 CT Colonography (combo) [facility] 00:00:00 [code = [facility] ([facility])] Future Scheduled 1960 Screening for malignant [facility] 00:00:00 neoplasm of colon [facility] (procedure) [code = 993457037] Future Scheduled 1960 Screening for malignant [facility] 00:00:00 neoplasm of colon [facility] (procedure) [code = 307952961] Future Scheduled 1960 Screening for malignant [facility] 00:00:00 neoplasm of colon [facility] (procedure) [code = 412871603] Future Scheduled 1960 Screening for malignant [facility] 00:00:00 neoplasm of colon [facility] (procedure) [code = [id number]] Future Scheduled 1960 Sigmoidoscopy [facility]code = [facility] S[facility]oidoscopy] [facility] Future Scheduled 1960 CT Colonography (combo) [facility] 00:00:00 [code = [facility] ([facility])] Future Scheduled 1960 Screening for malignant [facility] 00:00:00 neoplasm of colon [facility] (procedure) [code = 247192572] Future Scheduled 1960 Screening for malignant [facility] 00:00:00 neoplasm of colon [facility] (procedure) [code = 360768892] Future Scheduled 1960 Screening for malignant [facility] 00:00:00 neoplasm of colon [facility] (procedure) [code = 280997596] Future Scheduled 1960 Screening for malignant [facility] 00:00:00 neoplasm of colon [facility] (procedure) [code = 771176694] Future Scheduled 1960 Sigmoidoscopy [facility]code = [facility] S[facility]oidoscopy] [facility] Future Scheduled 1960 CT Colonography (combo) [facility] 00:00:00 [code = [facility] ([facility])] Future Scheduled 1960 Screening for malignant [facility] 00:00:00 neoplasm of colon [facility] (procedure) [code = [id number]] Future Scheduled 1960 Screening for malignant [facility] 00:00:00 neoplasm of colon [facility] (procedure) [code = 575564653] Future Scheduled 1960 Screening for malignant [facility] 00:00:00 neoplasm of colon [facility] (procedure) [code = 891981064] Future Scheduled 1960 Screening for malignant [facility] 00:00:00 neoplasm of colon [facility] (procedure) [code = 612081316] Future Scheduled 1960 Sigmoidoscopy [facility]code = [facility] S[facility]oidoscopy] [facility] Future Scheduled 1960 CT Colonography (combo) [facility] 00:00:00 [code = CT Colonography [facility] (combo)] Future Scheduled 1960 CT Colonography (combo) [facility] 00:00:00 [code = CT Colonography [facility] (combo)] Future Scheduled 1960 Screening for malignant [facility] 00:00:00 neoplasm of colon [facility] (procedure) [code = 922974970] Future Scheduled 1960 Screening for malignant [facility] 00:00:00 neoplasm of colon [facility] (procedure) [code = 373093268] Future Scheduled 1960 Screening for malignant [facility] 00:00:00 neoplasm of colon [facility] (procedure) [code = 302685373] Future Scheduled 1960 Screening for malignant [facility] 00:00:00 neoplasm of colon [facility] (procedure) [code = 779367684] Future Scheduled 1960 Sigmoidoscopy [code = [facility] S[facility]oidoscopy] [facility] Future Scheduled 1960 Screening for malignant [facility] 00:00:00 neoplasm of colon [facility] (procedure) [code = 341376215] Future Scheduled 1960 Screening for malignant [facility] 00:00:00 neoplasm of colon [facility] (procedure) [code = 457422484] Future Scheduled 1960 Screening for malignant [facility] 00:00:00 neoplasm of colon [facility] (procedure) [code = 925275599] Future Scheduled 1960 Screening for malignant [facility] 00:00:00 neoplasm of colon [facility] (procedure) [code = 628520834] Future Scheduled 1960 CT Colonography (combo) [facility] 00:00:00 [code = CT Colonography [facility] (combo)] Future Scheduled 1960 Screening for malignant [facility] 00:00:00 neoplasm of colon [facility] (procedure) [code = 236056595] Future Scheduled 1960 Screening for malignant [facility] 00:00:00 neoplasm of colon [facility] (procedure) [code = 163116744] Future Scheduled 1960 Screening for malignant [facility] 00:00:00 neoplasm of colon [facility] (procedure) [code = 087030788] Future Scheduled 1960 Screening for malignant [facility] 00:00:00 neoplasm of colon [facility] (procedure) [code = [id number]] Future Scheduled 1960 Sigmoidoscopy [code = [facility] S[facility]oscopy] [facility] Future Scheduled 1960 S[facility]oidoscopy [code = [facility] Sigmoidoscopy] [facility] Future Scheduled 1960 CT Colonography (combo) [facility] 00:00:00 [code = CT Colonography [facility] (combo)] Future Scheduled 1960 Screening for malignant [facility] 00:00:00 neoplasm of colon [facility] (procedure) [code = 669159654] Future Scheduled 1960 Screening for malignant [facility] 00:00:00 neoplasm of colon [facility] (procedure) [code = 925600707] Future Scheduled 1960 Screening for malignant [facility] 00:00:00 neoplasm of colon [facility] (procedure) [code = 367690453] Future Scheduled 1960 Screening for malignant [facility] 00:00:00 neoplasm of colon [facility] (procedure) [code = [id number]] Future Scheduled 1960 Sigmoidoscopy [code = [facility] S[facility]oidoscopy] [facility] Future Scheduled 1960 CT Colonography (combo) [facility] 00:00:00 [code = CT Colonography [facility] (combo)] Future Scheduled 1960 Screening for malignant [facility] 00:00:00 neoplasm of colon [facility] (procedure) [code = 425942623] Future Scheduled 1960 Screening for malignant [facility] 00:00:00 neoplasm of colon [facility] (procedure) [code = 662566855] Future Scheduled 1960 Screening for malignant [facility] 00:00:00 neoplasm of colon [facility] (procedure) [code = 462990529] Future Scheduled 1960 Screening for malignant [facility] 00:00:00 neoplasm of colon [facility] (procedure) [code = 978056533] Future Scheduled 1960 Sigmoidoscopy [code = [facility] S[facility]oidoscopy] [facility] Future Scheduled 1960 CT Colonography (combo) [facility] 00:00:00 [code = CT Colonography [facility] (combo)] Future Scheduled 1960 Screening for malignant [facility] 00:00:00 neoplasm of colon [facility] (procedure) [code = 799749026] Future Scheduled 1960 Screening for malignant [facility] 00:00:00 neoplasm of colon [facility] (procedure) [code = 856129517] Future Scheduled 1960 Screening for malignant [facility] 00:00:00 neoplasm of colon [facility] (procedure) [code = 842956523] Future Scheduled 1960 Screening for malignant [facility] 00:00:00 neoplasm of colon [facility] (procedure) [code = 787631412] Future Scheduled 1960 Sigmoidoscopy [code = [facility] S[facility]oidoscopy] [facility] Future Scheduled 1960 CT Colonography (combo) [facility] 00:00:00 [code = [facility] ([facility])] Future Scheduled 1960 Screening for malignant [facility] 00:00:00 neoplasm of colon [facility] (procedure) [code = 566875425] Future Scheduled 1960 Screening for malignant [facility] 00:00:00 neoplasm of colon [facility] (procedure) [code = 517327984] Future Scheduled 1960 Screening for malignant [facility] 00:00:00 neoplasm of colon [facility] (procedure) [code = 152405316] Future Scheduled 1960 Screening for malignant [facility] 00:00:00 neoplasm of colon [facility] (procedure) [code = 698443309] Future Scheduled 1960 Sigmoidoscopy [code = [facility] S[facility]oidoscopy] [facility] Future Scheduled 1960 CT Colonography (combo) [facility] 00:00:00 [code = [facility] ([facility])] Future Scheduled 1960 Screening for malignant [facility] 00:00:00 neoplasm of colon [facility] (procedure) [code = 951628846] Future Scheduled 1960 Screening for malignant [facility] 00:00:00 neoplasm of colon [facility] (procedure) [code = 869636358] Future Scheduled 1960 Screening for malignant [facility] 00:00:00 neoplasm of colon [facility] (procedure) [code = 633741210] Future Scheduled 1960 Screening for malignant [facility] 00:00:00 neoplasm of colon [facility] (procedure) [code = 705977921] Future Scheduled 1960 Sigmoidoscopy [code = [facility] S[facility]oidoscopy] [facility] Future Scheduled 1960 CT Colonography (combo) [facility] 00:00:00 [code = [facility] ([facility])] Future Scheduled 1960 Screening for malignant [facility] 00:00:00 neoplasm of colon [facility] (procedure) [code = 081543581] Future Scheduled 1960 Screening for malignant [facility] 00:00:00 neoplasm of colon [facility] (procedure) [code = 458136719] Future Scheduled 1960 Screening for malignant [facility] 00:00:00 neoplasm of colon [facility] (procedure) [code = 905731098] Future Scheduled 1960 Screening for malignant [facility] 00:00:00 neoplasm of colon [facility] (procedure) [code = 139051866] Future Scheduled 1960 Sigmoidoscopy [code [facility] S[facility]oidoscopy] [facility] Future Scheduled 1960 CT Colonography (combo) [facility] 00:00:00 [code = [facility] ([facility])] Future Scheduled 1960 Screening for malignant [facility] 00:00:00 neoplasm of colon [facility] (procedure) [code = 759162600] Future Scheduled 1960 Screening for malignant [facility] 00:00:00 neoplasm of colon [facility] (procedure) [code = 599547564] Future Scheduled 1960 Screening for malignant [facility] 00:00:00 neoplasm of colon [facility] (procedure) [code = 665431101] Future Scheduled 1960 Screening for malignant [facility] 00:00:00 neoplasm of colon [facility] (procedure) [code = 140874599] Future Scheduled 1960 Sigmoidoscopy [code [facility] S[facility]oidoscopy] [facility] Future Scheduled 1960 CT Colonography (combo) [facility] 00:00:00 [code = [facility] ([facility])] Future Scheduled 1960 Screening for malignant [facility] 00:00:00 neoplasm of colon [facility] (procedure) [code = 721578821] Future Scheduled 1960 Screening for malignant [facility] 00:00:00 neoplasm of colon [facility] (procedure) [code = 079600345] Future Scheduled 1960 Screening for malignant [facility] 00:00:00 neoplasm of colon [facility] (procedure) [code = 195422751] Future Scheduled 1960 Screening for malignant [facility] 00:00:00 neoplasm of colon [facility] (procedure) [code = 031495917] Future Scheduled 1960 Sigmoidoscopy [code = [facility] S[facility]oidoscopy] [facility] Future Scheduled 1960 CT Colonography (combo) [facility] 00:00:00 [code = [facility] ([facility])] Future Scheduled 1960 Screening for malignant [facility] 00:00:00 neoplasm of colon [facility] (procedure) [code = 233395321] Future Scheduled 1960 Screening for malignant [facility] 00:00:00 neoplasm of colon [facility] (procedure) [code = 869808707] Future Scheduled 1960 Screening for malignant [facility] 00:00:00 neoplasm of colon [facility] (procedure) [code = 322570772] Future Scheduled 1960 Screening for malignant [facility] 00:00:00 neoplasm of colon [facility] (procedure) [code = 691362444] Future Scheduled 1960 Sigmoidoscopy [code = [facility] S[facility]oidoscopy] [facility] Future Scheduled 1960 CT Colonography (combo) [facility] 00:00:00 [code = CT Colonography [facility] (combo)] Future Scheduled 1960 Screening for malignant [facility] 00:00:00 neoplasm of colon Medical Ce nter (procedure) [code = 221616083] Future Scheduled 1960 Screening for malignant [facility] 00:00:00 neoplasm of colon Medical Ce nter (procedure) [code = 565863298] Future Scheduled 1960 Screening for malignant [facility] 00:00:00 neoplasm of colon Medical Ce nter (procedure) [code = 002590345] Future Scheduled 1960 Screening for malignant [facility] 00:00:00 neoplasm of colon Medical Ce nter (procedure) [code = 501889552] Future Scheduled 1960 Sigm[facility]code [facility]] [facility] Cent[facility] Future Scheduled 1960 CT Colonography (combo) [facility] 00:00:00 [code = CT Colonography [facility] (combo)] Future Scheduled 1960 Screening for malignant [facility] 00:00:00 neoplasm of colon Medical Ce nter (procedure) [code = 590647308] Future Scheduled 1960 Screening for malignant [facility] 00:00:00 neoplasm of colon Medical Ce nter (procedure) [code = 506506232] Future Scheduled 1960 Screening for malignant [facility] 00:00:00 neoplasm of colon Medical Ce nter (procedure) [code = 933100730] Future Scheduled 1960 Screening for malignant [facility] 00:00:00 neoplasm of colon Medical Ce nter (procedure) [code = 077044790] Future Scheduled 1960 Sigmoidoscopy [facility]code = [facility]] Medical Cente r Future Scheduled 1960 CT Colonography (combo) [facility] 00:00:00 [code = CT [facility] ([facility])] Future Scheduled 1960 Screening for malignant [facility] 00:00:00 neoplasm of colon Medical Ce nter (procedure) [code = 495312428] Future Scheduled 1960 Screening for malignant [facility] 00:00:00 neoplasm of colon Medical Ce nter (procedure) [code = 628944846] Future Scheduled 1960 Screening for malignant [facility] 00:00:00 neoplasm of colon Medical Ce nter (procedure) [code = 769883561] Future Scheduled 1960 Screening for malignant [facility] 00:00:00 neoplasm of colon Medical Ce nter (procedure) [code = 676341624] Future Scheduled 1960 Sigmoidoscopy [facility]code = [facility]] Medical Cente r Future Scheduled 1960 CT Colonography (combo) [facility] 00:00:00 [code = CT [facility] ([facility])] Future Scheduled 1960 Screening for malignant [facility] 00:00:00 neoplasm of colon Medical Ce nter (procedure) [code = 570755125] Future Scheduled 1960 Sigmoidoscopy [facility]code [facility]oscopy] Medical Cente r Future Scheduled 1960 CT Colonography (combo) [facility] 00:00:00 [code = CT Colonography [facility] (combo)] Future Scheduled 1960 Screening for malignant [facility] 00:00:00 neoplasm of colon Medical Ce nter (procedure) [code = 762698815] Future Scheduled 1960 Screening for malignant [facility] 00:00:00 neoplasm of colon Medical Ce nter (procedure) [code = 593177514] Future Scheduled 1960 Screening for malignant [facility] 00:00:00 neoplasm of colon Medical Ce nter (procedure) [code = 836055493] Instructions Maria [facility] Encounters Start End Encounter Admission Attending Care Care Encounter Source Date/Time Date/Time Type Type Clinicians Facility Department ID 2021-03-05 Outpatient VIOLETTA [facility] Surgery [id number] SLE 09:43:20 [place] 2023-01-01 2023-01-01 [facility] [id number] 09:29:39 23:59:00 Encounter [facility] 2023-01-01 2023-01-01 [facility] [id number] 09:29:39 23:59:00 Encounter [facility] 2023-01-01 2023-01-01 [id number] [facility] 09:29:39 23:59:00 [place] 2022-12-29 2022-12-29 [id number] SLE 00:00:00 00:00:00 [place] 2022-12-21 2022-12-[address] [facility] [id number] 00:[facility] 00[facility]00 [facility] 2022-12-21 2022-12-[address] [facility] [id number] 00:[facility] 00:00:00 [facility] 2022-12-19 2022-12-19 Emergency Ali, Amir [facility] [id number] 18:42:00 22:44:00 [facility] 2022-12-19 2022-12-19 Emergency ER Ali, Amir [facility] [id number] 18:42:00 22:44:00 [facility] 2022-12-19 2022-12-19 Emergency ER ALI, AMIR SLE Emergency [id number] SLEH 18:42:00 22:44:00 2022-12-19 2022-12-19 Emergency ER ALI, AMIR SLEH SLE [id number] [facility] 18:58:54 18:58:54 2022-12-19 2022-12-19 Emergency ER ALI, AMIR SLEH SLE [id number] [facility] 18:57:05 18:57:05 2022-12-19 2022-12-19 Travel [facility] [id number] [facility] 00:[facility] 00:00:00 [facility] 2022-12-19 2022-12-19 Travel [facility] [id number] [facility] 00:[facility] 00:00:00 [facility] 2022-12-14 2022-12-14 [id number] [id number] 00:[facility] 00:00[facility]00 [facility] 2022-12-14 2022-12-14 [facility] [id number] 00:00[facility]00 00:00:00 [facility] 2022-11-02 2022-11-03 Inpatient EL Shrestha, [facility] [id number] [facility] 08:30:00 14:35:00 Osw[facility] 00 [facility] 2022-10-31 2022-10-31 Outpatient FOG_A_Provi AOSM AOSM [id number] Maria G 00:00:00 00:00:00 luis fernando [id number] [facility] 2022-10-31 2022-10-31 Outpatient FOG_A_Provi AOSM AOSM 570 [id number] Maria G 00:00:00 00:00:00 luis fernando [id number] [facility] 2022-10-31 2022-10-31 Outpatient FOG_A_Provi AOSM AOSM 570 [id number] Maria G 00:00:00 00:00:00 luis fernando [id number] [facility] 2022-10-31 2022-10-31 Outpatient FOG_A_Provi AOSM AOSM 570 [id number] Maria G 00:00:00 00:00:00 luis fernando [id number] [facility] 2022-10-31 2022-10-31 Outpatient FOG_A_Provi AOSM AOSM 570 [id number] Maria G 00:00:00 00:00:00 luis fernando [id number] [facility] 2022-10-31 2022-10-31 Outpatient FOG_A_Provi AOSM AOSM 570 [id number] Maria G 00:00:00 00:00:00 luis fernando [id number] [facility] 2022-10-10 2022-10-[address] [facility] [id number] SLE 00:00:00 00:00:00 [place] 2022 2022 Outpatient FOG_A_Provi AOSM AOSM 570 [id number] Maria G 00:00:00 00:00:00 luis fernando [id number] [facility] 2022 2022 Outpatient FOG_A_Provi AOSM AOSM 570 [id number] Maria G 00:00:00 00:00:00 luis fernando [id number] [facility] 2022 2022 Outpatient FOG_A_Provi AOSM AOSM 570 [id number] Maria G 00:00:00 00:00:00 luis fernando [id number] [facility] 2022-09-29 2022-09-[address] [facility] [id number] [facility] 00:00:00 00:00:00 [facility] 2022-09-29 2022-09-[address] [facility] [id number] [facility] St 00:00:00 00:00:00 Encounter [facility] 2022-09-27 2022-09-27 Outpatient CECY Shrestha [id number] [facility] 16:08:00 16:08:00 Oswald 01 [facility] 2022-09-20 2022-09-20 Outpatient FOG_A_Provi AOSM AOSM [id number] [place] 00:00:00 00:00:00 luis fernando [id number] [facility] 2022-09-20 2022-09-20 Oswald AOSM [place] - Ortho Maria G 00:00:00 00:00:00 Fátima Shrestha MD: [id number] FOG_Ofc dic [facility], [place] [address] , Ph. [phone] 2022-09-15 2022-09-15 Outpatient FOG_A_Provi AOSM AOSM 570 [id number] [place] 00:00:00 00:00:00 luis fernando [id number] [facility] 2022-09-14 2022-09-14 [facility] [id number] [facility] St 15:58:07 23:59:00 Encounter [facility] 2022-09-14 2022-09-14 [facility] [id number] [facility] 15:58:07 23:59:00 Encounter [facility] 2022-09-14 2022-09-14 Outpatient LANI [facility] SLE [id number] SLE 15:58:07 23:59:00 [facility] 2022-09-12 2022-09-12 [facility] [id number] [facility] [facility] St 00:00:00 00:00:00 Only [facility] 2022-09-12 2022-09-12 [facility] [id number] 00:00:00 00:00:00 Only [facility] 2022-09-06 2022-09-06 [facility], [facility] [id number] 16:30:36 23:59:[address] [facility] 2022-09-06 2022-09-06 [facility], [facility] [id number] 16:30:36 23:59:[address] [facility] 2022-09-06 2022-09-06 Outpatient EL RITCHIE, SLEH SLEH [id number] [facility] 16:30:36 23:59:00 [facility] 2022-09-06 2022-09-06 Outpatient EL RITCHIE, SLEH SLEH [id number] [facility]H 16:30:03 16:30:00 [facility] 2022-09-06 2022-09-06 [facility], [facility] [id number] 16:30:00 16:30:[address] [facility] 2022-09-06 2022-09-06 [facility], [facility] [id number] 16:30:00 16:30:[address] [facility] 2022-09-06 2022-09-06 Outpatient EL RITCHIE, SLEH SLEH [id number] [facility]H 16:29:38 16:29:00 [facility] 2022-09-06 2022-09-06 [facility], [facility] [id number] 16:20:00 16:29:[address] [facility] 2022-09-06 2022-09-06 [facility], [facility] [id number] 16:20:00 16:29:[address] [facility] 2022-09-06 2022-09-06 [facility], [facility] [id number] 16:18:49 16:19:[address] [facility] 2022-09-06 2022-09-06 [facility], [facility] [id number] 16:18:49 16:19:[address] [facility] 2022-09-06 2022-09-06 Outpatient [facility], SLE SLEH [id number] [facility]H 16:18:49 16:19:00 [facility] 2022-09-06 2022-09-06 Outside [facility], [facility] [id number] 00:00:00 00:00:00 Orders [facility] 2022-09-06 2022-09-06 Outside [facility], [facility] [id number] 00:00:00 00:00:00 Orders [facility] 2022-09-06 2022-09-06 Outside [facility], [facility] [id number] 00:00:00 00:00:00 Orders [facility] 2022-09-06 2022-09-06 Outside [facility], [facility] [id number] 00:00:00 00:00:00 Orders [facility] 2022-07-11 2022-07-11 Outpatient CECY Canchola LABO [id number] [facility] 15:46:00 15:46:[address] 2022-07-11 2022-07-11 Outpatient HAIDER McgillTO LABO [id number] [facility] 08:00:00 08:01:[address] [facility] 2022-07-05 2022-07-05 Outpatient FOG_A_Provi AOSM AOSM [id number] Maria G 00:00:00 00:00:00 luis fernando [id number] [facility] 2022-07-05 2022-07-05 Oswald AOSM [place] - Ortho 08 Maria G 00:00:00 00:00:00 Fátima Shrestha MD: [id number] FOG_Ofc dic [facility] [place] [place] [address] , Ph. [phone] 2022-07-04 2022-07-04 Outpatient FOG_A_Provi AOSM AOSM [id number] Maria G 00:00:00 00:00:00 luis fernando [id number] [facility] 2022-06-23 2022-06-23 Outpatient FOG_A_Provi AOSM AOSM 570 [id number] Maria G 00:00:00 00:00:00 luis fernando [id number] [facility] 2022-06-23 2022-06-23 Outpatient FOG_A_Provi AOSM AOSM 570 [id number] Maria G 00:00:00 00:00:00 luis fernando [id number] [facility] 2022-06-22 2022-06-22 Outpatient EL LANI, [facility] [id number] [facility] 14:07:13 23:59:00 [facility] 2022-06-22 2022-06-22 [facility] [id number] 13:50:00 23:59:00 Encounter [facility] 2022-06-22 2022-06-22 [facility] [id number] 13:50:00 23:59:00 Encounter [facility] 2022-06-15 2022-06-15 [facility] [id number] 00:00:00 00:00:00 Only [facility] 2022-06-15 2022-06-15 Orders [facility] [id number] 00:00:00 00:00:00 Only [facility] 2021-07-12 2021-07-12 Outpatient R MARY, [facility] [id number] [facility] 10:40:00 10:40:00 DAVID [id number] [facility] 2020-09-07 2020-09-[address] [facility] [id number] [facility] 00:00:00 00:00:00 2020-08-24 2020-08-[address] [facility] [id number] [facility] 00:00:00 00:00:00 ALEX Results Test Description Test Time Test Comments Results Result [facility] e Comments CT ABDOMEN/PELVIS 2023-01-04 WITH IV CONTRAST 10:16:18 [facility] 1960 Sex: F EXAMINATION : CT of the abdomen and pelvis with contrast.TECHNIQUE: Spiral CT images of the abdomen and pelvis were performed from the lungbases to the lesser trochanters after the intravenous administration of100 cc of Isovue 300.. Coronal and sagittal reformatted images wereobtained.Dose modulation, iterative reconstruction, and/or weight basedadjustment of the mA/kV was utilized to reduce the radiation dose to aslow as reasonably achievable. COMPARISON: CT chest with contrast 12/19/2022, CT abdomen and pelvis withcontrast 09/14/2022LINICAL HISTORY:Appendiceal mass DISCUSSION:ABDOMEN/PELVI S:LOWER THORAX:Unremarkable.HEPA TOBILIARY: No focal hepatic lesions. No intra-or extrahepaticbiliary ductal dilation. The gallbladder is normal. SPLEEN: Subcentimeter hypoattenuating lesion in the upper pole of thespleen is unchanged and remains too small to further characterize,though likely to represent a small cyst.PANCREAS: No focal masses or ductal dilatation. ADRENALS: Unchanged subcentimeter lipoma or myelolipoma in the mediallimb of the right adrenal. No left adrenal nodule.KIDNEYS/URETERS: No hydronephrosis, stones, or solid mass lesions.PELVIC ORGANS/BLADDER: The urinary bladder is collapsed and poorlyevaluated. The uterus is not identified and has presumably beenresected. No adnexal mass. Evaluation of pelvic viscera is limited bybeam hardening artifact from adjacent right hip prosthesis.PERITONEUM/RE TROPERITONEUM: No ascites or pneumoperitoneum.LYMPH NODES: No pelvic sidewall, retroperitoneal, or mesentericlymphadenopath y. Tatianna hepatis and portacaval lymph nodes are mildlyprominent though not enlarged by CT criteria and are stable compared toprior examination.VESSELS: Mild atherosclerotic calcification of the abdominal aortawithout aneurysmal dilatation. Portal vein, splenic vein, and centralsuperior mesenteric vein are patent.GI TRACT: The large bowel is notable for multiple diverticula scatteredalong the course of the entire colon, at highest concentration along thesigmoid colon. The air-filled appendix is of normal caliber (6-7 mm)without discrete mass lesion or adjacent inflammatory change. Thestomach is incompletely distended but otherwise unremarkable. No smallbowel dilatation to suggest obstruction.BONES AND SOFT TISSUE: Postsurgical changes of right hip arthroplasty.Degenerativ e disc changes and facet arthropathy of the lumbar spine. Noosseous destructive lesions. Subcutaneous stranding along the posteriorlateral right hip related to interval arthroplasty. Otherwise no focalsoft tissue abnormalities.IMPRESSION :Unremarkable appearance of the air-filled appendix, without discretemass lesion or periappendiceal inflammation.Interval total right hip arthroplasty.Persistent findings include atherosclerotic vascular disease and largebowel diverticulosis without CT findings of acute diverticulitis.Beckie sawyer Signed By: Kenneth Marinelli01/04/2023 10:18 CDTWorkstation Name: [id number] BASIC METABOLIC PANEL 2022-12-19 22:03:30 Test Item Value Reference Range Interpretation Comme nts SODIUM (BEAKER) (test 136 meq/L 136-145 code = 381) POTASSIUM (BEAKER) 4.3 meq/L 3.5-5.1 (test code = 379) CHLORIDE (BEAKER) (test 106 meq/L 98-107 code = 382) CO2 (BEAKER) (test code 16 meq/L 22-29 L = 355) BLOOD UREA NITROGEN 13 mg/dL 7-21 (BEAKER) (test code = 354) CREATININE (BEAKER) 0.95 mg/dL 0.57-1.25 (test code = 358) GLUCOSE RANDOM (BEAKER) 144 mg/dL 70-105 H (test code = 652) CALCIUM (BEAKER) (test 9.8 mg/dL 8.4-10.2 code = 697) EGFR (BEAKER) (test 68 mL/min/1.73 sq In terpretation of eGFR values code = 1092) m Stage Descripti on Result G1 Normal or high >=90 G2 Mildly decreased 60-89 G3a Mildly to moderately 45-5 9 G3b Moderately to severely 30- 44 G4 Severly decreased 15-29 G5 Kidney failure <15Repo rted eGFR is based on the CK D-EPI 2020 equation that d oes not use a race coefficien tEstimated GFR is not as accurate as Creatinine Clearance in pr edicting glomerular filt ration rate. Estimated GFR i s not applicable for dialysis nuha joy CTA CHEST FOR PULMONARY [id number] 20:46:57 [facility] : 1960 Sex: FExam: CT pulmonary angiogramClinical History: PE suspected, high probCOMPARISON: May 13, 2008Technique: Helical images of the chest were obtained after IV contrastadministration using the pulmonary embolism protocol. MIPS images aswell as coronal and sagittal reformation were obtained.DOSE REDUCTION: The exams was performed according to the departmentaldose-optimization program which includes automated exposure control,adjustment of the mA and/or kV according to patient size and/or use ofiterativereconstruction technique.Findings: There is no evidence of acute pulmonary embolism in the mainpulmonary artery or its visualized branches.There is no evidence of pulmonary edema, consolidation, pleuraleffusion, or pneumothorax. The tracheobronchial tree is clear. There isno evidence of mediastinal orhilar lymphadenopathy. The cardiac size iswithin normal limits. The great vessels are normal in caliber andconfiguration.The visualized upper abdominal solid organs are unremarkable.IMPRESSION:Impression: 1. No CT evidence of acute pulmonary embolism.Electronically Signed By: Catherine Pond Sreedhar12/19/2022 20:49 CDTWorkstation Name: [id number] CHEST 1 VIEW PORTABLE / [id number] 20:20:48 [facility] 1960 Sex: FTECHNIQUE: Frontal view of the chest.INDICATION: shortness of breath.COMPARISON: 08/24/2020.FINDINGS:LINES/TUBES: None.HEART AND MEDIASTINUM: Cardiomediastinal contour is within normallimits. LUNGS: The lungs are well inflated and clear. No consolidation orpulmonary edema.PLEURA: No pneumothorax. No significant pleural effusion.SOFT TISSUES AND BONES: Unremarkable.IMPRESSION:No acute cardiopulmonary process.Electronically Signed By: Bird Armendariz12/19/2022 20:22 CDTWorkstation Name: [id number], [id number] 20:13:49 Test Item Value Reference Range Interpretation Comments FREE T4 (BEAKER) (test code = 655) 1.73 ng/dL 0.70-1.48 H TSH/FREE T4 IF [id number] 19:58:04 Test Item Value Reference Range Interpretation Comments THYROID STIMULATING HORMONE 0.047 uIU/mL 0.350-5.500 L (BEAKER) (test code = 772) BASIC METABOLIC [id number] 19:36:49 Test Item Value Reference Range Interpretation Comments SODIUM (BEAKER) 131 meq/L 136-145 L (test code = 381) POTASSIUM 5.0 meq/L 3.5-5.1 (BEAKER) (test code = 379) CHLORIDE (BEAKER) 98 meq/L 98-107 (test code = 382) CO2 (BEAKER) 14 meq/L 22-29 L (test code = 355) BLOOD UREA 16 mg/dL 7-21 NITROGEN (BEAKER) (test code = 354) CREATININE 1.21 mg/dL 0.57-1.25 (BEAKER) (test code = 358) GLUCOSE RANDOM 195 mg/dL 70-105 H (BEAKER) (test code = 652) CALCIUM (BEAKER) 11.8 mg/dL 8.4-10.2 H (test code = 697) EGFR (BEAKER) 51 Interpretatio n of eGFR (test code = mL/min/1.73 values Stage De scription 1092) sq m Result G1 Norm al or high >=90 G2 Mildly decreased 60-89 G3a Mildl y to moderately 45-5 9 G3b Moderately to s everely 30-44 G4 Severl y decreased 15-29 G5 Kidne y failure <15Reported eGF R is based on the CKD-EPI 2020 equation that d oes not use a race coefficientEsti mated GFR is not as accur ate as Creatinine Kandi lane in predicting glom erular filtration rate . Estimated GFR is not appl icable for dialysis patien ts HIGH SENSITIVITY TROPONIN [id number] 19:27:46 Test Item Value Reference Range Interpretation Comments HIGH SENSITIVITY TROPONIN I (test 6 pg/ml <=34 code = 4270218) The High-Sensitivity Troponin I assay is performed on Siemens Alphion IM Analyzer. Results of this assay should always be interpreted in conjunction with the patient's medical history, clinical presentation, and other findings.B-TYPE NATRIURETIC FACTOR (BNP)2022-12-19 19:27:45 Test Item Value Reference Range Interpretation Comments B-TYPE NATRIURETIC PEPTIDE (BEAKER) 22 pg/mL 0-100 (test code = 700) [id number] 19:26:43 Test Item Value Reference Range Interpretation Comments LIPASE (BEAKER) (test code = 749) 42 U/L 8-78 CBC W/PLT COUNT & AUTO [id number] 19:25:42 Test Item Value Reference Range Interpretation Comments WHITE BLOOD CELL COUNT (BEAKER) 11.5 K/ L 3.5-10.5 H (test code = 775) RED BLOOD CELL COUNT (BEAKER) 5.81 M/ L 3.93-5.22 H (test code = 761) HEMOGLOBIN (BEAKER) (test code = 17.0 GM/DL 11.2-15.7 H 410) HEMATOCRIT (BEAKER) (test code = 51.5 % 34.1-44.9 H 411) MEAN CORPUSCULAR VOLUME (BEAKER) 89 fL 79-95 (test code = 753) MEAN CORPUSCULAR HEMOGLOBIN 29.3 pg 25.6-32.2 (BEAKER) (test code = 751) MEAN CORPUSCULAR HEMOGLOBIN CONC 33.0 GM/DL 32.2-35.5 (BEAKER) (test code = 752) RED CELL DISTRIBUTION WIDTH 15.0 % 11.7-14.4 H (BEAKER) (test code = 412) PLATELET COUNT (BEAKER) (test 381 K/CU MM 150-450 code = 756) MEAN PLATELET VOLUME (BEAKER) 9.8 fL 9.4-12.3 (test code = 754) NEUTROPHILS RELATIVE PERCENT 65 % (BEAKER) (test code = 429) LYMPHOCYTES RELATIVE PERCENT 29 % (BEAKER) (test code = 430) MONOCYTES RELATIVE PERCENT 5 % (BEAKER) (test code = 431) EOSINOPHILS RELATIVE PERCENT 0 % (BEAKER) (test code = 432) BASOPHILS RELATIVE PERCENT 0 % (BEAKER) (test code = 437) NEUTROPHILS ABSOLUTE COUNT 7.53 K/ L 1.56-6.13 H (BEAKER) (test code = 670) LYMPHOCYTES ABSOLUTE COUNT 3.36 K/ L 1.18-3.74 (BEAKER) (test code = 414) MONOCYTES ABSOLUTE COUNT (BEAKER) 0.56 K/ L 0.24-0.36 H (test code = 415) EOSINOPHILS ABSOLUTE COUNT 0.03 K/ L 0.04-0.36 L (BEAKER) (test code = 416) BASOPHILS ABSOLUTE COUNT (BEAKER) 0.02 K/ L 0.01-0.08 (test code = 417) IMMATURE GRANULOCYTES-RELATIVE 0.20 % 0.00-1.00 PERCENT (BEAKER) (test code = 2801) LACTIC ACID, [id number] 19:22:01 Test Item Value Reference Range Interpretation Comments LACTATE BLOOD VENOUS 1.00 mmol/L 0.50-2.20 Specime n slightly (2) (BEAKER) (test hemolyzed code = 2872) BASIC METABOLIC [id number] 09:12:00 Test Item Value Reference Range Interpretation Comments SODIUM (test code = 135 mEq/L 135-145 N NA) POTASSIUM (test code 4.7 mEq/L 3.5-5.0 N = K) CHLORIDE (test code 100 mEq/L 100-115 N = CL) CARBON DIOXIDE (test 25 mEq/L 22-31 N code = CO2) GLUCOSE (test code = 246 mg/dL 65-110 H GLU) BLOOD UREA NITROGEN 12 mg/dL 7-18 N (test code = BUN) GLOMERULAR 83 ml/min >60 N The Glomerular FILTRATION RATE Filtration R ate is a (test code = GFR) calculated parameterbased on serum Creatinine, pat ient age and sex. GFR va luesless than 60 mL/min/ 1.73 square meters a re indicative ofCh ronic Kidney Disease. Values less than 15 mL/min/1.73squa re meters indicate Kidney failure. The calculation forGFR is based on the CKD-EPI (2020) calculat ion. This formulais race indifferent and is the recommended for matthew for GFRby the Nat nal Kidney Foundati on for Adults.The GFR will not calculate if th e sex is unknown or if thepatient's ag e is <18 years. CREATININE (test 0.8 mg/dL 0.5-1.0 N code = CREAT) CALCIUM (test code = 8.1 mg/dL 8.4-10.2 L CA) BASIC METABOLIC [id number] 09:12:00 Test Item Value Reference Range Interpretation Comments SODIUM (test code = 135 mEq/L 135-145 NA) POTASSIUM (test code 4.7 mEq/L 3.5-5.0 = K) CHLORIDE (test code 100 mEq/L 100-115 = CL) CARBON DIOXIDE (test 25 mEq/L 22-31 code = CO2) GLUCOSE (test code = 246 mg/dL 65-110 H GLU) BLOOD UREA NITROGEN 12 mg/dL 7-18 (test code = BUN) GLOMERULAR 83.3 >60 The Glomerular FILTRATION RATE Filtration R ate is a (test code = GFR) calculated parameterbased on serum Creatinine, pat ient age and sex. GFR va luesless than 60 mL/min/ 1.73 square meters a re indicative ofCh ronic Kidney Disease. Values less than 15 mL/min/1.73squa re meters indicate Kidney failure. The calculation forGFR is based on the CKD-EPI (2021) calculat ion. This formulais race indifferent and is the recommended for matthew for GFRby the Natio nal Kidney Foundati on for Adults.The GFR will not calculate if th e sex is unknown or if thepatient's ag e is <18 years.The Glome rular Filtration Rate is a calculated parameterbased on serum Creatinine, pat ient age and sex. GFR va luesless than 60 mL/min/ 1.73 square meters a re indicative ofCh ronic Kidney Disease. Values less than 15 mL/min/1.73squa re meters indicate Kidney failure. The calculation forGFR is based on the CKD-EPI (202) calculat ion. This formulais race indifferent and is the recommended for matthew for GFRby the Natio nal Kidney Foundati on for Adults.The GFR will not calculate if th e sex is unknown or if thepatient's ag e is <18 years. CREATININE (test 0.8 mg/dL 0.5-1.0 code = CREAT) CALCIUM (test code = 8.1 mg/dL 8.4-10.2 L CA) HGB [id number] 06:17:00 Test Item Value Reference Range Interpretation Comments HEMOGLOBIN (test code = HGB) 12.1 g/dL 12-16 N HEMATOCRIT (test code = HCT) 36.6 % 37-47 L SPECIMEN COMMENT: POD #1- XR PELVIS 1/2 [id number] 16:23:00 [facility] 1960 Sex: F Patient Name: SHERINE GARCIA Unit No: [id number] EXAMS: CPT CODE: [id number] XR PELVIS 1/2 [id number] INTRAOPERATIVE LEG LENGTH FILM COMMENT: COMPARISON: No prior exams available. In progress right hip replacement is noted. AP portable right hip COMMENT: The patient is status post joint replacement which is articulating normally. at 1623 Reported and signed by: Rickey Menezes MD CC: Oswald Shrestha MD Technologist: CEE MARTIN ARRT Transcribed D/ (1622) Jose JuanL [facility] NAME: SHERINE GARCIA [address] [facility] PHYS: CRISTINA.Damaris - Oswald Shrestha : 1960 AGE: 62 SEX: F [place] [address] LOC: Y.998 15 PHONE #: [phone] EXAM DATE: 11/02/2022 STATUS: ADM IN FAX #: [phone] RAD #: D/C DT PAGE 1 Signed Report Patient Name: SHERINE GARCIA Unit No: [id number] EXAMS: CPT CODE: [id number] XR PELVIS 1/2 VIEWS 52089 (Continued) Orig PrintD/T: S: 11/02/2022 (1625) [facility] NAME: SHERINE GARCIA [address] [place] [address] PHYS: CRISTINA.Damaris - Oswald Shrestha : 1960 AGE: 62 SEX: F [place], [place] [address] LOC: Y.998 15 PHONE #: [phone] EXAM DATE: 11/02/2022 STATUS: ADM IN FAX #: [phone] RAD#: D/C DT PAGE 2 Signed Report - XR PELVIS 1/2 [id number] 16:23:00 [facility] 1960 Sex: F Patient Name: SHERINE GARCIA Unit No: [id number] EXAMS: CPT CODE: [id number] XR PELVIS 1/2 VIEWS 04802 INTRAOPERATIVE LEG LENGTH FILM COMMENT: COMPARISON: No prior exams available. In progress righthip replacement is noted. AP portable right hip COMMENT: The patient is status post joint replacement which is articulating normally. at 1623 Reported and signed by: Rickey Menezes MD CC: Oswald Shrestha MD Technologist: CEE MARTIN ARRT Transcribed D/ (1623) tALBERTOJCL [facility] NAME: SHERINE GARCIA [address] [facility] PHYS: Oswald Rock : 1960 AGE: 62 SEX: [place], [place] [address] LOC: Y.998 15 PHONE #: [phone] EXAM DATE: 11/02/2022STATUS: ADM IN FAX #: [phone] RAD #: D/C DT PAGE 1 Signed Report Patient Name: SHERINE GARCIA Unit No: [id number] EXAMS: CPT CODE: [id number] XR PELVIS 1/2 VIEWS 55839 (Continued) Orig PrintD/T: S: 11/02/2022 (1626) [facility] NAME: SHERINE GARCIA [address] [facility] PHYS: LARY - sOwald Shrestha : 1960 AGE: 62 SEX: F [place], [place] [address] LOC: Y.998 15 PHONE #: [phone] EXAM DATE: 11/02/2022 STATUS: ADM IN FAX #: [phone] RAD#: D/C DT PAGE 2 Signed Report [id number] 11:47:00 Test Item Value Reference Range Interpretation Comments GLUBED (test code = GLUBED) 121 mg/dL 60-125 N AB HIV 1 16:02:00 Test Item Value Reference Range Interpretation Comments AB HIV 1 2 (test NONREACTIVE NONREACTIVE Done by Sie SessionMaur code = [id number]) 4th Gen HIV Ag/Ab Combo Screen AB HIV 16:02:00 Test Item Value Reference Range Interpretation Comments AB HIV 1 (test code NONREACTIVE NONREACTIVE DONE AT: [facility] = HIV1AB) [facility] [address] [place], [place] [address]Done by Orb[employer] aur 4th Gen HIV Ag/Ab C ombo Screen GLYCOSYLATED HEMOGLOBIN (HA1C)2022-09-27 12:46:00 Test Item Value Reference Range Interpretation Comments GLYCOSYLATED 7.2 % 4.8-5.9 H Any condition t hat shortens HEMOGLOBIN (HA1C) erythocyte survival or (test code = GLYHGB) decreas esmean erythrocyte age (e.g., shama very from acute blood los s,hemolytic anemia) will fa lsely lower HGBA1c resultsr egardless of the method used . HGBA1c results from nuha olsen HbSS, HbCC, and HbSc must be interpreted with cautiongiven th e pathological pr ocesses, including anemi a,increased red cell turnov er, transfusion req uirements, thatadversely i mpact HGBA1c as a marker of long-term glycemiccontrol . Alternative for ms of testing such as fructosaminesho uld be considered for these patients. GLYCOSYLATED HEMOGLOBIN (HA1C)2022-09-27 12:46:00 Test Item Value Reference Range Interpretation Comments GLYCOSYLATED 7.2 % 4.8-5.9 H Any condition t hat shortens HEMOGLOBIN (HA1C) erythocyte survival or (test code = GLYHGB) decreas esmean erythrocyte age (e.g., shama very from acute blood los s,hemolytic anemai) will fa lsely lower HGBA1c resultsr egardless of the method used . HGBA1c results frompat ients with HbSS, HbCC and HbSc must be interpreted wit hcaution given the patho logical processes, incl uding anemia,increase d red cell turnover, trans fusion requirements, t hatadversely impact HGBA1c a s a marker of long-term glycemiccontrol . Alternative for ms of testing such as fructosaminesho uld be considered for these patients.Any co ndition that shortens erytho cyte survival or dec reasesmean erythrocyte age (e.g., recovery from a cute blood loss,hemolytic anemia) will falsely lower H GBA1c resultsregardle ss of the method used. HG BA1c results from patientswi th HbSS, HbCC, and HbSc must be interpreted wit h cautiongiven th e pathological pr ocesses, including anemi a,increased red cell turnov er, transfusion req uirements, thatadversely i mpact HGBA1c as a marker of long-term glycemiccontrol . Alternative for ms of testing such as fructosaminesho uld be considered for these patients.DONE A T: [facility] [address] [facility], [place], [place] [address] COMPREHENSIVE METABOLIC [id number] 10:54:00 Test Item Value Reference Range Interpretation Comments SODIUM (test code = 140 mmol/L 136-145 N NA) POTASSIUM (test 4.4 mmol/L 3.5-5.1 N code = K) CHLORIDE (test code 103.0 mmol/L 98-107 N = CL) CARBON DIOXIDE 23.4 mmol/L 21-32 N (test code = CO2) GLUCOSE (test code 94 mg/dL 70-110 N = GLU) BLOOD UREA NITROGEN 13 mg/dL 7-18 N (test code = BUN) GLOMERULAR 99.0 >60 The Glomerular FILTRATION RATE Filtration R ate is a (test code = GFR) calculated parameterbased on serum Creatinin e, patient age and sex. GFR valuesless than 60 mL/min/1.73 squ are meters are rashid cative ofChronic Kidne y Disease. Values less than 15 mL/min/1.73squa re meters indicate Kidney failure. The calculation for GFR is based on the CK D-EPI (2020) calculat ion. This formulais race indifferent and is the recommended for matthew for GFRby the N [facility] Kidney Foundati on for Adults.The GFR will not calculate i f the sex is unknown or if thepatient's ag e is <18 years. CREATININE (test 0.68 mg/dL 0.55-1.30 N code = CREAT) TOTAL PROTEIN (test 7.4 g/dL 6.4-8.2 N code = PROT) ALBUMIN (test code 4.0 g/dL 3.4-5.0 N = ALB) GLOBULIN (test code 3.4 g/dL 2.2-4.2 N = GLOB) ALBUMIN/GLOBULIN 1.2 0.7-2.0 N RATIO (test code = A/G) CALCIUM (test code 9.0 mg/dL 8.2-10.1 N = CA) BILIRUBIN TOTAL 0.50 mg/dL 0.2-1.00 N (test code = BILT) SGOT/AST (test code 17.0 U/L 15-37 N = AST) SGPT/ALT (test code 23.0 U/L 12-78 N = ALT) ALKALINE 92 U/L 46-116 N PHOSPHATASE TOTAL (test code = ALKP) PROTHROMBIN [id number] 10:04:00 Test Item Value Reference Range Interpretation Comments PROTHROMBIN TIME 12.2 secs 10.1-12.5 N PATIENT (test code = PTP) INTERNATIONAL NORMAL 1.06 <2.0 RECOMME NDED THERAPEUTIC RATIO (test code = RANGE FOR ORAL INR) ANTICOAGULANTTR EATMENT: CONDITION INRPr ophylaxis of venous throm bosis in 2.0 - 3.0 high- risk medical or surg ical patientsTreatme nt of venous thrombos is 2.0 - 3.0Prevention o f embolism 2.0 - 3.0Prevention o f recurrent embol ism, or 3.0 - 4.5 patie nts with mechanical pros thetic intravascular v bush IS PATIENT ON ANTICOAGULANTS ? NHas Lab been notified if Patient is on Heparin Drip? NOIf Yes, orderCBC, OCCULT BLOOD, PT every other day NTHROMBOPLASTIN TIME [id number] 10:04:00 Test Item Value Reference Range Interpretation Comments PTT ACTIVATED (test code = APTT) 35.0 secs 24.9-37.0 N IS PATIENT ON ANTICOAGULANTS ? [facility] Lab been notified if Patient is on Heparin Drip? NOIf Yes, orderCBC, OCCULT BLOOD, PT every other day NCBC W/AUTO DIFF 2022-09-27 09:50:00 Test Item Value Reference Range Interpretation Comments WHITE BLOOD CELL (test code = WBC) 6.9 K/mm3 5.8-11.0 N RED BLOOD CELL (test code = RBC) 5.38 M/mm3 4.2-5.4 N HEMOGLOBIN (test code = HGB) 15.7 g/dL 12-16 N HEMATOCRIT (test code = HCT) 46.6 % 37-47 N MEAN CELL VOLUME (test code = MCV) 87 fL 80-98 N MEAN CELL HGB (test code = MCH) 29.2 pg 27-34 N MEAN CELL HGB CONCENTRATION (test 33.7 g/dL 30.8-34.1 N code = MCHC) RED CELL DISTRIBUTION WIDTH (test 13.7 % 11-16 N code = RDW) PLT (test code = PLT) 293 K/mm3 130-400 N MEAN PLATELET VOLUME (test code = 9.8 fL 8.9-12.1 N MPV) NEUTROPHIL % (test code = NT%) 59.3 % 45-70 N LYMPHOCYTE % (test code = LY%) 33.6 % 20-40 N MONOCYTE % (test code = MO%) 4.5 % 3-10 N EOSINOPHIL % (test code = EO%) 1.6 % 1-5 N BASOPHIL % (test code = BA%) 0.7 % 0.0-1.1 N NEUTROPHIL # (test code = NT#) 4.10 K/mm3 2.00-7.50 N LYMPHOCYTE # (test code = LY#) 2.32 K/mm3 1.50-4.00 N MONOCYTE # (test code = MO#) 0.31 K/mm3 0.2-0.8 N EOSINOPHIL # (test code = EO#) 0.11 K/mm3 0.04-0.4 N BASOPHIL # (test code = BA#) 0.05 K/mm3 0.02-0.10 N MANUAL DIFF REQUIRED (test code = NO MANUAL DIFF MDIFF) NUCLEATED RED BLOOD CELL (test 0 % 0-0 N code = NRBC) CT, [id number] 21:25:00Release to patient->Immediate Which [facility] / [facility] radiology location is preferred?->Jem Reason for exam:- >suprapubic abdominal pain, Insurance Company ID = [id number]; Insurance Company Name = [employer]; Insurance Company Phone Number = ; [facility] Number = [id number] : 1960 Sex: FFINAL REPORT EXAMINATION: CT, ABDOMEN \\T\\ PELVIS, WITH IV CONTRAST. INDICATION: 61-year-old female with lower abdominal pain. History of diverticulitis. COMPARISON: None. TECHNIQUE:Helical CT imaging of the abdomen and pelvis was performed from the diaphragms to the lesser trochanters after the administration of intravenous contrast material. Multiplanar reconstructions were createdby a technologist. One or more of the following dose reduction techniques were used:*Automated exposure control*Adjustment of the mA and/ or kV according to patient size*Use of iterative reconstructiontechnique Total DLP (mGy-cm): 1306.23Intravenous contrast: Not documented DICOM format image data are available to non-affiliated external healthcare facilities or entities on a secure, media free, reciprocally searchable basis with patient authorization for at least a 12 month period after the study.FINDINGS: LOWER CHEST: The visualized heart is unremarkable. Lung bases are clear of consolidation. No pleural effusion. LIVER: Liver is of normal size, morphology, and attenuation. No suspicious hepatic lesions. Portal and hepatic veins are patent. BILIARY SYSTEM: Gallbladder appears normal. No evidence of intrahepatic or extrahepatic biliary dilation. SPLEEN: Spleen is of normal size. No suspicioussplenic lesions. PANCREAS: Pancreas is of normal morphology. No suspicious pancreatic lesions. ADRENALS: A subcentimeter right adrenal myelolipoma is noted. URINARY SYSTEM: Kidneys are grossly symmetric. No suspicious renal lesions. No hydronephrosis or hydroureter. Bladder is unremarkable. REPRODUCTIVE SYSTEM: Uterus is surgically absent. GASTROINTESTINAL SYSTEM: Stomach is unremarkable. Small bowelis normal in caliber. Moderate to severe colonic diverticulosis. Appendix is visualized and measuresup to 10 mm in diameter but without periappendiceal stranding. VASCULAR: Abdominal aorta is of normal course and caliber. Mild calcified atherosclerotic disease. LYMPHATICS: No pathologic lymphadenopathy. PERITONEUM: Trace free fluid in the left pelvis. SOFT TISSUES/ BONES: Soft tissues are unremarkable. Mild degenerative changes of the visualized spine and bilateral hips. No aggressive osseous lesions. IMPRESSION:1.Moderate to severe colonic diverticulosis with mild stranding along the sigmoid colon, in keeping with history of diverticulitis.2.Appendix is dilated up to 10 mm but without periappendiceal stranding to suggest acute appendicitis.3.Trace free fluid in the left pelvis. Signed: Kenneth Madrigal [facility] Hospital[facility] Verified Date/Time: 09/14/2022 21:25:09 , HAND, 3 VIEWS, [id number] 09:37:00Reason for Exam:->Elevated sed rate; Arthralgia, unspecified joint; Rheumatoid factor positive [facility] 1960 Sex: FFINAL REPORT Radiographs of the right hand. Radiographs of the left hand HISTORY: Pain. Rheumatoid factor positiveCOMPARISON: 02/24/2019. FINDINGS:Bones:No acute displaced fracture. Osseous alignment is within normal limits. Joints:Scattered degenerative change. No osseous erosion. Narrowing of the interphalangeal joints and first CMC joint bilaterally with calcified bodies in the left CMC joint and adjacent to the right third PIP joint Soft tissues:The soft tissues appear unremarkable. IMPRESSION: Scattered degenerative change. No osseous erosion. 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 Signed: Gary Johns MDReport Verified Date/Time: 09/07/2022 09:37:03 Reading Location: [facility] Reading Room [address] [place] [address] RAD, HAND, 3 VIEWS, [id number] 09:37:00Reason for Exam:->Elevated sed rate; Arthralgia, unspecified joint; Rheumatoid factor positive [facility] 1960 Sex: FFINAL REPORT Radiographs of the right hand. Radiographs of the left hand HISTORY: Pain. Rheumatoid factor positiveCOMPARISON: 02/24/2019. FINDINGS:Bones:No acute displaced fracture. Osseous alignment is within normal limits. Joints:Scattered degenerative change. No osseous erosion. Narrowing of the interphalangeal joints and first CMC joint bilaterally with calcified bodies in the left CMC joint and adjacent to the right third PIP joint Soft tissues:The soft tissues appear unremarkable. IMPRESSION: Scattered degenerative change. No osseous erosion. 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 Signed: Gary Johns MDReport Verified Date/Time: 09/07/2022 09:37:03 Reading Location: [facility] Reading Room [address] [place] [address] RAD, FOOT, MIN 3 VIEWS, [id number] 09:31:00Reason for Exam:->Elevated sed rate; Arthralgia, unspecified joint; Rheumatoid factor positiveEvaluate for rheumatoid arthritisSETON [facility]Name[facility] : 1960 Sex: FFINAL REPORT Radiographs of the right foot. Radiographs of the left foot. HISTORY:PainCOMPARISON: None available. FINDINGS:Bones:No acute displaced fracture. Metallic anchors in the right posterior calcaneus.Osseous alignment is within normal limits. Joints:Scattered degenerative change. No osseous erosion. Posterior and inferior calcaneal bone spurs. Soft tissues:Small calcification at the inferior aspect of the left calcaneus posteriorly could be due to chronic plantar fasciitisoral trauma. IMPRESSION: Scattered degenerative change. No osseous erosion. Posterior and inferior calcaneal bone spurs. Small calcification at the inferior aspect of the left calcaneus posteriorly could be due to chronic plantar fasciitis oral trauma. Signed: Gary Johns MDReport Verified Date/Time:09/07/2022 09:31:19 Reading Location: [facility] Reading Room [address] [place] [address] RAD, FOOT, MIN 3 VIEWS, [id number] 09:31:00Reason for Exam:->Elevated sed rate; Arthralgia, unspecified joint; Rheumatoid factor positiveElevate for rheumatoid arthritis [facility] : 1960 Sex: FFINAL REPORT Radiographs of the right foot. Radiographs of the left foot. HISTORY:PainCOMPARISON: None available. FINDINGS:Bones:No acute displaced fracture. Metallic anchors in theright posterior calcaneus.Osseous alignment is within normal limits. Joints:Scattered degenerative change. No osseous erosion. Posterior and inferior calcaneal bone spurs. Soft tissues:Small calcification at the inferior aspect of the left calcaneus posteriorly could be due to chronic plantar fasciitis oral trauma. IMPRESSION: Scattered degenerative change. No osseous erosion. Posterior and inferior calcaneal bone spurs. Small calcification at the inferior aspect of the left calcaneus posteriorly could be due to chronic plantar fasciitis oral trauma. Signed: Gary Johns MDReport Verified Date/Time: 09/07/2022 09:31:19 Reading Location: [facility] Reading Room [address] [place] [address] OSYLATED HEMOGLOBIN (HA1C)2022-07-11 17:05:00 Test Item Value Reference Range Interpretation Comments GLYCOSYLATED 8.3 % 4.8-5.9 H Any condition t hat shortens HEMOGLOBIN (HA1C) erythocyte survival or (test code = GLYHGB) decreas esmean erythrocyte age (e.g., shama very from acute blood los s,hemolytic anemai) will fa lsely lower HGBA1c resultsr egardless of the method used . HGBA1c results frompat ients with HbSS, HbCC and HbSc must be interpreted wit hcaution given the patho logical processes, incl uding anemia,increase d red cell turnover, trans fusion requirements, t hatadversely impact HGBA1c a s a marker of long-term glycemiccontrol . Alternative for ms of testing such as fructosaminesho uld be considered for these patients.Any co ndition that shortens erytho cyte survival or dec reasesmean erythrocyte age (e.g., recovery from a cute blood loss,hemolytic anemia) will falsely lower H GBA1c resultsregardle ss of the method used. HG BA1c results from patientswi th HbSS, HbCC, and HbSc must be interpreted wit h cautiongiven th e pathological pr ocesses, including anemi a,increased red cell turnov er, transfusion req uirements, thatadversely i mpact HGBA1c as a marker of long-term glycemiccontrol . Alternative for ms of testing such as fructosaminesho uld be considered for these patients.DONE A T: [facility] [address] [facility] [place], [place] [address] GLYCOSYLATED HEMOGLOBIN (HA1C)2022-07-11 17:04:00 Test Item Value Reference Range Interpretation Comments GLYCOSYLATED 8.3 % 4.8-5.9 H Any condition t hat shortens HEMOGLOBIN (HA1C) erythocyte survival or (test code = GLYHGB) decreas esmean erythrocyte age (e.g., shama very from acute blood los s,hemolytic anemia) will fa lsely lower HGBA1c resultsr egardless of the method used . HGBA1c results from nuha olsen HbSS, HbCC, and HbSc must be interpreted with cautiongiven th e pathological pr ocesses, including anemi a,increased red cell turnov er, transfusion req uirements, thatadversely i mpact HGBA1c as a marker of long-term glycemiccontrol . Alternative for ms of testing such as fructosaminesho uld be considered for these patients. COMPREHENSIVE METABOLIC [id number] 10:01:00 Test Item Value Reference Range Interpretation Comments SODIUM (test code = 140 mmol/L 136-145 N NA) POTASSIUM (test 4.1 mmol/L 3.5-5.1 N code = K) CHLORIDE (test code 102.0 mmol/L 98-107 N = CL) CARBON DIOXIDE 26.0 mmol/L 21-32 N (test code = CO2) GLUCOSE (test code 111 mg/dL 70-110 H = GLU) BLOOD UREA NITROGEN 12 mg/dL 7-18 N (test code = BUN) GLOMERULAR 101.3 >60 The Glomerular FILTRATION RATE Filtration R ate is a (test code = GFR) calculated parameterbased on serum Creatinin e, patient age and sex. GFR valuesless than 60 mL/min/1.73 squ are meters are rashid cative ofChronic Kidne y Disease. Values less than 15 mL/min/1.73squa re meters indicate Kidney failure. The calculation for GFR is based on the CK D-EPI (2020) calculat ion. This formulais race indifferent and is the recommended for matthew for GFRby the [facility] on for Adults.The GFR will not calculate i f the sex is unknown or if thepatient's ag e is <18 years. CREATININE (test 0.62 mg/dL 0.55-1.30 N code = CREAT) TOTAL PROTEIN (test 7.4 g/dL 6.4-8.2 N code = PROT) ALBUMIN (test code 3.9 g/dL 3.4-5.0 N = ALB) GLOBULIN (test code 3.5 g/dL 2.2-4.2 N = GLOB) ALBUMIN/GLOBULIN 1.1 0.7-2.0 N RATIO (test code = A/G) CALCIUM (test code 9.0 mg/dL 8.2-10.1 N = CA) BILIRUBIN TOTAL 0.50 mg/dL 0.2-1.00 N (test code = BILT) SGOT/AST (test code 16.0 U/L 15-37 N = AST) SGPT/ALT (test code 21.0 U/L 12-78 N = ALT) ALKALINE 103 U/L 46-116 N PHOSPHATASE TOTAL (test code = ALKP) CBC W/AUTO [id number] 09:40:00 Test Item Value Reference Range Interpretation Comments WHITE BLOOD CELL (test code = WBC) 8.6 K/mm3 5.8-11.0 N RED BLOOD CELL (test code = RBC) 5.26 M/mm3 4.2-5.4 N HEMOGLOBIN (test code = HGB) 15.0 g/dL 12-16 N HEMATOCRIT (test code = HCT) 45.1 % 37-47 N MEAN CELL VOLUME (test code = MCV) 86 fL 80-98 N MEAN CELL HGB (test code = MCH) 28.5 pg 27-34 N MEAN CELL HGB CONCENTRATION (test 33.3 g/dL 30.8-34.1 N code = MCHC) RED CELL DISTRIBUTION WIDTH (test 16.2 % 11-16 H code = RDW) PLT (test code = PLT) 295 K/mm3 130-400 N MEAN PLATELET VOLUME (test code = 9.8 fL 8.9-12.1 N MPV) NEUTROPHIL % (test code = NT%) 67.0 % 45-70 N LYMPHOCYTE % (test code = LY%) 27.0 % 20-40 N MONOCYTE % (test code = MO%) 4.1 % 3-10 N EOSINOPHIL % (test code = EO%) 0.8 % 1-5 L BASOPHIL % (test code = BA%) 0.6 % 0.0-1.1 N NEUTROPHIL # (test code = NT#) 5.79 K/mm3 2.00-7.50 N LYMPHOCYTE # (test code = LY#) 2.33 K/mm3 1.50-4.00 N MONOCYTE # (test code = MO#) 0.35 K/mm3 0.2-0.8 N EOSINOPHIL # (test code = EO#) 0.07 K/mm3 0.04-0.4 N BASOPHIL # (test code = BA#) 0.05 K/mm3 0.02-0.10 N MANUAL DIFF REQUIRED (test code = NO MANUAL DIFF MDIFF) NUCLEATED RED BLOOD CELL (test 0 % 0-0 N code = NRBC) RAD, SPINE, LUMBAR, COMPLETE, WITH [id number] 15:02:00Release to patient- [facility]?->[employer] ID = [id number]; Insurance Company Name = [facility]; Insurance CompanyPhone Number = ; Policy Number = [id number] : 1960 Sex: FFINAL REPORT Radiographs of the lumbar spine seven views with bilateral obliques, flexion and extension images HISTORY: PainCOMPARISON: None available. FINDINGS:Bones:No acute displaced fracture. Minimal curvature of the lumbar spine concave to the right. Joints:Scattered degenerative change. No osseous erosion. No pars interarticularis defects. No subluxation on the flexion or extension images. Soft tissues:The soft tissues appear unremarkable. IMPRESSION: Scattered degenerative change. No osseous erosion. No pars interarticularis defects. No subluxation on the flexion or extension images. Signed: Gary Johns MDReport Verified Date/Time: 06/22/2022 15:02:03 Reading Location: [facility] Reading Room [address] [place] [address] POCT-GLUCOSE [id number] 14:29:00 Test Item Value Reference Range Interpretation Comments POC-GLUCOSE METER 174 mg/dL 70-110 H : Notified RN/MD: TESTED ([facility]) (test code AT [place] [address] PAM = 1538) [facility] [address]: Glass Handler/Techni santiago ID = [id number] for EDU ABDI POCT-GLUCOSE [id number] 08:32:00 Test Item Value Reference Range Interpretation Comments POC-GLUCOSE METER 305 mg/dL 70-110 H : TESTED A T [place] [address] ([facility]) (test code HAROLDO Sinclair [facility], = 1538) [facility] 7[address]: Glass Handler/Techni santiago ID = [id number] for BLACK MURILLO RAD, CHEST, 2 [id number] 12:11:00Reason for Exam:->SOB R06.02 [facility] : 1960 Sex: FFINAL REPORT [...] evidence for acute disease. Signed: Ladan Andujar Verified Date/Time: 08/25/2020 12:11:15 Reading Location: [facility] Reading Room [address] [address] RAD, HAND, 3 VIEWS, [id number] 14:36:00Reason for Exam:->SYNOVITISFINAL REPORT Exam: Left and right hand three views each History: Pain Comparison : None. Findings: No fracture or malalignment. Narrowing of the interphalangeal joints and first CMCjoint bilaterally with calcified bodies in the left CMC joint and adjacent to the left third PIP joint. 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 Signed: Manuel Rey Verified Date/Time: 02/24/2019 14:36:11 Reading Location: [facility] Reading Room [address] [place] [address] Electronically signed by: Manuel Song 02/24/2019 02:36 PMRAD, HAND, 3 VIEWS, [id number] 14:36:00Reason for Exam:->SYNOVITISFINAL REPORT Exam: Left and [...] Verified Date/Time: 02/24/2019 14:36:11 Reading Location: [facility] Reading Room [address] [place] [address] Electronically signed by: Manuel Song 02/24/2019 02:36 PM Notes Date/Time Note Provider Source 2022-11-04 11:36:00-00:00 [id number] [place] [address] PATIENT NAME: SHERINE GARCIA ADMIT DATE: 11/02/22 ACCOUNT NO: [id number] ROOM NO: Y.321 AGE: 62 REPORT TYPE: OPERATIVE REPORT SEX: F ADMITTING PHYSICIAN:Oswald Shrestha MD ATTENDING PHYSICIAN:Osawld Shrestha MD OPERATION DATE: 11/02/2022 SURGEON: Oswald Shrestha MD BANDAGE WINDING MACHINE OPERATOR: NUHA Rodney Hip arthroplasty requires an property management assistant for holdi ng of retractors for wide exposure so that the surgeon has both hands free to perform the surgery. In addition, with extremity hunter anisa, the property management assistant positions and stabilizes the leg in order for the surgeon to use his hands to ope rate. Retraction for exposure and visualization, and stabi lization of the extremity are vital to the procedure and not possible without an property management assistant. Dr. Shrestha is not part of any residency training programs and theref ore required the help of the property management assistant listed above for this surgery. PREOPERATIVE DIAGNOSES: 1. Right hip end-stage degenerative disease. 2. Morbid obesity. POSTOPERATIVE DIAGNOSES: 1. Right hip end-stage degenerative disease. 2. Morbid obesity. PROCEDURE: Complex right total hip arthroplasty. COMPONENTS USED: Right DePuy Emmett se ctor 52 mm acetabular component with a +4 10-degree 36 mm AltrX liner, DePuy size 3 hig h offset, ACTIS Press-Fit collared stem and a 36 mm +1.5 ceramic head. FINDINGS: End-stage degenerative disease of the right hip with complete joint space loss, osteophyte formation, subchondral sc lerosis, and bone on bone changes. ANESTHESIA: TIVA SPECIMENS: None. ESTIMATED BLOOD LOSS: 150 mL REASON FOR COMPLEX CASE MODIFIER: The pa tiebienvenido had a body mass index of 39. The patient had a significantly elevated BMI, qualif linda for morbid obesity. This created an altered surgical field. The surgery i tself (including positioning PATIENT NAME: SHERINE GARCIA ACCOUNT #: [id number] requiring several people so we would not hurt ou rselves, extensile exposure, difficult retraction and maintenance of leg posi tion, prolonged multi-layered closure), as well as the effort and skill level required by myself and my property management assistant was greater than two times the usual a mount required for an arthroplasty. Because of this altered surgical f ield, a 22-modifier was used while coding for this procedure. The patient also had a signi ficant flexion contracture of 30 degrees of internal rotation and bilateral knee flexion contractures as well. This made the operation even more difficul t, as getting exposure with his already massive leg and buttocks was extremely difficult as well as maintaining positions of the operation to be done properly. DESCRIPTION OF PROCEDURE: The patient was bought to the operating room and placed in the supine position. After induction o f anesthesia, leg length relationships were checked and noted and compared to findings and measurements on preoperative radiographs. The patient was tur debbie on their side and secured on the operative table. This required the help o f several people so that we would not hurt ourselves. There were 2-3 people at the head and torso area, 2 at the mid-section, and 2 holding the legs. Ster ile prepping and draping followed, using extra people to hold up this mas sive heavy leg. An incision was made, centered over the posterio r greater trochanter. Dissection was sharply carried down through the subcutaneous tissues. The gluteus sree was incised and split proximally . The piriformis and external rotators were identified. These were removed fro m their insertions on the greater trochanter as a sleeve with the hip caps ule and tagged. The property management assistant held the leg in the appropriate rotation for exp osure and release of these structures. The hip was dislocated with the aid of the jeannie tant carefully internally rotating the leg. This massive leg was v delia difficult to mobilize and control. A femoral neck cut was made using the gu idance of preoperative templating. The femoral head was removed. Extensive hip degenera tion was found. The femur was retracted by t jluis property management assistant. Exposure was provided by the property management assistant with the use of multiple retractors arou nd the acetabulum. Complete labrectomy was performed. Reaming of the acetabulum was the n performed until adequate bleeding subchondral bone was identified in the flores areas. The acetabular component was opened and impacted into position, in the appropriate amount of anteversion and abduction, u sing the guidance of bony and soft-tissue landmarks and preoperative templating. The trial liner was placed. The femur was then flexed and internally rotated and held in this position by the property management assistant for femoral preparation. Maintenance of the leg posit ion and hip exposure was very challenging throughout this case. Significant effort was expended by my property management assistant and myself to get this hip mobilized and expos ed because of the patient's size and weight and body mass index. My property management assistant had to hug this massive thigh in order to provide a stable extremity for the surgery, as well as pro vide exposure with multiple retractors, pulling against the fat soft tissue of this massive thigh and PATIENT NAME: SHERINE GARCIA ACCOUNT #: [id number] buttock, so that I had the a ppropriate exposure to perform surgery. We even had to enlist the help of the surgical techn ologist to hold retractors for certain portions of this procedure. The challenges due t o this altered surgical field resulted in a significantly increased surgical t vi, effort, and skill level than usually required for a hip arthroplasty. Lateral excess trochanteric bone was removed. Broaches were then used to prepare the femur, wi th the appropriate amount of version. Once the appropriate broach size was re ached, evidenced by excellent torsional stability, it was used as a trial, wit h head and neck placement and relocation of the hip, with the help of the property management assistant. Hip range-of motion was checked in all planes, including flexion-interna l rotation, the position of sleep, and extension-external rotation. The hip was found to have excellent stability with the final chosen head neck combin ation. An intraoperative radiograph demonstrated accept able leg length and offset measurements, given the necessity for stability, and was also used to medicaid analyst adequate position and sizing of all components. The bilateral knee flexion contractures are asymmetric and therefore figuri ng out leg lengths was somewhat difficult. In the end, I had to use my x-ray measurements to try and get equal as I can just at the hip regions. Any further asymmetry of leg was likely due to asymmetric flexion contracture of the knees. The trials were removed. The final liner was imp acted into position. The hip was repositioned, and the final stem was opened and impacted into position, with excellent fin al torsional stability and a scratch fit. The final head was impacted atop the stem. The calcar jose on and upper femur were thoroughly inspected to ensure the absence of an y cracks. Vigorous power irrigation was used to remov e all debris from the joint prior to final reduction and the hip was relocated. Range of motion and s tability were once again checked and found to be excellent. Adequate hemostasis was obtained. Local anesthet ic was injected into the capsule, musculature, and subcutaneous tissues. The arthrotomy and rotators were closed through drill holes in the bone, recreating the posterior hip structural anatomy. An augmentative suture was placed at the gluteus minimu s-piriformis junction in order to maximize posterior stability. The gluteus sree was repai red, and after further irrigation, the subcutaneous tissues were closed in a mu lti-layered fashion, taking great care to close the potential space of the thick subcutaneous fat layer. This was followed by skin closure. Sterile dressing was applied. The patient was awakened and transferred to the recovery room in stable condition. Dictated By: Oswald Shrestha MD Date Dictated: 11/04/2022 11:36:03 Date Transcribed: 11/04/2022 12:36:30 PATIENT NAME: SHERINE GARCIA ACCOUNT #: [id number] VM/LALA Receipt ID: [id number] Authenticated and Edited by Oswald Shrestha MD On 11/12/22 8:22:31 AM at 0825 PATIENT NAME: SHERINE GARCIA ACCOUNT #: [id number] 2022-11-03 10:11:00-00:00 [facility] Clinical Note REPORT#:[id number] REPORT STATUS: Signed DATE:11/03/22 TIME: 1011 PATIENT: SHERINE GARCIA UNIT #: [id number] ROOM/BED: [address] : [birth year] AGE: 62 SEX: F ATTEND: Scott Shrestha MD ADM AUTHOR: Fredrick Contreras MD * ALL edits or amendments must be made on the [employer]/computer document * Clinical Note Note: [facility] Fredrick gupta M.D. (cell text [phone]) Assessment/Plan 1.) Anemia of acute blood loss- .Hgb 12.1, asymp tomatic. 2.) S/p Rgiht LALA- .acute multi-modal pain contr ol and followup. Anticoagulation as per Dr. Shrestha. 3.) Hypertension- .follow BP and hold Rxs if SBP <120. 4.) Diabetes-2 OsteoArthritis Hypothyroid- .cont inue on Rx. * OK for DISCHARGE per Internal Medicine. Prior Events/Overnight: Uneventful. Chief Complaint: No significant complaints. Objective Vital Signs: Date Time Temp Pulse Resp B/P B/P Pulse O2 O2 F low FiO2 Mean Ox Delivery Rate 11/03 0745 98.1 78 16 115/69 84.0 94 Room air 11/03 0322 96.6 77 16 121/65 83.7 96 / 0234 72 96 3 32 06/ 0234 96 CPAP 3 32 / 0027 CPAP / 2340 83 97 3 32 06/ 2211 97.2 83 16 139/73 95.0 97 06/ 2105 98 Nasal 3 32 cannula 11/02 1938 96.6 77 16 150/74 99.0 99 06/08 1749 Nasal 3 cannula 11/02 1625 97 Nasal 3 32 cannula 11/02 1623 97.5 73 19 147/79 102.0 97 Nasal cannula 11/02 1600 76 15 147/70 97 Room air 11/02 1545 72 12 141/74 97 Nasal 2 cannula 11/02 1530 72 22 131/74 92 Nasal 2 cannula 11/02 1515 74 12 119/65 95 Nasal 2 cannula 08 1500 Simple 6 mask 11/02 1500 98.0 84 20 107/55 97 Simple 6 mask 11/02 1204 96.9 77 18 146/65 97 Room air Gen: Alert, oriented, in mild discomfort Neck: No Masses, No Thyromegaly- CV: Regular Rate Rhythm / Edema- no significant Resp: Clear To Ascultation / Normal Respiratory Effort ABD: NonTender / NonDistended MS/Skin: No sign of compartment syndrome / +ankl e DF/PF Other: Labs/X-ray: Laboratory Tests: 11/03 11/02 0435 1136 Chemistry Sodium (135 - 145 mEq/L) 135 Potassium (3.5 - 5.0 mEq/L) 4.7 Chloride (100 - 115 mEq/L) 100 Carbon Dioxide (22 - 31 mEq/L) 25 BUN (7 - 18 mg/dL) 12 Creatinine (0.5 - 1.0 mg/dL) 0.8 Glomerular Filtr Rate (>60) 83.3 Glucose (65 - 110 mg/dL) 246 H POC Glucose (60 - 125 mg/dL) 121 Calcium (8.4 - 10.2 mg/dL) 8.1 L Hematology Hgb (12 - 16 g/dL) 12.1 Hct (37 - 47 %) 36.6 L Fredrick Guzman M.D. at 1144 RPT #:[id number] END OF REPORT 2022-11-03 07:23:00-00:00 [facility] Discharge Summary REPORT#:[id number] REPORT STATUS: Signed DATE:11/03/22 TIME: 722 PATIENT: SHERINE GARCIA UNIT #: [id number] ROOM/BED: Y321-A : 60 AGE: 62 SEX: F ATTEND: Scott Shrestha MD ADM AUTHOR: Jerica Grier * ALL edits or amendments must be made on the el ectronic/computer document * General Information Discharge date: 11/03/22 Discharge diagnosis: RIGHT HIP OA Hospital course: Discharge Diagnosis: Right Hip Degenerative Dise ase Procedure: Right Hip Arthroplasty Hospital Course and Findings The patient underwent the pr ocedure without incident. Findings were significant for degenerative disease of the hip. The patient was hemodynamically and medically monitored during the postoperative per iod. Anticoagulation was instituted for postoperative DVT prophylaxis. Th e patient was progressively able to tolerate PO pain med ications and the appropriate diet. Physical therapy was instituted, with a progressive ability to am bulate and perform exercises. The patient was eventually deemed stable and saf e for discharge. Despite factors which projected a longer hospita l stay, the patient fulfilled criteria for earlier than expected disch arge, including control of pain, early mobilization with therapy, and a stable hemodyna saroj status. At discharge, the patient was comfortabl e, with a controlled pain level. There were no chest or abdominal symptoms present. Dis charge physical examination demonstrated stable vital signs and no acute dis tress. The patient had an intact wound with no signifi cant drainage, and no calf tenderness and a negative Dilshad s sign bilaterally. There were no neurolog ic or vascular deficits or changes from the preoperative state. Laboratory Tests: 11/03 11/02 0435 1136 Chemistry POC Glucose (60 - 125 mg/dL) 121 Hematology Hgb (12 - 16 g/dL) 12.1 Hct (37 - 47 %) 36.6 L Vital Signs: Date Time Temp Pulse Resp B/P B/P Pulse O2 O2 F low FiO2 Mean Ox Delivery Rate 11/03 0322 35.9 77 16 121/65 83.7 96 11/03 0234 72 96 3 32 11/03 0234 96 CPAP 3 32 11/03 0027 CPAP 11/02 2340 83 97 3 32 11/02 2211 36.2 83 16 139/73 95.0 97 11/02 2105 98 Nasal 3 32 cannula 11/02 1938 35.9 77 16 150/74 99.0 99 /08 1749 Nasal 3 cannula 11/02 1625 97 Nasal 3 32 cannula 11/02 1623 36.4 73 19 147/79 102.0 97 Nasal cannula 11/02 1600 76 15 147/70 97 Room air 11/02 1545 72 12 141/74 97 Nasal 2 cannula 06/08 1530 72 22 131/74 92 Nasal 2 cannula 11/02 1515 74 12 119/65 95 Nasal 2 cannula 11/02 1500 Simple 6 mask 11/02 1500 36.7 84 20 107/55 97 Simple 6 mask 11/02 1204 36.1 77 18 146/65 97 Room air Disposition: Discharged to home Discharge Condition: Stable Instructions: Instruction sheet given to patient Activity: Ambulate with assistance and walking a id, with weight-bearing as instructed in the hospital. Weight bearing limit ations were reviewed with the patient during the hospitalization. Diet: As per preoperatively Prescriptions 1. Pain Medications: As per discharge prescription, with progressive weaning as pain decreases 2. Anticoagulation: As per discharge prescription, or PreOp antico agulant, as discussed with patient Follow-up Appointment: Patient instructe d to arrange appointment for an office visit in 2 weeks Med Rec Med Rec Discharge meds: Stop taking the following medications: IBUPROFEN (ADVIL) 200 MG TAB 3 TABLETS ORAL TWICE DAILY. as needed for PAIN OMEGA-3 FATTY ACIDS (FISH OIL) 1,000 MG CAP 1,000 MILLIGRAM ORAL DAILY. METHOTREXATE (RHEUMATREX) 2.5 MG TAB 2.5 MILLIGRAM ORAL EVERY SUNDAY Continue taking these medications: LEVOTHYROXINE (SYNTHROID) 150 MCG TAB 200 MICROGRAM ORAL DAILY. metFORMIN (GLUCOPHAGE) 500 MG TAB 1 TABLET ORAL TWICE DAILY. INSULIN DEGLUDEC (TRESIBA FLEXTOUCH U-10 0 (3mL)) 100 UNIT/ML (3 ML) PEN.INJCTR 90 UNITS SUBCUTANE. BEDTIME. EMPAGLIFLOZIN (JARDIANCE) 25 MG TAB 25 MILLIGRAM ORAL DAILY. IRBESARTAN (AVAPRO) 300 MG TAB 300 MILLIGRAM ORAL DAILY. FERROUS SULFATE (FEOSOL) 325 MG (65 MG IRON) TAB 325 MILLIGRAM ORAL DAILY. ERGOCALCIFEROL (VITAMIN D2) 1,250 MCG (50,000 UN IT) CAP 50,000 UNITS ORAL EVERY 7 DAYS. Comments: SUNDAY [OZEMPIC] 2 MILLIGRAM SUBCUTANE. EVERY 7 DAYS. Instructions: FRIDAYS FOLIC ACID (FOLIC ACID) 1 MG TAB 1 MILLIGRAM ORAL DAILY. traZODone (DESYREL) 50 MG TAB 50 MILLIGRAM ORAL BEDTIME. DULoxetine DR (CYMBALTA) 30 MG CAP.DR 30 MILLIGRAM ORAL DAILY. HYDROcodone/APAP (HYDROcodone/APAP 10/325) 10 MG -325 MG TAB 1 TABLET ORAL EVERY 6 HOURS. traMADol (ULTRAM) 50 MG TAB 50 MILLIGRAM ORAL EVERY FOUR HOURS. Start taking the following new medications: ASPIRIN (ASPIRIN) 81 MG TAB.CHEW 81 MILLIGRAM ORAL TWICE DAILY. Qty = 30 No Refills DOXYCYCLINE HYCLATE (VIBRAMYCIN) 100 MG CAP 100 MILLIGRAM ORAL TWICE DAILY. Qty = 14 No Refills methocarbamoL (ROBAXIN) 500 MG TAB 500 MILLIGRAM ORAL FOUR TIMES A DAY. Qty = 60 No Refills MELOXICAM (MOBIC) 15 MG TAB 15 MILLIGRAM ORAL DAILY. Qty = 30 No Refills Discharge Instructions PCP PCP: PCP: Oswald Shrestha MD Discharge Instructions Additional Discharge Routines: None Electronically Signed by Jerica Grier on 0 11/03/22 at 0724 at 0936 RPT #:[id number] END OF REPORT 2022-11-02 17:36:00-00:00 [facility] Clinical Note REPORT#:[id number] REPORT STATUS: Signed DATE:11/02/22 TIME: 1735 PATIENT: SHERINE GARCIA UNIT #: [id number] [facility]GE: 62 SEX: F ATTEND: Scott Shrestha MD ADM AUTHOR: Fredrick Contreras MD * ALL edits or amendments must be made on the el Fund [employer]/computer document * Clinical Note Note: [facility] Fredrick gupta MD (cell text [phone]) Internal Medicine Consult at request of : Dr. Roxann Shrestha. Chief Complaint: .hip pain HPI: 62yo F is now s/p Right Total Hip Arthropla sty (TKA) by Dr. Shrestha. Ms. Garcia relates 4-5 years of progressive right hip pain (recently severe, ), worse with activity, and popping crunchy wi th restricted motion at times in quality. She has failed conservative manageme nt. Comorbidities: see below. PmHx: .OsteoArthritis, diabetes, hypothyroid, HT N ALLERGY: Allergies: clarithromycin (From BIAXIN) (Coded, Severe, GENNY H, 11/02/22) SEASONAL ALLERGIES (Uncoded, Mild, NASAL CONGEST ION, 07/11/22) Home Medications: Home Medications: IBUPROFEN (ADVIL) 3 TABS PO BID PRN PAIN metFORMIN (GLUCOPHAGE) 1 TAB PO BID EMPAGLIFLOZIN (JARDIANCE) 25 MG PO DAILY IRBESARTAN (AVAPRO) 300 MG PO DAILY OMEGA-3 FATTY ACIDS (FISH OIL) 1,000 MG PO DAILY FERROUS SULFATE (FEOSOL) 325 MG PO DAILY ERGOCALCIFEROL (VITAMIN D2) 50,000 UNITS PO Q7D LEVOTHYROXINE (SYNTHROID) 200 MCG PO DAILY INSULIN DEGLUDEC (TRESIBA FLEXTOUCH U-100 (3mL)) 90 UNITS SQ BEDTIME [OZEMPIC] 2 MG SQ Q7D METHOTREXATE (RHEUMATREX) 2.5 MG PO QSATURDAY FOLIC ACID 1 MG PO DAILY traZODone (DESYREL) 50 MG PO BEDTIME DULoxetine DR (CYMBALTA) 30 MG PO DAILY SgHx: .RC repair, knee repair SHx: Tob: none FHx: .No significant hx of DVT/PE . Alcohol: socially Drugs: none Lives: with malcom zayas son . . Vitals: Vital Signs: Date Time Temp Pulse Resp B/P B/P Pulse O2 O2 Flow FiO2 Mean Ox Delivery Rate 11/02 1749 Nasal 3 cannula / 1623 97.5 73 19 147/79 102.0 97 Nasal cannula /08 1600 76 15 147/70 97 Room air /08 1545 72 12 141/74 97 Nasal 2 cannula /08 1530 72 22 131/74 92 Nasal 2 cannula /08 1515 74 12 119/65 95 Nasal 2 cannula /08 1500 Simple 6 mask /08 1500 98.0 84 20 107/55 97 Simple 6 mask /08 1204 96.9 77 18 146/65 97 Room air Gen: Groggy, in mild discomfort. EYE: Nl lids conjunctiva. ENT: Nl ears Nose, nl lips,. Neck: Supple, nl thyroid, No masses. CV: Regular Rate Rhythm, no heave or significant murmur. Edema- none RESP: Clear to Auscultation, normal Respiratory effort. ABD: Soft, NonDistended,. LYM: No significant cervical lymphadenopathy. MS: No sign of compartment syndrome, posterior t high soft, dressing dry NEURO: Nonfocal, grossly normal sensation of LE, +Ankle DF/PF . . Preop Labs(09/27/22): CBC:. Hgb 15.7, Plt 293, CHEM: Na 140, K 4.4, Cr 0.68 (eGFR 99%), . hgbAic 7.2% Ekg: NSR, normal . (medium to high risk of complications or morbidi ty) (major surgery) (IV sedative, meds) . Assessment Plan 1.) Anemia of Acute Blood Loss- .will recheck to javed. 2.) S/p Right LALA- .acute multi-modal pain contr ol and followup. Anticoagulation as per Dr. Shrestha. 3.) Hypertension- .follow BP and hold Rxs if SBP <120. 4.) Diabetes-2 OsteoArthritis Hypothyroid- .cont inue on Rx. . Fredrick Guzman M.D. Thanks! . . . . . G8417 BMI documented as above normal parameters and a f/u plan is documented G9903 - Patient screened for tobacco use AND rosio ntified as a tobacco non-user 1123F - ACP disscussion - default code status wh ile at [facility]. at 1046 RPT #:[id number] END OF REPORT 2022-11-02 14:20:00-00:00 [facility] Op/Inv Procedure Note - Brief REPORT#:[id number] REPORT STATUS: Signed DATE:11/02/22 TIME: 1420 PATIENT: SHERINE GARCIA UNIT #: [id number] ROOM/BED: [place] [address] : 60 AGE: 62 SEX: F ATTEND: Scott Shrestha MD ADM AUTHOR: Oswald Shrestha MD * ALL edits or amendments must be made on the el ectronic/computer document * Op/Inv Proc Note - Brief TEXT Brief Op/Inv Procedure Note Note details: Pre-procedure diagnosis: Right Hip Degenerative Joint Disease Post-procedure diagnosis: Same Procedures performed: Right Total Hip Arthroplas ty Primary Surgeon: WILLIAM [employer] Drill Operator Helper: Carson GRIER PA-C Findings: Severe degenerativ e disease see dictated operative report for details Complications: None Estimated Blood Loss in ml's: [150] cc Specimens removed/altered: None at 1421 RPT #:[id number] END OF REPORT 2022-07-11 09:20:00-00:00 [id number] [place] [address] PATIENT NAME: SHERINE GARCIA ADMIT DATE: ACCOUNT NO: [id number] ROOM NO: AGE: 61 REPORT TYPE: ELECTROCARDIOGRAM SEX: F ADMITTING PHYSICIAN: ATTENDING PHYSICIAN:Geovany Canchola II, MD Order: [id number] Test Reason : PRE OP CLEARANCE Test Date/Time Stamp: SunJul 11 2022 09:20:59 Blood Pressure : / mmHG Vent. Rate : 077 BPM Atrial Rate : 077 BPM P-R Int : 172 ms QRS Dur : 090 ms QT Int : 380 ms P-R-T Axes : 023 006 061 degree s QTc Int : 430 ms Normal sinus rhythm Normal ECG No previous ECGs available Confirmed by LIOR YORK MD ([id number]) on 07/15/2022 4:34:21 PM Referred By: Geovany Canchola Confirmed by:LIOR Pickens MD PATIENT NAME: SHERINE GARCIA ACCOUNT #: [id number]
[2023-02-09 19:11] LABS: Absolute Lymphocytes (CBC) 3.6 K/uL (0.7-4.9); Hematocrit 43.9 % (36.0-45.0); Lymphocytes % 37.2 % (15.3-44.8); MCV 90.3 fL (80-100); MPV 7.7 fL (7.6-11.3); Platelets 271 thou/uL (152-406); RBC Red Blood Cell Count 4.87 M/uL (3.86-4.86)
[2023-02-09 19:22] LABS: Specific Gravity 1.028 (1.005-1.030); Urine Bacteria <20 /HPF (<20); Urine Bilirubin NEGATIVE (Negative); Urine Blood Trace (Negative); Urine Clarity Extremely Turbid (Clear); Urine Color Yellow (Yellow); Urine Glucose 1+ (Negative); Urine Mucus Slight /HPF (None Seen); Urine Protein 1+ (Negative); Urine Urobilinogen 1+ (Normal); Urine pH 5.5 (5.0-7.0)
[2023-02-09 19:29] LABS: Albumin 3.8 g/dL (3.4-5.0); Bilirubin Total 0.3 mg/dL (0.2-1.0); Potassium 4.1 mEq/L (3.5-5.1); Protein, Total 8.2 g/dL (6.4-8.2)
--- NOTE | 2023-02-09 19:57 | RAD REPORT ---
EXAM DESCRIPTION: CT - Abdomen Pelvis W Contrast - 02/09/2023 7:42 pm CLINICAL HISTORY: Abdominal pain COMPARISON: 2021 TECHNIQUE: Computed axial tomography of the abdomen pelvis was obtained. 100 cc Isovue-300 was admin istered intravenously. Oral contrast was not requested which limits evaluation of bowel and appendix All CT scans are performed using dose optimization technique as appropriate and may include automated exposure control or mA/KV adjustment according to patient size. FINDINGS: The liver, spleen, pancreas, adrenal and kidneys appear unremarkable. There is no evidence of diverticulitis. Normal appendix. Hysterectomy. No adnexal mass. Right hip arthroplasty IMPRESSION: No acute abnormality is displayed.
--- NOTE | 2023-02-09 20:12 | EDPHYS ---
Physician Documentation [facility] Name: Sachin Vasquez Age: 62 yrs Sex: Female : 1960 Arrival Date: 02/09/2023 Time: 17:57 Bed 14 Private MD: ED Physician David Caputo HPI: 02/09 18:21 This 62 yrs old Female presents to ER via Ambulatory with complaints of sent for CAT ms3 scan. 18:21 This 62 yrs old Female presents to ER via Ambulatory with complaints of Right lower ms3 quadrant abdominal pain. 18:21 62-year-old female with past medical history of diabetes, gout, hypertension, ms3 rheumatoid arthritis hyperlipidemia, history of melanoma presents for right lower quadrant abdominal pain that has been going on for 1 year and has become worse this week. Patient states the pain is currently a 3/10 and described as being sharp. Patient states she had a televisit with her primary care physician Dr. Giang from [facility] in [place]. Patient was instructed to come to the emergency department for further work-up. Historical: - Allergies: 18:10 Biaxin; hb - PMHx: 18:10 Diabetes - NIDDM; Diverticulitis; Gout; Hypertension; hb 18:11 RA; hb - PSHx: 18:10 left knee surgery; rotaor cuff surgery- bilaterally; hb - Immunization history:: Adult Immunizations up to date. - Social history:: Smoking status: Patient denies any tobacco usage or history of. ROS: 18:21 Constitutional: Negative for fever, and chills. Neck: Negative for injury, pain, and ms3 swelling, Cardiovascular: Negative for chest pain, and palpitations. Respiratory: Negative for shortness of breath, cough, wheezing, and pleuritic chest pain. 18:21 MS/Extremity: Negative for injury and deformity, Skin: Negative for injury, rash, and discoloration. 18:21 Abdomen/GI: Positive for abdominal pain. 18:21 All other systems are negative. Exam: 18:21 Constitutional: This is a well developed, well nourished patient who is awake, alert, ms3 and in no acute distress. Head/Face: Normocephalic, atraumatic. Chest/axilla: Normal chest wall appearance and motion. Nontender with no deformity. Cardiovascular: Regular rate and rhythm with a normal S1 and S2. No gallops, murmurs, or rubs. Normal PMI, no JVD. No pulse deficits. Respiratory: Lungs have equal breath sounds bilaterally, clear to auscultation and percussion. No rales, rhonchi or wheezes noted. No increased work of breathing, no retractions or nasal flaring. 18:21 Skin: Warm, dry with normal turgor. Normal color with no rashes, no lesions, and no evidence of cellulitis. MS/ Extremity: Pulses equal, no cyanosis. Neurovascular intact. Full, normal range of motion. 18:21 Abdomen/GI: Inspection: abdomen appears normal, Bowel sounds: normal, Palpation: moderate abdominal tenderness, in the right lower quadrant. Vital Signs: 18:11 BP 125 / 78; Pulse 80; Resp 16; Temp 97.6; Pulse Ox 98% on R/A; Weight 97.52 kg; Height hb 5 ft. 6 in. ; Pain 4/10; 20:18 BP 117 / 74; Pulse 74; Resp 16; Pulse Ox 100% on R/A; mb9 18:11 Body Mass Index 34.70 (97.52 kg, 167.64 cm) hb 18:11 Pain Scale: Adult hb MDM: 18:13 Patient medically screened. ms3 18:21 Differential diagnosis: appendicitis, cholecystitis, Cholelithiasis, diverticulitis, ms3 non-specific abd pain. 20:11 Data reviewed: vital signs, nurses notes, lab test result(s), radiologic studies, and ms3 as a result, I will discharge patient. Care significantly affected by the following chronic conditions: Diabetes, Hypertension. Counseling: I had a detailed discussion with the patient and/or guardian regarding the historical points, exam findings, and any diagnostic results supporting the discharge/admit diagnosis, lab results, radiology results, the need for outpatient follow up, to return to the emergency department if symptoms worsen or persist or if there are any questions or concerns that arise at home. Special discussion: Based on the patient's Hx, exam, and Dx evaluation, there is no indication for emergent surgery or inpatient Tx. It is understood by the patient/guardian that if the Sx's persist or worsen they need to return immediately for re-evaluation. ED course: Discussed labs, CT report with patient. Patient to follow-up with her primary care physician in 2 to 3 days. Patient understands agrees with plan. All questions were answered. Return precautions discussed include worsening symptoms, or any other concerns. On reevaluation patient is alert and oriented x4, no apparent distress, nontoxic-appearing, ambulatory in emergency primary, speaking full sentences. 02/09 18:14 Order name: CBC with Diff; Complete Time: 19:57 ms3 02/09 18:14 Order name: CMP; Complete Time: 19:57 ms3 02/09 18:14 Order name: Lipase; Complete Time: 19:57 ms3 02/09 18:14 Order name: Urinalysis w/ reflexes; Complete Time: 19:57 ms3 02/09 19:26 Order name: Urine Culture EDMS 02/09 18:14 Order name: CT Abd/Pelvis - IV Contrast Only; Complete Time: 20:00 ms3 02/09 18:14 Order name: IV Saline Lock; Complete Time: 19:00 ms3 02/09 18:14 Order name: Labs collected and sent; Complete Time: 19:01 ms3 Administered Medications: No medications were administered Disposition Summary: 02/09/23 20:11 Discharge Ordered Location: Home ms3 Condition: Stable ms3 Diagnosis - Lower abdominal pain, unspecified ms3 Followup: ms3 - With: Private Physician - When: 2 - 3 days - Reason: Recheck today's complaints Discharge Instructions: - Discharge Summary Sheet ms3 - Abdominal Pain, Adult ms3 Forms: - Medication Reconciliation Form ms3 - Thank You Letter ms3 - Antibiotic Education ms3 - Prescription Opioid Use ms3 - Patient Portal Instructions ms3 - Leadership Thank You Letter ms3 Signatures: Dispatcher [employer] Tori Lopez, RN RN David Childers DO DO ms3
--- NOTE | 2023-02-09 20:12 | ER ---
Nurse's Notes [facility] Name: Sachin Vasquez Age: 62 yrs Sex: Female : 1960 Arrival Date: 02/09/2023 Time: 17:57 Bed 14 Private MD: Diagnosis: Lower abdominal pain, unspecified Presentation: 02/09 18:10 Chief complaint: Sent by PCP for intermittent RLQ pain x 1 year, worse over the last hb week. Coronavirus screen: At this time, the client does not indicate any symptoms associated with coronavirus-19. Ebola Screen: No symptoms or risks identified at this time. Initial Sepsis Screen: Does the patient meet any 2 criteria? No. Patient's initial sepsis screen is negative. Does the patient have a suspected source of infection? No. Patient's initial sepsis screen is negative. Risk Assessment: Do you want to hurt yourself or someone else? Patient reports no desire to harm self or others. Onset of symptoms is unknown. 18:10 Method Of Arrival: Ambulatory hb 18:10 Acuity: [id number] 3 hb Historical: - Allergies: 18:10 Biaxin; hb - PMHx: 18:10 Diabetes - NIDDM; Diverticulitis; Gout; Hypertension; hb 18:11 RA; hb - PSHx: 18:10 left knee surgery; rotaor cuff surgery- bilaterally; hb - Immunization history:: Adult Immunizations up to date. - Social history:: Smoking status: Patient denies any tobacco usage or history of. Screenin:40 [facility] ED Fall Risk Assessment (Adult) History of falling in the last 3 months, mb9 including since admission No falls in past 3 months (0 pts) Confusion or Disorientation No (0 pts) Intoxicated or Sedated No (0 pts) Impaired Gait No (0 pts) Mobility Assist Device Used No (0 pt) Altered Elimination No (0 pt) Score/Fall Risk Level 0 - 2 = Low Risk Oriented to surroundings, Maintained a safe environment, Educated pt \T\ family on fall prevention, incl call for assistance when getting out of bed. Abuse screen: Denies threats or abuse. Nutritional screening: No deficits noted. Tuberculosis screening: No symptoms or risk factors identified. Assessment: 19:01 General: Appears in no apparent distress. Behavior is calm, cooperative. Pain: mb9 Complains of pain in abdomen Pain radiates to RLQ Pain currently is 0 out of 10 on a pain scale. Quality of pain is described as throbbing, Is intermittent. Neuro: [place] Agitation-Sedation Scale (RASS): 0 - Alert and Calm Level of Consciousness is awake, alert, obeys commands, Oriented to person, place, time, situation, Appropriate for age. Cardiovascular: Heart tones S1 S2 present Patient's skin is warm and dry. Respiratory: Airway is patent Respiratory effort is even, unlabored, Respiratory pattern is regular, symmetrical, Breath sounds are clear bilaterally. GI: Abdomen is round non-distended, Bowel sounds present X 4 quads. Abd is soft Abdomen is tender to palpation in right lower quadrant Reports nausea. : No signs and/or symptoms were reported regarding the genitourinary system. EENT: No signs and/or symptoms were reported regarding the EENT system. Derm: Skin is pink, warm \T\ dry. Musculoskeletal: Range of motion: intact in all extremities. 19:38 Reassessment: pt taken to CT via wheelchair. mb9 20:18 Reassessment: No changes from previously documented assessment. Patient and/or family mb9 updated on plan of care and expected duration. Pain level reassessed. Patient is alert, oriented x 3, equal unlabored respirations, skin warm/dry/pink. Vital Signs: 18:11 BP 125 / 78; Pulse 80; Resp 16; Temp 97.6; Pulse Ox 98% on R/A; Weight 97.52 kg; Height hb 5 ft. 6 in. ; Pain 4/10; 20:18 BP 117 / 74; Pulse 74; Resp 16; Pulse Ox 100% on R/A; mb9 18:11 Body Mass Index 34.70 (97.52 kg, 167.64 cm) hb 18:11 Pain Scale: Adult hb ED Course: 18:00 Patient arrived in ED. im 18:06 David Caputo DO is Attending Physician. ms3 18:10 Triage completed. hb 18:11 Arm band placed on. hb 18:15 Dafne Steward, RN is Primary Nurse. ap3 18:40 Placed in gown. Bed in low position. Call light in reach. Side rails up X 1. Client mb9 placed on continuous cardiac and pulse oximetry monitoring. NIBP monitoring applied. electronic device monitor on. 18:41 No provider procedures requiring assistance completed. mb9 18:50 Inserted saline lock: 22 gauge in right forearm, using aseptic technique. mb9 19:01 CBC with Diff Sent. mb9 19:01 CMP Sent. mb9 19:01 Lipase Sent. mb9 19:01 Urinalysis w/ reflexes Sent. mb9 19:10 Primary Nurse role handed off by Dafne Steward, JORGE mb9 19:10 Sherice Cleveland, RN is Primary Nurse. mb9 19:44 CT Abd/Pelvis - IV Contrast Only In Process Unspecified. EDMS 20:18 IV discontinued, intact, bleeding controlled, No redness/swelling at site. Pressure mb9 dressing applied. Administered Medications: No medications were administered Medication: 18:41 VIS not applicable for this client. mb9 Outcome: 20:11 Discharge ordered by . ms3 20:18 Discharged to home ambulatory. mb9 20:18 Condition: stable 20:18 Discharge instructions given to patient, family, Instructed on discharge instructions, follow up and referral plans. Demonstrated understanding of instructions, follow-up care. 20:18 Patient left the ED. mb9 Signatures: Dispatcher [employer] EDMS Tori Soliman, JORGE RN Dafne Steward RN RN ap3 David Caputo DO DO ms3 Sherice Clevleand, JORGE RN mb9 Marcelina Da Silva
[2023-02-09 20:39] VITALS: TEMP 97.6
[2023-02-09 20:43] VITALS: BP 117/74; O2SAT 100
== END 2023-02-09 20:18 | disposition home or self-care (01) ==
LOC: ER 17:57
DX: R10.31 Right lower quadrant pain (principal); Z88.6 Allergy status to analgesic agent
CPT/HCPCS: 36415; 74177; 80053; 81001; 83690; 85025; 87086; 87088; 99284

== ENCOUNTER 2023-03-02 19:18 | Emergency (ER) | payer OTHER, BC ==
--- OUTSIDE RECORDS SUMMARY | 2023-03-02 19:30 | XMS REPORT | Continuity of Care Document ---
:1960 Author Organization [facility] t Address [address] [facility] [facility] [place] [address] Care Team Providers Name Role Phone Alberta Garibay MD Primary Care Physician BEVERLEY SHIPLEY Attending Clinician Unavailable FOG_A_Provider Attending Clinician Unavailable Lior Strauss MD Attending Clinician LIOR STRAUSS Attending Clinician Unavailable Boyd Villavicencio MD Attending Clinician BOYD VILLAVICENCIO Attending Clinician Unavailable Oswald Shrestha Attending Clinician Unavailable SIERRA DUGAN Attending Clinician Unavailable Alberta Garibay MD Attending Clinician ALBERTA GARIBAY Attending Clinician Unavailable Sierra Dugan MD Attending Clinician Unavailable Geovany Canchola Attending Clinician Unavailable DAVID HERNANDEZ Attending Clinician Unavailable Doctor Unassigned, [place] Attending Clinician Unavailable ALEX BLACKBURN Attending Clinician Unavailable BEVERLEY SHIPLEY Admitting Clinician Unavailable FOG_A_Provider Admitting Clinician Unavailable Oswald Shrestha Admitting Clinician Unavailable Geovany [place]ola Admitting Clinician Unavailable Payers Payer Name Policy Type Policy Number Effective Date Expiration Date Alka velazquez AETNA HMO POS QPOS [id number] 2011 2019 00:00:00 00:00:00 CIGNA HMO/POS/OPEN [id number] 2018 ACCESS 00:00:00 CIGNA HEALTHCARE [id number] 2018 00:00:00 [place] [id number] 2021 [place] (PPO[place] 00:00:00 CIGNA INDEMNITY [id number] 2020 00:00:00 Problems Condition Condition Condition Status Onset [...] Patella 00:00: dic 00 Sports Medicin e 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 [facility] diabetes diabetes 2-06 ity of mellitus mellitus 00:00: [place] with with 00 Medical proteinuri proteinuri Br anch c diabetic c diabetic nephropath nephropath y y Essential Essential Disease Active 2016-05 Uni vers hypertensi hypertensi 2-06 it y of on on 00:00: [place] 00 [facility] Dyslipidem Dyslipidem Disease Active 2016-05 U nivers ia ia 2-06 ity of 00:00: [place] 00 [facility] Primary Primary Disease Active 2016-05 Univers hypothyroi hypothyroi 206 it y of dism dism 00:00: [place] 00 [facility] Elevated Elevated Disease Active 2016-05 Unive rs hematocrit hematocrit 2-06 it y of 00:00: [place] 00 [facility] Branch Full Full Problem Active Maria G thickness Thickness 5-03 Orth ope rotator Rotator 00:00: dic cuff tear Cuff Tear 00 Spor ts Medicin e Rotator Rotator Problem Active Maria G cuff Cuff 924 Orthope syndrome Syndrome 00:00: dic 00 Sports Medicin e Bicipital Bicipital Problem Active Aza turner tenosynovi Tenosynovi 24 Or thope tis tis 00:00: dic 00 Sports Medicin e Subacromia Subacromia Problem Active A zalea l bursitis l Bursitis -24 Or thope 00:00: dic 00 Sports Medicin e Glenoid Glenoid Problem Active Maria G labrum Labrum 9-24 Orthope tear Tear 00:00: dic 00 Sports Medicin e Allergies, Adverse Reactions, Alerts Allergy Allergy Status Severity Reaction(s) Onset Inactive Treating Comm ents Source Name Type Date Date Clinician clarithr DA Active [facility] [place] [facility] clarithr DA Active [facility]05 [place] [facility] clarithr DA Active [facility] [place] SEASONAL DA Active [place] NASAL [facility] ALLERGIE CONGESTION 2-14 [facility] [place] Statins- Drug Active Other (See 2018-05 Leg [...] 00:00: Medical e 00 Center Inhibito rs CLARITHR Allergy Active High Hives 2016-[address] [facility]IN 2-15 [facility] Clarithr Drug Active Hives, Other 2016-[address] [facility] omycin Allergy (See 07-12 back [facility] Comments) 00:00: Medical 00 Center CLARITHR DRUG Active Med Hives 2016-05 Univers OMYCIN INGREDI 2-15 ity of 00:00: [place] 00 [facility] Clarithr Propensi Active Hives 2016-05 Univer s omycin ty to -15 ity of adverse 00:00: [place] reaction 00 Medical s to Branch drug clarithr DA Active SV HIVES [facility] omycin [...] [facility] Alcohol Binge Medical Zoraida [facility] Sexual orientation [facility] Exposure to 2022-12-09 2022-12-[address] [facility] SARS-CoV-2 (event) 00:00:00 18:43:00 Medica l Center Tobacco use and 2022-12-19 2022-12-[address] [facility] [facility] exposure 00:00:00 00:00:00 tobacco non-user Medical Center Alcohol Comment 2017-05-11 2017-05-11 social Universit y of 00:00:00 00:00:00 [facility] Alcohol intake 2017-05-11 2017-05-11 Current drinker Unive rsity of 00:00:00 00:00:00 of alcohol [facility] (finding) Branch History of Social 2017-05-11 2017-05-11 Univers ity of function 00:00:00 00:00:00 [facility] Sex Ass[birth year] At [birth year] [facility] 00:00[facility] 00:00:00 Hospital Smoking Status Start Date Stop Date Source Tobacco smoking consumption unknown [facility] Never smoked tobacco [facility] Medications Ordered Filled Start Stop Current Ordering Indication Dosage Frequency Signature Comments Components Source Medication Medication Date Date Medication? Clinician (SIG) Name Name methotrexat 3-0 Yes Q7D Take by [facility] 2.5 MG 7-25 mouth once [facility] tablet 18:59: a week. [address] methotrexat 2023-0 Yes Q7D Take by [facility] 2.5 MG 7-25 mouth once [facility] tablet 18:59: a week. [address] methotrexat 2023-0 Yes Q7D Take by [facility] 2.5 MG 7-25 mouth once [facility] tablet 18:59: a week. [address] methotrexat 3-0 Yes Q7D Take by [facility] 2.5 MG 7-25 mouth once [facility] tablet 18:59: a week. [address] methotrexat 2023-0 Yes Q7D Take by [facility] 2.5 MG 7-25 mouth once [facility] tablet 18:59: a week. [address] methotrexat 2023-0 Yes Q7D Take by [facility] 2.5 MG 7-25 mouth once [facility] tablet 18:59: a week. [address] meloxicam 2023-0 Yes 7.5mg Take 1 [...] tablet mouth every 8 (eight) hours. metoprolol 2023-0 2023- No 25mg Q.5D Take [...] daily for 30 days. metoprolol 2023-0 2023- Yes 25mg Q.5D Take [address] tartrate 7-25 08-24 tablet (25 [facility] (LOPRESSOR) 00:00: 23:59 mg total) Medical 25 MG 00 :00 by mouth 2 Center tablet (two) times daily for 30 days. metoprolol 2023-0 2023- Yes 25mg Q.5D Take [address] tartrate 7-25 08-24 tablet (25 [facility] (LOPRESSOR) 00:00: 23:59 mg total) Medical 25 MG 00 :00 by mouth 2 Center tablet (two) times daily for 30 days. metoprolol 2023-0 2023- Yes 25mg Q.5D Take 1 [facility] [...] 00 total) by Center tablet mouth. methocarbam 3-0 Yes 500mg Take [address] [facility] oL [...] OFFICE VISIT ibuprofen 0 Yes 800mg Take 1 [facility] [...] DUE FOR LABS AND OFFICE VISIT levothyroxi 0 Yes TAKE [address] [facility] [...] AND OFFICE VISIT ibuprofen Yes 800mg Take 1 [facility] [...] AND OFFICE VISIT ibuprofen Yes 800mg Take 1 [facility] [...] AND OFFICE VISIT ibuprofen Yes 800mg Take 1 [facility] [...] (eight) hours as needed for pain. pravastatin Yes 20mg QD Take [address] (PRAVACHOL) 3-14 tablet (20 [facility] 20 MG 00:00: mg total) Medical tablet 00 by mouth Center daily. pravastatin 0 Yes 20mg QD Take [address] (PRAVACHOL) 3-14 by mouth Luke s 20 MG 00:00: daily. Medical tablet 00 [place] pravastatin 0 Yes 20mg QD Take [address] (PRAVACHOL) 3-14 by mouth Luke s 20 MG 00:00: daily. Medical tablet 00 [place] pravastatin Yes 20mg QD Take [address] (PRAVACHOL) 3-14 by mouth Luke s 20 MG 00:00: daily. Medical tablet 00 [place] pravastatin Yes 20mg QD Take [address] (PRAVACHOL) 3-14 by mouth Luke s 20 MG 00:00: daily. Medical tablet 00 [place] pravastatin 0 Yes 20mg QD Take [address] (PRAVACHOL) 3-14 by mouth Luke s 20 MG 00:00: daily. Medical tablet 00 [place] pravastatin Yes 20mg QD Take [address] (PRAVACHOL) 3-14 by mouth Luke s 20 MG 00:00: daily. Medical tablet 00 [place] pravastatin 0 Yes 20mg QD Take [address] (PRAVACHOL) 3-14 by mouth Luke s 20 MG 00:00: daily. Medical tablet 00 [place] pravastatin 0 Yes 20mg QD Take [address] (PRAVACHOL) 3-14 by mouth Luke s 20 MG 00:00: daily. Medical tablet 00 [place] pravastatin 0 Yes 20mg QD Take [address] (PRAVACHOL) 3-14 by mouth Luke s 20 MG 00:00: daily. Medical tablet 00 [place] pravastatin 2021-0 Yes 20mg QD Take [address] (PRAVACHOL) 3-14 by mouth Luke s 20 MG 00:00: daily. Medical tablet [address] [place] [address] pravastatin 0 Yes 20mg QD Take [address] (PRAVACHOL) 3-14 by mouth Luke s 20 MG 00:00: daily. Medical tablet [address] [place] [address] pravastatin 0 Yes 20mg QD Take [address] (PRAVACHOL) 3-14 by mouth Luke s 20 MG 00:00: daily. Medical tablet [address] [place] [address] pravastatin 0 Yes 20mg QD Take [address] (PRAVACHOL) 3-14 by mouth Luke s 20 MG 00:00: daily. Medical tablet [address] [place] [address] pravastatin 0 Yes 20mg QD Take [address] (PRAVACHOL) 3-14 by mouth Luke s 20 MG 00:00: daily. Medical tablet [address] [place] [address] pravastatin 0 Yes 20mg QD Take [address] (PRAVACHOL) 3-14 by mouth Luke s 20 MG 00:00: daily. Medical tablet [address] [place] [address] pravastatin 0 Yes 20mg QD Take [address] (PRAVACHOL) 3-14 by mouth Luke s 20 MG 00:00: daily. Medical tablet [address] [place] [address] pravastatin 0 Yes 20mg QD Take [address] (PRAVACHOL) 3-14 by mouth Luke s 20 MG 00:00: daily. Medical tablet [address] [place] [address] pravastatin 0 Yes 20mg QD Take [address] (PRAVACHOL) 3-14 by mouth Luke s 20 MG 00:00: daily. Medical tablet [address] [place] [address] pravastatin 0 Yes 20mg QD Take [address] (PRAVACHOL) 3-14 by mouth Luke s 20 MG 00:00: daily. Medical tablet [address] [place] [address] pravastatin 0 Yes 20mg QD Take [address] (PRAVACHOL) 3-14 by mouth Luke s 20 MG 00:00: daily. Medical tablet [address] [place] [address] pravastatin 0 Yes 20mg QD Take [address] (PRAVACHOL) 3-14 by mouth Luke s 20 MG 00:00: daily. Medical tablet [address] [place] [address] pravastatin 2020-0 Yes 20mg QD Take [address] (PRAVACHOL) 3-14 tablet (20 [facility] 20 MG 00:00: mg total) Medical tablet 00 by mouth Center daily. pravastatin 2021-0 Yes 20mg QD Take [address] (PRAVACHOL) 3-14 tablet (20 [facility] 20 MG 00:00: mg total) Medical tablet 00 by mouth Center daily. pravastatin 2021-0 Yes 20mg QD Take [address] (PRAVACHOL) 3-14 by mouth Luke s 20 MG 00:00: daily. Medical tablet 00 Center pravastatin 2021-0 Yes 20mg QD Take [address] (PRAVACHOL) 3-14 tablet (20 [facility] 20 MG 00:00: mg total) Medical tablet 00 by mouth Center daily. pravastatin 2021-0 Yes 20mg QD Take [address] (PRAVACHOL) 3-14 tablet (20 [facility] 20 MG 00:00: mg total) Medical tablet 00 by mouth Center daily. pravastatin 2021-0 Yes 20mg QD Take [address] (PRAVACHOL) 3-14 tablet (20 [facility] 20 MG 00:00: mg total) Medical tablet 00 by mouth Center daily. ergocalcife 2020-0 Yes [id number] Q7D Take [address] [facility] 3-03 capsule [facility] (ERGOCALCIF 00:00: (50,000 Med ical CORONA) 1,250 00 Units Center mcg (50,000 total) by unit) mouth once capsule a week. ergocalcife 2020-0 Yes 1{capsu Q7D Take 1 [...] Cente r mcg (50,000 unit) capsule ergocalcife 202-0 Yes 1{capsu Q7D Take 1 C HI [...] Cente r mcg (50,000 unit) capsule ergocalcife 1-0 Yes 1{capsu Q7D Take 1 C HI [...] mcg (50,000 unit) capsule ergocalcife 2020-0 Yes [id number] Q7D Take [address] [facility] 3-03 capsule [facility] (ERGOCALCIF 00:00: (50,000 Med ical CORONA) 1,250 00 Units Center mcg (50,000 total) by unit) mouth once capsule a week. ergocalcife 2020-0 Yes [id number] Q7D Take [address] [facility] 3-03 capsule [facility] (ERGOCALCIF 00:00: (50,000 Med ical CORONA) 1,250 00 Units Center mcg (50,000 total) by unit) mouth once capsule a week. ergocalcife 2020-0 Yes [id number] Q7D Take [address] [facility] 3-03 capsule [facility] (ERGOCALCIF 00:00: (50,000 Med ical CORONA) 1,250 00 Units Center mcg (50,000 total) by unit) mouth once capsule a week. ergocalcife 202-0 Yes [id number] Q7D Take [address] [facility] 3-03 capsule [facility] (ERGOCALCIF 00:00: (50,000 Med ical CORONA) 1,250 00 Units Center mcg (50,000 total) by unit) mouth once capsule a week. ergocalcife 2020-0 Yes 1{capsu Q7D Take [address] rol 3-03 le} capsule by [facility] (ERGOCALCIF 00:00: mouth once Medical CORONA) 1,250 00 a week. Cente r mcg (50,000 unit) capsule ergocalcife 2021-0 Yes [id number] Q7D Take [address] [facility] 3-03 capsule [facility] (ERGOCALCIF 00:00: (50,000 Med ical CORONA) 1,250 00 Units Center [facility] (50,000 total) by unit) mouth once capsule a week. levocetiriz 2021-0 Yes 5mg QD Take [address] [facility] (XYZAL) 2-13 by mouth Luke s 5 MG tablet 00:00: daily. [facility] 00 [place] levocetiriz 2021-0 Yes 5mg QD Take [address] in[facility] (XYZAL) 2-13 by mouth Luke s 5 MG tablet 00:00: daily. [facility] 00 [place] levocetiriz 1-0 Yes 5mg QD Take [address] [facility] (XYZAL) 2-13 by mouth Luke s 5 MG tablet 00:00: daily. [facility] 00 [place] levocetiriz 1-0 Yes 5mg QD Take [address] [facility] (XYZAL) 2-13 by mouth Luke s 5 MG tablet 00:00: daily. [facility] 00 [place] levocetiriz 2021-0 Yes 5mg QD Take [address] [facility] (XYZAL) 2-13 by mouth Luke s 5 MG tablet 00:00: daily. [facility] 00 [place] levocetiriz 2021-0 Yes 5mg QD Take [address] in[facility] (XYZAL) 2-13 by mouth Luke s 5 MG tablet 00:00: daily. [facility] 00 [place] levocetiriz 2021-0 Yes 5mg QD Take [address] [facility] (XYZAL) 2-13 by mouth Luke s 5 MG tablet 00:00: daily. [facility] 00 [place] levocetiriz 1-0 Yes 5mg QD Take [address] [facility] (XYZAL) 2-13 by mouth Luke s 5 MG tablet 00:00: daily. [facility] 00 [place] levocetiriz 2021-0 Yes 5mg QD Take [address] [facility] (XYZAL) 2-13 by mouth Luke s 5 MG tablet 00:00: daily. [facility] 00 [place] levocetiriz 2021-0 Yes 5mg QD Take [address] [facility] (XYZAL) 2-13 by mouth Luke s 5 MG tablet 00:00: daily. [facility] [place] levocetiriz 1-0 Yes 5mg QD Take [address] [facility] (XYZAL) 2-13 by mouth Luke s 5 MG tablet 00:00: daily. [facility] [place] levocetiriz 2020-0 Yes 5mg QD Take [address] [facility] (XYZAL) 2-13 by mouth Luke s 5 MG tablet 00:00: daily. [facility] [place] levocetiriz 2020-0 Yes 5mg QD Take [address] [facility] (XYZAL) 2-13 by mouth Luke s 5 MG tablet 00:00: daily. [facility] [place] levocetiriz 2020-0 Yes 5mg QD Take [address] [facility] (XYZAL) 2-13 by mouth Luke s 5 MG tablet 00:00: daily. [facility] [place] levocetiriz 2020-0 Yes 5mg QD Take [address] [facility] (XYZAL) 2-13 by mouth Luke s 5 MG tablet 00:00: daily. [facility] [place] levocetiriz 2020-0 Yes 5mg QD Take [address] [facility] (XYZAL) 2-13 by mouth Luke s 5 MG tablet 00:00: daily. [facility] [place] levocetiriz 2020-0 Yes 5mg QD Take [address] [facility] (XYZAL) 2-13 by mouth Luke s 5 MG tablet 00:00: daily. [facility] [place] levocetiriz 2020-0 Yes 5mg QD Take [address] [facility] (XYZAL) 2-13 by mouth Luke s 5 MG tablet 00:00: daily. [facility] [place] levocetiriz 1-0 Yes 5mg QD Take [address] [facility] (XYZAL) 2-13 by mouth Luke s 5 MG tablet 00:00: daily. [facility] [place] levocetiriz 1-0 Yes 5mg QD Take [address] [facility] (XYZAL) 2-13 by mouth Luke s 5 MG tablet 00:00: daily. [facility] [place] levocetiriz 2020-0 Yes 5mg QD Take [address] [facility] (XYZAL) 2-13 by mouth Luke s 5 MG tablet 00:00: daily. Medi [address] levocetiriz 0 Yes 5mg QD Take [address] [facility] (XYZAL) 2-13 by mouth Luke s 5 MG tablet 00:00: daily. [address] levocetiriz 2020-0 Yes 5mg QD Take [address] [facility] (XYZAL) 2-13 by mouth Luke s 5 MG tablet 00:00: daily. [address] levocetiriz 2020-0 Yes 5mg QD Take [address] [facility] (XYZAL) 2-13 by mouth Luke s 5 MG tablet 00:00: daily. [address] levocetiriz 0 Yes 5mg QD Take [address] [facility] (XYZAL) 2-13 by mouth Luke s 5 MG tablet 00:00: daily. [address] levocetiriz 2020-0 Yes 5mg QD Take [address] [facility] (XYZAL) 2-13 by mouth Luke s 5 MG tablet 00:00: daily. [address] levocetiriz 0 Yes 5mg QD Take [address] [facility] (XYZAL) 2-13 by mouth Luke s 5 MG tablet 00:00: daily. [address] levocetiriz 0 Yes 5mg QD Take [address] [facility] (XYZAL) 2-13 by mouth Luke s 5 MG tablet 00:00: daily. [address] traZODone Yes TAKE 1/[address] (DESYREL) [...] MG 00:00: mouth Medical tablet 00 daily. [place] valsartan Yes 320mg QD Take [address] (DIOVAN) 2-11 mg by [facility] 320 MG 00:00: mouth Medical tablet 00 daily. [place] valsartan Yes 320mg QD Take [address] (DIOVAN) 2-11 mg by [facility] 320 MG 00:00: mouth Medical tablet 00 daily. [place] valsartan Yes 320mg QD Take [address] (DIOVAN) 2-11 mg by [facility] 320 MG 00:00: mouth Medical tablet 00 daily. [place] valsartan Yes 320mg QD Take [address] (DIOVAN) 2-11 mg by [facility] 320 MG 00:00: mouth Medical tablet 00 daily. [place] valsartan Yes 320mg QD Take [address] (DIOVAN) 2-11 mg by [facility] 320 MG 00:00: mouth Medical tablet 00 daily. [place] valsartan Yes 320mg QD Take [address] (DIOVAN) 2-11 mg by [facility] 320 MG 00:00: mouth Medical tablet 00 daily. [place] valsartan Yes 320mg QD Take [address] (DIOVAN) 2-11 mg by [facility] 320 MG 00:00: mouth Medical tablet 00 daily. [place] valsartan Yes 320mg QD Take [address] (DIOVAN) 2-11 mg by [facility] 320 MG 00:00: mouth Medical tablet 00 daily. [place] valsartan Yes 320mg QD Take [address] (DIOVAN) 2-11 mg by [facility] 320 MG 00:00: mouth Medical tablet 00 daily. [place] valsartan Yes 320mg QD Take [address] (DIOVAN) 2-11 mg by [facility] 320 MG 00:00: mouth Medical tablet 00 daily. [place] valsartan Yes 320mg QD Take [address] (DIOVAN) 2-11 mg by [facility] 320 MG 00:00: mouth Medical tablet 00 daily. [place] valsartan Yes 320mg QD Take [address] (DIOVAN) 2-11 mg by [facility] 320 MG 00:00: mouth Medical tablet 00 daily. [place] valsartan Yes 320mg QD Take [address] (DIOVAN) 2-11 mg by [facility] 320 MG 00:00: mouth Medical tablet 00 daily. [place] valsartan Yes 320mg QD Take [address] (DIOVAN) 2-11 mg by [facility] 320 MG 00:00: mouth Medical tablet 00 daily. [place] valsartan Yes 320mg QD Take [address] (DIOVAN) 2-11 mg by [facility] 320 MG 00:00: mouth Medical tablet 00 daily. [place] valsartan Yes 320mg QD Take [address] (DIOVAN) 2-11 mg by [facility] 320 MG 00:00: mouth Medical tablet 00 daily. [place] valsartan Yes 320mg QD Take [address] (DIOVAN) 2-11 mg by [facility] 320 MG 00:00: mouth Medical tablet 00 daily. [place] valsartan Yes 320mg QD Take [address] (DIOVAN) 2-11 mg by [facility] 320 MG 00:00: mouth Medical tablet 00 daily. [place] valsartan Yes 320mg QD Take [address] (DIOVAN) 2-11 mg by [facility] 320 MG 00:00: mouth Medical tablet 00 daily. [place] valsartan Yes 320mg QD Take [address] (DIOVAN) 2-11 mg by [facility] 320 MG 00:00: mouth Medical tablet 00 daily. [place] valsartan Yes 320mg QD Take 1 [facility] [...] MG 00:00: mouth Medical tablet 00 daily. Center valsartan 0 Yes 320mg QD Take 1 [...] mg 00:00: mouth Medical tablet 00 daily. [place] phentermine Yes 18.75mg QD Take 18.[address] (ADIPEX-P) 2-10 mg by [facility] 37.5 mg 00:00: mouth Medical tablet 00 daily. [place] phentermine Yes 18.75mg QD Take 18.[address] (ADIPEX-P) 2-10 mg by [facility] 37.5 mg 00:00: mouth Medical tablet 00 daily. [place] phentermine 0 Yes 18.75mg QD Take 18.[address] (ADIPEX-P) 2-10 mg by [facility] 37.5 mg 00:00: mouth Medical tablet 00 daily. [place] phentermine 0 Yes 18.75mg QD Take 18.[address] (ADIPEX-P) 2-10 mg by [facility] 37.5 mg 00:00: mouth Medical tablet 00 daily. [place] phentermine 2021-0 Yes 18.75mg QD Take 18.[address] (ADIPEX-P) 2-10 mg by [facility] 37.5 mg 00:00: mouth Medical tablet 00 daily. [place] phentermine Yes 18.75mg QD Take 18.[address] (ADIPEX-P) 2-10 mg by [facility] 37.5 mg 00:00: mouth Medical tablet 00 daily. [place] phentermine Yes 18.75mg QD Take 18.[address] (ADIPEX-P) 2-10 mg by [facility] 37.5 mg 00:00: mouth Medical tablet 00 daily. [place] phentermine Yes 18.75mg QD Take 18.[address] (ADIPEX-P) 2-10 mg by [facility] 37.5 mg 00:00: mouth Medical tablet 00 daily. [place] phentermine Yes 18.75mg QD Take 18.[address] (ADIPEX-P) 2-10 mg by [facility] 37.5 mg 00:00: mouth Medical tablet 00 daily. [place] phentermine Yes 18.75mg QD Take 18.[address] (ADIPEX-P) 2-10 mg by [facility] 37.5 mg 00:00: mouth Medical tablet 00 daily. [place] phentermine Yes 18.75mg QD Take 18.[address] (ADIPEX-P) 2-10 mg by [facility] 37.5 mg 00:00: mouth Medical tablet 00 daily. [place] phentermine Yes 18.75mg QD Take 18.[address] (ADIPEX-P) 2-10 mg by [facility] 37.5 mg 00:00: mouth Medical tablet 00 daily. [place] phentermine Yes 18.75mg QD Take 18.[address] (ADIPEX-P) 2-10 mg by [facility] 37.5 mg 00:00: mouth Medical tablet 00 daily. [place] phentermine Yes 18.75mg QD Take 18.[address] (ADIPEX-P) 2-10 mg by [facility] 37.5 mg 00:00: mouth Medical tablet 00 daily. [place] phentermine Yes 18.75mg QD Take 18.[address] (ADIPEX-P) 2-10 mg by [facility] 37.5 mg 00:00: mouth Medical tablet 00 daily. [place] phentermine Yes 18.75mg QD Take 18.[address] (ADIPEX-P) 2-10 mg by [facility] 37.5 mg 00:00: mouth Medical tablet 00 daily. [place] phentermine Yes 18.75mg QD Take 18.[address] (ADIPEX-P) 2-10 mg by [facility] 37.5 mg 00:00: mouth Medical tablet 00 daily. [place] phentermine Yes 18.75mg QD Take 18.[address] (ADIPEX-P) 2-10 mg by [facility] 37.5 mg 00:00: mouth Medical tablet 00 daily. [place] phentermine Yes 18.75mg QD Take 18.[address] (ADIPEX-P) 2-10 mg by [facility] 37.5 mg 00:00: mouth Medical tablet 00 daily. [place] phentermine Yes 18.75mg QD Take 18.[address] (ADIPEX-P) 2-10 mg by [facility] 37.5 mg 00:00: mouth Medical tablet 00 daily. [place] phentermine Yes 18.75mg QD Take 18.[address] (ADIPEX-P) 2-10 mg by [facility] 37.5 mg 00:00: mouth Medical tablet 00 daily. [place] phentermine Yes 18.75mg QD Take 18.[address] (ADIPEX-P) 2-10 mg by [facility] 37.5 mg 00:00: mouth Medical tablet 00 daily. [place] phentermine Yes 18.75mg QD Take 18.[address] (ADIPEX-P) 2-10 mg by [facility] 37.5 mg 00:00: mouth Medical tablet 00 daily. [place] phentermine Yes 18.75mg QD Take 18.[address] (ADIPEX-P) 2-10 mg by [facility] 37.5 mg 00:00: mouth Medical tablet 00 daily. [place] phentermine Yes 18.75mg QD Take 18.[address] (ADIPEX-P) 2-10 mg by [facility] 37.5 mg 00:00: mouth Medical tablet 00 daily. [place] phentermine Yes 18.75mg QD Take 18.[address] (ADIPEX-P) 2-10 mg by [facility] 37.5 mg 00:00: mouth Medical tablet 00 daily. [place] phentermine 2020-0 Yes 18.75mg QD Take 18.[address] (ADIPEX-P) 2-10 mg by [facility] 37.5 mg 00:00: mouth Medical tablet 00 daily. [place] amLODIPine 2020-1 Yes QD daily . [facility] (NORVASC) 5 2-08 [facility] MG tablet 00:00: Medical 00 [place] amLODIPine 2020-1 Yes QD daily . [facility] (NORVASC) 5 2-08 [facility] MG tablet 00:00: Medical 00 [place] amLODIPine 2020-1 Yes QD daily . [facility] (NORVASC) 5 2-08 [facility] MG tablet 00:00: Medical 00 [place] amLODIPine 2020-1 Yes QD daily . [facility] (NORVASC) 5 2-08 [facility] MG tablet 00:00: Medical 00 [place] amLODIPine 2020-1 Yes QD daily . [facility] (NORVASC) 5 2-08 [facility] MG tablet 00:00: Medical 00 [place] amLODIPine 2020-1 Yes QD daily . [facility] (NORVASC) 5 2-08 [facility] MG tablet 00:00: Medical 00 [place] amLODIPine 2020-1 Yes QD daily . [facility] (NORVASC) 5 2-08 [facility] MG tablet 00:00: Medical 00 [place] amLODIPine 2020-1 Yes QD daily . [facility] (NORVASC) 5 2-08 [facility] MG tablet 00:00: Medical 00 [place] amLODIPine 2020-1 Yes QD daily . [facility] (NORVASC) 5 2-08 [facility] MG tablet 00:00: Medical 00 [place] amLODIPine 2020-1 Yes QD daily . [facility] (NORVASC) 5 2-08 [facility] MG tablet 00:00: Medical 00 [place] amLODIPine 2020-1 Yes QD daily . [facility] (NORVASC) 5 2-08 [facility] MG tablet 00:00: Medical 00 [place] amLODIPine 2020-1 Yes QD daily . [facility] (NORVASC) 5 2-08 [facility] MG tablet 00:00: Medical 00 [place] amLODIPine 2020-1 Yes QD daily . [facility]: Medical 00 [place] amLODIPine 2020-1 Yes QD daily . [facility] tablet 00:00: Medical 00 [place] amLODIPine 2020-1 Yes QD daily . [facility] 5 [facility] tablet 00:00: Medical 00 [place] amLODIPine 2020-1 Yes QD daily . [facility] 5 [facility] tablet 00:00: Medical 00 [place] amLODIPine 2020-1 Yes QD daily . [facility] 5 [facility] tablet 00:00: Medical 00 [place] amLODIPine 2020-1 Yes QD daily . [facility] 5 [facility] tablet 00:00: Medical 00 [place] amLODIPine 2020-1 Yes QD daily . [facility] ([facility] 5 2-[facility] tablet 00:00: Medical 00 [place] amLODIPine 2020-1 Yes QD daily . [facility] 5 2-[facility] tablet 00:00: Medical 00 [place] amLODIPine 2020-1 Yes QD daily . [facility] 5 2-[facility] tablet 00:00: Medical 00 [place] amLODIPine 2020-1 Yes QD daily . [facility] 5 2-[facility] tablet 00:00: Medical 00 [place] amLODIPine 2020-1 Yes QD daily . [facility] ([facility] 5 2-[facility] tablet 00:00: Medical 00 [place] amLODIPine 2020-1 Yes QD daily . [facility] ([facility] 5 2-[facility] tablet 00:00: Medical 00 [place] amLODIPine 2020-1 Yes QD daily . [facility] ([facility] 5 2-[facility] tablet 00:00: Medical 00 [place] amLODIPine 2020-1 Yes QD daily . [facility] ([facility] 5 2-[facility] tablet 00:00: Medical 00 [place] amLODIPine 2020-1 Yes QD daily . [facility] ([facility] 5 2-[facility] tablet 00:00: Medical 00 [place] amLODIPine 2020-1 Yes QD daily . [facility] ([facility] 5 2-[facility] tablet 00:00: Medical 00 [place] diclofenac 2020- Yes Apply 2-[address] [facility] [...] times daily as needed for pain insulin 2019-0 Yes 30U 30 Units [facility] [...] usly 3 (three) times daily before meals. LEVOTHYROXI 20180 Yes 200ug TAKE 1 Uni vers NE 200 mcg 6-12 TABLET BY ity of tablet 00:00: MOUTH [place] 00 EVERY Medical MORNING. Branch levothyroxi Yes 25ug Take 1 Univ ers ne 25 mcg 6-12 tablet by ity o f tablet 00:00: mouth [place] 00 every Medical morning. Branch No known No No known Metho di medications 1-[address] [facility] l No known No No known Metho di medications 1-[address] 07:14: [facility] 01 l losartan 2016-05 Yes 100mg Take 100 Univ ers 100 mg 2-15 mg by ity of tablet 13:28: mouth [place] 14 daily. Medical Branch LACTOBACILL 2016-05 Yes 1{tbl} Take 1 Un peter US 2-15 tablet by ity of 3/FOS/PANTE 13:28: mouth [place] THINE 14 daily. Medical (PROBIOTIC Branch AND ACIDOPHILUS ORAL) MULTIVITAMI 2016-05 Yes 1{tbl} Take 1 Un peter N ORAL 2-15 tablet by ity of 13:28: mouth [place] 14 daily. Medical Branch allopurinol 2016-05 Yes 100mg Take 100 U nivers 100 mg 2-15 mg by ity of tablet 13:28: mouth [place] 14 daily. Medical Branch ergocalcife 2016-05 Yes [id number] Take 1 Un peter rol, 2-11 capsule by ity of vitamin d2, 00:00: mouth [place] (VITAMIN 00 weekly. Medical D2) 50,000 Branch unit capsule metformin 2016-05 Yes [id number] 500mg Take 1 U nivers ER 500 mg 2-06 tablet by ity o f 24 hr 00:00: mouth 2 [place] tablet 00 (two) Medical times Branch daily with meals. rosuvastati 2016-05 Yes [id number] 10mg Take 1 Univers n 10 mg 2-06 tablet by ity of tablet 00:00: mouth at [place] 00 bedtime. Medical Branch glimepiride 2016-05 Yes [id number] 4mg Take 1 Univers (AMARYL) 4 2-06 tablet by ity of mg tablet 00:00: mouth 2 [place] 00 (two) Medical times Branch daily. TRULICITY 2016-05 Yes Univers 1.5 mg/0.5 2-02 ity of mL PnIj 00:00: [place] 00 Medical Branch HAMZAH 10 2016-05 Yes TAKE 1 Unive rs mg tablet 0-31 TABLET BY ity o f 00:00: MOUTH [place] EVERY Medical MORNING Branch lisinopril lisinopril No lisinopril Maria G 2.5 mg 2.5 mg 9-24 2.5 mg [facility] tablet tablet 00:00: tablet dic Sports Medicin e Synthroid Synthroid No Synthroid Maria G 137 mcg 137 mcg 9-24 137 mcg Orthop e tablet tablet 00:00: tablet dic 00 Sports Medicin e tramadol 50 tramadol 50 No tramadol Marai G mg tablet mg tablet 9-24 50 [...] 00:00: tablet dic 00 Sports Medicin e lisinopril lisinopril No lisinopril [...] 00:00: tablet dic 00 Sports Medicin e lisinopril lisinopril No lisinopril [...] tablet 00:00: tablet dic Sports Medicin e metformin metformin No metformin [...] YOUR INSTRUCTED PHYSICIANS PHYSICIANS BY YOUR OFFICE. [facility] OFFICE. [facility] PHYSICIANS [id number] N [id number] N OFFICE. CN GROUP CN GROUP [facility] [id number] [facility] CN ID ID GROUP [id number] ID [id number] Tresiba Tresiba No Tresiba Maria G FlexTouch [...] gauge x Medici n 3/16" USE 5 16" USE 5 16" USE e TIMES A DAY TIMES A [...] SEE capsule Sports ATTACHED ATTACHED PLEASE SEE [place] carrasquillo FOR FOR ATTACHED e DETAILED DETAILED FOR [...] BEDTIME ergocalcife ergocalcife No ergocalcif Maria G raimundo eubanks [facility] (vitamin (vitamin (vitamin dic D2) [...] mL) mg/3 mL) dic subcutaneou subcutaneou subcutaneo Secrette s pen s pen us pen Medicin injector injector injector e Ozempic 2 Ozempic 2 No Ozempic 2 Maria G mg/dose (8 mg/dose (8 mg/dose (8 Orthope mg/3 mL) mg/3 mL) mg/3 mL) dic subcutaneou subcutaneou subcutaneo Secrette s pen s pen us pen Medicin [...] YOUR INSTRUCTED PHYSICIANS PHYSICIANS BY YOUR OFFICE. [facility] OFFICE. [facility] PHYSICIANS [id number] N [id number] [facility] OFFICE. GROUP CN GROUP [facility] [id number] [facility] CN ID ID GROUP [id number] ID [id number] trazodone trazodone No trazodone Maria G 50 [...] x gauge x gauge x Medici n 08/10" USE 5 08/10" USE 5 08/10" USE [...] capsule Sports ATTACHED ATTACHED PLEASE SEE M foreign FOR FOR ATTACHED e DETAILED DETAILED FOR DIRECTIONS DIRECTIONS DETAILED DIRECTIONS ergocalcife ergocalcife No ergocalcif Maria G rol rol ocrona [facility] (vitamin (vitamin (vitamin dic D2) 1,250 [...] YOUR INSTRUCTED PHYSICIANS PHYSICIANS BY YOUR OFFICE. [facility] OFFICE. [facility] PHYSICIANS [id number] N [id number] N OFFICE. CN GROUP CN GROUP [facility] [id number] [facility] CN ID ID GROUP [id number] ID [id number] Tresiba Tresiba No Tresiba Maria G FlexTouch [...] gauge x Medici n 3/16" USE 5 16" USE 5 16" USE e TIMES A DAY TIMES A [...] AND 1.5 TABLETS ON SUNDAY Immunizations Ordered Filled Immunization Date Status Comments Sourc e Immunization Name Name FLUCMARY KAYVAX QUAD PF 2018-02-[address] [facility] FLUCELVAX QUAD PF 2018-02-[address] [facility] Hospital FLUCELVAX QUAD PF 2018-02-[address] [facility]:00 Hospital FLUCELVAX QUAD PF 2018-02-[address] [facility]:00 Hospital FLUCELVAX QUAD PF 2018-02-[address] [facility]:00 Hospital FLUCELVAX QUAD PF Unknown [facility] Vital Signs Vital Name Observation Time [...] BMI (Body Mass 2022-09-20 00:00:00 38.7 kg/m2 [facility]) Sports Medicine Body Weight 2022-09-20 00:00:00 240 [lb_av] [facility] Height 2022-07-05 00:00:00 66 [in_i] [facility] BMI (Body Mass 2022-07-05 00:00:00 38.7 kg/m2 [facility]) Sports Medicine Body Weight 2022-07-05 00:00:00 240 [lb_av] [facility] HEIGHT 2020-09-09 07:45:00 167.6 cm WEIGHT 2020-09-09 07:45:00 119.3 kg HEIGHT 2020-09-07 14:44:00 167.6 cm WEIGHT 2020-09-07 14:44:00 113.399 kg Systolic blood 2022-12-19 22:42:00 116 mm[Hg] [facility] Diastolic blood 2022-12-19 22:42:00 61 mm[Hg] [facility] Heart rate 2022-12-19 22:42:00 90 /min [place] [facility] Respiratory rate 2022-12-19 22:42:00 17 /min [facility] Oxygen saturation in 2022-12-19 22:42:00 97 /min [facility] Arterial blood by Medical Ce nter Pulse oximetry Body temperature 2022-12-19 18:43:00 37.06 [place] [facility] Body height 2022-12-19 18:43:00 167.6 cm [place] [facility] [facility] Body weight 2022-12-19 18:43:00 97.3 kg [facility] BMI 2022-12-19 18:43:00 34.62 kg/m2 [place] [facility] Procedures Procedure Date / Time Performing Clinician Source Performed CT ABDOMEN/PELVIS WITH IV 2023-01-01 09:58:47 Lior Strauss [facility] BASIC METABOLIC PANEL 2022-12-19 21:37:00 Boyd Villavicencio [facility] XR CHEST 1 VIEW PORTABLE 2022-12-19 20:06:00 [facility] / BEDSIDE Center CTA CHEST FOR PULMONARY 2022-12-19 20:05:00 [facility] EMBOLUS [place] LACTIC ACID, VENOUS 2022-12-19 19:02:00 [facility] TSH/FREE T4 IF INDICATED 2022-12-19 19:02:00 [facility] T4, FREE 2022-12-19 19:02:00 [facility] B-TYPE NATRIURETIC FACTOR 2022-12-19 19:01:00 [facility] (BNP) [place] BASIC METABOLIC PANEL 2022-12-19 19:01:00 [facility] CBC W/PLT COUNT & AUTO 2022-12-19 19:01:00 [facility] DIFFERENTIAL [place] LIPASE 2022-12-19 19:01:00 [facility] HIGH SENSITIVITY TROPONIN 2022-12-19 19:01:00 [facility] CBC W/PLT COUNT & AUTO 2022-12-19 19:01:00 [facility] DIFFERENTIAL Center ED ECG INTERPRETATION 2022-12-19 18:57:59 [facility] ECG 12-LEAD 2022-12-19 18:49:43 [facility] ECG 12-LEAD 2022-12-19 18:49:43 Unknown, Hl7 Doctor [place] [facility] EKG-SCANNED 2022-12-19 00:00:00 Provider, [facility] CT ABDOMEN/PELVIS WITH IV 2022-09-14 16:23:00 Alberta Garibay [facility] CONTRAST Center XR FOOT 3 VIEWS LEFT 2022-09-06 16:50:00 Teressa [facility] XR HAND 3 VIEWS RIGHT 2022-09-06 16:50:00 Teressa, [facility] XR, hip + pelvis, 2022-07-05 00:00:00 Maria G Ort hopedic unilateral, 2 or 3 view Sports M edicine XR, knee, 4 or more view 2022-07-05 00:00:00 Sara tompkins [facility] XR LUMBAR SPINE COMP WITH 2022-06-22 14:41:00 Alberta Garibay [facility] Medical FLEX & EXT Center Caesarean Section Maria G Orthope dic Sports Medicine Cancer Surgery [facility] Orthopedi c Sports Medicine Foot Surgery [facility] Medicine Hysterectomy [facility] Knee Surgery [facility] Medicine Shoulder Surgery [facility] Orthoped ic Sports Medicine Plan of Care Planned Activity Planned Date Details Comments Source Future Scheduled 2031-08-18 DTAP/TDAP/TD VACCINES (3 [facility] Test [facility]00 [code = 43271651] Medical Ce nter Future Scheduled 2025-12-22 Lipid panel (procedure) [facility] Test 00:00:00 [code = 29379550] Medical Ce nter Future Scheduled 2025-12-22 Lipid panel (procedure) [facility] Test 00:00:00 [code = 66244485] Medical Ce nter Future Scheduled 2025-12-22 Lipid panel (procedure) [facility] Test 00:00:00 [code = 63420393] Medical Ce nter Future Scheduled 2025-07-11 Lipid panel (procedure) [facility] Test 00:00:00 [code = 60612842] Medical Ce nter Future Scheduled 2025-07-11 Lipid panel (procedure) [facility] Test 00:00:00 [code = 80380972] Medical Ce nter Future Scheduled 2025-07-11 Lipid panel (procedure) [facility] Test 00:00:00 [code = 60907801] Medical Ce nter Future Scheduled 2025-07-11 Lipid panel (procedure) [facility] Test 00:00:00 [code = 78310076] Medical Ce nter Future Scheduled 2025-07-11 Lipid panel (procedure) [facility] Test 00:00:00 [code = 72186394] Medical Ce nter Future Scheduled 2025-07-11 Lipid panel (procedure) [facility] Test 00:00:00 [code = 82975086] Medical Ce nter Future Scheduled 2025-07-11 Lipid panel (procedure) [facility] Test 00:00:00 [code = 84919626] Medical Ce nter Future Scheduled 2025-07-11 Lipid panel (procedure) [facility] Test 00:00:00 [code = 36572560] Medical Ce nter Future Scheduled 2025-07-11 Lipid panel (procedure) [facility] Test 00:00:00 [code = 58261502] Medical Ce nter Future Scheduled 2025-07-11 Lipid panel (procedure) [facility] Test 00:00:00 [code = 70431567] Medical Ce nter Future Scheduled 2024-04-24 Screening [facility] malignant [facility] Test 00:00:00 neoplasm of breast Medical C enter (procedure) [code = 195169171] Future Scheduled 2024-04-24 Screening for malignant [facility] Test 00:00:00 neoplasm of breast Medical C enter (procedure) [code = 075287397] Future Scheduled 2024-04-24 Screening for malignant [facility] Test 00:00:00 neoplasm of breast Medical C enter (procedure) [code = 671808599] Future Scheduled 2024-04-24 Screening for malignant [facility] Test 00:00:00 neoplasm of breast Medical C enter (procedure) [code = 561805665] Future Scheduled 2024-04-24 Screening for malignant [facility] Test 00:00:00 neoplasm of breast Medical C enter (procedure) [code = 187024993] Future Scheduled 2024-04-24 Screening for malignant [facility] Test 00:00:00 neoplasm of breast Medical C enter (procedure) [code = 862500281] Future Scheduled 2023-12-[address] [...] [facility] Test 00:00:00 [code = 48814004] Medical Ce nter Future Scheduled 2023-02-02 Lipid panel (procedure) [facility] Test 00:00:00 [code = 01594384] Medical Ce nter Future Scheduled 2023-02-02 Lipid panel (procedure) [facility] Test 00:00:00 [code = 62331129] Medical Ce nter Future Scheduled 2023-02-02 Lipid panel (procedure) [facility] Test 00:00:00 [code = 37793944] Medical Ce nter Future Scheduled 2023-02-02 Lipid panel (procedure) [facility] Test 00:00:00 [code = 38999108] Medical Ce nter Future Scheduled 2023-02-02 Lipid panel (procedure) [facility] Test 00:00:00 [code = 71343464] Medical Ce nter Future Scheduled 2023-02-02 Lipid panel (procedure) [facility] Test 00:00:00 [code = 56228840] Medical Ce nter Future Scheduled 2023-02-02 Lipid panel (procedure) [facility] Test 00:00:00 [code = 88801333] Medical Ce nter Future Scheduled 2023-02-02 Lipid panel (procedure) [facility] Test 00:00:00 [code = 51238985] Medical Ce nter Future Scheduled 2023-02-02 Lipid panel (procedure) [facility] Test 00:00:00 [code = 50780378] Medical Ce nter Future Scheduled 2023-02-02 Lipid panel (procedure) [facility] Test 00:00:00 [code = 39352539] Medical Ce nter Future Scheduled 2023-02-02 Lipid panel (procedure) [facility] Test 00:00:00 [code = 36905788] Medical Ce nter Future Scheduled 2023-02-02 Lipid panel (procedure) [facility] Test 00:00:00 [code = 52006795] Medical Ce nter Future Scheduled 2023-02-02 Lipid panel (procedure) [facility] Test 00:00:00 [code = 10825220] Medical Ce nter Future Scheduled 2023-01-29 Screening for malignant [facility] 13:11:19 neoplasm of cervix Hospital (procedure) [code = 236352016] Future Scheduled 2023-01-29 BREAST CANCER SCREENING [facility] 13:11:19 [code = BREAST CANCER Hospit al SCREENING] Future Scheduled 2023-01-29 Screening for malignant [facility] 13:11:19 neoplasm of colon Hospital (procedure) [code = 425796101] Future Scheduled 2023-01-29 Screening for malignant [facility] 13:11:19 neoplasm of colon Hospital (procedure) [code = 941100149] Future Scheduled 2023-01-29 SHINGLES VACCINES (1 of [facility] 13:11:19 2) [code = SHINGLES Hospital VACCINES (1 of 2)] Future Scheduled 2023-01-29 INFLUENZA VACCINE (#1) M ethodist Test 13:11:19 [code = INFLUENZA Hospital VACCINE (#1)] Future Scheduled 2023-01-29 Screening for malignant [facility] 13:11:19 neoplasm of colon Hospital (procedure) [code = 391351802] Future Scheduled 2023-01-29 Screening for malignant [facility] 13:11:19 neoplasm of colon Hospital (procedure) [code = 400404738] Future Scheduled 2023-01-29 Screening for malignant [facility] 13:11:19 neoplasm of colon Hospital (procedure) [code = 337833787] Future Scheduled 2023-01-29 COVID-19 VACCINE (#1) [facility] Test 13:11:19 [code = COVID-19 VACCINE Hos pital (#1)] Future Scheduled 2023-01-29 Screening for malignant [facility] 13:11:19 neoplasm of colon Hospital (procedure) [code = 106402247] Future Scheduled 2023-01-29 Screening for malignant [facility] 13:11:19 neoplasm of colon Hospital (procedure) [code = 808938334] Future Scheduled 2023-01-29 Screening for malignant [facility] 13:11:19 neoplasm of colon Hospital (procedure) [code = 146942299] Future Scheduled 2023-01-29 COVID-19 VACCINE (#1) [facility] Test 13:11:19 [code = COVID-19 VACCINE Hos pital (#1)] Future Scheduled 2023-01-29 Screening for malignant [facility] 13:11:19 neoplasm of cervix Hospital (procedure) [code = 726712043] Future Scheduled 2023-01-29 BREAST CANCER SCREENING [facility] 13:11:19 [code = BREAST CANCER Hospit al SCREENING] Future Scheduled 2023-01-29 Screening for malignant [facility] 13:11:19 neoplasm of colon Hospital (procedure) [code = 244590703] Future Scheduled 2023-01-29 Screening for malignant [facility] 13:11:19 neoplasm of colon Hospital (procedure) [code = 451494396] Future Scheduled 2023-01-29 SHINGLES VACCINES (1 of [facility] 13:11:19 2) [code = SHINGLES Hospital VACCINES (1 of 2)] Future Scheduled 2023-01-29 INFLUENZA VACCINE (#1) M [facility]ist Test 13:11:19 [code = INFLUENZA Hospital VACCINE (#1)] Future Scheduled 2023-01-26 Influenza Vaccine (#1) [...] (#1)] Future Scheduled 2022-09-14 Screening for malignant [facility] 15:58:11 neoplasm of cervix Hospital (procedure) [code = 873979246] Future Scheduled 2022-09-14 BREAST CANCER SCREENING [facility] 15:58:11 [code = BREAST CANCER Hospit al SCREENING] Future Scheduled 2022-09-14 Screening for malignant [facility] 15:58:11 neoplasm of colon Hospital (procedure) [code = 487794613] Future Scheduled 2022-09-14 SHINGLES VACCINES (1 of [facility] 15:58:11 2) [code = SHINGLES Hospital VACCINES (1 of 2)] Future Scheduled 2022-09-14 INFLUENZA VACCINE [code [facility] 15:58:11 = INFLUENZA VACCINE] Hospita Future Scheduled 2022-07-24 COVID-19 VACCINE (#1) [facility] Test 09:17:43 [code = COVID-19 VACCINE Hos pital (#1)] Future Scheduled 2022-07-24 Screening for malignant [facility] 09:17:43 neoplasm of cervix Hospital (procedure) [code = 240074605] Future Scheduled 2022-07-24 BREAST CANCER SCREENING [facility] 09:17:43 [code = BREAST CANCER Hospit al SCREENING] Future Scheduled 2022-07-24 COLONOSCOPY SCREENING [facility] Test 09:17:43 [code = COLONOSCOPY Hospital SCREENING] Future Scheduled 2022-07-24 SHINGLES VACCINES (1 of [facility] 09:17:43 2) [code = SHINGLES Hospital VACCINES (1 of 2)] Future Scheduled 2022-07-24 INFLUENZA VACCINE [code [facility] 09:17:43 = INFLUENZA VACCINE] Hospita l Future Scheduled 2022-07-08 Screening for malignant [facility] Test 00:00:00 neoplasm of breast Medical C enter (procedure) [code = 746719208] Future Scheduled 2022-07-08 Screening for malignant [facility] Test 00:00:00 neoplasm of breast Medical C enter (procedure) [code = 912528493] Future Scheduled 2022-07-08 Screening for malignant [facility] Test 00:00:00 neoplasm of breast Medical C enter (procedure) [code = 670186134] Future Scheduled 2022-07-08 Screening for malignant [facility] Test 00:00:00 neoplasm of breast Medical C enter (procedure) [code = 716238065] Future Scheduled 2022-07-08 Screening for malignant [facility] Test 00:00:00 neoplasm of breast Medical C enter (procedure) [code = 852123631] Future Scheduled 2022-07-08 Screening for malignant [facility] Test 00:00:00 neoplasm of breast Medical C enter (procedure) [code = 238713018] Future Scheduled 2022-07-08 Screening for malignant [facility] Test 00:00:00 neoplasm of breast Medical C enter (procedure) [code = 318389525] Future Scheduled 2022-07-08 Screening for malignant [facility] Test 00:00:00 neoplasm of breast Medical C enter (procedure) [code = 636042178] Future Scheduled 2022-07-08 Screening for malignant [facility] Test 00:00:00 neoplasm of breast Medical C enter (procedure) [code = 216832139] Future Scheduled 2022-07-08 Screening for malignant [facility] Test 00:00:00 neoplasm of breast Medical C enter (procedure) [code = 620251999] Future Scheduled 2022-07-08 Screening for malignant [facility] Test 00:00:00 neoplasm of breast Medical C enter (procedure) [code = 449789456] Future Scheduled 2022-07-08 Screening for malignant [facility] Test 00:00:00 neoplasm of breast Medical C enter (procedure) [code = 598307772] Future Scheduled 2022-07-08 Screening for malignant [facility] Test 00:00:00 neoplasm of breast Medical C enter (procedure) [code = 368479844] Future Scheduled 2022-07-08 Screening for malignant [facility] Test 00:00:00 neoplasm of breast Medical C enter (procedure) [code = 058580879] Future Scheduled 2022-07-08 Screening for malignant [facility] Test 00:00:00 neoplasm of breast Medical C enter (procedure) [code = 655937238] Future Scheduled 2022-07-08 Screening for malignant [facility] Test 00:00:00 neoplasm of breast Medical C enter (procedure) [code = 335899441] Future Scheduled 2022-07-08 Screening for malignant [facility] Test 00:00:00 neoplasm of breast Medical C enter (procedure) [code = 920960762] Future Scheduled 2022-07-08 Screening for malignant [facility] Test 00:00:00 neoplasm of breast Medical C enter (procedure) [code = 487639762] Future Scheduled 2022-07-08 Screening for malignant [facility] Test 00:00:00 neoplasm of breast Medical C enter (procedure) [code = 277741230] Future Scheduled 2022-07-08 Screening for malignant [facility] Test 00:00:00 neoplasm of breast Medical C enter (procedure) [code = 110029400] Future Scheduled 2022-07-08 Screening for malignant [facility] Test 00:00:00 neoplasm of breast Medical C enter (procedure) [code = 255884565] Future Scheduled 2022-07-08 Screening for malignant [facility] Test 00:00:00 neoplasm of breast Medical C enter (procedure) [code = 462747244] Future Scheduled 2022-05-[address] [...] Test 00:00:00 (12+) [code = DEPRESSION [facility] SCREENING (12+)] Future Scheduled 2022-04-05 HEPATITIS B VACCINES (1 [facility] 11:10:42 of 3 - 3-dose series) Hospit al [code = HEPATITIS B VACCINES (1 of 3 - 3-dose series)] Future Scheduled 2022-04-05 COVID-19 VACCINE (#1) [facility] 11:10:42 [code = COVID-19 VACCINE Hos pital (#1)] Future Scheduled 2022-04-05 Screening for malignant [facility] 11:10:42 neoplasm of cervix Hospital (procedure) [code = 388097618] Future Scheduled 2022-04-05 BREAST CANCER SCREENING [facility] 11:10:42 [code = BREAST CANCER Hospit al SCREENING] Future Scheduled 2022-04-05 COLONOSCOPY SCREENING [facility] 11:10:42 [code = COLONOSCOPY Hospital SCREENING] Future Scheduled 2022-04-05 SHINGLES VACCINES (1 of [facility] 11:10:42 2) [code = SHINGLES Hospital VACCINES (1 of 2)] Future Scheduled 2022-04-05 INFLUENZA VACCINE [code [facility] 11:10:42 = INFLUENZA VACCINE] Hospita l [...] Future Scheduled 2022-01-20 SHINGLES VACCINES (1 of [facility] 01:47:32 2) [code = SHINGLES Hospital VACCINES (1 of 2)] Future Scheduled 2022-01-20 INFLUENZA VACCINE [code [facility] 01:47:32 = INFLUENZA VACCINE] Hospita l Future Scheduled 2022-01-20 HEPATITIS B VACCINES (1 [facility] 01:47:32 of 3 - 3-dose series) Hospit al [code = HEPATITIS B VACCINES (1 of 3 - 3-dose series)] Future Scheduled 2022-01-20 COVID-19 VACCINE (#1) [facility] 01:47:32 [code = COVID-19 VACCINE Hos pital (#1)] Future Scheduled 2022-01-20 Screening for malignant [facility] 01:47:32 neoplasm of cervix Hospital (procedure) [code = 838111769] Future Scheduled 2022-01-20 BREAST CANCER SCREENING [facility] 01:47:32 [code = BREAST CANCER Hospit [...] [facility] Test 00:00:00 Counseling and Screening [facility] (12+) [code = Tobacco Cessation Counseling and Screening (12+)] Future Scheduled 2021-09-[address] [facility] Test 00:00:00 [facility]ing [facility]ening [facility] [facility] (12+) [code = [facility] Cess[facility] Future Scheduled 2010 SHINGLES VACCINES ([address] [facility] 2[facility] Future Scheduled 2010 SHINGLES VACCINES ([address] [facility] 00:00[facility]00 2) [facility] Future Scheduled 2010 SHINGLES VACCINES ([address] [facility] 00:00[facility]00 2) [facility] Future Scheduled 1981 Screening for malignant [facility] 00:00:00 neoplasm of cervix [facility] (procedure) [code = [id number]] Future Scheduled 1981 Screening for malignant [facility] 00:00:00 neoplasm of cervix [facility] (procedure) [code = 709974533] Future Scheduled 1981 Screening for malignant [facility] 00:00:00 neoplasm of cervix [facility] (procedure) [code = 387546950] Future Scheduled 1981 Screening for malignant [facility] 00:00:00 neoplasm of cervix [facility] (procedure) [code = [id number]] Future Scheduled 1981 Screening for malignant [facility] 00:00:00 neoplasm of cervix [facility] (procedure) [code = 284773051] Future Scheduled 1981 Screening for malignant [facility] 00:00:00 neoplasm of cervix [facility] (procedure) [code = 064405615] Future Scheduled 1981 Screening for malignant [facility] 00:00:00 neoplasm of cervix [facility] (procedure) [code = 171270005] Future Scheduled 1981 Screening for malignant [facility] 00:00:00 neoplasm of cervix [facility] (procedure) [code = 030195151] Future Scheduled 1981 Screening for malignant [facility] 00:00:00 neoplasm of cervix [facility] (procedure) [code = 166294319] Future Scheduled 1981 Screening for malignant [facility] 00:00:00 neoplasm of cervix [facility] (procedure) [code = 898636360] Future Scheduled 1981 Screening for malignant [facility] 00:00:00 neoplasm of cervix [facility] (procedure) [code = 845006889] Future Scheduled 1981 Screening for malignant [facility] 00:00:00 neoplasm of cervix [facility] (procedure) [code = 399795715] Future Scheduled 1981 Screening for malignant [facility] 00:00:00 neoplasm of cervix [facility] (procedure) [code = 711142028] Future Scheduled 1981 Screening for malignant [facility] 00:00:00 neoplasm of cervix [facility] (procedure) [code = 345885072] Future Scheduled 1981 Screening for malignant [facility] 00:00:00 neoplasm of cervix [facility] (procedure) [code = 682568192] Future Scheduled 1981 Screening for malignant [facility] 00:00:00 neoplasm of cervix [facility] (procedure) [code = 079264317] Future Scheduled 1981 Screening for malignant [facility] 00:00:00 neoplasm of cervix [facility] (procedure) [code = 484507055] Future Scheduled 1981 Screening for malignant [facility] 00:00:00 neoplasm of cervix [facility] (procedure) [code = 880600149] Future Scheduled 1981 Screening for malignant [facility] 00:00:00 neoplasm of cervix [facility] (procedure) [code = 203688373] Future Scheduled 1981 Screening for malignant [facility] 00:00:00 neoplasm of cervix [facility] (procedure) [code = 676275166] Future Scheduled 1981 Screening for malignant [facility] 00:00:00 neoplasm of cervix [facility] (procedure) [code = 225510387] Future Scheduled 1981 Screening for malignant [facility] 00:00:00 neoplasm of cervix [facility] (procedure) [code = 411296451] Future Scheduled 1981 Screening for malignant [facility] 00:00:00 neoplasm of cervix [facility] (procedure) [code = 981749263] Future Scheduled 1981 Screening for malignant [facility] 00:00:00 neoplasm of cervix [facility] (procedure) [code = 674851957] Future Scheduled 1981 Screening for malignant [facility] 00:00:00 neoplasm of cervix [facility] (procedure) [code = 223316015] Future Scheduled 1981 Screening for malignant [facility] 00:00:00 neoplasm of cervix [facility] (procedure) [code = 726529775] Future Scheduled 1981 Screening for malignant [facility] 00:00:00 neoplasm of cervix [facility] (procedure) [code = 971764870] Future Scheduled 1981 Screening for malignant [facility] 00:00:00 neoplasm of cervix [facility] (procedure) [code = 333589116] Future Scheduled 1979-10-01 SHINGLES VACCINES (1 of [...] [facility] [code = 531129527] Future Scheduled 1975-10-01 Human immunodeficiency [facility]procedure) [code = 088559780] Future Scheduled 1975-10-01 Human immunodeficiency [facility] (procedure) [code = 986630035] Future Scheduled 1975-10-01 Human immunodeficiency [facility] (procedure) [code = 902808062] Future Scheduled 1975-10-01 Human immunodeficiency [facility] (procedure) [code = 189252551] Future Scheduled 1975-10-01 Human immunodeficiency [facility] virus screening [facility] (procedure) [code = 523029665] Future Scheduled 1966 Pneumococcal Vaccine: [facility] [...] colon [facility] (procedure) [code = 972334229] Future Scheduled 1960 Screening for malignant [facility] 00:00:00 neoplasm of colon [facility] (procedure) [code = 606306091] Future Scheduled 1960 CT Colonography (combo) [facility] 00:[facility] [code = CT Colonography [facility] (combo)] Future Scheduled 1960 Screening for malignant [facility] 00:00:00 neoplasm of colon [facility] (procedure) [code = 548035520] Future Scheduled 1960 Screening for malignant [facility] 00:00:00 neoplasm of colon [facility] (procedure) [code = 255795943] Future Scheduled 1960 Screening for malignant [facility] 00:00:00 neoplasm of colon [facility] (procedure) [code = 165757352] Future Scheduled 1960 Screening for malignant [facility] 00:00:00 neoplasm of colon [facility] (procedure) [code = 182156103] Future Scheduled 1960 Sigmoidoscopy [facility]code [facility]] [facility] Future Scheduled 1960 Screening for malignant [facility] 00:00:00 neoplasm of colon [facility] (procedure) [code = 491419815] Future Scheduled 1960 Screening for malignant [facility] 00:00:00 neoplasm of colon [facility] (procedure) [code = 161901648] Future Scheduled 1960 S[facility]oidoscopy [facility]code [facility]] [facility] Future Scheduled 1960 CT Colonography (combo) [facility] 00:00:00 [code = CT Colonography [facility] (combo)] Future Scheduled 1960 Screening for malignant [facility] 00:00:00 neoplasm of colon [facility] (procedure) [code = 591408217] Future Scheduled 1960 Screening for malignant [facility] 00:00:00 neoplasm of colon [facility] (procedure) [code = 068702571] Future Scheduled 1960 Screening for malignant [facility] 00:00:00 neoplasm of colon [facility] (procedure) [code = 440569738] Future Scheduled 1960 Screening for malignant [facility] 00:00:00 neoplasm of colon [facility] (procedure) [code = 757707239] Future Scheduled 1960 S[facility]oidoscopy [facility]code [facility]] [facility] Future Scheduled 1960 CT Colonography (combo) [facility] 00:00:00 [code = [facility] ([facility])] Future Scheduled 1960 Screening for malignant [facility] 00:00:00 neoplasm of colon [facility] (procedure) [code = 985591894] Future Scheduled 1960 Screening for malignant [facility] 00:00:00 neoplasm of colon [facility] (procedure) [code = 992977446] Future Scheduled 1960 Screening for malignant [facility] 00:00:00 neoplasm of colon [facility] (procedure) [code = 320024564] Future Scheduled 1960 Screening for malignant [facility] 00:00:00 neoplasm of colon [facility] (procedure) [code = 716618923] Future Scheduled 1960 Sigmoidoscopy [code = [facility] [...] colon [facility] (procedure) [code = 780746456] Future Scheduled 1960 Screening for malignant [facility] 00:00:00 neoplasm of colon [facility] (procedure) [code = 530306499] Future Scheduled 1960 Screening for malignant [facility] 00:00:00 neoplasm of colon [facility] (procedure) [code = 947398946] Future Scheduled 1960 Screening for malignant [facility] 00:00:00 neoplasm of colon [facility] (procedure) [code = 781654912] Future Scheduled 1960 S[facility]oidoscopy [facility] Future Scheduled 1960 Screening for malignant [facility] 00:00:00 neoplasm of colon [facility] (procedure) [code = 695327232] Future Scheduled 1960 Screening for malignant [facility] 00:00:00 neoplasm of colon [facility] (procedure) [code = 156700364] Future Scheduled 1960 Screening for malignant [facility] 00:00:00 neoplasm of colon [facility] (procedure) [code = 479702467] Future Scheduled 1960 CT Colonography (combo) [facility] 00:00:00 [code = [facility] ([facility])] Future Scheduled 1960 Screening for malignant [facility] 00:00:00 neoplasm of colon [facility] (procedure) [code = 841444102] Future Scheduled 1960 Screening for malignant [facility] 00:00:00 neoplasm of colon [facility] (procedure) [code = 369114181] Future Scheduled 1960 Screening for malignant [facility] 00:00:00 neoplasm of colon [facility] (procedure) [code = 480971174] Future Scheduled 1960 Screening for malignant [facility] 00:00:00 neoplasm of colon [facility] (procedure) [code = 377620357] Future Scheduled 1960 S[facility]oidoscopy [facility] Future Scheduled 1960 Screening for malignant [facility] 00:00:00 neoplasm of colon [facility] (procedure) [code = 885640749] Future Scheduled 1960 S[facility]oidoscopy [facility]code = [facility] Future Scheduled 1960 CT Colonography (combo) [facility] 00:00:00 [code = [facility] ([facility])] Future Scheduled 1960 Screening for malignant [facility] 00:00:00 neoplasm of colon [facility] (procedure) [code = 788546307] Future Scheduled 1960 Screening for malignant [facility] 00:00:00 neoplasm of colon [facility] (procedure) [code = 224188111] Future Scheduled 1960 Screening for malignant [facility] 00:00:00 neoplasm of colon [facility] (procedure) [code = 155663044] Future Scheduled 1960 Screening for malignant [facility] 00:00:00 neoplasm of colon [facility] (procedure) [code = 535117547] Future Scheduled 1960 S[facility]oidoscopy [facility]code [facility] Future Scheduled 1960 CT Colonography (combo) [facility] 00:00:00 [code = [facility] ([facility])] Future Scheduled 1960 Screening for malignant [facility] 00:00:00 neoplasm of colon [facility] (procedure) [code = 078478709] Future Scheduled 1960 Screening for malignant [facility] 00:00:00 neoplasm of colon Medical [facility] (procedure) [code = 183633481] Future Scheduled 1960 Screening for malignant [facility] 00:00:00 neoplasm of colon [facility] (procedure) [code = 420598794] Future Scheduled 1960 Screening for malignant [facility] 00:00:00 neoplasm of colon [facility] (procedure) [code = 924583762] Future Scheduled 1960 S[facility]oidoscopy [facility]code [facility] Future Scheduled 1960 CT Colonography (combo) [facility] 00:00:00 [code = [facility] ([facility])] Future Scheduled 1960 Screening for malignant [facility] 00:00:00 neoplasm of colon [facility] (procedure) [code = 845403968] Future Scheduled 1960 Screening for malignant [facility] 00:00:00 neoplasm of colon [facility] (procedure) [code = 218122887] Future Scheduled 1960 Screening for malignant [facility] 00:00:00 neoplasm of colon [facility] (procedure) [code = 253063374] Future Scheduled 1960 Screening for malignant [facility] 00:00:00 neoplasm of colon [facility] (procedure) [code = 122490694] Future Scheduled 1960 S[facility]oidoscopy [facility] Future Scheduled 1960 CT Colonography (combo) [facility] 00:00:00 [code = [facility] ([facility])] Future Scheduled 1960 Screening for malignant [facility] 00:00:00 neoplasm of colon [facility] (procedure) [code = 699006570] Future Scheduled 1960 Screening for malignant [facility] 00:00:00 neoplasm of colon [facility] (procedure) [code = 628554433] Future Scheduled 1960 Screening for malignant [facility] 00:00:00 neoplasm of colon [facility] (procedure) [code = 002866487] Future Scheduled 1960 Screening for malignant [facility] 00:00:00 neoplasm of colon [facility] (procedure) [code = 701055916] Future Scheduled 1960 S[facility]oidoscopy [facility]code = [facility]] [facility] Future Scheduled 1960 CT Colonography (combo) [facility] 00:00:00 [code = CT [facility] ([facility])] Future Scheduled 1960 Screening for malignant [facility] 00:00:00 neoplasm of colon [facility] (procedure) [code = 506261009] Future Scheduled 1960 Screening for malignant [facility] 00:00:00 neoplasm of colon [facility] (procedure) [code = 294778487] Future Scheduled 1960 Screening for malignant [facility] 00:00:00 neoplasm of colon [facility] (procedure) [code = 443289468] Future Scheduled 1960 Screening for malignant [facility] 00:00:00 neoplasm of colon [facility] (procedure) [code = 214058075] Future Scheduled 1960 S[facility]oidoscopy [facility]code = [facility] Future Scheduled 1960 CT Colonography (combo) [facility] 00:[facility]:00 [code = CT Colonography [facility] (combo)] Future Scheduled 1960 Screening for malignant [facility] 00:00:00 neoplasm of colon Medical Ce [facility] (procedure) [code = 560022818] Future Scheduled 1960 Screening for malignant [facility] 00:00:00 neoplasm of colon [facility] Ce [facility] (procedure) [code = 774286883] Future Scheduled 1960 Screening for malignant [facility] 00:00:00 neoplasm of colon [facility] Ce [facility] (procedure) [code = 822800661] Future Scheduled 1960 Screening for malignant [facility] 00:00:00 neoplasm of colon [facility] Ce [facility] (procedure) [code = 835434521] Future Scheduled 1960 S[facility]oidoscopy [facility]code = [facility] Future Scheduled 1960 CT Colonography (combo) [facility] 00:00:00 [code = CT Colonography [facility] (combo)] Future Scheduled 1960 CT Colonography (combo) [facility] 00:00:00 [code = CT Colonography [facility] (combo)] Future Scheduled 1960 Screening for malignant [facility] 00:00:00 neoplasm of colon Medical Ce [facility] (procedure) [code = 668074239] Future Scheduled 1960 Screening for malignant [facility] 00:00:00 neoplasm of colon Medical Ce [facility] (procedure) [code = 281963302] Future Scheduled 1960 Screening for malignant [facility] 00:00:00 neoplasm of colon Medical Ce [facility] (procedure) [code = 937482757] Future Scheduled 1960 Screening for malignant [facility] 00:00:00 neoplasm of colon Medical Ce [facility] (procedure) [code = 940718928] Future Scheduled 1960 S[facility]oidoscopy [facility]code = [facility]] [facility] Future Scheduled 1960 Screening for malignant [facility] 00:00:00 neoplasm of colon Medical Ce [facility] (procedure) [code = 157655016] Future Scheduled 1960 Screening for malignant [facility] 00:00:00 neoplasm of colon Medical Ce [facility] (procedure) [code = 723898460] Future Scheduled 1960 Screening for malignant [facility] 00:00:00 neoplasm of colon [facility] (procedure) [code = 796809014] Future Scheduled 1960 Screening for malignant [facility] 00:00:00 neoplasm of colon Medical Ce [facility] (procedure) [code = 957170983] Future Scheduled 1960 CT Colonography (combo) [facility] 00:00:00 [code = CT [facility] ([facility])] Future Scheduled 1960 Screening for malignant [facility] 00:00:00 neoplasm of colon Medical Ce [facility] (procedure) [code = 436977917] Future Scheduled 1960 Screening for malignant [facility] 00:00:00 neoplasm of colon Medical Ce [facility] (procedure) [code = 186000127] Future Scheduled 1960 Screening for malignant [facility] 00:00:00 neoplasm of colon [facility] (procedure) [code = 440770246] Future Scheduled 1960 Screening for malignant [facility] 00:00:00 neoplasm of colon [facility] (procedure) [code = 773716859] Future Scheduled 1960 Sigmoidoscopy [code = [facility] [...] colon Medical Ce [facility]ter (procedure) [code = 916735661] Future Scheduled 1960 Screening for malignant [facility] 00:00:00 neoplasm of colon [facility] (procedure) [code = 195816024] Future Scheduled 1960 Screening for malignant [facility] 00:00:00 neoplasm of colon Medical Ce [facility] (procedure) [code = 562554051] Future Scheduled 1960 Screening for malignant [facility] 00:00:00 neoplasm of colon [facility] Ce [facility] (procedure) [code = 173460703] Future Scheduled 1960 Sigmoidoscopy [code = [facility] Future Scheduled 1960 CT Colonography (combo) [facility] 00:00:00 [code = CT [facility] (com[facility])] Future Scheduled 1960 Screening for malignant [facility] 00:00:00 neoplasm of colon Medical Ce [facility] (procedure) [code = 777124664] Future Scheduled 1960 Screening for malignant [facility] 00:00:00 neoplasm of colon Medical Ce [facility] (procedure) [code = 011055322] Future Scheduled 1960 Screening for malignant [facility] 00:00:00 neoplasm of colon Medical Ce [facility] (procedure) [code = 603173001] Future Scheduled 1960 Screening for malignant [facility] 00:00:00 neoplasm of colon [facility] (procedure) [code = 449858759] Future Scheduled 1960 S[facility]oidoscopy [facility]code [facility] Future Scheduled 1960 CT Colonography (combo) [facility] 00:00:00 [code = [facility] ([facility])] Future Scheduled 1960 Screening for malignant [facility] 00:00:00 neoplasm of colon Medical Ce [facility] (procedure) [code = 057725363] Future Scheduled 1960 Screening for malignant [facility] 00:00:00 neoplasm of colon Medical Ce [facility] (procedure) [code = 270535719] Future Scheduled 1960 Screening for malignant [facility] 00:00:00 neoplasm of colon Medical [facility] (procedure) [code = 470731966] Future Scheduled 1960 Screening for malignant [facility] 00:00:00 neoplasm of colon Medical Ce [facility] (procedure) [code = 868598975] Future Scheduled 1960 Sigmoidoscopy [facility]code [facility]] [facility] Future Scheduled 1960 CT Colonography (combo) [facility] 00:00:00 [code = [facility] ([facility])] Future Scheduled 1960 Screening for malignant [facility] 00:00:00 neoplasm of colon Medical Ce [facility] (procedure) [code = 817121892] Future Scheduled 1960 Screening for malignant [facility] 00:00:00 neoplasm of colon Medical Ce [facility] (procedure) [code = 249142703] Future Scheduled 1960 Screening for malignant [facility] 00:00:00 neoplasm of colon Medical Ce [facility] (procedure) [code = 087064667] Future Scheduled 1960 Screening for malignant [facility] 00:00:00 neoplasm of colon Medical Ce [facility] (procedure) [code = 637460236] Future Scheduled 1960 Sigmoidoscopy [facility]code [facility]] [facility] Future Scheduled 1960 CT Colonography (combo) [facility] 00:00:00 [code = [facility] ([facility])] Future Scheduled 1960 Screening for malignant [facility] 00:00:00 neoplasm of colon Medical Ce [facility] (procedure) [code = 852979411] Future Scheduled 1960 Screening for malignant [facility] 00:00:00 neoplasm of colon Medical Ce [facility] (procedure) [code = 432379627] Future Scheduled 1960 Screening for malignant [facility] 00:00:00 neoplasm of colon Medical Ce [facility]ter (procedure) [code = 652448714] Future Scheduled 1960 Screening for malignant [facility] 00:00:00 neoplasm of colon Medical Ce [facility] (procedure) [code = 698743651] Future Scheduled 1960 S[facility]oidoscopy [facility]code [facility]] [facility] Future Scheduled 1960 CT Colonography (combo) [facility] 00:00:00 [code = [facility] ([facility])] Future Scheduled 1960 Screening for malignant [facility] 00:00:00 neoplasm of colon Medical Ce [facility]ter (procedure) [code = 575446668] Future Scheduled 1960 Screening for malignant [facility] 00:00:00 neoplasm of colon Medical Ce [facility] (procedure) [code = 860198191] Future Scheduled 1960 Screening for malignant [facility] 00:00:00 neoplasm of colon Medical Ce [facility] (procedure) [code = 173868850] Future Scheduled 1960 Screening for malignant [facility] 00:00:00 neoplasm of colon Medical Ce [facility] (procedure) [code = 791726348] Future Scheduled 1960 S[facility]oidoscopy [facility]] [facility] Future Scheduled 1960 CT Colonography (combo) [facility] 00:00:00 [code = [facility] ([facility])] Future Scheduled 1960 Screening for malignant [facility] 00:00:00 neoplasm of colon Medical Ce [facility] (procedure) [code = 122368476] Future Scheduled 1960 Screening for malignant [facility] 00:00:00 neoplasm of colon Medical Ce [facility] (procedure) [code = 876565774] Future Scheduled 1960 Screening for malignant [facility] 00:00:00 neoplasm of colon Medical Ce [facility] (procedure) [code = 034314925] Future Scheduled 1960 Screening for malignant [facility] 00:00:00 neoplasm of colon Medical Ce [facility] (procedure) [code = 710488329] Future Scheduled 1960 S[facility]oidoscopy [facility] Future Scheduled 1960 CT Colonography (combo) [facility] 00:00:00 [code = [facility] ([facility])] Future Scheduled 1960 Screening for malignant [facility] 00:00:00 neoplasm of colon Medical Ce [facility]ter (procedure) [code = 566698711] Future Scheduled 1960 Screening for malignant [facility] 00:00:00 neoplasm of colon Medical Ce [facility] (procedure) [code = 440659055] Future Scheduled 1960 Screening for malignant [facility] 00:00:00 neoplasm of colon Medical Ce [facility]ter (procedure) [code = 889833209] Future Scheduled 1960 Screening for malignant [facility] 00:00:00 neoplasm of colon Medical Ce [facility]ter (procedure) [code = 748900123] Future Scheduled 1960 S[facility]oidoscopy [facility]code [facility] Future Scheduled 1960 CT Colonography (combo) [facility] 00:00:00 [code = CT Colonography [facility] (combo)] Future Scheduled 1960 Screening for malignant [facility] 00:00:00 neoplasm of colon Medical Ce [facility]ter (procedure) [code = 226193789] Future Scheduled 1960 Screening for malignant [facility] 00:00:00 neoplasm of colon Medical Ce [facility]ter (procedure) [code = 195293052] Future Scheduled 1960 Screening for malignant [facility] 00:00:00 neoplasm of colon Medical Ce [facility]ter (procedure) [code = 314648398] Future Scheduled 1960 Screening for malignant [facility] 00:00:00 neoplasm of colon Medical Ce [facility]ter (procedure) [code = [id number]] Future Scheduled 1960 Sigmoid[facility]code [facility]] Medical Cente r Future Scheduled 1960 CT Colonography (combo) [facility] 00:[facility] [code = CT [facility] ([facility])] Future Scheduled 1960 Screening for malignant [facility] 00:00:00 neoplasm of colon Medical Ce nter (procedure) [code = 511328507] Future Scheduled 1960 Screening for malignant [facility] 00:00:00 neoplasm of colon Medical Ce nter (procedure) [code = 598554872] Future Scheduled 1960 Screening for malignant [facility] 00:00:00 neoplasm of colon Medical Ce nter (procedure) [code = 039066805] Future Scheduled 1960 Screening for malignant [facility] 00:00:00 neoplasm of colon Medical Ce nter (procedure) [code = 085254963] Future Scheduled 1960 Sigmoidoscopy [facility]code [facility] S[facility]oscopy] Medical Justynae r Future Scheduled 1960 CT Colonography (combo) [facility] 00:00:00 [code = CT Colonography [facility] (combo)] Future Scheduled 1960 Screening for malignant [facility] 00:00:00 neoplasm of colon Medical Ce nter (procedure) [code = 517841145] Future Scheduled 1960 Screening for malignant [facility] 00:00:00 neoplasm of colon Medical Ce nter (procedure) [code = 451753412] Future Scheduled 1960 Screening for malignant [facility] 00:00:00 neoplasm of colon Medical Ce nter (procedure) [code = 580393084] Future Scheduled 1960 Screening for malignant [facility] 00:00:00 neoplasm of colon Medical Ce nter (procedure) [code = 249601996] Future Scheduled 1960 Sigmoidoscopy [facility]code = [facility] S[facility]oscopy] Medical Cente r Future Scheduled 1960 CT Colonography (combo) [facility] 00:00:00 [code = CT Colonography [facility] (combo)] Future Scheduled 1960 Screening for malignant [facility] 00:00:00 neoplasm of colon Medical Ce nter (procedure) [code = 532282052] Future Scheduled 1960 Screening for malignant [facility] 00:00:00 neoplasm of colon Medical Ce nter (procedure) [code = 452758892] Future Scheduled 1960 Screening for malignant [facility] 00:00:00 neoplasm of colon Medical Ce nter (procedure) [code = 453022003] Future Scheduled 1960 Screening for malignant [facility] 00:00:00 neoplasm of colon Medical Ce nter (procedure) [code = 321250169] Future Scheduled 1960 Sigmoidoscopy [facility]code = [facility] S[facility]oscopy] Medical Cente r Future Scheduled 1960 CT Colonography (combo) [facility] 00:00:00 [code = CT Colonography [facility] (combo)] Instructions Maria G Orthoped ic Sports Medicine Encounters Start End Encounter Admission Attending Care Care Encounter Source Date/Time Date/Time Type Type Clinicians Facility Department ID 2021-03-05 [facility]patient [facility] [id number] [facility] 09:43:20 BEVERLEY 2023-03-02 2023-03-02 Outpatient FOG_A_Provi AOSM AOSM [id number] Maria G 00:00:00 00:00:00 luis fernando [id number] [facility] 2023-02-06 2023-02-06 Outpatient FOG_A_Provi AOSM AOSM 570 [id number] Maria G 00:00:00 00:00:00 luis fernando [id number] [facility] 2023-01-01 2023-01-01 [facility] Jeferson [facility] [id number] 09:29:39 23:59:00 Encounter [facility] 2023-01-01 2023-01-01 Outpatient MARY KAY STRAUSS [facility] [id number] SLE 09:29:39 23:59:00 TERRIL 2022-12-29 2022-12-29 Outpatient MARY KAY [facility]USS [facility] [id number] [facility] 00:00:00 00:00:00 TERRIL 2022-12-21 2022-12-21 Telephone Screven [facility] [id number] 00:[facility] 00:00:00 [facility] 2022-12-19 2022-12-19 Emergency ER Ali, Amir [facility] [id number] 18:42:00 22:44:00 [facility] 2022-12-19 2022-12-19 Emergency ER ALI, AMIR SLE Emergency [id number] SLE 18:42:00 22:44:00 2022-12-19 2022-12-19 Emergency ER ALI, AMIR [facility] [id number] SLE 18:58:54 18:58:54 2022-12-19 2022-12-19 Emergency ER ALI, AMIR [facility] [id number] SLE 18:57:05 18:57:05 2022-12-19 2022-12-19 Travel [facility] [id number] [facility] St 00:00:00 00:00:00 [facility] 2022-12-14 2022-12-14 Telephone Arnol Govea, [facility] [id number] [facility] St 00:00:00 00:00:00 [facility] 2022-11-02 2022-11-03 Inpatient MARY KAY Shrestha [facility] [id number] [facility] 08:30:00 14:35:00 Oswald 00 [place] [facility] 2022-10-31 2022-10-31 Outpatient FOG_A_Provi AOSM AOSM [id number] Maria G 00:00:00 00:00:00 luis fernando [id number] [facility] 2022-10-31 2022-10-31 Outpatient FOG_A_Provi AOSM AOSM 570 [id number] Maria G 00:00:00 00:00:00 luis fernando [id number] [facility] 2022-10-31 2022-10-31 Outpatient FOG_A_Provi AOSM AOSM 570 [id number] Maria G 00:00:00 00:00:00 luis fernando [id number] [facility] 2022-10-31 2022-10-31 Outpatient FOG_A_Provi AOSM AOSM 570 [id number] Maria G 00:00:00 00:00:00 luis fernando [id number] [facility] 2022-10-31 2022-10-31 Outpatient FOG_A_Provi AOSM AOSM 570 [id number] Maria G 00:00:00 00:00:00 luis fernando [id number] [facility] 2022-10-31 2022-10-31 Outpatient FOG_A_Provi AOSM AOSM 570 [id number] Maria G 00:00:00 00:00:00 luis fernando [id number] [facility] 2022-10-10 2022-10-10 Outpatient [facility] [id number] [facility] 00:00:00 00:00:00 [facility] 2022 2022 Outpatient FOG_A_Provi AOSM AOSM 570 [id number] Maria G 00:00:00 00:00:00 luis fernando [id number] [facility] 2022 2022 Outpatient FOG_A_Provi AOSM AOSM 570 2187-20 Maria G 00:00:00 00:00:00 luis fernando [id number] [facility] 2022 2022 Outpatient FOG_A_Provi AOSM AOSM 570 [id number] Maria G 00:00:00 00:00:00 luis fernando [id number] Orthop [facility] 2022-09-29 2022-09-29 [facility] Arnol Govea [facility] [id number] [facility] 00:00:00 00:00:00 Encounter [facility] 2022-09-27 2022-09-27 Outpatient CECY Shrestha [id number] [facility] 16:08:00 16:08:00 Oswald 01 [facility] 2022-09-20 2022-09-20 Outpatient FOG_A_Provi AOSM AOSM 570 [id number] Maria G 00:00:00 00:00:00 luis fernando [id number] [facility] 2022-09-20 2022-09-20 Oswald AOSM [place] - Ortho [id number] Maria G 00:00:00 00:00:00 Fátima Shrestha MD: [id number] FOG_Ofc dic [facility] [place] [place] [address] , Ph. [phone] 2022-09-15 2022-09-15 Outpatient FOG_A_Provi AOSM AOSM 570 [id number] Maria G 00:00:00 00:00:00 luis fernando [id number] [facility]op e [facility] 2022-09-14 2022-09-14 [facility] [id number] 15:58:07 23:59:00 Encounter [facility] 2022-09-14 2022-09-14 Outpatient [facility] [id number] SLE 15:58:07 23:59:00 [facility] 2022-09-12 2022-09-12 [facility] [id number] 00:00:00 00:00:00 Only [facility] 2022-09-06 2022-09-06 [facility] [id number] 16:30:36 23:59:00 Encounter [facility] 2022-09-06 2022-09-06 Outpatient [facility] [id number] SLE 16:30:36 23:59:00 [facility] 2022-09-06 2022-09-06 Outpatient [facility] [id number] SLE 16:30:03 16:30:00 [facility] 2022-09-06 2022-09-06 [facility] [id number] 16:30:00 16:30:00 Encounter [facility] 2022-09-06 2022-09-06 Outpatient [facility] [id number] SLE 16:29:38 16:29:00 [facility] 2022-09-06 2022-09-06 [facility], [facility] [id number] 16:20:00 16:29:00 Encounter [facility] 2022-09-06 2022-09-06 [facility], [facility] [id number] 16:18:49 16:19:00 Encounter [facility] 2022-09-06 2022-09-06 Outpatient [facility], [facility] SLE [id number] SLE 16:18:49 16:19:00 [facility] 2022-09-06 2022-09-06 Outside [facility], [facility] [id number] 00:00:00 00:00:00 Orders [facility] 2022-09-06 2022-09-06 Outside [facility], [facility] [id number] 00:00:00 00:00:00 Orders [facility] 2022-07-11 2022-07-11 Outpatient HAIDER CancholaCL LABO [id number] [facility] 15:46:00 15:46:[address] 2022-07-11 2022-07-11 Outpatient HAIDER McgillTO LABO [id number] [facility] 08:00:00 08:01:[address] [facility]ope [facility] 2022-07-05 2022-07-05 Outpatient FOG_A_Provi AOSM AOSM 570 [id number] Maria G 00:00:00 00:00:00 luis fernando [id number] Orthop e [facility] 2022-07-05 2022-07-05 Oswald AOSM [place] - Ortho 08 Maria G 00:00:00 00:00:00 Fátima Shrestha MD: 7401 FOG_Ofc dic [facility] [place], [place] [address] , Ph. [phone] 2022-07-04 2022-07-04 Outpatient FOG_A_Provi AOSM AOSM 570 [id number] Maria G 00:00:00 00:00:00 luis fernando [id number] [facility] 2022-06-23 2022-06-23 Outpatient FOG_A_Provi AOSM AOSM 570 [id number] Maria G 00:00:00 00:00:00 luis fernando [id number] Orthop [facility] 2022-06-23 2022-06-23 Outpatient FOG_A_Provi AOSM AOSM 570 [id number] Maria G 00:00:00 00:00:00 luis fernando [id number] Orthop e dic [facility] 2022-06-22 2022-06-22 Outpatient EL LANI [facility] [id number] [facility] 14:07:13 23:59:00 [facility] 2022-06-22 2022-06-22 [facility] [id number] CHI 13:50:00 23:59:00 Encounter [facility] 2022-06-15 2022-06-15 [facility] [id number] [facility] 00:00:00 00:00:00 Only [facility] 2021-07-12 2021-07-12 Outpatient R MARY, [facility] [id number] Univers 10:40:00 10:40:00 DAVID [id number] ity of [facility] 2021-06-15 2021-06-15 Patient Doctor [facility] [id number] Univers 00:00:00 00:00:00 Secure Msg Unassigned, PRIMARY [id number] ity of [place] CARE [id number] Jeff PINEDA [phone] Pa dical [address] 2020-09-07 2020-09-07 Outpatient EL [facility] [id number] SLE 00:00:00 00:00:00 2020-08-24 2020-08-24 Outpatient BERE [facility] [id number] SLE 00:00:00 00:00:00 ALEX Results Test Description Test Time Test Comments Results Result Sour e Comments CT ABDOMEN/PELVIS 2023-01-04 WITH IV CONTRAST 10:16:18 [facility] CENTERName: SHERINE GARCIA : 1960 Sex: F [...] Signed By: Kenneth Marinelli01/04/2023 10:18 CDTWorkstation Name: [id number] BASIC METABOLIC PANEL 2022-12-19 22:03:30 Test Item [...] GFR i s not applicable for dialysis brittney joy CTA CHEST FOR PULMONARY [id number] 20:46:57 [facility] : 1960 Sex: FExam: CT [...] of acute pulmonary embolism.Electronically Signed By: Catherine Eli12/19/2022 20:49 CDTWorkstation Name: [id number] CHEST 1 VIEW PORTABLE / [id number] 20:20:48 [facility] : 1960 Sex: FTECHNIQUE: Frontal view of the chest.INDICATION: shortness of breath.COMPARISON: 08/24/2020.FINDINGS:LINES/TUBES: None.HEART AND MEDIASTINUM: Cardiomediastinal contour is within normallimits. LUNGS: The lungs are well inflated and clear. No consolidation orpulmonary edema.PLEURA: No pneumothorax. No significant pleural effusion.SOFT TISSUES AND BONES: Unremarkable.IMPRESSION:No acute cardiopulmonary process.Electronically Signed By: Bird Armendariz12/19/2022 20:22 CDTWorkstation Name: [id number], [id number] 20:13:49 Test Item Value Reference Range Interpretation Comments FREE T4 (BEAKER) (test code = 655) 1.73 ng/dL 0.70-1.48 H TSH/FREE T4 IF [id number] 19:58:04 Test Item Value Reference Range Interpretation Comments THYROID STIMULATING HORMONE 0.047 uIU/mL 0.350-5.500 L (BEAKER) (test code = 772) BASIC METABOLIC [id number] 19:36:49 Test Item Value Reference Range Interpretation [...] De scription 1092) sq m Result G1 Sandrita l or high >=90 G2 Mildly decreased 60-89 [...] for dialysis patien ts HIGH SENSITIVITY TROPONIN [id number] 19:27:46 Test Item Value Reference Range Interpretation Comments HIGH SENSITIVITY TROPONIN I (test 6 pg/ml <=34 code = 9117364) The High-Sensitivity Troponin I assay is performed on Siemens JobHive IM Analyzer. Results of this assay should always be interpreted in conjunction with the patient's medical history, clinical presentation, and other findings.B-TYPE NATRIURETIC FACTOR (BNP)2022-12-19 19:27:45 Test Item Value Reference Range Interpretation Comments B-TYPE NATRIURETIC PEPTIDE (BEAKER) 22 pg/mL 0-100 (test code = 700) [id number] 19:26:43 Test Item Value Reference Range Interpretation Comments LIPASE (BEAKER) (test code = 749) 42 U/L 8-78 CBC W/PLT COUNT & AUTO [id number] 19:25:42 Test Item Value Reference Range Interpretation [...] (BEAKER) (test code = 2801) LACTIC ACID, [id number] 19:22:01 Test Item Value Reference Range Interpretation Comments LACTATE BLOOD VENOUS 1.00 mmol/L 0.50-2.20 Specime n slightly (2) (BEAKER) (test hemolyzed code = 0326) BASIC METABOLIC [id number] 09:12:00 Test Item Value Reference Range Interpretation [...] 8.1 mg/dL 8.4-10.2 L CA) BASIC METABOLIC [id number] 09:12:00 Test Item Value Reference Range Interpretation [...] = 8.1 mg/dL 8.4-10.2 L CA) HGB [id number] 06:17:00 Test Item Value Reference Range Interpretation Comments HEMOGLOBIN (test code = HGB) 12.1 g/dL 12-16 N HEMATOCRIT (test code = HCT) 36.6 % 37-47 L SPECIMEN COMMENT: POD #1- XR PELVIS 1/2 [id number] 16:23:00 [facility] 1960 Sex: F Patient Name: SHERINE GARCIA Unit No: [id number] EXAMS: CPT CODE: [id number] XR PELVIS 1/2 VIEWS 40713 INTRAOPERATIVE LEG LENGTH FILM COMMENT: COMPARISON: No prior exams available. In progress righthip replacement is noted. AP portable right hip COMMENT: The patient is status post joint replacement which is articulating normally. Electronically Signed by Rickey Menezes MD on 3at 1623 Reported and signed by: Rickey Menezes MD CC: Oswald Shrestha MD Technologist: CEE MARTIN ARRT Transcribed D/ (1622) tALBERTOJCL [facility] NAME: SHERINE GARCIA [address] [place] [address] PHYS: Oswald Rock : 1960 AGE: 62 SEX: F [place] [address] LOC: Y.998 15 PHONE #: [phone] EXAM DATE: 11/02/2022 STATUS: ADM IN FAX #: [phone] RAD #: D/C DT PAGE 1 Signed Report Patient Name: SHERINE GARCIA Unit No: [id number] EXAMS: CPT CODE: [id number] XR PELVIS 1/2 VIEWS 25941 (Continued) Orig Print D/T: S: 11/02/2022 (162) [facility] NAME: SHERINE GARCIA [address] [place] [address] PHYS: CRISTINA.Damaris Oswald Jimenez : 1960 AGE: 62 SEX: F [place] [address] LOC: Y.998 15 PHONE #: [phone] EXAM DATE: 11/02/2022 STATUS: ADM IN FAX #: [phone] RAD #: D/C DT PAGE 2 Signed Report- XR PELVIS 1/2 [id number] 16:23:00 [facility] : 1960 Sex: F Patient Name: SHERINE GARCIA Unit No: [id number] EXAMS: CPT CODE: [id number] XR PELVIS 1/2 [id number] INTRAOPERATIVE LEG LENGTH FILM COMMENT: COMPARISON: No prior exams available. In progress right hip replacement is noted. AP portable right hip COMMENT: The patient is status post joint replacement which is articulating normally. at 1623 Reported and signed by: Rickey Menezes MD CC: Oswald Shrestha MD Technologist: CEE MARTIN ARRT Transcribed D/ (1622) t.EFFIER.L [facility] NAME: SHERINE GARCIA [address] [facility] PHYS: MATBRIAN.Damaris - Oswald Shrestha : 1960 AGE: 62 SEX: F [place], [place] [address] LOC: Y.998 15 PHONE #: [phone] EXAM DATE: 11/02/2022STATUS: ADM IN FAX #: [phone] RAD #: D/C DT PAGE 1 Signed Report Patient Name: SHERINE GARCIA Unit No: [id number] EXAMS: CPT CODE: [id number] XR PELVIS 1/2 VIEWS 48504 (Continued) Orig PrintD/T: S: 11/02/2022 (162) [facility] NAME: SHERINE GARCIA [address] [facility] PHYS: MATBRIAN.Damaris - Oswald Shrestha : 1960 AGE: 62 SEX: F [place], [place] [address] LOC: Y.998 15 PHONE #: [phone] EXAM DATE: 11/02/2022 STATUS: ADM IN FAX #: [phone] RAD #: D/C DT PAGE 2 Signed [id number] 11:47:00 Test Item Value Reference Range Interpretation Comments GLUBED (test code = GLUBED) 121 mg/dL 60-125 N AB HIV 16:02:00 Test Item Value Reference Range Interpretation Comments AB HIV 1 (test code NONREACTIVE NONREACTIVE DONE AT: [facility] = HIV1AB) [facility] [address] [place], [place] [address]Done by [employer] Cent aur 4th Gen HIV Ag/Ab C ombo Screen AB HIV 1 16:02:00 Test Item Value Reference Range Interpretation Comments AB HIV 1 2 (test NONREACTIVE NONREACTIVE Done by Sie [facility] Centaur code = JVU13PC) 4th Gen HIV Ag/Ab Combo Screen GLYCOSYLATED HEMOGLOBIN (HA1C)2022-09-27 12:46:00 Test Item [...] be considered for these patients.DONE A T: [facility] [address], [place], [place] [address] GLYCOSYLATED HEMOGLOBIN (HA1C)2022-09-27 12:46:00 Test Item Value Reference Range Interpretation Comments GLYCOSYLATED 7.2 % 4.8-5.9 H Any condition t hat shortens HEMOGLOBIN (HA1C) erythocyte survival or (test code = GLYHGB) decreas esmean erythrocyte age (e.g., shama very from acute blood los s,hemolytic anemia) will fa lsely lower HGBA1c resultsr egardless of the method used . HGBA1c results from brittney olsen HbSS, HbCC, and HbSc must be interpreted with cautiongiven th e pathological pr ocesses, including anemi a,increased red cell turnov er, transfusion req uirements, thatadversely i mpact HGBA1c as a marker of long-term glycemiccontrol . Alternative for ms of testing such as fructosaminesho uld be considered for these patients. COMPREHENSIVE METABOLIC [id number] 10:54:00 Test Item Value Reference Range Interpretation [...] recommended for matthew for GFRby the N ational Kidney Foundati on for Adults.The GFR will [...] PHOSPHATASE TOTAL (test code = ALKP) PROTHROMBIN [id number] 10:04:00 Test Item Value Reference Range Interpretation [...] BLOOD, PT every other day NTHROMBOPLASTIN TIME [id number] 10:04:00 Test Item Value Reference Range Interpretation Comments PTT ACTIVATED (test code = APTT) 35.0 secs 24.9-37.0 N IS PATIENT ON ANTICOAGULANTS ? NHas Lab [...] % 0-0 N code = NRBC) CT, [id number] 21:25:00Release to patient->Immediate Which [facility] radiology location is preferred?->Jem Reason for exam:- >suprapubic abdominal pain, Insurance Company ID = [id number]; Insurance Company Name = [employer]; Insurance Company Phone Number = ; Policy Number = [id number] : [...] in the left pelvis. Signed: Kenneth Madrigal MDReport Verified Date/Time: 09/14/2022 21:25:09 , HAND, 3 VIEWS, [id number] 09:37:00Reason for Exam:->Elevated sed rate; Arthralgia, unspecified joint; Rheumatoid factor positive [facility] 1960 Sex: FFINAL [...] MDReport Verified Date/Time: 09/07/2022 09:37:03 Reading Location: [facility] Reading Room [address] [place] [address] RAD, HAND, 3 VIEWS, [id number] 09:37:00Reason for Exam:->Elevated sed rate; Arthralgia, unspecified joint; Rheumatoid factor positive [facility] 1960 Sex: FFINAL [...] MDReport Verified Date/Time: 09/07/2022 09:37:03 Reading Location: [facility] Reading [facility] [address] [place] [address] RAD, FOOT, MIN 3 VIEWS, [id number] 09:31:00Reason for Exam:->Elevated sed rate; Arthralgia, unspecified joint; Rheumatoid factor positiveEvaluate for rheumatoid arthritisGREG [facility]: [facility] : 1960 Sex: FFINAL REPORT [...] Johns MDReport Verified Date/Time:09/07/2022 09:31:19 Reading Location: [facility] Reading Room [address] [place] [address] RAD, FOOT, MIN 3 VIEWS, [id number] 09:31:00Reason for Exam:->Elevated sed rate; Arthralgia, unspecified joint; Rheumatoid factor positiveElevate for rheumatoid arthritis [facility] : 1960 Sex: FFINAL REPORT [...] Johns MDReport Verified Date/Time:09/07/2022 09:31:19 Reading Location: [facility] Reading Room [address] [place] [address] OSYLATED HEMOGLOBIN (HA1C)2022-07-11 17:05:00 Test Item Value [...] be considered for these patients.DONE A T: [facility] [address] [place], [place] [address] GLYCOSYLATED HEMOGLOBIN (HA1C)2022-07-11 17:04:00 Test Item Value Reference Range Interpretation Comments GLYCOSYLATED 8.3 % 4.8-5.9 H Any condition t hat shortens HEMOGLOBIN (HA1C) erythocyte survival or (test code = GLYHGB) decreas esmean erythrocyte age (e.g., shama very from acute blood los s,hemolytic anemia) will fa lsely lower HGBA1c resultsr egardless of the method used . HGBA1c results from brittney olsen HbSS, HbCC, and HbSc must be interpreted with cautiongiven th e pathological pr ocesses, including anemi a,increased red cell turnov er, transfusion req uirements, thatadversely i mpact HGBA1c as a marker of long-term glycemiccontrol . Alternative for ms of testing such as fructosaminesho uld be considered for these patients. COMPREHENSIVE METABOLIC [id number] 10:01:00 Test Item Value Reference Range Interpretation [...] recommended for matthew for GFRby the N ational Kidney Foundati on for Adults.The GFR will [...] TOTAL (test code = ALKP) CBC W/AUTO [id number] 09:40:00 Test Item Value Reference Range Interpretation [...] = NRBC) RAD, SPINE, LUMBAR, COMPLETE, WITH [id number] 15:02:00Release to patient- >ImmediateWhich [facility] radiology location is preferred?->[employer] ID = [id number]; Insurance Company Name = [email or web address] [place] [employer]; Insurance CompanyPhone Number = ; Policy Number = [id number]ARC[facility] : 1960 Sex: FFINAL [...] flexion or extension images. Signed: Gary Johns Verified Date/Time: 06/22/2022 15:02:03 Reading Location: [facility] Reading Room [address] [place] [address] POCT-GLUCOSE [id number] 14:29:00 Test Item Value Reference Range Interpretation Comments POC-GLUCOSE METER 174 mg/dL 70-110 H : Notified RN/MD: [facility] (test code AT [place] [address]30 PAM = 1538) [facility] [address]: Nurses Medical Assistants Phlebotomists/Techni santiago ID = [id number] for EDU ABDI POCT-GLUCOSE [id number] 08:32:00 Test Item Value Reference Range Interpretation Comments POC-GLUCOSE METER 305 mg/dL 70-110 H : TESTED A T [facility] 7200 ([facility]) (test code [facility], = 1538) [facility] 7703 0: Nurses Medical Assistants Phlebotomists/Techni santiago ID = [id number] for BLACK MURILLO RAD, CHEST, 2 [id number] 12:11:00Reason for Exam:->[facility]06.02 [facility] 1960 Sex: FFINAL [...] Andujar Verified Date/Time: 08/25/2020 12:11:15 Reading Location: [place] [facility] [address] [address] RAD, HAND, 3 VIEWS, [id number] 14:36:00Reason for Exam:->SYNOVITISFINAL REPORT Exam: Left and [...] Rey Verified Date/Time: 02/24/2019 14:36:11 Reading Location: [facility] [address] [id number] Electronically signed by: Manuel Song 02/24/2019 02:36 PMRAD, HAND, 3 VIEWS, [id number] 14:36:00Reason for Exam:->SYNOVITISFINAL REPORT Exam: Left and [...] joint on the left. Signed: Manuel Rey [facility] Verified Date/Time: 02/24/2019 14:36:11 Reading Location: [facility] Reading Room [address] [place] [address] Electronically signed by: Manuel Song 02/24/2019 02:36 PM
[2023-03-02] MEDS ORDERED: NA CHLORIDE 0.9% 1,000 ML ONE ×2 (19:57→20:57)
[2023-03-02 20:10] LABS: Absolute Lymphocytes (CBC) 1.1 K/uL (0.7-4.9); Hematocrit 45.5 % (36.0-45.0); Lymphocytes % 8.9 % (15.3-44.8); MPV 7.7 fL (7.6-11.3); Platelets 285 thou/uL (152-406); RBC Red Blood Cell Count 5.06 M/uL (3.86-4.86)
[2023-03-02 20:12] LABS: Specific Gravity 1.029 (1.005-1.030); Urine Bacteria <20 /HPF (<20); Urine Bilirubin NEGATIVE (Negative); Urine Blood 1+ (Negative); Urine Clarity Clear (Clear); Urine Color Light-Yellow (Yellow); Urine Glucose 4+ (Over) (Negative); Urine Mucus Slight /HPF (None Seen); Urine Protein 1+ (Negative); Urine Urobilinogen Normal (Normal)
[2023-03-02 20:30] LABS: Albumin 3.7 g/dL (3.4-5.0); Bilirubin Direct 0.1 mg/dL (0-0.2); Bilirubin Indirect, Calculated 0.4 mg/dL (0.2-0.8); Bilirubin Total 0.5 mg/dL (0.2-1.0); Phosphorus 3.4 mg/dL (2.5-4.9); Potassium 4.2 mEq/L (3.5-5.1); Protein, Total 8.1 g/dL (6.4-8.2)
[2023-03-02] MEDS ORDERED: INSULIN -REGULAR HUMAN 50 UNIT/0.5 ML ML ONE ×2 (20:57→23:00)
--- NOTE | 2023-03-02 23:32 | ER ---
Nurse's Notes [facility] Name: Sachin Vasquez Age: 62 yrs Sex: Female : 1960 Arrival Date: 03/02/2023 Time: 19:18 Bed 5 Private MD: Diagnosis: Type 2 diabetes mellitus with hyperglycemia Presentation: 03/02 19:22 Chief complaint: Patient states: BS is reading 385 and that is the highest her iw Glucometer reads , had a steroid shot in her knee today. Coronavirus screen: At this time, the client does not indicate any symptoms associated with coronavirus-19. Ebola Screen: Patient negative for fever greater than or equal to 101.5 degrees Fahrenheit, and additional compatible Ebola Virus Disease symptoms Patient denies exposure to infectious person. Patient denies travel to an Ebola-affected area in the 21 days before illness onset. No symptoms or risks identified at this time. Initial Sepsis Screen: Does the patient meet any 2 criteria? No. Patient's initial sepsis screen is negative. Does the patient have a suspected source of infection? No. Patient's initial sepsis screen is negative. Risk Assessment: Do you want to hurt yourself or someone else? Patient reports no desire to harm self or others. 19:22 Method Of Arrival: Ambulatory iw 19:22 Acuity: [id number] 3 iw Historical: - Allergies: 19:24 Biaxin; iw - PMHx: 19:24 Diabetes - NIDDM; Diverticulitis; Diverticulitis; Gout; Hypertension; RA; iw - PSHx: 19:24 left knee surgery; rotaor cuff surgery- bilaterally; iw - Immunization history:: Adult Immunizations. - Social history:: Smoking status: Patient denies any tobacco usage or history of. Screenin:46 Abuse screen: Denies threats or abuse. Denies injuries from another. Nutritional ha1 screening: No deficits noted. Tuberculosis screening: No symptoms or risk factors identified. Assessment: 19:46 General: Appears comfortable, Behavior is calm, cooperative. Pain: Complains of pain in ha1 abdomen Pain does not radiate. Pain currently is 6 out of 10 on a pain scale. Neuro: Level of Consciousness is awake, alert, obeys commands, Oriented to person, place, time, situation. Cardiovascular: Patient's skin is warm and dry. Respiratory: Airway is patent Respiratory effort is even, unlabored, Respiratory pattern is regular, symmetrical. GI: Abdomen is round non-distended, Bowel sounds present X 4 quads. Abd is soft and non tender X 4 quads. Reports lower abdominal pain, upper abdominal pain. GI: Reports elevated glucose. : No signs and/or symptoms were reported regarding the genitourinary system. Musculoskeletal: Circulation, motion, and sensation intact. Range of motion: intact in all extremities. 20:45 Reassessment: Patient appears in no apparent distress at this time. Patient and/or jb4 family updated on plan of care and expected duration. Pain level reassessed. Patient is alert, oriented x 3, equal unlabored respirations, skin warm/dry/pink. 21:45 Reassessment: Patient appears in no apparent distress at this time. Patient and/or jb4 family updated on plan of care and expected duration. Pain level reassessed. Patient is alert, oriented x 3, equal unlabored respirations, skin warm/dry/pink. 22:30 Reassessment: Patient and/or family updated on plan of care and expected duration. Pain ha1 level reassessed. Patient is alert, oriented x 3, equal unlabored respirations, skin warm/dry/pink. 23:36 Reassessment: Patient appears in no apparent distress at this time. Patient and/or jb4 family updated on plan of care and expected duration. Pain level reassessed. Patient is alert, oriented x 3, equal unlabored respirations, skin warm/dry/pink. Vital Signs: 19:22 BP 153 / 57; Pulse 108; Resp 16; Temp 97.2; Pulse Ox 95% ; Weight 98.43 kg; Height 5 iw ft. 5 in. ; 20:45 BP 125 / 77; Pulse 99; Resp 16; Pulse Ox 91% on R/A; jb4 21:45 BP 137 / 87; Pulse 96; Resp 18; Pulse Ox 92% on R/A; jb4 23:36 BP 131 / 66; Pulse 91; Resp 16; Pulse Ox 93% on R/A; jb4 19:22 Body Mass Index 36.11 (98.43 kg, 165.1 cm) iw ED Course: 19:20 Patient arrived in ED. jj6 19:24 Triage completed. iw 19:24 Arm band placed on. iw 19:24 Patient has correct armband on for positive identification. Bed in low position. Call ha1 light in reach. Side rails up X 1. Adult w/ patient. 19:26 Elizabeth Delacruz [facility]-C [facility]. sb4 19:26 Eagle Sahni MD is Attending Physician. sb4 20:05 UAM Sent. ha1 20:05 Basic Metabolic Panel Sent. ha1 20:05 CBC with Diff Sent. ha1 20:05 Hepatic Function Sent. ha1 20:05 Lipase Sent. ha1 20:05 Phosphorus Sent. ha1 20:10 Inserted saline lock: 22 gauge in right antecubital area, using aseptic technique. ha1 Blood collected. 22:01 Jsoe J Jay, RN is Primary Nurse. jb4 23:42 No provider procedures requiring assistance completed. IV discontinued, intact, jb4 bleeding controlled, No redness/swelling at site. Pressure dressing applied. Administered Medications: 20:05 Drug: NS 0.9% IV 1000 ml IV at 1000 ml once Route: IV; Rate: 1000 ml; Site: right ha1 antecubital; 20:52 Drug: NS 0.9% IV 1000 ml IV at 1 bolus Per protocol; 1000 mL bolus Route: IV; Rate: 1 jb4 bolus; Site: right antecubital; 20:52 Drug: Insulin Regular Human IVP 10 units IVP once {Co-Signature: cesario (Breanne Peterson RN).} Route: IVP; Site: right antecubital; 22:51 Drug: Insulin Regular Human Sub-Q 10 units Sub-Q once {Co-Signature: cesario (Breanne Peterson RN).} Route: Sub-Q; Site: right upper arm; Medication: 22:46 VIS not applicable for this client. ha1 Outcome: 23:32 Discharge ordered by . sb4 23:42 Discharged to home ambulatory, with family, jb4 23:42 Condition: stable 23:42 Discharge instructions given to patient, Instructed on discharge instructions, follow up and referral plans. Demonstrated understanding of instructions, follow-up care, 23:44 Patient left the ED. jb4 Signatures: Allyn Polk RN RN Jose J Jay RN RN jb4 Nazia Prabhakar jj6 Breanne Peterson RN RN [facility] Elizabeth Delacruz PA-C PA-C sb Breanne Peterson RN ha1
--- NOTE | 2023-03-02 23:32 | EDPHYS ---
Physician Documentation [facility] Name: Sachin Vasquez Age: 62 yrs Sex: Female : 1960 Arrival Date: 03/02/2023 Time: 19:18 Bed 5 Private MD: ED Physician Eagle Sahni HPI: 03/03 02:16 This 62 yrs old Female presents to ER via Ambulatory with complaints of High Blood sb4 Sugar, Abdominal Pain. 02:16 Patient comes in feeling clammy and with hyperglycemia. She states that she had a sb4 steroid injection in her knee today and her blood sugars been running high ever since. Her [employer]centive Target[employer] mara clocks her continuous glucose monitoring reports a continuous level of 350 and greater. She denies any changes in her insulin regimen. She only takes 20 units of Tresiba every night. She has had steroid injections in the past that have not caused her blood sugar to spike. She does endorse some abdominal discomfort but denies any and nausea but denies any vomiting or diarrhea. Historical: - Allergies: 03/02 19:24 Biaxin; iw - PMHx: 19:24 Diabetes - NIDDM; Diverticulitis; Diverticulitis; Gout; Hypertension; RA; iw - PSHx: 19:24 left knee surgery; rotaor cuff surgery- bilaterally; iw - Immunization history:: Adult Immunizations. - Social history:: Smoking status: Patient denies any tobacco usage or history of. ROS: 03/03 02:16 Respiratory: Negative for shortness of breath, cough, wheezing, and pleuritic chest sb4 pain, Constitutional: Positive for malaise, Abdomen/GI: Positive for abdominal pain, nausea, All other systems are negative, Exam: 02:16 Constitutional: This is a well developed, well nourished patient who is awake, alert, sb4 and in no acute distress. Head/Face: Normocephalic, atraumatic. Eyes: Extra-ocular motions intact. Periorbital areas with no swelling, redness, or edema. ENT: Mucous membranes moist. Cardiovascular: Regular rate and rhythm with a normal S1 and S2. Respiratory: Lungs have equal breath sounds bilaterally, clear to auscultation and percussion. No rales, rhonchi or wheezes noted. No increased work of breathing, no retractions or nasal flaring. Abdomen/GI: Soft, non-tender, no distension. Back: No spinal tenderness. No costovertebral tenderness. Full range of motion. Skin: Warm, dry with normal turgor. Normal color with no rashes, no lesions, and no evidence of cellulitis. MS/ Extremity: Pulses equal, no cyanosis. Neurovascular intact. Full, normal range of motion. Vital Signs: 03/02 19:22 BP 153 / 57; Pulse 108; Resp 16; Temp 97.2; Pulse Ox 95% ; Weight 98.43 kg; Height 5 iw ft. 5 in. ; 20:45 BP 125 / 77; Pulse 99; Resp 16; Pulse Ox 91% on R/A; jb4 21:45 BP 137 / 87; Pulse 96; Resp 18; Pulse Ox 92% on R/A; jb4 23:36 BP 131 / 66; Pulse 91; Resp 16; Pulse Ox 93% on R/A; jb4 19:22 Body Mass Index 36.11 (98.43 kg, 165.1 cm) iw MDM: 19:26 Patient medically screened. sb4 03/03 02:16 Differential diagnosis: DKA, hyperglycemia. Data reviewed: vital signs, nurses notes, sb4 lab test result(s), and as a result, I will discharge patient. Care significantly affected by the following chronic conditions: Diabetes, Hypertension. Counseling: I had a detailed discussion with the patient and/or guardian regarding the historical points, exam findings, and any diagnostic results supporting the discharge/admit diagnosis, the presence of at least one elevated blood pressure reading (>120/80) during this emergency department visit, lab results, to return to the emergency department if symptoms worsen or persist or if there are any questions or concerns that arise at home. 03/02 19:39 Order name: Basic Metabolic Panel; Complete Time: 20:32 sb4 03/02 19:39 Order name: CBC with Diff; Complete Time: 20:18 sb4 03/02 19:39 Order name: Hepatic Function; Complete Time: 20:32 sb4 03/02 19:39 Order name: Lipase; Complete Time: 20:32 sb4 03/02 19:39 Order name: Phosphorus; Complete Time: 20:32 sb4 03/02 19:39 Order name: UAM; Complete Time: 20:17 sb4 03/02 21:01 Order name: Glucose, Ancillary Testing; Complete Time: 21:05 EDMS 03/02 22:28 Order name: Glucose, Ancillary Testing; Complete Time: 22:30 EDMS 03/02 23:42 Order name: Glucose, Ancillary Testing; Complete Time: 23:44 EDMS 03/02 21:30 Order name: Accucheck: check after second liter of fluid finishes please; Complete sb4 Time: 22:25 Administered Medications: 03/02 20:05 Drug: NS 0.9% IV 1000 ml IV at 1000 ml once Route: IV; Rate: 1000 ml; Site: right ha1 antecubital; 20:52 Drug: NS 0.9% IV 1000 ml IV at 1 bolus Per protocol; 1000 mL bolus Route: IV; Rate: 1 jb4 bolus; Site: right antecubital; 20:52 Drug: Insulin Regular Human IVP 10 units IVP once {Co-Signature: Breanne Thomas RN).} Route: IVP; Site: right antecubital; 22:51 Drug: Insulin Regular Human Sub-Q 10 units Sub-Q once {Co-Signature: Breanne Thomas RN).} Route: Sub-Q; Site: right upper arm; Disposition Summary: 03/02/23 23:32 Discharge Ordered Notes: Location: Home sb4 Problem: new sb4 Symptoms: have improved sb4 Condition: Stable sb4 Diagnosis - Type 2 diabetes mellitus with hyperglycemia sb4 Followup: sb4 - With: Emergency Department - When: As needed - Reason: Trouble breathing, Worsening of condition Discharge Instructions: - Discharge Summary Sheet sb4 - Hyperglycemia sb4 Forms: - Medication Reconciliation Form sb4 - Thank You Letter sb4 - Antibiotic Education sb4 - Prescription Opioid Use sb4 - Patient Portal Instructions sb4 - Leadership Thank You Letter sb4 Addendum: 03/04/2023 06:59 Co-signature as Attending Physician, Eagle Sahni MD I reviewed the patient's care r n provided by the Advanced Practice Provider and agree with the diagnosis and treatment plan. Signatures: Dispatcher [employer] [facility] Allyn Polk RN RN iw Nieto, Roman, MD MD rn Bryson, James, RN RN jb4 Ayala, Heidy, RN RN [facility] Elizabeth Delacruz PA-C PA-C sb4 Breanne Peterson RN ha1
[2023-03-03 00:32] VITALS: TEMP 97.2
[2023-03-03 00:35] VITALS: BP 131/66; O2SAT 93
== END 2023-03-02 23:44 | disposition home or self-care (01) ==
LOC: ER 19:18
DX: E11.65 Type 2 diabetes mellitus with hyperglycemia (principal); I10 Essential (primary) hypertension; Z88.1 Allergy status to other antibiotic agents
CPT/HCPCS: 85025; 81001; 80048; 36415; 84100; 82947 ×3; 80076; 83690; 96372; 96374; 99284; J1815 ×2; J7030 ×2